=== PATIENT | female | born 1990 | race Caucasian/White ===

== ENCOUNTER 2024-10-12 11:04 | Outpatient (OUT) | payer BC, SELFPAY ==
--- NOTE | 2024-10-12 11:06 | US_ITS ---
[address] [address] Patient Name: CELINA BATISTA MRN: [id number] date: 1990 Sex: F Assigned Patient Location: [facility] Current Patient Location: Accession/Order Number: [id number] Exam Date: 10/12/2024 11:07 Report Date: 10/13/2024 04:43 At the request of: CANDICE CHILDERS Procedure: US pelvis w/ transvaginal EXAMINATION: US pelvis w/ transvaginal HISTORY: MENORRHAGIA COMPARISON: Ultrasound pelvis 10/02/2015 TECHNIQUE: Transabdominal and/or transvaginal sonographic examination was performed as indicated by examination type. FINDINGS: UTERUS: Normal size and appearance. Uterus size: 8.1 x 3.9 x 5.8 cm ENDOMETRIUM: Normal homogeneous appearance. Endometrial thickness: 5 mm RIGHT OVARY: Contains a 1.9 cm simple appearing cyst. Blood flow present within ovary on color Doppler. . Ovary size: 2.9 x 1.8 x 2.6 cm LEFT OVARY: Normal size and appearance. Blood flow present within ovary on color Doppler. . Ovary size: 1.8 x 0.8 x 1.9 cm CUL-DE-SAC: Unremarkable. No significant free fluid. BLADDER: Unremarkable. OTHER: None. US/US pelvis w/ transvaginal IMPRESSION: 1. No abnormal or suspicious findings to account for patient's symptoms. Electronically authenticated by: GUSTABO JONES Date: 10/13/2024 04:43
== END 2024-10-12 11:05 | disposition home or self-care (01) ==
LOC: NOMS 11:05
PROVIDERS: Visit Provider Obstetrics & Gynecology
DX: N92.0 Excessive and frequent menstruation with regular cycle (principal)
CPT/HCPCS: 76830; 76856

== ENCOUNTER 2025-07-14 19:37 | Outpatient (REF) | payer BC, SELFPAY ==
--- OUTSIDE RECORDS SUMMARY | 2025-07-14 19:41 | XMS_ITS | CCD ---
Author Organization [facility] Care Team Providers Care Special Education Tutor Name Role Phone Garfield, Ariana Unavailable Unavailable Garfield, Ariana Unavailable Unavailable Garfield, Ariana Unavailable Unavailable Garfield, Ariana Unavailable Unavailable Garfield, Ariana Unavailable Unavailable Garfield, Ariana Unavailable Unavailable Garfield, Ariana Unavailable Unavailable Garfield, Ariana Unavailable Unavailable Garfield, Ariana Unavailable Unavailable Garfield, Ariana Unavailable Unavailable Garfield, Ariana Unavailable Unavailable Garfield, Ariana Unavailable Unavailable ANTON, ARIANA Unavailable Unavailable NEVAEH SEVILLA Unavailable Unavailable NO PRIMARY CARE, Unavailable Unavailable Maura Mckeon Primary Care Physician Unallocated , [place] Provider Primary Care Provi dinah Unallocated MD, [place] Provider Primary Care Provi dinah Maura Mckeon Attending Unavailab le Maura Mckeon Attending Unavailab le Maura Mckeon Attending Unavailab le Maura Mckeon Referring Unavailab Maura Salazar Admitting Unavailab Maura Salazar Attending Unavailab le Maura Mckeon Attending Unavailab le Maura Mckeon Attending Unavailab le Demetrius Senior Attending Unavailable Demetrius Senior Referring Unavailable DEMARCO REY Admitting Unavailable DEMARCO REY Attending Unavailable Rajeev Jesusita Admitting Unavailable Jesusita Boo Attending Unavailable Vahe Louise Referring Unavailable Gaviota Booanda Admitting Unavailable Jesusita Boo Attending Unavailable Maura Mckeon Referring Unavailab John Godinez Attending Unavailable John Brunner Referring Unavailable Demetrius Senior Attending Unavailable Demetrius Senior Referring Unavailable John Brunner Attending Unavailable Alis Driver Attending Unavailable DEMARCO REY Attending Unavailable Maura Mckeon Attending UnavailHASMUKH Mike Attending Unavailable MASSIEL NÚÑEZ Attending Unavailable HASMUKH CHAVARRIA Attending Unavailable HASMUKH CHAVARRIA Attending Unavailable MASSIEL NÚÑEZ Referring Unavailable HASMUKH CHAVARRIA Attending Unavailable NEVAEH SEVILLA Attending Unavailable CHRISTIAN HAMPTON Attending Unavailable Allergies Allergy Classification Reported Allergen(s) Allergy Type Date of Onset Reaction(s) Facility (20 sources) bacitracin / neomycin / polymyxin b; Translations: [bacitracin/neomyci n/polymyxin B topical] Drug Allergy rash [facility] (20 sources) Contrast media; Translations: [Contrast Dye] Drug allergy unknown [facility] (20 sources) Latex; Translations: [Latex] Drug allergy 3 Eruption (morphologic abnormality) [facility] (15 sources) Contrast media; Translations: [contrast media (gadolinium-based)] Drug allergy Unknown (qualifier value) [facility] (20 sources) Bacitracin / Polymyxin B Drug Allergy 3 Rash [facility] (20 sources) Iodinated Contrast Media Drug Allergy 3 [facility] (20 sources) Prednisone & Diphenhydramine Drug Allergy 3 [facility] Medications Current Medications Medication Drug Class(es) Dates Sig (Normalized) Sig (Original) 0.5 ML semaglutide 0.5 MG/ML Auto-Injector (1 source) Start: 05-12-2024 inject 1 mg by subcutaneous injection every week semaglutide 0.25 mg/0.5 mL (0.25 mg dose) subcutaneous solution mg, SubCutaneous, qWeek, Refills(s) 0 Start Date: 05/12/24 Status: Ordered 0.5 ML semaglutide 0.5 MG/ML Auto-Injector [Wegovy] (3 sources) Start: 12-01-2023 inject 0.25 mg by subcutaneous injection every week Wegovy (0.25 mg dose) subcutaneous solution 0.25 mg, SubCutaneous, qWeek, # 4 EA, Refills(s) 0, Pharmacy: [facility]/pharmacy #[id number], 165, cm, 11/26/23 10:05:00 EST, Height/Length Dosing, 83.3, kg, 11/26/23 10:05:00 EST, Weight Dosing Start Date: 12/01/23 Status: Ordered azithromycin 500 mg oral tablet (2 sources) Macrolide Antimicrobial Start: 05-18-2024 End: 05-23-2024 take 1 tablet by mouth once daily Zithromax 500 mg oral tablet 500 mg = 1 tab(s), Oral, Daily, X 5 day(s), # 5 tab(s), Refills(s) 0, Pharmacy: [facility]/pharmacy #[id number], 165, cm, 05/18/24 10:06:00 EDT, Height/Length Dosing, 76.8, kg, 05/18/24 10:06:00 EDT, Weight Dosing Start Date: 05/18/24 Stop Date: 05/23/24 Status: Ordered 12 hr buPROPion hydrochloride 150 mg extended release oral tablet (1 source) Aminoketone Start: 03-21-2023 take 1 tablet by mouth once daily Wellbutrin SR 150 mg Tab-ER 150 mg = 1 tab(s), Oral, Daily, # 30 tab(s), Refills(s) 1, Pharmacy: [facility]/pharmacy #[id number], 165, cm, 03/21/23 8:31:00 EDT, Height/Length Dosing, 76.5, kg, 03/21/23 8:31:00 EDT, Weight Dosing Start Date: 03/21/23 Status: Ordered cholecalciferol 1.25 mg oral capsule (20 sources) Vitamin D Start: 10-26-2024 take 1 capsule by mouth every week cholecalciferol 50,000 intl units oral capsule 1,250 mcg = 1 cap(s), Oral, qWeek, # 12 cap(s), Refills(s) 3, Pharmacy: [facility]/pharmacy #[id number], 165, cm, 10/26/24 11:59:00 EST, Height/Length Dosing, 79.8, kg, 10/26/24 11:59:00 EST, Weight Dosing Start Date: 10/26/24 Status: Ordered Quantity: 12.0 Unit: cap(s) Repeat number: 4 Indications: Vitamin D deficiency, unspecified; Start: 09-10-2024 take 1 capsule by [facility] every week cholecalciferol 50,000 intl units oral capsule 1,250 mcg = 1 cap(s), Oral, qWeek, # 12 cap(s), Refills(s) 3, Pharmacy: [facility]/pharmacy #[id number], 165, cm, 05/18/24 10:06:00 EDT, Height/Length Dosing, 76.8, kg, 05/18/24 10:06:00 EDT, Weight Dosing Start Date: 09/10/24 Status: Ordered Start: 05-12-2024 cholecalcifero l (Vitamin D-3) 1.25 MG (25186 UT) capsule Take 1,250 mcg by mouth 05/12/2024 Active Start: 05-12-2024 take 1 capsule by [facility] every week cholecalciferol 50,000 intl units oral capsule 1,250 mcg = 1 cap(s), Oral, qWeek, # 12 cap(s), Refills(s) 3, [id number] 165, cm, 05/12/24 8:09:00 EDT, Height/Length Dosing, 76.9, kg, 05/12/24 8:09:00 EDT, Weight Dosing Start Date: 05/12/24 Status: Ordered cyclobenzaprine hydrochloride 10 mg oral tablet (6 sources) Muscle Relaxant Start: 01-25-2025 cyclobenzaprin e 10 mg Tab See Instructions, 1 tab(s) Oral PRN for spasms, # 15 tab(s), Refills(s) 0, Pharmacy: [facility]/pharmacy #[id number], 165, cm, 12/28/24 14:33:00 EST, Height/Length Dosing, 81, kg, 12/28/24 14:33:00 EST, Weight Dosing Start Date: 01/25/25 Status: Ordered Quantity: 15.0 Unit: tab(s) Repeat number: 1 Start: 12-28-2024 take 1 tablet by [facility] three times daily as needed for muscle spasms cyclobenzaprine 10 mg Tab TAKE 1 TABLET BY MOUTH 3 TIMES A DAY FOR 7 DAYS NEEDED FOR SPASM Start Date: 12/28/24 Status: Ordered Start: 11-24-2024 End: 12-01-2024 take 1 tablet by mouth three times daily as needed for muscle spasms cyclobenzaprine 10 mg Tab 10 mg = 1 tab(s), Oral, TID, PRN for spasm, X 7 day(s), # 21 tab(s), Refills(s) 0, Pharmacy: [facility]/pharmacy #[id number], 165, cm, 11/24/24 18:26:00 EST, Height/Length Dosing, 79.2, kg, 11/24/24 18:26:00 EST, Weight Dosing Start Date: 11/24/24 Stop Date: 12/01/24 Status: Ordered 24 hr desvenlafaxine succinate 100 mg extended release oral tablet (20 sources) Serotonin and Norepinephrine Reuptake Inhibitor Start: 03-24-2024 take 1 tablet by mouth once daily desvenlafaxine 100 mg Tab- See Instructions, TAKE 1 TABLET BY MOUTH EVERY DAY, # 90 tab(s), Refills(s) 4, Pharmacy: [facility]/pharmacy #[id number], 165, cm, 11/24/24 18:26:00 EST, Height/Length Dosing, 79.2, kg, 11/24/24 18:26:00 EST, Weight Dosing Start Date: 12/27/24 Status: Ordered Quantity: 90.0 Unit: tab(s) Repeat number: 5 Start: 11-26-2023 take 1 tablet by alireza th once daily Pristiq 50 mg Tab-ER 50 mg = 1 tab(s), Oral, Daily, # 90 tab(s), Refills(s) 1, Pharmacy: [facility]/pharmacy #[id number], 165, cm, 12/24/23 15:32:00 EST, Height/Length Dosing, 80.7, kg, 12/24/23 15:32:00 EST, Weight Dosing Start Date: 12/24/23 Status: Ordered doxycycline hyclate 100 mg oral capsule (2 sources) Tetracycline-class Drug Start: 06-20-2025 End: 06-27-2025 doxycycline (Vibramycin) 100 MG capsule Indications: Dyspareunia, female Take 1 capsule (100 mg) by mouth in the morning and 1 capsule (100 mg) before bedtime. Do all this for 7 days. Take with at least 8 ounces (large glass) of water, do not lie down for 30 minutes after. 14 capsule 06/20/2025 06/27/2025 Active drospirenone 4 mg oral tablet (20 sources) Progestin Start: 07-14-2025 End: 10-12-2025 take 1 tablet by mouth once daily Drospirenone (Slynd) 4 MG tablet Indications: Well woman exam with routine gynecological exam Take 4 mg by mouth Daily 84 tablet 3 07/14/2025 10/12/2025 Active Start: 09-27-2024 take 1 tablet by alireza th once daily Drospirenone (Slynd) 4 MG tablet Indications: Pelvic pain in female Take 4 mg by mouth Daily 28 tablet 11 09/27/2024 Active gabapentin 300 mg oral capsule (2 sources) Anti-epileptic Agent Start: 04-15-2025 gabapenti n 300 mg Cap See Instructions, take per office provided instructions until you are taking 2 tablets three times per day., # 180 tab(s), Refills(s) 0, Pharmacy: [facility]/pharmacy #[id number], 165, cm, 04/15/25 13:51:00 EDT, Height/Length Dosing, 77.2, kg, 03/11/25 9:04:00 EDT, Weight Dosing Start Date: 04/15/25 Status: Ordered Quantity: 180.0 Unit: tab(s) Repeat number: 1 Levonorgestrel (16 sources) Progestin, Progestin-containing Intrauterine Device Start: 11-04-2022 End: 06-20-2025 Levonorgestrel (LILETTA, 52 MG, IU) Placed 11-04-2022 11/04/2022 06/20/2025 Discontinued (Therapy completed) Start: 11-04-2022 Levonorgestrel (LILETTA, 52 MG, IU) Placed 11-04-2022 11/04/2022 Active methylPREDNISolone 4 mg oral tablet (2 sources) Corticosteroid Start: 05-18-2024 End: 05-24-2024 Medrol Dosepack 4 mg Tab = 1 packet(s), Oral, As Directed, as directed on package labeling, X 6 day(s), # 21 tab(s), Refills(s) 0, Pharmacy: [facility]/pharmacy #[id number], 165, cm, 05/18/24 10:06:00 EDT, Height/Length Dosing, 76.8, kg, 05/18/24 10:06:00 EDT, Weight Dosing Start Date: 05/18/24 Stop Date: 05/24/24 Status: Ordered sertraline 100 mg oral tablet (5 sources) Serotonin Reuptake Inhibitor Start: 10-17-2023 take 1 tablet by mouth once daily Zoloft 100 mg Tab 100 mg = 1 tab(s), Oral, Daily, # 30 tab(s), Refills(s) 1, [id number], 165, cm, 10/17/23 15:25:00 EST, Height/Length Dosing, 80.8, kg, 10/17/23 15:25:00 EST, Weight Dosing Start Date: 10/17/23 Status: Ordered Start: 03-21-2023 End: 07-22-2024 take 1 tablet by mouth once daily Zoloft 50 mg Tab 50 mg = 1 tab(s), Oral, Daily, # 90 tab(s), Refills(s) 3, Pharmacy: [facility]/pharmacy #[id number], 165, cm, 03/21/23 8:31:00 EDT, Height/Length Dosing, 76.5, kg, 03/21/23 8:31:00 EDT, Weight Dosing Start Date: 03/21/23 Status: Ordered Slynd (5 sources) Start: 01-31-2025 Slynd Refills( s) 0 Start Date: 01/31/25 Status: Ordered Repeat number: 1 traMADol hydrochloride 50 mg oral tablet (2 sources) Opioid Agonist Start: 12-28-2024 take 1 tablet by mouth every twelve hours as needed for pain traMADOL 50 mg Tab 50 mg = 1 tab(s), Oral, q12hr, PRN for pain, # 20 tab(s), Refills(s) 0, Pharmacy: [facility]/pharmacy #[id number], 165, cm, 12/28/24 14:33:00 EST, Height/Length Dosing, 81, kg, 12/28/24 14:33:00 EST, Weight Dosing Start Date: 12/28/24 Status: Ordered Quantity: 20.0 Unit: tab(s) Repeat number: 1 Zofran ODT 4 mg Tab-Dis (1 source) Start: 02-03-2024 take 1 tablet by mouth every eight hours as needed for nausea Zofran ODT 4 mg Tab-Dis 4 mg = 1 tab(s), Oral, q8hr, PRN Nausea/Vomiting, # 20 tab(s), Refills(s) 0, Pharmacy: [facility]/pharmacy #[id number], 165, cm, 02/03/24 1:44:00 EDT, Height/Length Dosing, 77.6, kg, 02/03/24 1:44:00 EDT, Weight Dosing Start Date: 02/03/24 Status: Ordered Completed/Discontinued Medications Medication Drug Class(es) Dates Sig (Normalized) Sig (Original) Ethinyl Estradiol / Ferrous fumarate / Norethindrone (13 sources) Estrogen Start: 07-08-2025 End: 07-14-2025 take 1 tablet by mouth once daily norethindrone-ethin yl estradiol-iron (Lo Loestrin Fe) 1 MG-10 MCG / 10 MCG tablet Indications: Abnormal uterine bleeding (AUB) , Menorrhagia with regular cycle Take 1 tablet by mouth Daily for 28 days 28 tablet 11 07/08/2025 07/14/2025 Discontinued Start: 07-08-2025 End: 08-05-2025 take 1 tablet by mouth once daily norethindrone-ethinyl estradiol-iron (Lo Loestrin Fe) 1 MG-10 MCG / 10 MCG tablet Indications: Abnormal uterine bleeding (AUB) , Menorrhagia with regular cycle Take 1 tablet by mouth Daily for 28 days 28 tablet 07/08/2025 08/05/2025 Active Start: 06-20-2025 End: 07-18-2025 take 1 tablet by mouth once daily norethindrone-ethinyl estradiol-iron (Lo Loestrin Fe) 1 MG-10 MCG / 10 MCG tablet Indications: Abnormal uterine bleeding (AUB) , Menorrhagia with regular cycle Take 1 tablet by mouth Daily for 28 days 28 tablet 06/20/2025 07/18/2025 Active norethindrone 0.35 mg oral tablet (2 sources) Start: 07-13-2025 End: 07-13-2026 take 1 tablet by mouth once daily norethindrone (Marianna) 0.35 MG tablet Indications: Abnormal uterine bleeding (AUB) , Menorrhagia with regular cycle Take 1 tablet (0.35 mg) by mouth Daily 28 tablet 07/13/2025 07/14/2025 Discontinued predniSONE 10 mg oral tablet (4 sources) Start: 02-21-2025 take 1 tablet by mouth at mealtime predniSONE 10 mg Tab 10 mg = 1 tab(s), Oral, As Directed, 6 tabs for 2 days,5 tabs for 2 days,4 tabs for 2 days,3 tabs for 2 days,2 tabs for 2 days,1 tab for 2 days with food, # 42 tab(s), Refills(s) 0, Pharmacy: [facility]/pharmacy #[id number], 165, cm, 02/21/25 9:30:00 EDT, Height/Length Dosing, 79, kg, 02/21/25 9:30:00 EDT, Weight Dosing Start Date: 02/21/25 Status: Ordered Quantity: 42.0 Unit: tab(s) Repeat number: 1 Start: 12-28-2024 predniSONE 10 mg Tab 10 mg = 1 tab(s), Oral, As Directed, Take 4 tabs for 3 days, 3 tabs for 3 days, 2 tabs for 3 days, 1 tab for 3 days., # 30 tab(s), Refills(s) 0, Pharmacy: [facility]/pharmacy #[id number], 165, cm, 12/28/24 14:33:00 EST, Height/Length Dosing, 81, kg, 12/28/24 14:33:00 EST, Weight Dosing Start Date: 12/28/24 Status: Ordered Quantity: 30.0 Unit: tab(s) Repeat number: 1 Indication: Dorsalgia, unspecified Start: 11-24-2024 End: 11-29-2024 take 2 tablets by mouth once daily predniSONE 20 mg Tab 40 mg = 2 tab(s), Oral, Daily, X 5 day(s), # 10 tab(s), Refills(s) 0, Pharmacy: [facility]/pharmacy #[id number], 165, cm, 11/24/24 18:26:00 EST, Height/Length Dosing, 79.2, kg, 11/24/24 18:26:00 EST, Weight Dosing Start Date: 11/24/24 Stop Date: 11/29/24 Status: Ordered Problems Active Problems Problem Classification Problem Date Documented Da te Episodic/Chronic Abdominal pain (4 sources) Pain in female pelvis; Translations: [Pelvic and perineal pain] 09-27-2024 Episodic Acute bronchitis (1 source) Acute bronchitis; Translations: [Acute bronchitis, unspecified] Onset: 05-18-2024 Episodic Administrative/social admission (4 sources) Counseling procedure with explicit context; Translations: [Dietary counseling and surveillance] Onset: 03-17-2024 Episodic Allergic reactions (11 sources) Generalized skin eruption due to drugs and medicaments taken internally; Translations: [Dermatitis caused by substance taken via oral route] 04-19-2025 Episodic Anxiety disorders (20 sources) Anxiety disorder; Translations: [Anxiety disorder, unspecified] Onset: 03-10-2023 Chronic Complication of device; implant or graft (2 sources) IUD threads lost; Translations: [Displacement of intrauterine contraceptive device, initial encounter] 07-22-2024 Episodic E Codes: Adverse effects of medical drugs (2 sources) Corticosteroids adverse reaction; Translations: [Adverse effect of glucocorticoids and synthetic analogues, subsequent encounter] 07-04-2025 Episodic Menstrual disorders (4 sources) Dysmenorrhea; Translations: [Dysmenorrhea, unspecified] 07-22-2024 Chronic Mood disorders (20 sources) Major depressive disorder; Translations: [Major depressive disorder, single episode, unspecified] Onset: 03-10-2023 Chronic Nausea and vomiting (1 source) Nausea and vomiting; Translations: [Nausea with vomiting, unspecified] Onset: 02-03-2024 Episodic Nutritional deficiencies (14 sources) Vitamin D deficiency; Translations: [Vitamin D deficiency, unspecified] Onset: 05-12-2024 Chronic Other female genital disorders (4 sources) Pain in female genitalia on intercourse; Translations: [Unspecified dyspareunia] 09-27-2024 Chronic Other female genital disorders (2 sources) Abnormal uterine bleeding; Translations: [Abnormal uterine and vaginal bleeding, unspecified] 06-20-2025 Chronic Other gastrointestinal disorders (1 source) Diarrhea; Translations: [Diarrhea, unspecified] Onset: 02-03-2024 Episodic Other nervous system disorders (6 sources) Chronic back pain greater than three months duration 12-27-2024 Chronic Other nutritional; endocrine; and metabolic disorders (9 sources) Obesity; Translations: [Obesity, unspecified] Onset: 03-21-2023 Chronic Other nutritional; endocrine; and metabolic disorders (2 sources) Obese class I; Translations: [Body mass index (BMI) 30.0-30.9, adult] Onset: 11-26-2023 Chronic Other nutritional; endocrine; and metabolic disorders (3 sources) Body mass index 30+ - obesity 11-26-2023 Chronic Other nutritional; endocrine; and metabolic disorders (1 source) Obesity caused by energy imbalance 04-19-2025 Chronic Other nutritional; endocrine; and metabolic disorders (18 sources) Overweight in adulthood with body mass index of 25 or more but less than 30; Translations: [Body mass index (BMI) 28.0-28.9, adult] Onset: 03-21-2023 Episodic Other nutritional; endocrine; and metabolic disorders (18 sources) Overweight; Translations: [Overweight] Onset: 12-24-2023 Episodic Other skin disorders (3 sources) Inflammatory dermatosis 02-21-2025 Episodic Other skin disorders (3 sources) Morbilliform eruption 02-21-2025 Episodic Other upper respiratory disease (2 sources) Chronic rhinitis; Translations: [Chronic rhinitis] 07-04-2025 Chronic Screening and history of mental health and substance abuse codes (1 source) Ex-smoker 10-17-2023 Episodic Spondylosis; intervertebral disc disorders; other back problems (2 sources) Lumbago with sciatica; Translations: [Lumbago with sciatica, left side] Onset: 11-24-2024 Episodic Substance-related disorders (20 sources) Nicotine dependence; Translations: [Nicotine dependence, unspecified, uncomplicated] Onset: 03-10-2023 Chronic Comment on above: Added secondary to d ocumentation in Social History. Unclassified (15 sources) Patient encounter status 03-10-2023 Past or Other Problems Problem Classification Problem Date Documented Da te Episodic/Chronic Unclassified (20 sources) Onset: 06-06-2018 Resolved: 03-11-2019 03-13-2019 Results Test Name Value Interpretation Reference Range Facility US PELVIC COMPLETE W/ TVon 0 07-06-2025 US PELVIC COMPLETE W/ TV FINDINGS: Uterus 7.6 x 3.5 x 5.5 cm Endometrium 5 mm Right Ovary 2.0 x 1.4 x 1.2 cm Left Ovary 3.2 x 2.4 x 2.6 cm The uterus is normal in size and orientation. No worrisome mass lesions are seen. Endometrium appears unremarkable. No adnexal mass or pelvic fluid. Left ovary minimally complex 1.6 x 2.0 cm cyst, no shadowing or increase vascularity. IMPRESSION: 1. Normal uterus. 2. Left ovarian complex benign cyst. TRANSCRIBED BY: ELECTRONICALLY SIGNED BY: Maximus Springer MD Normal Not Available Comment on above: Order Comment: US PE LVIS-TRANSVAG IF INDICATED Patient's last menstrual period was 05/27/2025 (approximate). Ambulatory Visit Summaryon 0 04-19-2025 Ambulatory Visit Summary Ambulatory Visit Summary ARIANA BATISTA :1990 Visit Date:04/19/2025 Ambulatory Visit Instructions Your Diagnosis Generalized anxiety disorder Mild major depression Allergic drug rash Vitamin D deficiency Routine adult health maintenance BMI 30.0-30.9,adult Obesity due to excess calories Smoker Your Care Team Attending Physician - Maura Vigil Primary Care Physician - Maura Vigil This Is Your Medications List cholecalciferol (cholecalciferol 50,000 intl units oral capsule) desvenlafaxine (desvenlafaxine 100 mg Tab-) drospirenone (Slynd) gabapentin (gabapentin 300 mg Cap) [Image Removed: STOP]Stop taking these medications cyclobenzaprine (cyclobenzaprine 10 mg Tab) Procedures Performed Epidural injection of thoracic spine using fluoroscopic guidance (02/15/2025), IUD - intrauterine contraceptive device (10/2022), Kidney, None, Tubes. Discharge Vitals Heart Rate (Peripheral) 84 Blood Pressure 112/68 Height 165 cm Height 65 in Weight 82.1 kg Weight 180.999 lb BMI 30.16 What to do next Scheduled Follow-Up Appointments Friday 8:00 AM EDT With: Jesusita Boo PA-C Where: [facility] Friday 11:00 AM EST With: Maura Vigil Where: [facility] [address], [place] [address]- You Need to Schedule the Following Appointments Follow Up with Maura Vigil When: In 6 months Comments: [facility] Where: [address], [place] [address]- You Need to Complete the Following CBC w/ Auto Diff, Blood, Routine collect, 04/19/25, Order for future visit, Lab Collect, Routine adult health maintenance, Print Label By Order Location Comprehensive Metabolic Panel, Blood, Routine collect, 04/19/25, Order for future visit, Lab Collect, Routine adult health maintenance, Print Label By Order Location Lipid Panel, Blood, Routine collect, 04/19/25, Order for future visit, Lab Collect, Routine adult health maintenance, Print Label By Order Location TSH With T4fr Reflex, Blood, Routine collect, 04/19/25, Order for future visit, Lab Collect, Routine adult health maintenance, Print Label By Order Location Vitamin D 25 Hydroxy, Blood, Routine collect, 04/19/25, Order for future visit, Lab Collect, Vitamin D deficiency, Print Label By Order Location Someone Will Contact You Regarding These Appointments [facility] [place] External Ambulatory Referral, Allergy & Immunology, 04/19/25 10:39:00 EDT, Allergic drug rash Medications What How Much When Why Instructions Unchanged cholecalciferol (cholecalciferol 50,000 intl units oral capsule) 1 Capsules By Mouth Every week Vitamin D deficiency Unchanged desvenlafaxine (desvenlafaxine 100 mg Tab-) See instructions TAKE 1 TABLET BY MOUTH EVERY DAY Unchanged drospirenone (Slynd) Unchanged gabapentin (gabapentin 300 mg Cap) See instructions take per office provided instructions until you are taking 2 tablets three times per day. What How Much When Comments Stop Taking cyclobenzaprine (cyclobenzaprine 10 mg Tab) See instructions 1 tab(s) Oral PRN for spasms Allergies Contrast Dye (unknown) Latex (Rash) Neosporin (Rash, rash) contrast media (gadolinium-based) (Unknown) Problems Ongoing - Any problem that you are currently receiving treatment for. BMI 30.0-30.9,adult Chronic back pain greater than 3 months duration Dermatitis Generalized anxiety disorder Mild major depression Morbilliform rash Obesity due to excess calories Routine adult health maintenance Smoker Vitamin D deficiency Historical - Any problem that you are no longer receiving treatment for. Patient Survey You may receive a survey via text or e-mail asking about your office visit. Please share your experience with us by completing your survey. We appreciate your feedback and thank you for choosing us for your care. Education Materials Health Risks of Smoking Smoking tobacco is very bad for your health. Tobacco smoke contains many toxic chemicals that can damage every part of your body. Secondhand smoke can be harmful to those around you. Tobacco or nicotine use can cause many long-term (chronic) diseases. Smoking is difficult to quit because a chemical in tobacco, called nicotine, causes addiction or dependence. When you smoke and inhale, nicotine is absorbed quickly into your bloodstream through your lungs. Both inhaled and non-inhaled nicotine may be addictive. How can quitting affect me? There are health benefits of quitting smoking. Some benefits happen right away and others take time. Benefits may include: ??? Blood flow, blood pressure, heart rate, and lung capacity may begin to improve. However, any lung damage that has already occurred cannot be repaired. ??? Respiratory symptoms from smoking, such as nasal saroj (more content not included)... Normal [facility] Family Medicine Office/Clini c Noteon 04-19-2025 Family Medicine Office/Clinic Note Family Medicine Office/Clinic Note Chief Complaint Chronic f/u HPI Staff 6 mo f/u Pt is feeling well. She has no concerns today. GAD7 - Prev 3 Today 0 PHQ9 - Prev 4 Today 3 Pap - 9.9.21 Neg/Neg. Sees Dr. Hampton. Last routine labs - History of Present Illness Ariana is a 35 yo female presenting today for 6 mo f/u MDD/PRASANNA, weight Pt has hx of MDD and PRASANNA Current medications: Pristiq 100mg/d Pt is not in therapy at this time. Pt reports being well controlled and tolerating medication well at this time. Pt denies medication side effects (MOONEY, sexual dysfunction, increased weight, nausea, drowsiness). Pt denies increased fatigue/sleepiness, SI/HI, feelings of worthlessness, appetite changes, anhedonia, depressed mood, racing thoughts, insomnia, agitation, increased worrying, rapid heart rate, SOB at this time. overweight - Adipex not recommended d/t PRASANNA. GLP1 RA's not covered by pt's [facility]. but pt is willing to consider paying out of pocket for GLP1 at [facility] pharmacy. Pt is following with PM - supposed to have bilateral L5-S1 transforaminal epidural steroid injection to be done under fluoroscopy for both diagnostic and therapeutic purposes. Pt is using gabapentin 300mg cap [address] Senior until allergy testing completed. Review of Systems PHQ Score Initial Depression Screen Score: 0 SCORE Physical Exam Vitals & Measurements HR: 84(Peripheral) BP: 112/68 SpO2: 98% HT: 65 in HT: 165 cm WT: 82.1 kg WT: 180.999 lb BMI: 30.16 General: Well developed, well nourished, in no acute distress Eyes: Bilateral PERRLA, conjunctivae and sclerae wnl, EOMs intact, lids without stye, chalazion, ect/extropion, ptosis, xanthelasma, blepharitis. No discharge to inner canthi.Negative for corneal abrasion or foreign bodies. Ears: grossly normal hearing Nose: No deformity, discharge, inflammation, or lesions. No congestion, no erythema; pink & moist turbinates; clear rhinorrhea. Mouth: mucous membranes pink, moist and intact. [place] posterior oropharynx, no palatal inflammation, uvula midline, no cobble-stoning, no enlarged tonsils, no tonsillar exudate, no ulcers, no active post nasal drip. tongue midline and wnl. Good dentition. Neck: Neck supple. No lymphadenopathy. Trachea midline. No thyroid, masses, tenderness, or enlargement noted. No bruit. Lungs: Normal respiratory effort and clear to auscultation Cardio: Regular rate and rhythm, normal S1 and S2, no murmur, no rub Abdomen: not assessed Musculoskeletal: No deformity or scoliosis noted. No vertebral tenderness. Normal range of motion. No vertebral point tenderness. Joints normal. No erythema, edema, effusion, crepitus, or ecchymosis. Straight leg raise negative Extremity: No clubbing, cyanosis, edema, or deformity. Normal ROM with upper and lower extremities, bilaterally. Neurologic: Cranial nerves II-XII grossly intact. motor strength equal & normal bilaterally, sensation equal & normal bilaterally. Gait normal. Skin: No rashes, ulcerations, or suspicious lesions Mental Status: Alert and oriented x3. Normal mood and affect Assessment/Plan 1. Generalized anxiety disorder (F41.1: Generalized anxiety disorder) PRASANNA score: 0 (previously 3) continue Pristiq at 100mg/d Discussed red flags/when to seek emergency care and mental health support hotlines. Pt verbalized understanding of resources and when to seek emergency care and denies SI/HI at this time. Pt declines therapy at this time. f/u 6 mo and PRN 2. Mild major depression (F32.0: Major depressive disorder, single episode, mild) PHQ-9 score: 3 (prev 4) continue pristiq 100mg/d Discussed red flags/when to seek emergency care and suicide support hotlines. Pt verbalized understanding of resources and when to seek emergency care and denies SI/HI at this time. Pt declines therapy at this time. F/U 6 months and PRN 3. Allergic drug rash (L27.0: Generalized skin eruption due to drugs and medicaments taken internally) possibly allergy to injection from PM? Pt recommended to have allergy testing prior to next injection referral submitted Ordered: [facility] [place] External Ambulatory Referral 4. Vitamin D deficiency (E55.9: Vitamin D deficiency, unspecified) recheck Vit D level Ordered: Vitamin D 25 Hydroxy 5. Routine adult health maintenance (Z00.00: Encounter for general adult medical examination without abnormal findings) counseled pt on diet/exercise and staying UTD on routine screenings and vaccines - pt verbalized understanding complete routine labs - ordered repeat annual skin cancer screening repeat vision exam every 2 years maintain regular dental appts Ordered: CBC w/ Auto Diff Comprehensive Metabolic Panel Lipid Panel TSH With T4fr Reflex 6. BMI 30.0-30.9,adult (Z68.30: Body mass index [BMI] 30.0-30.9, adult) The standard range for ages 18 and older is >=18.5 and < 25 kg/m2. Your BMI today was above this range, this falls in the overweight to obese category and t (more content not included)... Normal [facility] Comment on above: Result Comment: Elec tronically Signed By: Mike WILLIS, Maura Mendoza\.br\Date and Time Signed: 04/19/25 11:01 EDT Main OR Preoperative Recordo n 04-15-2025 Main OR Preoperative Record Main OR Preoperative Record Holding Area Document Type FT Summary Primary Physician: Demetrius Senior DO Finalized Date/Time: 04/15/25 13:57:48 Pt. Name: ARIANA BATISTA/Sex: 1990 Female Med Rec #: [id number] Physician: Demetrius Senior DO Financial #: [id number] Pt. Type: P Room/Bed: / Admit/Disch: 04/15/25 13:42:04 - Institution: Case Times Holding FTPM Pre-Care Text: Verifies consent for planned procedure, identifies individual values and wishes concerning care, includes family members in perioperative teaching Secures patient's records' belongings, and valuables, maintains patient's dignity and privacy, and maintains patient confidentiality Entry 1 In Holding 04/15/25 13:56:00 Outcomes Met? Yes Last Modified By: Patricia Valente RN 04/15/25 13:56:35 Post-Care Text: The patient participates in decisions affecting his or her perioperative plan of care The patient's right to privacy is maintained Surgery Checklist FTPM Entry 1 Patient Birthday, ID Band Procedure History and Physical, Identification: Check, Patient Verification: Surgical Consent, With Participation Patient NPO after Midnight: No Date/Time: 04/15/25 13:56:00 Results Reviewed 1200-rice Personal Items: Jewelry Comments: Personal Items 2 rings Complaints of Pain: Yes Comment: Pain Comment: 04/05 Operative Site Yes Marking: Marked By: Dr Senior Location: back, hips and outer thighs Availability Equipment, X-Ray Verified: Does Patient Smoke Yes If Yes to Smoking. 1/2 ppd Cigars or Cigarettes. How much per day? Patient states Yes Comment - Adult - Juaquin postop adult Supervision supervision available Case Cancelled in No Holding Area see comments below for reason Last Modified By: Patricia Valente RN 04/15/25 13:57:45 Finalized By: Patricia Valente RN Document Signatures Signed By: Patricia Valente RN 04/15/25 13:57 Normal [facility] Ambulatory Visit Summaryon 0 02-21-2025 Ambulatory Visit Summary Ambulatory Visit Summary ARIANA BATISTA :1990 Visit Date:02/21/2025 Ambulatory Visit Instructions Your Diagnosis Morbilliform rash Dermatitis Your Care Team Attending Physician - Villa WILLIS, Alis Payne Primary Care Physician - Mike WILLIS, Maura Mendoza This Is Your Medications List cholecalciferol (cholecalciferol 50,000 intl units oral capsule) cyclobenzaprine (cyclobenzaprine 10 mg Tab) desvenlafaxine (desvenlafaxine 100 mg Tab-) drospirenone (Slynd) hydrOXYzine (hydrOXYzine hydrochloride 25 mg Tab) predniSONE (predniSONE 10 mg Tab) Procedures Performed IUD - intrauterine contraceptive device (10/2022), Kidney, None, Tubes. Discharge Vitals Temperature (Oral) 36.4 ???C Heart Rate (Peripheral) 110 Blood Pressure 118/72 Height 165 cm Height 65 in Weight 79 kg Weight 174.165 lb BMI 29.02 What to do next Scheduled Follow-Up Appointments Friday 8:45 AM EDT With: Jesusita Boo PA-C Where: [facility] Friday 10:20 AM EDT With: Maura Vigil Where: [facility] [address] [place] [address], [place], [place] [id number]- You Need to Schedule the Following Appointments Follow Up with Maura Vigil When: Where: Medications What How Much When Why Instructions New hydrOXYzine (hydrOXYzine hydrochloride 25 mg Tab) 1 Tablets By Mouth 4 times a day as needed for for itching Duration: 10 Days Pickup at [facility]/pharmacy #[id number] New predniSONE (predniSONE 10 mg Tab) 1 Tablets By Mouth As Directed 6 tabs for 2 days,5 tabs for 2 days,4 tabs for 2 days,3 tabs for 2 days,2 tabs for 2 days,1 tab for 2 days with food Pickup at [facility]/pharmacy #[id number] Unchanged cholecalciferol (cholecalciferol 50,000 intl units oral capsule) 1 Capsules By Mouth Every week Vitamin D deficiency Unchanged cyclobenzaprine (cyclobenzaprine 10 mg Tab) See instructions 1 tab(s) Oral PRN for spasms Unchanged desvenlafaxine (desvenlafaxine 100 mg Tab-) See instructions TAKE 1 TABLET BY MOUTH EVERY DAY Unchanged drospirenone (Slynd) Pharmacy Information [facility]/pharmacy #[id number]: [address] [place], [place] [id number] [phone] Allergies Contrast Dye (unknown) Latex (Rash) Neosporin (Rash, rash) contrast media (gadolinium-based) (Unknown) Problems Ongoing - Any problem that you are currently receiving treatment for. BMI 29.0-29.9,adult Chronic back pain greater than 3 months duration Dermatitis Generalized anxiety disorder Mild major depression Morbilliform rash Over weight Smoker Vitamin D deficiency Weight loss counseling, encounter for Historical - Any problem that you are no longer receiving treatment for. Patient Survey You may receive a survey via text or e-mail asking about your office visit. Please share your experience with us by completing your survey. We appreciate your feedback and thank you for choosing us for your care. Education Materials Rash, Adult A rash is a breakout of spots or blotches on the skin. It can affect the way the skin looks and feels. Many things can cause a rash. Common causes include: ??? Viral infections. These include colds, measles, and hand, foot, and mouth disease. ??? Bacterial infections. These include scarlet fever and impetigo. ??? Fungal infections. These include athlete's foot, ringworm, and yeast rashes. ??? Skin irritation. This may be from heat rash, exposure to moisture or friction for a long time (intertrigo), or exposure to soap or skin care products (eczema). ??? Allergic reactions. These may be caused by foods, medicines, or things like poison ton. Some rashes may go away after a few days. Others may last for a few weeks. The goal of treatment is to stop the itching and keep the rash from spreading. Follow these instructions at home: Medicine Take or apply [id number] and prescription medicines only as told by your health care provider. These may include: ??? Corticosteroids. These can help treat red or swollen skin. They may be given as creams or as medicines to take by mouth (orally). ??? Anti-itch lotions. ??? Allergy medicines. ??? Pain medicine. ??? Antifungal medicine if the rash is from a fungal infection. ??? Antibiotics if you have an infection. Skin care ??? Apply cool, wet cloths (compresses) to the affected areas. ??? Do not scratch or rub your skin. ??? Avoid covering the rash. Keep it exposed to air as often as you can. Managing itching and discomfort ??? Avoid hot showers and baths. These can make itching worse. A cold shower may help. ??? Try taking a bath with: ? Epsom salts. You can get these at your local pharmacy or grocery store. Follow the instructions on the package. ? Baking soda. Pour a small amount into the bath as told by your provider. ? Col (more content not included)... Normal [facility] Family Medicine Office/Clini c Noteon 02-21-2025 Family Medicine Office/Clinic Note Family Medicine Office/Clinic Note Chief Complaint rash HPI Staff 34 year old female complaints of a rash on both arms, legs, hands, feet. itching, painful, feet and hands are swelling Onset: began Friday evening OTC tried: Dominique, Benadryl, calamine lotion History of Present Illness 34-year-old female past medical history significant for depression and anxiety and chronic back pain presents with a rash started on Friday , denies any chest pain shortness of breath lip swelling trouble breathing. No new exposure to known allergens. the only new change is the prestique is townsend capsule instead of red. - the change occurred fri / friday injections in back last week. EPIDURAL- Friday- 40 mg methylprednisolone patient gets a rash from latex- dye contrast as child- unknown She has been using some topical calamine lotion and some Benadryl Review of Systems PHQ Score Initial Depression Screen Score: 0 SCORE Physical Exam Vitals & Measurements T: 36.4 ???C(Oral) HR: 110(Peripheral) BP: 118/72 SpO2: 100% HT: 65 in HT: 165 cm WT: 79 kg WT: 174.165 lb BMI: 29.02 General: alert, no acute distress, well appearing, _pleasant, younger female in room 3 Skin: warm, dry, intact, fine macular slightly papular erythematous confluent erythematous morbilliform type rash noted upper extremities greater on the antecubital area bilateral upper arms, mild rash noted to the lower extremities ankles and calfs area, no lesions to the palmar surfaces of the hands or feet, no oral lesions, no pustular or fluid-filled vesicles are noted Head: no trauma, normocephalic Neck: Trachea midline, no adenopathy, no tenderness Eye: normal conjunctiva, sclera clear, _PERRLA ENMT: oral mucosa moist, no pharyngeal erythema or exudate, normal dentition, uvula midline, lips with no edema, no buccal edema Cardiovascular: regular rate and rhythm, normal peripheral perfusion, no edema Respiratory: Lungs CTA, respirations non labored Back: No tenderness, Normal ROM, Normal alignment. Extremities: no deformity, no trauma Neurological: oriented x 4, LOC appropriate for age, CN II-XII intact, motor strength equal & normal bilaterally, sensation equal & normal bilaterally, speech normal Psychiatric: cooperative? , affect appropriate for age? , normal? judgement, normal? psychiatric thoughts. Assessment/Plan Patient with an atypical rash unsure of the cause but suspecting drug rash due to type of and pattern of this erythema. There is no evidence of cellulitis and no known exposure to bug bites or insects. Advised patient to call her pharmacy and discussed the new for the Pristiq. She was also encouraged to follow-up with pain management regarding possible reaction to the injection. Patient with no evidence of anaphylaxis. Will start the patient on a prednisone taper total of 40 to 10 mg, also advised her to take a daily antihistamine like Zyrtec and Atarax will be utilized as needed for itching 25 mg sent to the pharmacy. Advised patient to avoid any new soaps creams lotions or powders and any new allergens. 1. Morbilliform rash (R21: Rash and other nonspecific skin eruption) 2. Dermatitis (L30.9: Dermatitis, unspecified) Orders: hydrOXYzine, 25 mg = 1 tab(s), Oral, QID, PRN for itching, X 10 day(s), # 40 tab(s), Refills(s) 0, Pharmacy: [facility]/pharmacy #[id number], 165, cm, 02/21/25 9:30:00 EDT, Height/Length Dosing, 79, kg, 02/21/25 9:30:00 EDT, Weight Dosing predniSONE, 10 mg = 1 tab(s), Oral, As Directed, 6 tabs for 2 days,5 tabs for 2 days,4 tabs for 2 days,3 tabs for 2 days,2 tabs for 2 days,1 tab for 2 days with food, # 42 tab(s), Refills(s) 0, Pharmacy: [facility]/pharmacy #[id number], 165, cm, 02/21/25 9:30:00 EDT, Height/... Total time spent preparing the chart, conducting of the encounter with the patient and family and time spent documenting, reviewing, and ordering tests was 25 minutes. Portions of this record may have been created with voice recognition artificial intelligence software, specifically [employer], [employer] and or [employer]. Substitutions may have occurred due to the inherent limitations of voice recognition and artificial intelligence software. Follow-up With When Contact Information Mike WILLIS, Maura Mendoza Additional Instructions: Patient Education Rash, Adult Contact Dermatitis Drug Rash Problem List/Past Medical History Ongoing BMI 29.0-29.9,adult Chronic back pain greater than 3 months duration Dermatitis Generalized anxiety disorder Mild major depression Morbilliform rash Over weight Smoker Vitamin D deficiency Weight loss counseling, encounter for Historical Procedure/Surgical History IUD - intrauterine contraceptive device (10/2022), Kidney, None, Tubes. Medications cholecalciferol 50,000 intl units oral capsule, 1250 mcg= 1 cap(s), Oral, qWeek, 3 refills cyclobenzaprine 10 mg Tab, See Instructions desvenlafaxine 100 mg Tab-, See Instructions, 4 refills (more content not included)... Normal [facility] Comment on above: Result Comment: Elec tronically Signed By: Villa WILLIS, Alis Payne\.br\Date and Time Signed: 02/21/25 09:59 EDT Main OR Intraoperative Recor don 02-15-2025 Main OR Intraoperative Record Main OR Intraoperative Record IntraOp Document Type FTPM Summary Primary Physician: Demetrius Senior DO Finalized Date/Time: 02/15/25 08:55:25 Pt. Name: ARIANA BATISTA/Sex: 1990 Female Med Rec #: [id number] Physician: Demetrius Senior DO Financial #: [id number] Pt. Type: P Room/Bed: / Admit/Disch: 02/15/25 07:29:18 - Institution: Case Times FTPM Entry 1 Patient Times In Room 02/15/25 08:48:00 Out Room 02/15/25 08:55:00 Procedure Times Start 02/15/25 08:51:00 Stop 02/15/25 08:54:00 Anesthesia Times Last Modified By: Patricia Valente RN 02/15/25 08:54:16 Case Attendance FTPM Entry 1 Entry 2 Entry 3 Case Attendee Demetrius Senior DO, RN, Patricia Chambers RN, Radames Gardiner Role Performed Surgeon - Primary Supercharger Mechanic - Primary Scrub - Primary Time In 02/15/25 08:48:00 02/15/25 08:48:00 02/15/25 08:48:00 Time Out 02/15/25 08:55:00 02/15/25 08:55:00 02/15/25 08:55:00 Procedure LUMBAR EPIDURAL STEROID LUMBAR EPIDURAL STEROID LUMBAR EPIDURAL STEROID INJECTION(.) INJECTION(.) INJECTION(.) Comments Last Modified By: Ambrosio SOTELO, Patricia Valente RN, Patricia Almanza RN 02/15/25 08:54:16 02/15/25 08:54:16 02/15/25 08:54:16 Entry 4 Case Attendee Efe Nation Role Performed Ethanol Operations Manager Time In 02/15/25 08:48:00 Time Out 02/15/25 08:55:00 Procedure LUMBAR EPIDURAL STEROID INJECTION(.) Comments Last Modified By: Patricia Valente RN 02/15/25 08:54:16 Perioperative Protocols FTPM Pre-Care Text: Implements protective measures prior to operative or invasive procedure, confirms identity before the operative or invasive procedure, verifies operative procedure, surgical site, and laterality Entry 1 Procedure(s) LUMBAR EPIDURAL STEROID Patient Identity Birthday, ID Band INJECTION(.) Verified (select at Check, Patient least 2): Participation Consents / H and P H&P, Surgery/Procedure Operative Site Present Verified Consent Marking Verified Surgical Site Yes Laterality Verified Yes Verified Procedure Verified Yes Correct Patient Yes Position Verified Availability Equipment, Medication, Prep Dry Yes Verified (If X-ray Applicable) PreOp Antibiotic No Time Out Patricia Valente RN, Harvey RN, Radames Gardiner, Demetrius Senior DO, Hargrove, Bryce Time Out Complete 02/15/25 08:50:00 Outcomes Met? Yes Last Modified By: Patricia Valente RN 02/15/25 08:50:13 Post-Care Text: The patient is free from signs and symptoms of injury caused by extraneous objects Allergy Information FTPM Pre-Care Text: Verifies allergies Entry 1 Allergies Reviewed? Yes Allergies Reviewed Self/Patient With Outcomes Met? Yes Last Modified By: Patricia Valente RN 02/15/25 08:49:57 Post-Care Text: The patient received appropriate medication(s) safely administered during the perioperative period Surgical Procedures FTPM Entry 1 Procedure Description Procedure LUMBAR EPIDURAL STEROID Modifiers . INJECTION Surgeon Description L5-S1 SPENCER Primary Procedure Yes Primary Surgeon Demetrius Senior DO Start 02/15/25 08:51:00 Stop 02/15/25 08:54:00 Anesthesia Type None Surgical Service Pain Management Wound Class 1 - Clean Last Modified By: Patricia Valente RN 02/15/25 08:54:18 General Case Data FTPM Pre-Care Text: Classifies surgical wound, implements aseptic technique, initiates traffic control Entry 1 Case Information OR Pain Proc Room Case Level Level 2 Wound Class 1 - Clean Specialty Pain Management Preop Diagnosis M54.16 Postop Same As Preop Yes Postop Diagnosis M54.16 Outcomes Met? Yes Last Modified By: Patricia Valente RN 02/15/25 08:50:22 Post-Care Text: The patient is free from signs and symptoms of infection Skin Assessment (Pre Procedure) FTPM Pre-Care Text: Implements protective measures to prevent skin/ tissue injury due to thermal or mechanical sources Evaluates for signs and symptoms of physical injury to skin and tissue Entry 1 Skin Integrity Intact, [place], Warm, & Skin Abnormality No Dry Outcomes Met? Yes Last Modified By: Patricia Valente RN 02/15/25 08:50:51 Post-Care Text: The patient is free from signs and symptoms of injury caused by extraneous objects Patient Positioning FTPM Pre-Care Text: Identifies physical alterations that require additional precautions for procedure-specific positioning, verifies presence of prosthetics or corrective devices, positions the patient, evaluates the patient for signs and symptoms of injury as a result of positioning Entry 1 Procedure LUMBAR EPIDURAL STEROID Body Position Prone INJECTION(.) Feet Uncrossed? Yes Left Arm Position Resting at Side Right Arm Position Resting at Side Left Leg Position Extended Right Leg Position Extended Positioning Device Pillow Under Head Large, Safety Strap, Pillow Large Under Knees Press Points Checked Yes By P (more content not included)... Normal [facility] Main OR Preoperative Recordo n 02-15-2025 Main OR Preoperative Record Main OR Preoperative Record Holding Area Document Type FTPM Summary Primary Physician: Demetrius Senior DO Finalized Date/Time: 02/15/25 07:40:47 Pt. Name: ARIANA BATISTA Yaneth Ramon./Sex: 1990 Female Med Rec #: [id number] Physician: Demetrius Senior DO Financial #: [id number] Pt. Type: P Room/Bed: / Admit/Disch: 02/15/25 07:29:18 - Institution: Case Times Holding FTPM Pre-Care Text: Verifies consent for planned procedure, identifies individual values and wishes concerning care, includes family members in perioperative teaching Secures patient's records' belongings, and valuables, maintains patient's dignity and privacy, and maintains patient confidentiality Entry 1 In Holding 02/15/25 07:37:00 Outcomes Met? Yes Last Modified By: Tali Virgen RN 02/15/25 07:37:10 Post-Care Text: The patient participates in decisions affecting his or her perioperative plan of care The patient's right to privacy is maintained Surgery Checklist FTPM Entry 1 Patient Birthday, ID Band Procedure History and Physical, Identification: Check, Patient Verification: Surgical Consent, With Participation Patient NPO after Midnight: Yes Date/Time: 02/15/25 07:00:00 Personal Items: Jewelry Personal Items 3 rings Comment: Limitations: 910 Low back Complaints of Pain: Yes Pain Comment: low back Operative Site Yes Marking: Marked By: Location: L5/S1 Availability Equipment, X-Ray Verified: Does Patient Smoke Yes If Yes to Smoking. 1/2 ppd Cigars or Cigarettes. How much per day? Patient states Yes Comment - Adult -juaquin postop adult Supervision supervision available Case Cancelled in No Holding Area see comments below for reason Last Modified By: Tali Virgen RN 02/15/25 07:40:43 General Comments: rice haileye treat Finalized By: Tali Virgen RN Document Signatures Signed By: Tali Virgen RN 02/15/25 07:40 [facility] Provider Letteron 02-11-2025 Provider Letter Provider Letter February 11, 2025 [address] [place] [id number] : 1990 To Whom It May Concern, Please excuse the patient above from Jury Duty. They have a surgical procedure this upcoming week and would be advised that she be considered for excuse for jury duty. Respectfully, Fabiano Villafuerte, MSN, SMOKE INSPECTOR-C [address] [facility], [place] [address] Normal [facility] MRI Spine Lumbar w/o Contras ton 12-31-2024 MRI Spine Lumbar w/o Contrast Exam Date/Time: 12/30/2024 18:48 EST Reason for Exam: M54.9;Pain Report IMPRESSION: Mild degenerative changes lumbar spine without significant canal or foraminal narrowing. HISTORY: Lower back pain. TECHNIQUE: Routine lumbosacral spine MR protocol without gadolinium. Unless otherwise stated, incidental findings in this report do not require further routine follow-up imaging. COMPARISON: None. RESULT: Counting reference: Lumbosacral junction. For the purposes of this report, L5-S1 is considered the last well-formed disc space. Alignment: Essentially anatomic with minimal leftward curvature. Bone marrow signal/fracture: No evidence for acute fracture. No evidence for pathologic marrow infiltration. Hemangioma at S2. Conus: The conus is within normal limits of signal intensity and morphology. Paraspinal soft tissues: Paraspinal soft tissues are unremarkable. Lower thoracic spine: Visualized lower thoracic canal and foramina are without significant narrowing. T12-L1: No significant canal or foraminal narrowing. L1-L2: No significant canal or foraminal narrowing. L2-L3: No significant canal or foraminal narrowing. L3-L4: No significant canal or foraminal narrowing. L4-L5: Small amount of endplate degenerative signal. Disc desiccation. Disc bulge. Facet degenerative changes. No significant canal or foraminal narrowing. L5-S1: Annular fissure. Disc bulge with tiny central zone protrusion. Facet degenerative changes. No significant canal or foraminal narrowing. Sacrum and iliac wings: The visualized sacrum and iliac wings are within unremarkable. The presacral soft tissues are grossly unremarkable. Report Ordering Provider: Maura Mckeon FINAL REPORT Dictated: 12/31/2024 1:53 pm Romel SMITH, Mike Huizar Signed (Electronic Signature): 12/31/2024 1:53 pm Signed by: Mike Urena MD Transcribed by: CAROLINE Technologist: UNIQUE [facility] Nonvisit Note - PTon 025 Nonvisit Note - PT Nonvisit Note - PT Appointment cancelled as pt scheduled for a MRI this evening. [facility] Family Medicine Office/Clini c Noteon 12-28-2024 Family Medicine Office/Clinic Note Family Medicine Office/Clinic Note Chief Complaint pt here for back pain, onset few months. sneezed back in August and has had pain since. pain is in lower back and pain randomly goes down both legs. saw CC for this issues last month History of Present Illness Ariana is a 34 yo female presenting today for back pain She went to on 11/27/2023 and reported that she sneezed and threw her back out around Thanksgiving but over the last month she hurt it again and the pain is getting worse. 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 Location: lower back, radiates into bilateral hip/buttock and lower legs into calves Reports numbness, burning, tingling in legs Pt denies saddle anesthesia, urine/bowel changes or hx of spine issues or kidney stones. Denies flank pain, UTI sx, fever, chills or weakness at this time. Hx of pole vaulting in high school and is active in volleyball still now. CC dx pt with lumbar radiculopathy and referred to PT and Rx Flexeril Pt reports this wasn't super helpful but did help her sleep more at night, once Rx was gone, pain was back Today pt reports despite doing PT x 1 mo, she continues to have worsening pain. Pt reports at first PT helped but then she had URI and was coughing very hard, which worsened pain. Review of Systems PHQ Score Initial Depression Screen Score: 0 SCORE Physical Exam Vitals & Measurements T: 36.7 ???C(Oral) HR: 92(Peripheral) BP: 132/70 SpO2: 100% HT: 65 in HT: 165 cm WT: 81.0 kg WT: 178.574 lb BMI: 29.75 General: Well developed, well nourished, in no acute distress Eyes: Bilateral PERRLA, conjunctivae and sclerae wnl, EOMs intact, lids without stye, chalazion, ect/extropion, ptosis, xanthelasma, blepharitis. No discharge to inner canthi.Negative for corneal abrasion or foreign bodies. Ears: grossly normal hearing Nose: No deformity, discharge, inflammation, or lesions. No congestion, no erythema; pink & moist turbinates; clear rhinorrhea. Mouth: mucous membranes pink, moist and intact. [place] posterior oropharynx, no palatal inflammation, uvula midline, no cobble-stoning, no enlarged tonsils, no tonsillar exudate, no ulcers, no active post nasal drip. tongue midline and wnl. Good dentition. Neck: Neck supple. No lymphadenopathy. Trachea midline. No thyroid, masses, tenderness, or enlargement noted. No bruit. Lungs: Normal respiratory effort and clear to auscultation Cardio: Regular rate and rhythm, normal S1 and S2, no murmur, no rub Abdomen: not assessed Musculoskeletal: No deformity or scoliosis noted. No vertebral tenderness. Normal range of motion. No vertebral point tenderness. Joints normal. No erythema, edema, effusion, crepitus, or ecchymosis. Straight leg raise negative Extremity: No clubbing, cyanosis, edema, or deformity. Normal ROM with upper and lower extremities, bilaterally. Neurologic: Cranial nerves II-XII grossly intact. motor strength equal & normal bilaterally, sensation equal & normal bilaterally. Gait normal. Skin: No rashes, ulcerations, or suspicious lesions Mental Status: Alert and oriented x3. Normal mood and affect Assessment/Plan 1. Chronic back pain greater than 3 months duration (M54.9: Dorsalgia, unspecified) MRI ordered d/t duration of pain and status of worsening over time despite muscle relaxer, PT x 1 mo, NSAIDs, tylenol, ice/heat therapy use full course of prednisone taper as prescribed and tramadol 50mg BID PRN for pain Follow RICE protocols use heat and/or cold therapy PRN use topical voltaren gel OTC referral submitted to Dr. Louise for jeronimoal Discussed red flags/when to report to ED - pt verbalized understanding Ordered: predniSONE, 10 mg = 1 tab(s), Oral, As Directed, Take 4 tabs for 3 days, 3 tabs for 3 days, 2 tabs for 3 days, 1 tab for 3 days., # 30 tab(s), Refills(s) 0, Pharmacy: [id number], 165, cm, 12/28/24 14:33:00 EST, Height/Length Dosing, 81, kg, 12/28/24 14:33... [facility] [place] External Ambulatory Referral MRI Spine Lumbar w/o Contrast 2. BMI 29.0-29.9,adult (Z68.29: Body mass index [BMI] 29.0-29.9, adult) The standard range for ages 18 and older is >=18.5 and < 25 kg/m2. Your BMI today was above this range, this falls in the overweight to obese category and there are medical benefits to weight loss. We can offer counselling, referral, and/or medical support in addressing this problem. Your BMI and weight management will be followed at subsequent visits. 3. Over weight (E66.3: Overweight) Reviewed importance of making a lifestyle change regarding dietary choices. Start WW, G-BOMBS or MIND (Mediterranean-DASH intervention for neurodegenerative diet) diet and focus on portion control and only eating when truly hungry and stopping when 2/3 satiety. monitor cooking habits/avoid fast food and fried/fatty foods/seed oils. Encouraged routine cardio exercise with Goal: 3-5x/week for 30-45 minutes. Start out slow and increase to achieve your goals. Will mo (more content not included)... [facility] Comment on above: Result Comment: Elec tronically Signed By: Mike WILLIS, Maura Mendoza\.br\Date and Time Signed: 12/28/24 15:01 EST Nonvisit Note - PTon 025 Nonvisit Note - PT Nonvisit Note - PT Pt called to cancel due to illness. [facility] Family Medicine Office/Clini c Noteon 11-27-2024 Family Medicine Office/Clinic Note Family Medicine Office/Clinic Note Chief Complaint back/hip pain HPI Staff 34 year old female presents for lower back pain, pt states that she feels most of her pain in her hips and legs now. Onset- Pt states that she has been experiencing back pain on and off since August after she threw her back out sneezing. History of Present Illness I have reviewed and verified the staff HPI to be accurate for this encounter. Portions of this record have been created with voice recognition software. Occasional wrong-word or ???[id number]??? substitutions may have occurred due to the inherent limitations of voice recognition software. 34 yo female with history of anxiety, depression, smoker presents today with cc of back pain. Patient states that she initially hurt her back sometime in August. States that she simply sneezed and felt like she threw her back out. Patient states that was probably around Thanksgiving time states she felt like she could not use the and she had improvement with states then with the busyness of the holidays, she believes she may have hurt it again. States that this has seemed to worsen in the last couple of weeks she thinks 2 to 3 weeks duration states pain is worse when sitting better if standing or walking. 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 It worse when driving in a seated position and lifting the leg to press the pedals. She denies any weakness numbness or tingling of the lower extremities. Denies any history of dislodging or herniated disks. While she denies any saddle anesthesia urinary or bowel incontinence or retention. Denies any dysuria hematuria urinary urgency or frequency. Denies flank pain or history of kidney stones. Denies any concern for urinary tract infection at this time. Denies any fever chills or weakness. She has no other concerns at this time. Review of Systems ROS negative unless otherwise stated in HPI. Physical Exam Vitals & Measurements T: 36.7 ???C(Temporal Artery) HR: 88(Peripheral) RR: 18 BP: 110/84 SpO2: 99% HT: 65 in HT: 165 cm WT: 79.2 kg WT: 174.606 lb BMI: 29.09 General: Pleasant obese female, no acute distress standing in the exam room states difficult to sit. Eyes: not assessed Ears: not assessed Nose: not addressed Mouth: not assessed Neck: not assessed Lungs: Lung sounds are clear bilaterally. No wheezing rhonchi or crackles on exam Cardio: S1, S2, regular rhythm. No murmurs gallops or rubs. Abdomen: not assessed Musculoskeletal: Normal alignment of the spinal column. No step-offs or deformities. No localized thoracic or lumbar spine tenderness no paraspinal tenderness. Patient has discomfort palpation over bilateral SI joint regions which she states radiates into bilateral hip buttock and around to bilateral anterior thigh region states it ends about the knees when she gets a sharp shooting pain. Extremity: Patient walked back and convening care on her own without gait abnormality. No focal deficits. Neurologic: not assessed Skin: No rashes, ulcerations, or suspicious lesions Mental Status: Alert and oriented x3. Normal mood and affect Assessment/Plan I spoke with patient in regards to her concerns in regards to low back pain. I discussed in regards to low back pain in regards to lumbar radiculopathy versus sciatica. I discussed that if her symptoms have started back at the end of August she has near surpassed the 6-week sujey in regards to back pain and discomfort she would need very close follow-up with primary care provider if they would like to order her outpatient imaging studies. There is no blunt trauma falls or injuries which do not believe that plain film x-rays of the lumbar spine are required at this time which I do not believe they would be of benefit. I discussed with patient that I would message her primary care provider in regards to her visit today. I will place an order for physical therapy evaluation in regards to patient's low back pain as patient states that her [id number] is a physical therapist, because she stretches that were being helpful. Patient is asymptomatic today. 40 MG DAILY X 5 DAYS DURATION IN ADDITION TO FLEXERIL OR MUSCLE RELAXER 10 MG EVERY 8 HOURS NEEDED FOR MUSCLE SPASM. I DISCUSSED WITH PATIENT NOT TO DRIVE OR DRINK ALCOHOL WHILE TAKING THE FLEXERIL IT CAN CAUSE DROWSINESS. PATIENT IS UNDERSTANDING AND AGREEMENT IF WORKING SHOULD ONLY TAKE THIS AT NIGHTTIME. PATIENT WILL CONTINUE TO MONITOR. WOULD SEEK ER FOR REEVALUATION IF SHE DEVELOPS ANY PAIN OUT OF PROPORTION WEAKNESS NUMBNESS OR TINGLING OF THE LOWER EXTREMITIES URINARY OR BOWEL INCONTINENCE OR RETENTION, SADDLE ANESTHESIA OR FOR ANY SEVERELY WORSENING OR CONCERNING SYMPTOMS. PATIENT UNDERSTANDS THAT OUTPATIENT PHYSICAL THERAPY SHOULD REACH OUT TO HER IN REGARDS TO (more content not included)... [facility] Comment on above: Result Comment: Elec tronically Signed By: Kannan STACY, John Dietz\.br\Date and Time Signed: 11/27/24 21:36 EST Ambulatory Visit Summaryon 0 11-24-2024 Ambulatory Visit Summary Ambulatory Visit Summary ARIANA BATISTA :1990 Visit Date:11/24/2024 Ambulatory Visit Instructions Your Diagnosis Low back pain with bilateral sciatica Your Care Team Attending Physician - John Brunner PA-C Primary Care Physician - Maura Vigil This Is Your Medications List cholecalciferol (cholecalciferol 50,000 intl units oral capsule) cyclobenzaprine (cyclobenzaprine 10 mg Tab) desvenlafaxine (desvenlafaxine 100 mg Tab-) predniSONE (predniSONE 20 mg Tab) Procedures Performed IUD - intrauterine contraceptive device (10/2022), None. Discharge Vitals Temperature (Temporal Artery) 36.7 ???C Heart Rate (Peripheral) 88 Respiratory Rate 18 Blood Pressure 110/84 Height 165 cm Height 65 in Weight 79.2 kg Weight 174.606 lb BMI 29.09 What to do next Scheduled Follow-Up Appointments Friday 10:20 AM EDT With: Maura Vigil Where: [facility] [address], [place] [address]- You Need to Schedule the Following Appointments Follow Up with Maura Vigil When: Where: [address], [place] [address]- Medications What How Much When Why Instructions New cyclobenzaprine (cyclobenzaprine 10 mg Tab) 1 Tablets By Mouth 3 times a day as needed for for spasm Low back pain with bilateral sciatica Duration: 7 Days Pickup at [facility]/pharmacy #[id number] New predniSONE (predniSONE 20 mg Tab) 2 Tablets By Mouth Every day Low back pain with bilateral sciatica Duration: 5 Days Pickup at [facility]/pharmacy #[id number] Unchanged cholecalciferol (cholecalciferol 50,000 intl units oral capsule) 1 Capsules By Mouth Every week Vitamin D deficiency Unchanged desvenlafaxine (desvenlafaxine 100 mg Tab-) See instructions TAKE 1 TABLET BY MOUTH EVERY DAY Pharmacy Information [facility]/pharmacy #[id number]: [address] [place], [place] [phone] Allergies Contrast Dye (unknown) Latex (Rash) Neosporin (Rash, rash) contrast media (gadolinium-based) (Unknown) Problems Ongoing - Any problem that you are currently receiving treatment for. BMI 29.0-29.9,adult Generalized anxiety disorder Mild major depression Over weight Smoker Vitamin D deficiency Weight loss counseling, encounter for Historical - Any problem that you are no longer receiving treatment for. Patient Survey You may receive a survey via text or e-mail asking about your office visit. Please share your experience with us by completing your survey. We appreciate your feedback and thank you for choosing us for your care. [facility] Ambulatory Visit Summaryon 1 Ambulatory Visit Summary Ambulatory Visit Summary ARIANA BATISTA :1990 Visit Date:10/26/2024 Ambulatory Visit Instructions Your Diagnosis Generalized anxiety disorder Mild major depression Weight loss counseling, encounter for Smoker BMI 29.0-29.9,adult Over weight Vitamin D deficiency Your Care Team Attending Physician - Maura Vigil Primary Care Physician - Maura Vigil This Is Your Medications List cholecalciferol (cholecalciferol 50,000 intl units oral capsule) desvenlafaxine (desvenlafaxine 100 mg Tab-) Procedures Performed IUD - intrauterine contraceptive device (10/2022), None. Discharge Vitals Temperature (Oral) 36.3 ???C Heart Rate (Peripheral) 96 Blood Pressure 120/66 Height 165 cm Height 65 in Weight 79.8 kg Weight 175.929 lb BMI 29.31 What to do next You Need to Schedule the Following Appointments Follow Up with Maura Vigil When: In 6 months Comments: [facility] Where: [address], [place] [address]- Medications What How Much When Why Instructions Unchanged cholecalciferol (cholecalciferol 50,000 intl units oral capsule) 1 Capsules By Mouth Every week Vitamin D deficiency Pickup at [facility]/pharmacy #[id number] Unchanged desvenlafaxine (desvenlafaxine 100 mg Tab-) See instructions TAKE 1 TABLET BY MOUTH EVERY DAY Pharm[facility] Information [id number]: [address] [place], [place] [phone] Allergies Contrast Dye (unknown) Latex (Rash) Neosporin (Rash, rash) contrast media (gadolinium-based) (Unknown) Problems Ongoing - Any problem that you are currently receiving treatment for. BMI 29.0-29.9,adult Generalized anxiety disorder Mild major depression Over weight Smoker Vitamin D deficiency Weight loss counseling, encounter for Historical - Any problem that you are no longer receiving treatment for. Patient Survey You may receive a survey via text or e-mail asking about your office visit. Please share your experience with us by completing your survey. We appreciate your feedback and thank you for choosing us for your care. Education Materials Obesity, Adult Obesity is the condition of having too much total body fat. Being overweight or obese means that your weight is greater than what is considered healthy for your body size. Obesity is determined by a measurement called BMI (body mass index). BMI is an estimate of body fat and is calculated from height and weight. For adults, a BMI of 30 or higher is considered obese. Obesity can lead to other health concerns and major illnesses, including: ??? Stroke. ??? Coronary artery disease (CAD). ??? Type 2 diabetes. ??? Some types of cancer, including cancers of the colon, breast, uterus, and gallbladder. ??? High blood pressure (hypertension). ??? High cholesterol. ??? Gallbladder stones. Obesity can also contribute to: ??? Osteoarthritis. ??? Sleep apnea. ??? Infertility problems. What are the causes? Common causes of this condition include: ??? Eating daily meals that are high in calories, sugar, and fat. ??? Drinking high amounts of sugar-sweetened beverages, such as soft drinks. ??? Being born with genes that may make you more likely to become obese. ??? Having a medical condition that causes obesity, including: ? Hypothyroidism. ? Polycystic ovarian syndrome (PCOS). ? Binge-eating disorder. ? [place] syndrome. ??? Taking certain medicines, such as steroids, antidepressants, and seizure medicines. ??? Not being physically active (sedentary lifestyle). ??? Not getting enough sleep. What increases the risk? The following factors may make you more likely to develop this condition: ??? Having a family history of obesity. ??? Living in an area with limited access to: ? [place], recreation centers, or sidewalks. ? Healthy food choices, such as grocery stores and [employer] markets. What are the signs or symptoms? The main sign of this condition is having too much body fat. How is this diagnosed? This condition is diagnosed based on: ??? Your BMI. If you are an adult with a BMI of 30 or higher, you are considered obese. ??? Your waist circumference. This measures the distance around your waistline. ??? Your skinfold thickness. Your health care provider may gently pinch a fold of your skin and measure it. You may have other tests to check for underlying conditions. How is this treated? Treatment for this condition often includes changing your lifestyle. Treatment may include some or all of the following: ??? Dietary changes. This may include developing a healthy meal plan. ??? Regular physical activity. This may include activity that causes your heart to beat faster (aerobic exercise) and strength training. Work with your health care provider to design an exercise progra (more content not included)... [facility] Family Medicine Office/Clini c Noteon 10-26-2024 Family Medicine Office/Clinic Note Family Medicine Office/Clinic Note Chief Complaint pt here for 4 month f/u. concerns of facial numbness if late taking medication or if anxiety is high. HPI Staff Last routine labs: 02/03/24 smoker status: 5-9 daily Pap (21-64yo): utd flu vaccine status: due dep- 4 last- 7 prasanna- 3 last- 5 History of Present Illness Ariana is a 34 yo female presenting today for PRASANNA/MDD, weight f/u Pt reports feeling better than usual, especially compared to the holidays in 2022. Pt has hx of MDD and PRASANNA Current medications: Pristiq 100mg/d Pt is not in therapy at this time. Pt reports being well controlled and tolerating medication well at this time. Pt denies medication side effects (MOONEY, sexual dysfunction, increased weight, nausea, drowsiness). Pt denies increased fatigue/sleepiness, SI/HI, feelings of worthlessness, appetite changes, anhedonia, depressed mood, racing thoughts, insomnia, agitation, increased worrying, rapid heart rate, SOB at this time. overweight - I do not recommend Adipex d/t uncontrolled PRASANNA. [facility] doesn't allow injectable options. Pt could not afford the [facility] pharmacy rate. Recently started riding exercise bike and doing yoga. VDD - taking D3 50,000iu/week Review of Systems PHQ Score Initial Depression Screen Score: 1 SCORE Physical Exam Vitals & Measurements T: 36.3 ???C(Oral) HR: 96(Peripheral) BP: 120/66 SpO2: 98% HT: 65 in HT: 165 cm WT: 79.8 kg WT: 175.929 lb BMI: 29.31 General: Well developed, well nourished, in no acute distress Eyes: Bilateral PERRLA, conjunctivae and sclerae wnl, EOMs intact, lids without stye, chalazion, ect/extropion, ptosis, xanthelasma, blepharitis. No discharge to inner canthi.Negative for corneal abrasion or foreign bodies. Ears: grossly normal hearing Nose: No deformity, discharge, inflammation, or lesions. No congestion, no erythema; pink & moist turbinates; clear rhinorrhea. Mouth: mucous membranes pink, moist and intact. [place] posterior oropharynx, no palatal inflammation, uvula midline, no cobble-stoning, no enlarged tonsils, no tonsillar exudate, no ulcers, no active post nasal drip. tongue midline and wnl. Good dentition. Neck: Neck supple. No lymphadenopathy. Trachea midline. No thyroid, masses, tenderness, or enlargement noted. No bruit. Lungs: Normal respiratory effort and clear to auscultation Cardio: Regular rate and rhythm, normal S1 and S2, no murmur, no rub Abdomen: not assessed Musculoskeletal: No deformity or scoliosis noted. No vertebral tenderness. Normal range of motion. No vertebral point tenderness. Joints normal. No erythema, edema, effusion, crepitus, or ecchymosis. Straight leg raise negative Extremity: No clubbing, cyanosis, edema, or deformity. Normal ROM with upper and lower extremities, bilaterally. Neurologic: Cranial nerves II-XII grossly intact. motor strength equal & normal bilaterally, sensation equal & normal bilaterally. Gait normal. Skin: No rashes, ulcerations, or suspicious lesions Mental Status: Alert and oriented x3. Normal mood and affect Assessment/Plan 1. Generalized anxiety disorder (F41.1: Generalized anxiety disorder) PRASANNA score: 3 (previously 5) continue Pristiq at 100mg/d Discussed red flags/when to seek emergency care and mental health support hotlines. Pt verbalized understanding of resources and when to seek emergency care and denies SI/HI at this time. Pt declines therapy at this time. f/u 6 mo and PRN 2. Mild major depression (F32.0: Major depressive disorder, single episode, mild) PHQ-9 score: 4 (prev 7) continue pristiq 100mg/d Discussed red flags/when to seek emergency care and suicide support hotlines. Pt verbalized understanding of resources and when to seek emergency care and denies SI/HI at this time. Pt declines therapy at this time. F/U 6 months and PRN 3. Weight loss counseling, encounter for (Z71.3: Dietary counseling and surveillance) Counseled pt on diet and calorie intake and discussed exercise/physical activity. Encouraged pt to keep a food journal of all food/fluid intake including gum. Advised to stop pop/soda and increase intake of water. Counseled on limited intake of processed foods and increasing intake of whole grains, whole fruits, vegetables and lean meats with a focus on low carbs and low saturated fat intake. goal: consistent exercise over the next 6 mo 4. Smoker (F17.200: Nicotine dependence, unspecified, uncomplicated) Strongly recommended tobacco cessation. Tobacco use in any form harms nearly every organ of the body, causes many diseases, and reduces the health of smokers in general. Quitting tobacco lowers your risk for smoking-related diseases and can add years to your life. Visit www.smokefree.gov for helpful resources including free telephone support. If you decide on prescription treatment to help you quit, we would be happy to provide these. 5. BMI 29.0-29.9,adult (Z68.29: Body mass index [BMI] 29.0-29.9, adult) The standard range for ages 18 and older is > (more content not included)... Normal [facility] Comment on above: Result Comment: Elec tronically Signed By: Mike WILLIS, Maura Mendoza\.br\Date and Time Signed: 10/26/24 12:14 EST RECURRENT VAGINITIS (HTRX)on 09-29-2024 ATOPOBIUM VAGINAE 0 [facility] ATOPOBIUM VAGINAE Not detected [facility] BVAB 2,3 (BACTERIAL VAGINOSIS ASSOCIATED BACTERIA 2, 3); MOBILUNCUS SPP 0 [facility] BVAB 2,3 (BACTERIAL VAGINOSIS ASSOCIATED BACTERIA 2, 3); MOBILUNCUS SPP Not detected [facility] CAMILO ALBICANS, PARAPSILOSIS, TROPICALIS 0 [facility] CAMILO ALBICANS, PARAPSILOSIS, TROPICALIS Not detected [facility] CAMILO GLABRATA 0 [facility] CAMILO GLABRATA Not detected [facility] CAMILO KRUSEI 0 [facility] CAMILO KRUSEI Not detected [facility] CHLAMYDIA TRACHOMATIS 0 [facility] CHLAMYDIA TRACHOMATIS Not detected [facility] GARDNERELLA VAGINALIS 0 [facility] GARDNERELLA VAGINALIS Not detected N [facility] MEGASPHAERA (TYPES 1, 2) 0 [facility] MEGASPHAERA (TYPES 1, 2) Not detected [facility] MYCOPLASMA GENITALIUM 0 [facility] MYCOPLASMA GENITALIUM Not detected [facility] NEISSERIA GONORRHOEAE 0 [facility] NEISSERIA GONORRHOEAE Not detected N [facility] TRICHOMONAS VAGINALIS 0 [facility] TRICHOMONAS VAGINALIS Not detected N [facility] HCG ( test) Ql (U)o n 09-27-2024 Interpretation and review of laboratory results Normal [facility] Preg Test, Ur Negative Negative [facility] Urinalysis macro (dipstick) panel (U)on 09-27-2024 Bilirubin, UA Negative Negative - 4(70) +++ mg/dL [facility] Blood, UA Positive Negative - 50 Mulugeta/mcL [facility] Comment on above: trace-intact Clarity, UA Clear [facility] Color, UA Yellow [facility] Glucose, UA Negative Negative - 1999(110) ++++ mg/dL [facility] Interpretation and review of laboratory results Abnormal [facility] Ketones, UA Negative Negative - 160(16) ++++ mg/dL [facility] Leukocytes, UA Negative Negative - 500+++ Fe/mcL [facility] Nitrite, UA Negative Negative - Positive [facility] pH, UA 8.5 5 - 9 [facility] Protein, UA Negative Negative - 2000(20) ++++ mg/dL [facility] Spec Grav, UA 1.02 1 - 1.03 [facility] Urobilinogen, UA 0.2 0.2 - 12 mg/dL [facility] Ambulatory Visit Summaryon 0 05-18-2024 Ambulatory Visit Summary Ambulatory Visit Summary AIRANA BATISTA :1990 Visit Date:05/18/2024 Ambulatory Visit Instructions Your Diagnosis Acute bronchitis BMI 28.0-28.9,adult Your Care Team Attending Physician - DEMARCO REY PA-C Primary Care Physician - Mike WILLIS, Maura Mendoza This Is Your Medications List azithromycin (Zithromax 500 mg oral tablet) cholecalciferol (cholecalciferol 50,000 intl units oral capsule) desvenlafaxine (Pristiq 100 mg Tab-ER) methylPREDNISolone (Medrol Dosepack 4 mg Tab) Procedures Performed IUD - intrauterine contraceptive device (10/2022), None. Discharge Vitals Temperature (Oral) 37 ?C Heart Rate (Peripheral) 99 Respiratory Rate 16 Blood Pressure 100/64 Height 165 cm Height 65 in Weight 76.8 kg Weight 168.96 lb BMI 28.21 What to do next Scheduled Follow-Up Appointments Friday 11:40 AM EST With: Maura Vigil Where: [facility] [address], [place] [address]- Medications What How Much When Why Instructions New azithromycin (Zithromax 500 mg oral tablet) 1 Tablets By Mouth Every day Acute bronchitis Duration: 5 Days Pickup at [facility]/pharmacy #[id number] New methylPREDNISolone (Medrol Dosepack 4 mg Tab) 1 Packets By Mouth As Directed Acute bronchitis Duration: 6 Days as directed on package labeling Pickup at [facility]/pharmacy #[id number] Unchanged cholecalciferol (cholecalciferol 50,000 intl units oral capsule) 1 Capsules By Mouth Every week Vitamin D deficiency Unchanged desvenlafaxine (Pristiq 100 mg Tab-ER) 1 Tablets By Mouth Every day Pharmacy Information [facility]/pharmacy #[id number]: [address] [place], [place] [id number] [phone] Allergies Contrast Dye (unknown) Latex (Rash) Neosporin (Rash, rash) contrast media (gadolinium-based) (Unknown) Problems Ongoing - Any problem that you are currently receiving treatment for. BMI 28.0-28.9,adult Generalized anxiety disorder Mild major depression Over weight Smoker Vitamin D deficiency Weight loss counseling, encounter for Historical - Any problem that you are no longer receiving treatment for. Patient Survey You may receive a survey via text or e-mail asking about your office visit. Please share your experience with us by completing your survey. We appreciate your feedback and thank you for choosing us for your care. Jahaira Chao [facility] Family Medicine Office/Clini c Noteon 05-18-2024 Family Medicine Office/Clinic Note Family Medicine Office/Clinic Note Chief Complaint Cough and fever HPI Staff Ariana is a 34 y.o .female here for sick visit This morning fever Cough-non productive MOONEY Nasal drainage Daughter had pneumonia two weeks prior Symptoms started last evening Took Ibuprofen 400 mg at 8am this morning History of Present Illness Reviewed and agree with above documented HPI by center medical director. Portions of this record may have been created with voice recognition artificial intelligence software, specifically [employer], [employer] and or [employer]. Substitutions may have occurred due to the inherent limitations of voice recognition and artificial intelligence software. Patient is a 34-year-old female who [facility] to [facility] care, for sinus congestion, sore throat, and a nonproductive cough. Patient symptoms started few days ago, send nasal drainage, has been having a productive cough, it is worsening at night, states she is a smoker but she does not vape has no history of asthma or bronchitis. Patient states her daughter is currently being treated for pneumonia, patient states she is concerned about having pneumonia but not concerned about being exposed to COVID-19, patient states that this morning was the first time she had a fever she is taking ibuprofen early this morning, does not have a fever now, patient states she has noticed some postnasal drip, when she eats and drinks she has a sense of taste and smell intact states that food does not taste as well, has been drinking plenty of fluids stay hydrated, patient denies any high fevers uncontrollable with medication, chills, headache, nausea or vomiting, difficulty swallowing, productive cough, worsening, chest pain, shortness of breath, wheezing, or weakness. Review of Systems PHQ Score Initial Depression Screen Score: 0 SCORE Physical Exam Vitals & Measurements T: 37 ?C(Oral) HR: 99(Peripheral) RR: 16 BP: 100/64 SpO2: 97% HT: 65 in HT: 165 cm WT: 76.8 kg WT: 168.96 lb BMI: 28.21 General: Well developed, well nourished, in no acute distress. Patient does appears ill but not septic. No respiratory distress. Answers questions appropriately and in complete sentences, and follows commands appropriately. Head: Normocephalic/atraumat ic. Positive upper respiratory infection. Eyes: Pupils equal, round, and reactive to light. Conjunctivae and sclerae normal Ears: Bilateral TMs are bulging, left greater than right, no signs otitis media otitis externa. Hearing is intact. Nose: No deformity, discharge, inflammation, or lesions Mouth: Mucous membranes moist. Normal oropharynx, and posterior pharynx postnasal drip and slight erythema and without lesions, exudates, or enlarged tonsils. No trismus. No difficulty swallowing. Neck: Neck supple. No masses or palpable cervical nodes. Trachea midline. No mastoid tenderness. Lungs: Normal respiratory effort and clear to auscultation throughout. No wheezing. Cardio: regular rate and rhythm, no murmur. No chest wall tenderness. Extremity: Patient is able to move all 4 extremities equally without pain or weakness. Neurologic: Grossly normal Skin: No rashes, ulcerations, or suspicious lesions Lymph Nodes: no lad Mental Status: alert, active Assessment/Plan Chest x-ray for any possible acute or thoracic process. Patient prefers no swabs at this time. No breathing treatments indicated at this time. Discussed with patient imaging findings read by the radiologist: No acute radiographic abnormality. No consolidation. No pleural effusion. No pneumothorax. Normal cardiomediastinal silhouette. No acute osseous findings . 34-year-old female present to convenient, for acute bronchitis, congestion and bronchitis started about a week ago, fever today, worsening symptoms at night, with a concern for pneumonia, negative chest x-ray results, patient did appear ill but not septic, no respiratory distress, difficulty swallowing. Patient was given a prescription for Zithromax and Medrol Dosepak, instructed take [id number] ibuprofen times needed for body aches, headache, fevers. Drink plenty water stay hydrated. Declined a work excuse note. Follow-up with primary care provider as needed. 1. Acute bronchitis (J20.9: Acute bronchitis, unspecified) See above Ordered: azithromycin, 500 mg = 1 tab(s), Oral, Daily, X 5 day(s), # 5 tab(s), Refills(s) 0, [id number], 165, cm, 05/18/24 10:06:00 EDT, Height/Length Dosing, 76.8, kg, 05/18/24 10:06:00 EDT, Weight Dosing methylPREDNISolone, = 1 packet(s), Oral, As Directed, as directed on package labeling, X 6 day(s), # 21 tab(s), Refills(s) 0, [id number], 165, cm, 05/18/24 10:06:00 EDT, Height/Length Dosing, 76.8, kg, 05/18/24 10:06:00 EDT, Weight Dosing 2. BMI 28.0-28.9,adult (Z68.28: Body mass index [BMI] 28.0-28.9, adult) The standard range for ages 18 and older is >=18.5 and < 25 kg/m2. Your BMI today was above this range, this falls in the overwei (more content not included)... Normal [facility] Comment on above: Result Comment: Elec tronically Signed By: DEMARCO REY PA-C\.br\Date and Time Signed: 05/18/24 18:08 EDT XR Chest 2 Viewson XR Chest 2 Views Exam Date/Time: 05/18/2024 10:27 EDT Reason for Exam: Cough Report IMPRESSION: No acute radiographic abnormality. EXAMINATION: XR Chest 2 Views Clinical History: Cough congestion. Comparison: None RESULT: No consolidation. No pleural effusion. No pneumothorax. Normal cardiomediastinal silhouette. No acute osseous findings. Ordering Provider: DEMARCO REY FINAL REPORT Dictated: 05/18/2024 10:32 am Mike Urena MD Signed (Electronic Signature): 05/18/2024 10:32 am Signed by: Mike Urena MD Transcribed by: CAROLINE Technologist: MARTI Technical Comments Radiation Dose: Kar in mGy = na DAP = na Normal [facility] Ambulatory Visit Summaryon 0 05-12-2024 Ambulatory Visit Summary Ambulatory Visit Summary ARIANA BATISTA Yaneth :1990 Visit Date:05/12/2024 Ambulatory Visit Instructions Your Diagnosis Mild major depression Generalized anxiety disorder Vitamin D deficiency Weight loss counseling, encounter for BMI 28.0-28.9,adult Over weight Smoker Your Care Team Attending Physician - Maura Vigil Primary Care Physician - Maura Vigil This Is Your Medications List cholecalciferol (cholecalciferol 50,000 intl units oral capsule) desvenlafaxine (Pristiq 100 mg Tab-ER) Procedures Performed IUD - intrauterine contraceptive device (10/2022), None. Discharge Vitals Temperature (Oral) 36.4 ?C Heart Rate (Peripheral) 86 Blood Pressure 118/60 Height 165 cm Height 65 in Weight 76.9 kg Weight 169.18 lb BMI 28.25 What to do next Scheduled Follow-Up Appointments Friday 11:40 AM EST With: Maura Vigil Where: [facility] Primary Care Normal [facility] Family Medicine Office/Clini c Noteon 05-12-2024 Family Medicine Office/Clinic Note Family Medicine Office/Clinic Note Chief Complaint pt here for 2 month f/u. HPI Staff Last routine labs: 02/03/24 smoker status: 5-9 daily Pap (21-64yo): utd prasanna- 5 last- 6 dep- 7 last- 5 History of Present Illness Ariana is a 33 yo female presenting today for 3 mo f/u weight loss Overall pt is doing well and asked about starting semaglutide through [facility] pharmacy as her insurance will not cover it. Pt has c/o inability to lose weight despite good mac efforts with her diet/physical activity Today's weight: 172.92 lbs Today's BMI: 28.87 current diet: interested in instant print operator Prescribed Wegovy 0.25mg/wk but pt repots this was not covered by her insurance - we discussed her getting a PA authorized but I never received any paperwork on this Pt denies CP, palpitations, difficulty sleeping, SOB, , current use of a stimulant, uncontrolled PRASANNA/BIPAD, uncontrolled HTN, Hx of [place], constipation, Hx of drug abuse. I do NOT recommend Adipex d/t uncontrolled PRASANNA at this time Pt has hx of MDD and PRASANNA Current medications: Pristiq 100mg/d Pt is not in therapy at this time. Pt reports being well controlled and tolerating medication well at this time. Pt denies medication side effects (MOONEY, sexual dysfunction, increased weight, nausea, drowsiness). Pt denies increased fatigue/sleepiness, SI/HI, feelings of worthlessness, appetite changes, anhedonia, depressed mood, racing thoughts, insomnia, agitation, increased worrying, rapid heart rate, SOB at this time. Review of Systems PHQ Score Initial Depression Screen Score: 0 SCORE Physical Exam Vitals & Measurements T: 36.4 ?C(Oral) HR: 86(Peripheral) BP: 118/60 SpO2: 98% HT: 65 in HT: 165 cm WT: 76.9 kg WT: 169.18 lb BMI: 28.25 General: Well developed, well nourished, in no acute distress Eyes: Bilateral PERRLA, conjunctivae and sclerae wnl, EOMs intact, lids without stye, chalazion, ect/extropion, ptosis, xanthelasma, blepharitis. No discharge to inner canthi.Negative for corneal abrasion or foreign bodies. Ears: grossly normal hearing Nose: No deformity, discharge, inflammation, or lesions. No congestion, no erythema; pink & moist turbinates; clear rhinorrhea. Mouth: mucous membranes pink, moist and intact. [place] [employer] posterior oropharynx, no palatal inflammation, uvula midline, no cobble-stoning, no enlarged tonsils, no tonsillar exudate, no ulcers, no active post nasal drip. tongue midline and wnl. Good dentition. Neck: Neck supple. No lymphadenopathy. Trachea midline. No thyroid, masses, tenderness, or enlargement noted. No bruit. Lungs: Normal respiratory effort and clear to auscultation Cardio: Regular rate and rhythm, normal S1 and S2, no murmur, no rub Abdomen: not assessed Musculoskeletal: No deformity or scoliosis noted. No vertebral tenderness. Normal range of motion. No vertebral point tenderness. Joints normal. No erythema, edema, effusion, crepitus, or ecchymosis. Straight leg raise negative Extremity: No clubbing, cyanosis, edema, or deformity. Normal ROM with upper and lower extremities, bilaterally. Neurologic: Cranial nerves II-XII grossly intact. motor strength equal & normal bilaterally, sensation equal & normal bilaterally. Gait normal. Skin: No rashes, ulcerations, or suspicious lesions Mental Status: Alert and oriented x3. Normal mood and affect Assessment/Plan 1. Mild major depression (F32.0: Major depressive disorder, single episode, mild) PHQ-9 score: 7 (prev 5) continue pristiq 100mg/d Discussed red flags/when to seek emergency care and suicide support hotlines. Pt verbalized understanding of resources and when to seek emergency care and denies SI/HI at this time. Pt declines therapy at this time. F/U 3 months and PRN 2. Generalized anxiety disorder (F41.1: Generalized anxiety disorder) PRASANNA score: 5 (previously 6) continue Pristiq at 100mg/d Discussed red flags/when to seek emergency care and mental health support hotlines. Pt verbalized understanding of resources and when to seek emergency care and denies SI/HI at this time. Pt declines therapy at this time. f/u 3 mo and PRN 3. Vitamin D deficiency (E55.9: Vitamin D deficiency, unspecified) start D3 50,000iu/day f/u 3 mo Ordered: cholecalciferol, 1,250 mcg = 1 cap(s), Oral, qWeek, # 12 cap(s), Refills(s) 3, Pharmacy: [facility]/pharmacy #[id number], 165, cm, 05/12/24 8:09:00 EDT, Height/Length Dosing, 76.9, kg, 05/12/24 8:09:00 EDT, Weight Dosing 4. Weight loss counseling, encounter for (Z71.3: Dietary counseling and surveillance) Counseled pt on diet and calorie intake and discussed exercise/physical activity. Encouraged pt to keep a food journal of all food/fluid intake including gum. Advised to stop pop/soda and increase intake of water. Counseled on limited intake of processed foods and increasing intake of whole grains, whole fruits, vegetables and lean meats with a focus on low carbs and low saturated fat intake. Will send paperwork to [facility] pharmacy for semaglutide (more content not included)... Normal [facility] Comment on above: Result Comment: Elec tronically Signed By: Mike WILLIS, Maura Mendoza\.br\Date and Time Signed: 05/12/24 08:31 EDT CHEMISTRYOrdered By: [employer] SYSTEM on 02-03-2024 Albumin [Mass/Vol] 5.0 g/dL Normal 3.3 - 5.0 gm/dL Remisol Chem Albumin/Globulin [Mass ratio] 1.9 {ratio} Normal 1.1 - 2.2 Remisol Chem ALP [Catalytic activity/Vol] 78 [iU]/d Normal 21 - 98 Int._Unit/L Rem[facility] Chem ALT No additional P-5'-P [Catalytic activity/Vol] 7 [iU]/d Normal 6 - 46 Int._Unit/L [facility] Anion gap [Moles/Vol] 14 mmol/L Normal 6 - 16 mEq/L R emisol Chem AST [Catalytic activity/Vol] 14 [iU]/d Normal 5 - 43 Int._Unit/L [facility] Bilirubin [Mass/Vol] 0.6 mg/dL Normal 0.0 - 1 .1 mg/dL [facility] Bilirubin.direct [Mass/Vol] 0.1 mg/dL Normal 0.0 - 0.4 mg/dL [facility] Bilirubin.indirect [Mass or moles/Vol] 0.5 mg/dL Normal 0.1 - 0.9 mg/dL [facility] Calcium [Mass/Vol] 9.8 mg/dL Normal 8.9 - 11. 1 mg/dL [facility] Chloride [Moles/Vol] 103 mmol/L Normal 101 - 1 11 mmol/L [facility] CO2 [Moles/Vol] 24 mmol/L Normal 21 - 31 mmol/L [facility] Creatinine [Mass/Vol] 0.9 mg/dL Normal 0.5 - 1.3 mg/dL [facility] Chem eGFR 87 mL/min/1.73 m2 Normal >=59mL/min /1 .73 m2 [facility] Globulin (S) [Mass/Vol] 2.7 g/dL Normal 1.4 - 4.0 gm/dL [facility] Glucose [Mass/Vol] 118 mg/dL Normal 55 - 199 mg/dL [facility] Lipase [Catalytic activity/Vol] unit/L Low 13 - 58 unit/L [facility] Potassium [Moles/Vol] 3.6 mmol/L Normal 3.5 - 5.3 mmol/L [facility] Protein [Mass/Vol] 7.7 g/dL Normal 6.0 - 7.8 gm/dL [facility] Sodium [Moles/Vol] 137 mmol/L Normal 135 - 145 mmol/L [facility] Urea nitrogen [Mass/Vol] 16 mg/dL Normal 5 - 21 mg/dL [facility] Urea nitrogen/Creatinine [Mass ratio] 18 mg/mg Normal 10 - 20 Rem[facility] Chem HEMATOLOGYOrdered By: SYSTEM SYSTEM on 02-03-2024 Basophils/100 WBC (Bld) 0.3 % Normal 0.0 - 2.0 % Remisol Heme Basophils/Leukocytes Auto (Bld) [Pure # fraction] 0.0 E9/L Normal 0.0 - 0.2 E9/L [facility] Heme Eosinophils (Bld) [#/Vol] 0.1 E9/L Normal 0.0 - 0.5 E9/L [facility]e Eosinophils/100 WBC (Bld) 0.7 % Normal 0.0 - 8.0 % Rem[facility] Heme Erythrocyte distribution width (RBC) [Ratio] 12.6 % Normal 10.9 - 14.2 % Rem[facility]e Hematocrit (Bld) [Volume fraction] 43.3 % Normal 34.0 - 46.0 % Rem[facility] Heme Hemoglobin (Bld) [Mass/Vol] 14.5 g/dL Normal 12.0 - 16.0 gm/dL [facility]e Lymphocytes (Bld) [#/Vol] 0.9 E9/L Low 1.0 - 4.0 E9/L [facility]e Lymphocytes/100 WBC (Bld) 6.7 % Low 14.0 - 50.0 % Remisol Heme MCH (RBC) [Entitic mass] 27.8 pg Normal 27.0 - 34.0 pg Remisol Heme MCHC (RBC) [Mass/Vol] 33.6 g/dL Normal 31.4 - 36.0 gm/dL Rem[facility] Heme MCV (RBC) [Entitic vol] 82.7 fL Normal 80.0 - 100.0 fL Rem[facility] Heme Monocytes (Bld) [#/Vol] 0.5 E9/L Normal 0.2 - 1.0 E9/L Rem[facility] Heme Monocytes/100 WBC (Bld) 3.9 % Low 4.0 - 14.0 % Rem[facility] Heme Neutrophils (Bld) [#/Vol] 11.4 E9/L High 2.0 - 7.5 E9/L Rem[facility] Heme Neutrophils/100 WBC (Bld) 88.4 % High 36.0 - 75.0 % [facility]e Platelet 248.0 E9/L Normal 150.0 - 500.0 E9/L Remisol Heme Platelet mean volume (Bld) [Entitic vol] 8.6 fL Normal 6.4 - 10.8 fL Remisol Heme RBC (Bld) [#/Vol] 5.2 E12/L Normal 4.3 - 5.9 E12/L Rem[facility] Heme WBC corrected for nucl RBC Auto (Bld) [#/Vol] 12.9 E9/L High 4.0 - 11.0 E9/L Remisol Heme MICRO OTHER TESTSOrdered By: Cheryl Cohen on 02-03-2024 Influenzae A Ag Negative (02/03/24 2:04 AM) Normal Negative [facility]ero Influenzae B Ag Negative 1 (02/03/24 2:04 AM) Normal Negative [facility] Comment on above: Interpretive Data: T est sensitivity and specificity vary for age group, specimen type, antigen types, and prevalence of disease. Test results must be evaluated in conjunction with other clinical data available to the physician. Individuals who received nasally administered Influenza A vaccine may have positive test results up to 3 days after vaccination. Rapid COV Int NEG [place] (02/03/24 2:04 AM) Normal [facility] Sero Rapid COV Int POS [place]l [place] (02/03/24 2:04 AM) Normal [facility] (formerly [facility]) Sero SARS-CoV+SARS-CoV-2 (COVID-19) Ag IA.rapid Ql (Resp) Not Detected 2 (02/03/24 2:04 AM) Normal Not Detected [facility] (formerly [facility]) Sero Comment on above: Interpretive Data: T he V[employer] Veritor System for Rapid Detection of SARS-CoV-2 is a chromatographic digital immunoassay intended for the direct and qualitative detection of SARS-CoV-2 nucleocapsid antigens in nasal swabs from individuals who are suspected of COVID-19 by their healthcare provider within the first five days of the onset of symptoms. Negative results should be treated as presumptive, do not rule out SARS-CoV-2 infection and should not be used as the sole basis for treatment or patient management decisions, including infection control decisions. Negative results should be considered in the context of a patient s recent exposures, history and the presence of clinical signs and symptoms consistent with COVID-19, and confirmed with a molecular assay, if necessary, for patient management. For in vitro diagnostic use. In the [place], only for use under an Emergency Use Authorization. In the [place], this test has not been FDA cleared or approved; this test has been authorized by FDA under an EUA for use by authorized laboratories; use by laboratories certified under the CLIA, 42 U.S.C. 263a, that meet requirements to perform moderate, high, or waived complexity tests and at the Point of Care (POC), i.e., in patient care settings operating under a CLIA Certificate of Waiver, Certificate of Compliance, or Certificate of Accreditation. This test has been authorized only for the detection of proteins from SARS-CoV-2, not for any other viruses or pathogens; and, in the [place], this test is only authorized for the duration of the declaration that circumstances exist justifying the authorization of emergency use of in vitro diagnostics for detection and/or diagnosis of the virus that causes COVID-19 under Section 564(b)(1) of the Act, 21 U.S.C. 360bbb-3(b)(1), unless the authorization is terminated or revoked sooner. CHEMISTRYOrdered By: SYSTEM SYSTEM on 11-28-2023 Albumin [Mass/Vol] 4.4 g/dL Normal 3.3 - 5.0 gm/dL Remisol Chem Albumin/Globulin [Mass ratio] 1.6 {ratio} Normal 1.1 - 2.2 Remisol Chem Alk Phos 64 [iU]/d Normal 21 - 98 Int._Unit/L Remisol Chem ALT 7 [iU]/d Normal 6 - 46 Int._Unit/L Remisol Chem Anion gap [Moles/Vol] 14 mmol/L Normal 6 - 16 mEq/L R emisol Chem AST 12 [iU]/d Normal 5 - 43 Int._Unit/L Remisol Chem Bili Total 0.5 mg/dL Normal 0.0 - 1.1 mg/dL Remisol Chem Calcium [Mass/Vol] 9.4 mg/dL Normal 8.9 - 11. 1 mg/dL Remisol Chem Chloride [Moles/Vol] 105 mmol/L Normal 101 - 1 11 mmol/L Remisol Chem Cholesterol [Mass/Vol] 179 mg/dL Normal 120 - 200 mg/dL Remisol Chem Cholesterol in HDL [Mass/Vol] 41 mg/dL Invalid Interpretation Code Remisol Chem Comment on above: Result Comment: '>= 60 LOW RISK' '<= 40 HIGH RISK' Cholesterol in LDL [Mass/Vol] 135 mg/dL High <=129mg/dL Remisol Chem Cholesterol in VLDL [Mass/Vol] 19 mg/dL Normal 7 - 40 mg/dL Remisol Chem CO2 [Moles/Vol] 23 mmol/L Normal 21 - 31 mmol/L Remisol Chem Creatinine [Mass/Vol] 0.9 mg/dL Normal 0.5 - 1.3 mg/dL Remisol Chem eGFR 87 mL/min/1.73 m2 Normal >=59mL/min /1 .73 m2 Remisol Chem Globulin (S) [Mass/Vol] 2.7 g/dL Normal 1.4 - 4.0 gm/dL Remisol Chem Glucose [Mass/Vol] 82 mg/dL Normal 55 - 199 mg/dL Remisol Chem Potassium [Moles/Vol] 4.0 mmol/L Normal 3.5 - 5.3 mmol/L Remisol Chem Protein [Mass/Vol] 7.1 g/dL Normal 6.0 - 7.8 gm/dL Remisol Chem Sodium [Moles/Vol] 138 mmol/L Normal 135 - 145 mmol/L Remisol Chem Triglyceride [Mass/Vol] 94 mg/dL Normal <=149mg/dL Remisol Chem TSH Qn 1.54 m[IU]/L Normal 0.34 - 5.60 mcIU/mL Remisol Chem Urea nitrogen [Mass/Vol] 12 mg/dL Normal 5 - 21 mg/dL Remisol Chem Urea nitrogen/Creatinine [Mass ratio] 13 mg/mg Normal 10 - 20 Remisol Chem HEMATOLOGYOrdered By: SYSTEM SYSTEM on 11-28-2023 Basophil Absolute 0.1 E9/L Normal 0.0 - 0.2 E9/L Remisol Heme Basophils/100 WBC (Bld) 0.7 % Normal 0.0 - 2.0 % Remisol Heme Eos Absolute 0.1 E9/L Normal 0.0 - 0.5 E9/L Remisol Heme Eosinophils/100 WBC (Bld) 1.6 % Normal 0.0 - 8.0 % Remisol Heme Erythrocyte distribution width (RBC) [Ratio] 12.6 % Normal 10.9 - 14.2 % Remisol Heme Hematocrit (Bld) [Volume fraction] 40.0 % Normal 34.0 - 46.0 % Remisol Heme Hemoglobin (Bld) [Mass/Vol] 13.1 g/dL Normal 12.0 - 16.0 gm/dL Remisol Heme Lymph Absolute 2.0 E9/L Normal 1.0 - 4.0 E9/L Remisol Heme Lymphocytes/100 WBC (Bld) 26.0 % Normal 14.0 - 50.0 % Remisol Heme MCH (RBC) [Entitic mass] 27.4 pg Normal 27.0 - 34.0 pg Remisol Heme MCHC (RBC) [Mass/Vol] 33.0 g/dL Normal 31.4 - 36.0 gm/dL Remisol Heme MCV (RBC) [Entitic vol] 83.0 fL Normal 80.0 - 100.0 fL Remisol Heme Clare Absolute 0.6 E9/L Normal 0.2 - 1.0 E9/L Remisol Heme Monocytes/100 WBC (Bld) 7.3 % Normal 4.0 - 14.0 % Remisol Heme Neutro Absolute 4.9 E9/L Normal 2.0 - 7.5 E9/L Remisol Heme Neutro Auto 64.4 % Normal 36.0 - 75.0 % Rem[facility] Heme Platelet 266.0 E9/L Normal 150.0 - 500.0 E9/L Remisol Heme Platelet mean volume (Bld) [Entitic vol] 9.3 fL Normal 6.4 - 10.8 fL Remisol Heme RBC 4.8 E12/L Normal 4.3 - 5.9 E12/L Remisol Heme WBC 7.6 E9/L Normal 4.0 - 11.0 E9/L Remisol Heme CHEMISTRYOrdered By: SYSTEM SYSTEM on 10-17-2023 Vitamin D 25 Hydroxy 14.5 ng/mL Low 30.0 - 100.0 ng/mL Remisol Chem Cytology Cervical or vaginal smear or scraping studyOrdered By: Elvie Cantrell on 07-05-2021 [facility] Healthcare Vital Signs Date Time Vital Sign Value Performing Clinician Facility 07-14-2025 15:27-0400 Body mass index (BMI) [Ratio] 30.7 kg/m2 Massiel Roby PA Work Phone: [facility] 07-14-2025 15:27-0400 Body weight 83.69 kg Massiel Niya PA Work Phone: [facility] 07-14-2025 15:27-0400 Diastolic blood pressure 70 mm[Hg] Massiel Roby PA Work Phone: [facility] 07-14-2025 15:27-0400 Systolic blood pressure 110 mm[Hg] Massiel Niya PA Work Phone: [facility] 06-20-2025 11:10-0400 Body height 165.1 cm Massiel Roby PA Work Phone: [facility] 06-20-2025 11:10-0400 Body mass index (BMI) [Ratio] 30.12 kg/m2 Massiel Niya PA Work Phone: [facility] 06-20-2025 11:10-0400 Body weight 82.1 kg Massiel Niya PA Work Phone: [facility] 06-20-2025 11:10-0400 Diastolic blood pressure 74 mm[Hg] Massiel Niya PA Work Phone: [facility] 06-20-2025 11:10-0400 Systolic blood pressure 118 mm[Hg] Massiel Roby PA Work Phone: [facility] 03-11-2025 08:55-0400 Diastolic blood pressure 69 mm[Hg] Jesusita Boo [facility] 03-11-2025 08:55-0400 Heart rate 85 /min Jesusita [employer] [facility] 03-11-2025 08:55-0400 Mean blood pressure 87 mm[Hg] Jesusita Boo [facility] 03-11-2025 08:55-0400 Respiratory rate 14 /min Jesusita [employer] [facility] 03-11-2025 08:55-0400 Systolic blood pressure 123 mm[Hg] Jesusita Boo [facility] 02-15-2025 08:56-0400 Heart rate 83 /min Demetrius Senior [facility] 02-15-2025 08:56-0400 SaO2% (BldA) [Mass fraction] 98 % Romo Parrish [facility] 02-15-2025 08:55-0400 Diastolic blood pressure 75 mm[Hg] Demetrius Senior [facility] 02-15-2025 08:55-0400 Mean blood pressure 88 mm[Hg] Demetrius Parrish [facility] 02-15-2025 08:55-0400 Systolic blood pressure 113 mm[Hg] Demetrius Parrish [facility] 02-15-2025 08:52-0400 Diastolic blood pressure 75 mm[Hg] Romo Parrish [facility] 02-15-2025 08:52-0400 Heart rate 84 /min Demetrius Parrish [facility] 02-15-2025 08:52-0400 Respiratory rate 14 /min Demetrius Parrish [facility] 02-15-2025 08:52-0400 SaO2% (BldA) [Mass fraction] 97 % Demetrius Senior [facility] 02-15-2025 08:52-0400 Systolic blood pressure 129 mm[Hg] Demetrius Senior [facility] 02-15-2025 07:41-0400 Heart rate 103 /min Demetrius Senior [facility] 02-15-2025 07:41-0400 SaO2% (BldA) [Mass fraction] 96 % Demetrius Senior [facility] 02-15-2025 07:41-0400 Body temperature 98.6 [degF] Demetrius Senior [facility] 02-15-2025 07:40-0400 Diastolic blood pressure 73 mm[Hg] Demetrius Senior [facility] 02-15-2025 07:40-0400 Mean blood pressure 86 mm[Hg] Demetrius Senior [facility] 02-15-2025 07:40-0400 Systolic blood pressure 113 mm[Hg] eDmetrius Senior [facility] 02-15-2025 07:35-0400 Respiratory rate 16 /min Demetrius Senior [facility] 01-31-2025 13:13-0400 Diastolic blood pressure 70 mm[Hg] Jesusita Boo [facility] 01-31-2025 13:13-0400 Heart rate 79 /min Jesusita Boo [facility] 01-31-2025 13:13-0400 Mean blood pressure 84 mm[Hg] Jesusita Boo [facility] 01-31-2025 13:13-0400 Respiratory rate 16 /min Jesusita Boo [facility] 01-31-2025 13:13-0400 Systolic blood pressure 113 mm[Hg] Jesusita Boo [facility] 12-28-2024 14:26-0500 Blood Pressure Location Maura Mckeon [facility] 12-28-2024 14:26-0500 Body temperature 98.06 [degF] Maura Missler [facility] 12-28-2024 14:26-0500 Diastolic blood pressure 70 mm[Hg] Maura Missler [facility] 12-28-2024 14:26-0500 Heart rate 92 /min Maura Mckeon [facility] 12-28-2024 14:26-0500 SaO2% (BldA) [Mass fraction] 100 % Maura Mckeon [facility] 12-28-2024 14:26-0500 Systolic blood pressure 132 mm[Hg] Maura Mckeon [facility] 11-24-2024 18:23-0500 Blood Pressure Location John Brunner [facility] 11-24-2024 18:23-0500 Body temperature 98.06 [degF] John Brunner [facility] 11-24-2024 18:23-0500 Diastolic blood pressure 84 mm[Hg] John Brunner [facility] 11-24-2024 18:23-0500 Heart rate 88 /min John Brunner [facility] 11-24-2024 18:23-0500 Respiratory rate 18 /min John Brunner [facility] 11-24-2024 18:23-0500 SaO2% (BldA) [Mass fraction] 99 % oJhn Brunner [facility] 11-24-2024 18:23-0500 Systolic blood pressure 110 mm[Hg] John Kannan [facility] 10-26-2024 11:52-0500 Blood Pressure Location Maura Mckeon [facility] 10-26-2024 11:52-0500 Body temperature 97.34 [degF] Maura Mckeon [facility] 10-26-2024 11:52-0500 Diastolic blood pressure 66 mm[Hg] Maura Mckeon [facility] 10-26-2024 11:52-0500 Heart rate 96 /min Maura Mckeon [facility] 10-26-2024 11:52-0500 SaO2% (BldA) [Mass fraction] 98 % Maura Mckeon [facility] 10-26-2024 11:52-0500 Systolic blood pressure 120 mm[Hg] Maura Mckeon [facility] 09-27-2024 13:19-0500 Body height 165.1 cm Christian Memo DO Work Phone: [facility] 09-27-2024 13:19-0500 Body mass index (BMI) [Ratio] 29.62 kg/m2 Christian Memo DO Work Phone: [facility] 09-27-2024 13:19-0500 Body weight 80.74 kg Christian Memo DO Work Phone: [facility] 09-27-2024 13:19-0500 Diastolic blood pressure 60 mm[Hg] Christian Memo DO Work Phone: [facility] 09-27-2024 13:19-0500 Systolic blood pressure 120 mm[Hg] Christian Memo DO Work Phone: [facility] 07-22-2024 09:40-0400 Body height 165.1 cm Nevaeh Sevilla NP Work Phone: [facility] 07-22-2024 09:40-0400 Body mass index (BMI) [Ratio] 27.89 kg/m2 Nevaeh Sevilla NP Work Phone: [facility] 07-22-2024 09:40-0400 Body weight 76.02 kg Nevaeh Dc COSMETIC DENTIST Work Phone: [facility] 07-22-2024 09:40-0400 Diastolic blood pressure 74 mm[Hg] Nevaeh Dc COSMETIC DENTIST Work Phone: [facility] 07-22-2024 09:40-0400 Systolic blood pressure 122 mm[Hg] Nevaeh Concepcionman COSMETIC DENTIST Work Phone: [facility] 05-18-2024 10:02-0400 Body temperature 98.6 [degF] DEMARCO REY [facility] 05-18-2024 10:02-0400 Diastolic blood pressure 64 mm[Hg] [place] REY [facility] 05-18-2024 10:02-0400 Heart rate 99 /[facility] 05-18-2024 10:02-0400 Respiratory rate 16 /min [place] REY [facility] 05-18-2024 10:02-0400 SaO2% (BldA) [Mass fraction] 97 % [facility] 05-18-2024 10:02-0400 Systolic blood pressure 100 mm[Hg] [place] REY [facility] 05-12-2024 08:00-0400 Blood Pressure Location Maura Mckeon [facility] 05-12-2024 08:00-0400 Body temperature 97.52 [degF] Maura Mckeon [facility] 05-12-2024 08:00-0400 Diastolic blood pressure 60 mm[Hg] Maura Mike [facility] 05-12-2024 08:00-0400 Heart rate 86 /min Maura Missler [facility] 05-12-2024 08:00-0400 SaO2% (BldA) [Mass fraction] 98 % Maura Missler [facility] 05-12-2024 08:00-0400 Systolic blood pressure 118 mm[Hg] Maura Missler [facility] 03-24-2024 15:18-0400 Blood Pressure Location Maura Missler [facility] 03-24-2024 15:18-0400 Body temperature 98.06 [degF] Maura Missler [facility] 03-24-2024 15:18-0400 Diastolic blood pressure 60 mm[Hg] Maura Missler [facility] 03-24-2024 15:18-0400 Heart rate 78 /min Maura Missler [facility] 03-24-2024 15:18-0400 SaO2% (BldA) [Mass fraction] 99 % Maura Missler [facility] 03-24-2024 15:18-0400 Systolic blood pressure 118 mm[Hg] Maura Missler [facility] 02-03-2024 14:00-0400 Hourly Rounding Kishan Angella [facility] 02-03-2024 14:00-0400 Promise to Return Kishan Angella [facility] 02-03-2024 02:55-0400 Diastolic blood pressure 59 mm[Hg] Kishan Angella [facility] 02-03-2024 02:55-0400 Heart rate 90 /min Kishan Angella [facility] 02-03-2024 02:55-0400 Mean blood pressure 71 mm[Hg] Kishan Angella [facility] 02-03-2024 02:55-0400 Respiratory rate 16 /min Kishan Angella [facility] 02-03-2024 02:55-0400 SaO2% (BldA) [Mass fraction] 100 % Kishan Angella [facility] 02-03-2024 02:55-0400 Systolic blood pressure 96 mm[Hg] Kishan Angella [facility] 02-03-2024 02:30-0400 Diastolic blood pressure 92 mm[Hg] Kishan Angella [facility] 02-03-2024 02:30-0400 Heart rate 101 /min Kishan Angella [facility] 02-03-2024 02:30-0400 Mean blood pressure 100 mm[Hg] Kishan Angella [facility] 02-03-2024 02:30-0400 Respiratory rate 18 /min Kishan Angella [facility] 02-03-2024 02:30-0400 SaO2% (BldA) [Mass fraction] 98 % Kishan Angella [facility] 02-03-2024 02:30-0400 Systolic blood pressure 115 mm[Hg] Kishan Angella [facility] 02-03-2024 01:37-0400 Body temperature 98.96 [degF] Kishan Angella [facility] 02-03-2024 01:37-0400 Diastolic blood pressure 75 mm[Hg] Kishan Angella [facility] 02-03-2024 01:37-0400 Heart rate 118 /min Kishan Angella [facility] 02-03-2024 01:37-0400 Respiratory rate 20 /min Kishan Angella [facility] 02-03-2024 01:37-0400 SaO2% (BldA) [Mass fraction] 97 % Kishan Angella [facility] 02-03-2024 01:37-0400 Systolic blood pressure 107 mm[Hg] Kishan Angella [facility] 02-03-2024 01:00-0400 Hourly Rounding Kishan Angella [facility] 02-03-2024 01:00-0400 Promise to Return Kishan Angella [facility] 12-24-2023 15:17-0500 Blood Pressure Location Maura Ceeler [facility] 12-24-2023 15:17-0500 Body temperature 97.7 [degF] Maura Missler [facility] 12-24-2023 15:17-0500 Diastolic blood pressure 74 mm[Hg] Maura Missler [facility] 12-24-2023 15:17-0500 Heart rate 77 /min Maura Missler [facility] 12-24-2023 15:17-0500 SaO2% (BldA) [Mass fraction] 99 % Maura Missler [facility] 12-24-2023 15:17-0500 Systolic blood pressure 122 mm[Hg] Maura Missler [facility] 11-26-2023 09:59-0500 Blood Pressure Location Maura Missler [facility] 11-26-2023 09:59-0500 Body temperature 98.06 [degF] Maura Missler [facility] 11-26-2023 09:59-0500 Diastolic blood pressure 70 mm[Hg] Maura Missler [facility] 11-26-2023 09:59-0500 Heart rate 75 /min Maura Missler [facility] 11-26-2023 09:59-0500 SaO2% (BldA) [Mass fraction] 98 % Maura Missler [facility] 11-26-2023 09:59-0500 Systolic blood pressure 130 mm[Hg] Maura Missler [facility] 03-21-2023 08:25-0400 Blood Pressure Location Maura Ceeler [facility] 03-21-2023 08:25-0400 Diastolic blood pressure 64 mm[Hg] Maura Missler [facility] 03-21-2023 08:25-0400 Heart rate 85 /min Maura Missler [facility] 03-21-2023 08:25-0400 Respiratory rate 18 /min Maura Missler [facility] 03-21-2023 08:25-0400 SaO2% (BldA) [Mass fraction] 97 % Maura Missler [facility] 03-21-2023 08:25-0400 Systolic blood pressure 104 mm[Hg] Maura Mckeon [facility] Encounters Encounter Date Encounter Type Care Provider Facility Start: 10-18-2025 ambulatory Maura Betancourt acility:[facility] Start: 07-14-2025 End: 07-14-2025 Patient encounter procedure Massiel EDWARDS Work Phone: [facility] Start: 07-14-2025 End: 07-14-2025 Periodic preventive med est patient 18-39 yrs Massiel EDWARDS Work Phone: [facility] Comment on above: Well woman exam with routine gynecological exam Start: 07-14-2025 End: 07-14-2025 Bamboo flowsheet Massiel EDWARDS Work Phone: [facility] Start: 07-14-2025 End: 07-14-2025 Bamboo flowsheet Massiel EDWARDS Work Phone: [facility] Start: 07-11-2025 End: 07-11-2025 Bamboo flowsheet Hasmukh Chavarria MD Work Phone: [facility] Start: 07-11-2025 End: 07-11-2025 Bamboo flowsheet Hasmukh Chavarria MD Work Phone: [facility] Start: 07-11-2025 End: 07-11-2025 ambulatory HASMUKH CHAVARRIA Not Available Start: 07-11-2025 End: 07-11-2025 Patient encounter procedure Hasmukh Chavarria MD Work Phone: [facility] Comment on above: 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) Start: 07-06-2025 End: 07-06-2025 ambulatory MASSIEL NÚÑEZ Not Available Start: 07-06-2025 End: 07-06-2025 Bamboo flowsheet Hasmukh Chavarria MD Work Phone: [facility] Start: 07-06-2025 End: 07-06-2025 Bamboo flowsheet Hasmukh Chavarria MD Work Phone: [facility] Start: 07-06-2025 End: 07-06-2025 Patient encounter procedure Hasmukh Chavarria MD Work Phone: [facility] Comment on above: 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) Start: 07-06-2025 End: 07-06-2025 ambulatory HASMUKH CHAVARRIA Not Available Start: 07-04-2025 End: 07-04-2025 Bamboo flowsheet Hasmukh Chavarria MD Work Phone: [facility] Start: 07-04-2025 End: 07-04-2025 Bamboo flowsheet Hasmukh Chavarria MD Work Phone: [facility] Start: 07-04-2025 End: 07-04-2025 Patient encounter procedure Hasmukh Chavarria MD Work Phone: [facility] Comment on above: Allergic contact dinah matitis due to drugs in contact with skin (Primary Dx); Chronic rhinitis; Adverse effect of corticosteroids, subsequent encounter; Allergic urticaria Start: 07-04-2025 End: 07-04-2025 ambulatory HASMUKH CHAVARRIA Not Available Start: 06-20-2025 End: 06-20-2025 Bamboo flowsheet Massiel EDWARDS Work Phone: [facility] Start: 06-20-2025 End: 06-20-2025 Bamboo flowsheet Massiel EDWARDS Work Phone: [facility] Start: 06-20-2025 End: 06-20-2025 Office outpatient visit 15 minutes Massiel EDWARDS Work Phone: [facility] Comment on above: Abnormal uterine ble eding (AUB); Menorrhagia with regular cycle; Dyspareunia, female Start: 06-20-2025 End: 06-20-2025 ambulatory MASSIEL NÚÑEZ Not Available Start: 05-06-2025 End: 05-06-2025 Telephone encounter Hasmukh Chavarria MD Work Phone: [facility] Start: 04-22-2025 End: 04-22-2025 Bamboo flowsheet Hasmukh Chavarria MD Work Phone: [facility] Start: 04-22-2025 End: 04-22-2025 Bamboo flowsheet Hasmukh Chavarria MD Work Phone: [facility] Start: 04-22-2025 End: 04-22-2025 Office outpatient new 60 minutes Hasmukh Chavarria MD Work Phone: [facility] Comment on above: Dermatitis, drug-ind uced (Primary Dx) Start: 04-22-2025 End: 04-22-2025 ambulatory HASMUKH CHAVARRIA Not Available Start: 04-19-2025 End: 04-19-2025 ambulatory Maura Mckeon Facility:[facility] Start: 04-19-2025 End: 04-19-2025 Patient encounter procedure Maura Mckeon [facility] Start: 04-19-2025 End: 04-19-2025 Well adult monitoring check done Maura Mckeon [facility] Start: 04-15-2025 End: 04-15-2025 ambulatory Demetrius Senior Facility:[facility] [place] Start: 04-15-2025 End: 04-15-2025 Pain Management Demetrius Senior [facility] Start: 03-11-2025 End: 03-11-2025 ambulatory Jesusita Boo Facility:[facility] [place] Start: 03-11-2025 End: 03-11-2025 Patient encounter procedure Jesusita Boo [facility] Start: 02-21-2025 End: 02-21-2025 ambulatory Alis Driver Facility:[facility] Start: 02-15-2025 End: 02-15-2025 ambulatory Demetrius Senior Facility:[facility] [place] Start: 02-15-2025 End: 02-15-2025 Pain Management Demetrius Senior [facility] Start: 01-31-2025 End: 01-31-2025 ambulatory Jesusita Boo Facility:[facility] [place] Start: 01-31-2025 End: 01-31-2025 Patient encounter procedure Jesusita Boo [facility] Start: 01-25-2025 ambulatory Maura Mckeon Facilit y:[facility] Start: 12-30-2024 End: 12-30-2024 ambulatory Maura Mckeon Facility:[facility] [place] Start: 12-28-2024 End: 12-28-2024 ambulatory Maura Mckeon Facility:[facility] Start: 12-28-2024 End: 12-28-2024 Patient encounter procedure Maura Gaylemoose Ceealfredito [facility] Start: 11-29-2024 End: 02-23-2025 ambulatory John Brunner Facility:[facility] [place] Start: 11-25-2024 ambulatory Maura Mckeon Facilit y:[facility] [place] Start: 11-24-2024 End: 11-24-2024 ambulatory John Brunner Facility:[facility] Start: 11-24-2024 End: 11-24-2024 Patient encounter procedure John Brunner [facility] Start: 10-26-2024 End: 10-26-2024 ambulatory Maura Mckeon [facility] Start: 10-26-2024 End: 10-26-2024 Patient encounter procedure Maura Kelly Mckeon [facility] Start: 10-22-2024 End: 10-26-2024 Telephone encounter Elvie Cantrell MA [facility] Start: 09-27-2024 End: 09-27-2024 Bamboo flowsheet Christian Memo DO Work Phone: [facility] Start: 09-27-2024 End: 09-29-2024 Bamboo flowsheet Christian Memo DO Work Phone: [facility] Start: 09-27-2024 End: 09-29-2024 External Result Encounter Christian Memo DO Work Phone: [facility] Unsolicited Start: 09-27-2024 End: 09-27-2024 Office outpatient visit 15 minutes Christian Memo DO Work Phone: [facility] Comment on above: Pelvic pain in femal e; Dyspareunia in female Start: 09-27-2024 End: 09-27-2024 ambulatory CHRISTIAN MEMO Not Available Start: 09-15-2024 End: 09-15-2024 ambulatory Maura Mckeon Facility:[facility] Start: 09-15-2024 End: 09-15-2024 Patient encounter procedure Maura Mckeon [facility] Start: 08-04-2024 End: 08-04-2024 Telephone encounter Grace Laney Sanchez DO Work Phone: [facility] Start: 07-22-2024 End: 07-22-2024 Bamboo flowsheet Nevaeh Sevilla COSMETIC DENTIST Work Phone: [facility] Start: 07-22-2024 End: 07-22-2024 Bamboo flowsheet Nevaeh Sevilla COSMETIC DENTIST Work Phone: [facility] Start: 07-22-2024 End: 07-22-2024 ambulatory NEVAEH SEVILLA Not Available Start: 07-22-2024 End: 07-22-2024 Patient encounter status Nevaeh Sevilla COSMETIC DENTIST Work Phone: [facility] Work Phone: Start: 07-22-2024 End: 07-22-2024 Periodic preventive med est patient 18-39 yrs Nevaeh Sevilla COSMETIC DENTIST Work Phone: [facility] Comment on above: Encounter for gyneco logical examination without abnormal finding (Primary Dx); Intrauterine contraceptive device threads lost, initial encounter; Pelvic pain in female; Dysmenorrhea Start: 05-18-2024 End: 05-18-2024 ambulatory DEMARCO REY Facility:[facility] [place] Start: 05-18-2024 End: 05-18-2024 Patient encounter procedure DEMARCO REY [facility] Start: 05-12-2024 End: 05-12-2024 ambulatory Maura Gaylemoose Mckeon Facility:[facility] Start: 05-12-2024 End: 05-12-2024 Patient encounter procedure Maura Mckeon [facility] Start: 03-24-2024 End: 03-24-2024 Patient encounter procedure Maura Mckeon [facility] Start: 02-03-2024 End: 02-03-2024 Emergency department patient visit Kishan Perales [facility] Start: 12-24-2023 End: 12-24-2023 Patient encounter procedure Maura Mckeon [facility] Start: 12-23-2023 End: 12-23-2023 Patient encounter procedure Maura Mckeon [facility] Start: 11-28-2023 End: 11-28-2023 Patient encounter procedure Maura Mckeon [facility] Start: 11-26-2023 End: 11-26-2023 Patient encounter procedure Maura Mckeon [facility] Start: 10-17-2023 End: 10-17-2023 Patient encounter procedure Maura Mckeon [facility] Start: 03-21-2023 End: 03-21-2023 Patient encounter procedure Maura Mckeon [facility] Start: 03-21-2023 End: 03-21-2023 Well adult monitoring check done Maura Mckeon [facility] Start: 09-02-2018 End: 09-02-2018 Patient encounter procedure ARIANA WALTON [facility] Start: 11-12-2017 Ambulatory Ariana Garfield Facilit y:Kian Start: 11-06-2017 Ambulatory Ariana Garfield Facilit y:Kian Start: 09-10-2017 Ambulatory Ariana Garfield Facilit y:Kian Start: 07-29-2017 Ambulatory Ariana Garfield Facilit y:Kian Start: 07-10-2017 Ambulatory Ariana Garfield Facilit y:Kian Start: 05-08-2017 Ambulatory Ariana Garfield Facilit y:Kian Procedures Date Procedure Procedure Detail Performing Clinician Start: 02-15-2025 Epidural injection o f thoracic spine using fluoroscopic guidance Jesusita Boo Start: 09-27-2024 RECURRENT VAGINITIS (HTRX) Christian Memo DO Work Phone: Start: 09-27-2024 End: 09-27-2024 Urnls dip stick/tablet rgnt non-auto w/o micrscp Christian Hampton DO Work Phone: Start: 10-27-2022 Intrauterine contrac eptive device (physical object) Maura Mckeon Start: 07-05-2021 Microscopic observat ion [Identifier] in Cervix by Cyto stain Nevaeh Sevilla NP Work Phone: Start: 07-05-2021 Cytp cerv/vag auto t hin layer prep mnl screen Nevaeh Sevilla COSMETIC DENTIST Work Phone: Kidney structure (kellen dy structure) Jesusita Boo Comment on above: Left Kidney surgery None (qualifier value) Kristy Mckeon Tube (qualifier value) Samina heath [employer] Comment on above: Ears- Plan of Treatment Date Care Activity Detail Author Start: 07-05-2026 Screening for malign ant neoplasm of cervix [facility] Start: 08-15-2025 End: 08-15-2025 Patient encounter procedure 08/15/2025 10:30 AM EDT Procedure Visit [facility] [address] [place] [address] Christian Hampton, DO [address] [place], [place] [id number] [facility] Start: 07-26-2025 End: 07-26-2025 Patient encounter procedure [facility] Start: 07-14-2025 End: 07-14-2025 Patient encounter procedure [facility] Comment on above: Arrived Start: 07-11-2025 End: 07-11-2025 Patient encounter procedure [facility] Start: 07-06-2025 End: 07-06-2025 Professional / ancillary services management 07/06/2025 2:30 PM EDT Ancillary Procedure [facility] [address] [place] [id number] [facility] Start: 07-06-2025 End: 07-06-2025 Patient encounter procedure [facility] Comment on above: Arrived Start: 07-04-2025 End: 07-04-2025 Patient encounter procedure [facility] Comment on above: Arrived Start: 06-27-2025 Influenza vaccination [facility] Start: 06-20-2025 End: 06-20-2026 aPTT in Blood by Coagulation assay APTT Lab Routine Menorrhagia with regular cycle Expected: 06/20/2025 (Approximate), Expires: 06/20/2026 [facility] Comment on above: Expected: 06/20/2025 (Approximate), Expires: 06/20/2026 Start: 06-20-2025 End: 06-20-2026 US Pelvis US Pelvis w/ TV Imaging Routine Abnormal uterine bleeding (AUB) Dyspareunia, female Expected: 06/20/2025 (Approximate), Expires: 06/20/2026 [facility] Comment on above: Expected: 06/20/2025 (Approximate), Expires: 06/20/2026 Start: 06-20-2025 End: 06-20-2025 Patient encounter procedure 06/20/2025 10:50 AM EDT Office Visit ELLIOTT [place] [facility] [address] [place] [id number] Massiel Núñez PA [address] [place] [address] Arrived [facility] Comment on above: Arrived Start: 04-22-2025 End: 04-22-2025 Patient encounter procedure 04/22/2025 10:00 AM EDT Office Visit [facility] [address] [place] [address] Hasmukh Chavarria MD [address] [facility] [place] [address] Arrived [facility] Comment on above: Arrived Start: 09-27-2024 End: 09-27-2024 Patient encounter procedure 09/27/2024 1:10 PM EST Office Visit [facility] [address] [place] [place] [address] Christian Hampton DO [address] [place] [address] Arrived [facility] Comment on above: Arrived Start: 07-05-2024 Screening for malign ant neoplasm of cervix [facility] Start: 06-27-2024 Influenza vaccination Influenza Vacc ine (#1) [facility] Start: 2022 Screening for malign ant neoplasm of cervix HPV/Cotest [facility] CBC W Auto Different ial panel - Blood CBC and differential Lab Routine Menorrhagia with regular cycle Ordered: 06/20/2025 [facility] Work Phone: Comment on above: Ordered: 06/20/2025 CHLAMYDIA TRACHOMATI S (GENITO/STI) CHLAMYDIA TRACHOMATIS (GENITO/STI) Lab Routine Pelvic pain in female Ordered: 09/27/2024 [facility] Comment on above: Ordered: 09/27/2024 Cytology Cervical or vaginal smear or scraping study Pap Smear Pathology and Cytology Routine Well woman exam with routine gynecological exam Ordered: 07/14/2025 [facility] Work Phone: Comment on above: Ordered: 07/14/2025 hCG, quantitative, hCG, quantitative, Lab Routine Menorrhagia with regular cycle Ordered: 06/20/2025 [facility] Comment on above: Ordered: 06/20/2025 Hemoglobin A1c/Hemoglobin.total in Blood Hemoglobin A1c Lab Routine Menorrhagia with regular cycle Ordered: 06/20/2025 [facility] Comment on above: Ordered: 06/20/2025 Human papilloma viru s DNA [Presence] in Unspecified specimen by Probe with amplification HPV DNA probe, amplified Microbiology Routine Well woman exam with routine gynecological exam Ordered: 07/14/2025 [facility] Comment on above: Ordered: 07/14/2025 Neisseria gonorrhoea e DNA [Presence] in Unspecified specimen by DOYLE with probe detection Neisseria gonorrhea DNA probe, direct Lab Routine Pelvic pain in female Ordered: 09/27/2024 [facility] Comment on above: Ordered: 09/27/2024 Prothrombin time (PT ) in Blood by Coagulation assay Protime-INR Lab Routine Menorrhagia with regular cycle Ordered: 06/20/2025 [facility] Comment on above: Ordered: 06/20/2025 SURESWAB(R) ADVANCED VAGINITIS PLUS, TMA SURESWAB(R) ADVANCED VAGINITIS PLUS, TMA Pathology and Cytology Routine Pelvic pain in female Ordered: 09/27/2024 [facility] Work Phone: Comment on above: Ordered: 09/27/2024 Thyrotropin [Units/volume] in Serum or Plasma TSH Lab Routine Menorrhagia with regular cycle Ordered: 06/20/2025 [facility] Comment on above: Ordered: 06/20/2025 Thyroxine (T4) free [Mass/volume] in Serum or Plasma T4, free Lab Routine Menorrhagia with regular cycle Ordered: 06/20/2025 [facility] Comment on above: Ordered: 06/20/2025 Immunizations Immunization Date Immunization Notes Care Provider [facility] 09-02-2022 influenza, injectable, quadrivalent, preservative free Maura Missler [facility] 09-02-2022 influenza virus vaccine, unspecified formulation Nevaeh Sevilla NP Work Phone: [facility] 09-13-2021 influenza, injectable, quadrivalent, preservative free Maura Missler [facility] 09-12-2020 influenza, injectable, quadrivalent, preservative free Maura Missler [facility] 01-20-2019 tetanus toxoid, reduced diphtheria toxoid, and acellular pertussis vaccine, adsorbed Maura Missler [facility] NEGATED: Highlighted row has not occurred!10-17-2023 influenza virus vaccine, unspecified formulation Maura Missler [facility] NEGATED: Highlighted row has not occurred!09-13-2021 SARS-CoV-2 (COVID-19) Ad26 vaccine, recombinant Mauralanette Mckeon [facility] NEGATED: Highlighted row has not occurred!12-27-2019 influenza virus vaccine, live, attenuated, for intranasal use Maura Mckeon [facility] Payers Date Payer Category Payer Private Health Insurance [id number] 2022 Blue Cross Blue Shield [id number] 2022 Unknown [id number] 2022 Unknown [id number] 1992 Unknown [id number] 2.16.8 40.1.458273.3.579.2.479 1992 Unknown [id number] 2.16.8 40.1.558087.3.579.2. 1992 Unknown [id number] 2.16.8 40.1.474669.3.579.2.727 1992 Unknown [id number] 2.16.8 40.1.637294.3.579.2.727 1992 Unknown [id number] 2.16.8 40.1.422260.3.579.2.727 1992 Unknown [id number] 2.16.8 40.1.767088.3.579.2.72 1992 Unknown [id number] 2.16.8 40.1.708669.3.579.2.727 1992 Unknown [id number] 2.16.8 40.1.744708.3.579.2.727 1992 Unknown [id number] 2.16.8 40.1.803698.3.579.2.727 1992 Unknown [id number] 2.16.8 40.1.280852.3.579.2. 1992 Unknown [id number] 2.16.8 40.1.601539.3.579.2. 1992 Unknown [id number] 2.16.8 40.1.499762.3.579.2. 1992 Unknown [id number] 2.16.8 40.1.510770.3.579.2. 1992 Unknown [id number] 2.16.8 40.1.542464.3.579.2. 1992 Unknown [id number] 2.16.8 40.1.059813.3.579.2. 1992 Unknown [id number] 2.16.8 40.1.170387.3.579.2. 1992 Unknown [id number] 2.16.8 40.1.639689.3.579.2. 1992 Unknown [id number] 2.16.8 40.1.816191.3.579.2.1258 1992 Unknown [id number] 2.16.8 40.1.485459.3.579.2.1258 1992 Unknown [id number] 2.16.8 40.1.133784.3.579.2.1258 1992 Unknown [id number] 2.16.8 40.1.951123.3.579.2.1258 1992 Unknown [id number] 2.16.8 40.1.484137.3.579.2.1258 1992 Unknown [id number] 2.16.8 40.1.932216.3.579.2.1258 1992 Unknown [id number] 2.16.84 0.1.214979.3.579.2.1258 1992 Unknown [id number] 2.16.84 0.1.808116.3.579.2.1259 1992 Unknown [id number] 2.16.84 0.1.423186.3.579.2.1259 [facility] [id number] Social History Date Type Detail Facility Start: 03-21-2023 End: 02-21-2025 Tobacco smoking status Light tobacco smoker (finding) [facility] Comment on above: 1/2 ppd. Tobacco smoking status Never Elli [facility] Start: 04-07-2023 End: 07-11-2025 Sex Assigned At Female [facility] Start: 10-17-2023 Tobacco smoking status Ex-smoker (fi nding) [facility] Start: 04-07-2023 End: 07-04-2025 Tobacco smoking status NHIS Smokes tobacco daily [facility] History of tobacco use Cigarette Smoker [facility] Start: 04-07-2023 End: 07-04-2025 Tobacco use and exposure Smokeless tobacco non-user [facility] Start: 07-22-2024 End: 07-11-2025 Alcoholic beverage intake Current drinker of alcohol (finding) [facility] Start: 04-07-2023 End: 07-11-2025 History of Social function [facility] How often to you hav e a drink containing alcohol? Never [facility] Start: 1990 Sex assigned at Not on file [facility] Start: 04-07-2023 Sexual orientation Heterosexual (fin ding) [facility] Sex Assigned At [facility] Start: 01-31-2025 End: 04-19-2025 Tobacco smoking status Heavy tobacco smoker (finding) [facility] Start: 02-07-2010 Sex Female (finding) [facility] Functional Status Date Assessment Result Facility 03-11-2025 Functional Status N/A [facility] 02-15-2025 Functional Status N/A [facility] 01-31-2025 Functional Status N/A [facility] 12-28-2024 Functional Status N/A [facility] 11-24-2024 Functional Status N/A [facility] 10-26-2024 Functional Status N/A [facility] 05-12-2024 Functional Status N/A [facility] 03-24-2024 Functional Status N/A [facility] 02-03-2024 Functional Status N/A [facility] 12-24-2023 Functional Status N/A [facility] 11-26-2023 Functional Status N/A [facility] 03-21-2023 Functional Status N/A [facility] Clinical Notes 03-21-2023 to 07-14-2025 GRACE Phan - 07/14/2025 3:30 PM Peri Chavarria MD - 07/11/2025 9:00 AM Peri Chavarria MD - 07/06/2025 9:00 AM Peri Chavarria MD - 07/04/2025 9:00 AM EDT Note Date & Type Note Facility 07-14-2025 History of Present illness Narrative Reason for Appointment: Patient ID: Ariana Batista is a 35 y.o. female who presents for Well Women Visit Patient presents today for Annual exam MEDICATIONS Current Outpatient Medications Medication Instructions Marianna 0.35 mg, Oral, Daily cholecalciferol (VITAMIN D-3) 1,250 mcg desvenlafaxine (PRISTIQ) 100 mg, Daily norethindrone-ethinyl estradiol-iron (Lo Loestrin Fe) 1 MG-10 MCG / 10 MCG tablet 1 tablet, Oral, Daily ALLERGIES Allergies Allergen Reactions Iodinated Contrast Media Other Reaction(s): unknown Latex Other Reaction(s): Rash Prednisone & Diphenhydramine Other Reaction(s): unknown allergy to contrast dye Bacitracin-Polymyxin B Rash Other Reaction(s): Rash, rash PROBLEMS Active Ambulatory Problems Diagnosis Date Noted No Active Ambulatory Problems Resolved Ambulatory Problems Diagnosis Date Noted No Resolved Ambulatory Problems Past Medical History: Diagnosis Date PRASANNA (generalized anxiety disorder) Major depressive disorder HISTORY PAST MEDICAL HISTORY SOCIAL HISTORY Past Medical History: Diagnosis Date PRASANNA (generalized anxiety disorder) Major depressive disorder Social History Tobacco Use Smoking status: Every Day Current packs/day: 0.25 Types: Cigarettes Smokeless tobacco: Never Vaping Use Vaping status: Never Used Substance Use Topics Alcohol use: Yes Drug use: Never FAMILY HISTORY No family history on file. SURGICAL HISTORY No past surgical history on file. REVIEW OF SYSTEMS Review of Systems: Review of Systems Constitutional: Negative. HENT: Negative. Eyes: Negative. Respiratory: Negative. Cardiovascular: Negative. Gastrointestinal: Negative. Genitourinary: Negative. Musculoskeletal: Negative. Skin: Negative. Neurological: Negative. All other systems reviewed and are negative. Hematological: Negative. Endocrine: Negative. Allergic/Immunologic: Negative. OBJECTIVE Objective: Physical Exam Constitutional: Appearance: Normal appearance. She is well-developed. Genitourinary: Vulva normal. Cardiovascular: Rate and Rhythm: Normal rate and regular rhythm. Pulmonary: Effort: Pulmonary effort is normal. Breath sounds: Normal breath sounds. Abdominal: General: Bowel sounds are normal. There is no distension. Palpations: Abdomen is soft. Tenderness: There is no abdominal tenderness. There is no guarding or rebound. Musculoskeletal: General: No swelling. Normal range of motion. Right lower leg: No edema. Left lower leg: No edema. Neurological: Mental Status: She is alert and oriented to person, place, and time. Skin: General: Skin is warm and dry. Psychiatric: Mood and Affect: Mood normal. Behavior: Behavior normal. Vitals and nursing note reviewed. Exam conducted with a plastic surgery coordinator present. Vitals: Estimated body mass index is 30.7 kg/m as calculated from the following: Height as of 06/20/25: 5' 5 . Weight as of this encounter: 184 lb 8 oz. BP: 110/70 Patient's last menstrual period was 07/07/2025 (approximate). ASSESSMENT & PLAN ICD-10-CM 1. Well woman exam with routine gynecological exam Z01.419 Pap Smear HPV DNA probe, amplified Annual Exam: Patient presents today for an annual exam. Patient states she is doing well and has no complaints. Pap was obtained without difficulty. Orders Placed This Encounter Procedures HPV DNA probe, amplified Follow Up: Patient is to return in one year for annual unless needed otherwise. Documented by Saranya Malone MA on behalf of: GRACE Phan documented in this encounter [facility] 07-11-2025 History of Present illness Narrative Ariana Batista returns to the office today for final patch test reading. Her 1st reading was negative at the 48 hour sujey. She continues to have episodes of back pain. She had positive testing for dexamethasone and betamethasone as well as methylprednisolone but negative testing for triamcinolone and hydrocortisone. Patch testing in the office today was read at the 7 day sujey. She has negative testing for the entire [place] contact dermatitis panel. I let her know that it would be safe to use triamcinolone lidocaine and Vueway all of which she has had negative testing for. I did let her know that for can patch testing have limited sensitivity for a delayed type hypersensitivity and she understands and will contact the office if she has any symptoms of rash with the above medications. documented in this encounter [facility] 07-06-2025 History of Present illness Narrative Ariana Batista returns to the office today for her 1st patch test interpretation. Her patch testing at the 48 hour sujey is negative for the [place] contact dermatitis panel. We agreed she will sujey the areas daily and follow up in 5 days for her final patch test interpretation. documented in this encounter [facility] 07-04-2025 History of Present illness Narrative Ariana Batista returns to the office today for skin testing for local anesthetics steroids and several contrast agents. She is still having back pain. She had an MRI in December or January she believes without contrast and did not have a rash after this. Skin testing in the office today performed under direct physician supervision is negative for local anesthetics including lidocaine. She would positive testing for dexamethasone and betamethasone as well as methylprednisolone but negative testing for triamcinolone and hydrocortisone. She would negative prick and intradermal testing as well for iodinated contrast as well as gadolinium containing contrast. The patient presents to the office today for patch testing. Patch testing was placed under direct physician supervision for the [place] contact dermatitis test series. The patient was given detailed instructions on how to care for this and we reviewed the importance of avoiding exercise, heavy sweating and showering for 48 hours. Follow-up was arranged in 2 days for removal of the patch test and the 1st patch test interpretation. documented in this encounter [facility] 06-20-2025 History of Present illness Narrative Reason for Appointment: Patient ID: Ariana Batista is a 35 y.o. female who presents for Vaginal Bleeding (Pt present today to discuss AUB.) Patient presents today for AUB and Dyspareunia. MEDICATIONS Current Outpatient Medications Medication Instructions cholecalciferol (VITAMIN D-3) 1,250 mcg desvenlafaxine (PRISTIQ) 100 mg, Daily Slynd 4 mg, Oral, Daily ALLERGIES Allergies Allergen Reactions Iodinated Contrast Media Other Reaction(s): unknown Latex Other Reaction(s): Rash Prednisone & Diphenhydramine Other Reaction(s): unknown allergy to contrast dye Bacitracin-Polymyxin B Rash Other Reaction(s): Rash, rash PROBLEMS Active Ambulatory Problems Diagnosis Date Noted No Active Ambulatory Problems Resolved Ambulatory Problems Diagnosis Date Noted No Resolved Ambulatory Problems Past Medical History: Diagnosis Date PRASANNA (generalized anxiety disorder) Major depressive disorder HISTORY PAST MEDICAL HISTORY SOCIAL HISTORY Past Medical History: Diagnosis Date PRASANNA (generalized anxiety disorder) Major depressive disorder Social History Tobacco Use Smoking status: Every Day Current packs/day: 0.25 Types: Cigarettes Smokeless tobacco: Never Vaping Use Vaping status: Never Used Substance Use Topics Alcohol use: Yes Drug use: Never FAMILY HISTORY No family history on file. SURGICAL HISTORY No past surgical history on file. REVIEW OF SYSTEMS Review of Systems: Review of Systems Constitutional: Negative. HENT: Negative. Eyes: Negative. Respiratory: Negative. Cardiovascular: Negative. Gastrointestinal: Negative. Genitourinary: Negative. Musculoskeletal: Negative. Skin: Negative. Neurological: Negative. All other systems reviewed and are negative. Hematological: Negative. Endocrine: Negative. Allergic/Immunologic: Negative. OBJECTIVE Objective: Physical Exam Constitutional: Appearance: Normal appearance. She is normal weight. HENT: Head: Normocephalic. Cardiovascular: Rate and Rhythm: Normal rate. Pulses: Normal pulses. Pulmonary: Effort: Pulmonary effort is normal. Breath sounds: Normal breath sounds. Abdominal: Palpations: Abdomen is soft. Musculoskeletal: General: Normal range of motion. Neurological: General: No focal deficit present. Mental Status: She is alert and oriented to person, place, and time. Psychiatric: Mood and Affect: Mood normal. Behavior: Behavior normal. Thought Content: Thought content normal. Judgment: Judgment normal. Vitals and nursing note reviewed. Vitals: Estimated body mass index is 30.12 kg/m as calculated from the following: Height as of this encounter: 5' 5 . Weight as of this encounter: 181 lb. BP: 118/74 Patient's last menstrual period was 05/27/2025 (approximate). ASSESSMENT & PLAN ICD-10-CM 1. Abnormal uterine bleeding (AUB) N93.9 US Pelvis w/ TV 2. Menorrhagia with regular cycle N92.0 CBC and differential TSH hCG, quantitative, Protime-INR T4, free APTT Hemoglobin A1c APTT 3. Dyspareunia, female N94.10 US Pelvis w/ TV Pt present today to discuss AUB along w/Dyspareunia. Pt is currently on Slynd and has had a period for 3 weeks and is concerned. Pt states she has not had this before and she has pain everytime she has intercourse w/her and has to stop in middle due to the discomfort/pain she has. Would like to discuss this issue w/Massiel Núñez. Pt was given Menorrhagia labs and U/S to obtain and schedule, set up a f/up visit in 4 weeks to discuss results, pt was prescribed Doxycycline for her discomfort w/intercourse and was changed from Slynd b/c to Lo-Lo. Pt to schedule f/up visit in our office for 4 weeks. Documented by Elvie Cantrell MA on behalf of: GRACE Phan documented in this encounter [facility] 05-06-2025 Telephone encounter Note Called and spoke with her and she will drop off the 2 gado contrast agent for about 30 USD. [facility] 05-06-2025 Miscellaneous Notes Called and spoke with her and she will drop off the 2 gado contrast agent for about 30 USD. documented in this encounter [facility] 04-22-2025 History of Present illness Narrative Ariana Batista is a very pleasant 35 y.o. year old female who comes to the office today with the chief complaint of concern about drug allergies. She had spinal injection with lidocaine and solumedrol and then 5 days after she had this she had a rash with itch on legs feet arms and hands. Within 24 hours the rash became worse. She is on OCP and gabapentin. The rash felt like I was on fire. She went to urgent care and got oral corticosteroid and and itch med and she had improvement over several days. She had no symptoms before 5 days after the injection. She has a slipped disk in L5 S1 and they did not do an imaging study at that time. This was done by Dr. Senior in pain mgmt and the procedure was very helpful for her for about 6 weeks. She would be able to get this procedure every 3 months. There was no desquamation or mucous membrane lesions with this reaction. She had Rcm when she had kidney surgery when she was 4 years old and she got a rash after getting this contrast agent. She had no desquamation or mucous membrane lesions according to her mother. She had a rash one week after injections on the arms and legs. During this injection she had intralaminar epidural and she was injected with 4 ml of normal saline and methylprednisolone and lidocaine 2%. And then 5 days later she got a rash. They had planned to do a different type of injection with either iodinated contrast or gado based contrast. Her pain doctor does not feel the rash was due to the injection. EXAM The patient appears comfortable in the office today. Lungs are clear to auscultation bilaterally. The oral mucosa is pink and healthy without any lesions or ulcers. The palate elevates in the midline. The nasal mucosa is pink and healthy. There is no epistaxis mucopus or nasal polyposis noted. The nasal septum is approximately in the midline. The skin is clear of any lesions, excoriations, or erythema. IMPRESSION: call dr. Senior in Accepting New Patients Call [phone]. Skin testing for lido steroids and 3 RCM agesna 3 gado agents. Hivers only 15 min after - second time ionic with premed and tolerated. Drug-induced dermatitis - we agreed she would obtain samples of iodinated radiographic contrast and gadolinium based contrast from her pain management physician and return for both prick testing, patch testing, and intradermal testing with these agents and then we will try and help her and her pain management physician determined at that time which of these agents would be safe for her to have injected in her spine in the future. We also agreed that that time to perform skin testing for systemic steroids and local anesthetics given the rash that she had after her recent injection of these. The patient did contact me after the office visit and states that when she had contrast media at around age 4 she had hives only about 15 minutes after administration and the 2nd time she received this she was premedicated and received an iodine based radiographic contrast media and tolerated this well. Time of visit including pre charting, reviewing the patient's records, speaking with the pain management physician, and speaking with the patient on the phone after the visit is 76 minutes. documented in this encounter [facility] 04-15-2025 Hospital Discharge instructions Patient Education 04/14/2025 22:10:58 Health Risks of Smoking Health Risks of Smoking Smoking tobacco is very bad for your health. Tobacco smoke contains many toxic chemicals that can damage every part of your body. Secondhand smoke can be harmful to those around you. Tobacco or nicotine use can cause many long-term (chronic) diseases. Smoking is difficult to quit because a chemical in tobacco, called nicotine, causes addiction or dependence. When you smoke and inhale, nicotine is absorbed quickly into your bloodstream through your lungs. Both inhaled and non-inhaled nicotine may be addictive. How can quitting affect me? There are health benefits of quitting smoking. Some benefits happen right away and others take time. Benefits may include: Blood flow, blood pressure, heart rate, and lung capacity may begin to improve. However, any lung damage that has already occurred cannot be repaired. Respiratory symptoms from smoking, such as nasal congestion and cough, may improve over time. Your risk of heart disease, stroke, and cancer is reduced. The overall quality of your health may improve. You may save money, as you will not spend money on tobacco products and may spend less money on smoking-related health issues. What can increase my risk? Smoking harms nearly every organ in the body. People who smoke tobacco have a shorter life expectancy and an increased risk of many serious medical problems. These include: More respiratory infections, such as colds and pneumonia. Cancer. Heart disease. Stroke. Chronic respiratory diseases. Delayed wound healing and increased risk of complications during surgery. Problems with reproduction, , and childbirth, such as infertility, early (premature) births, stillbirths, and defects. Secondhand smoke exposure to children increases the risk of: Sudden syndrome (SIDS). Infections in the nose, throat, or airways (respiratory infections). Chronic respiratory symptoms. What actions can I take to quit? Smoking is an addiction that affects both your body and your mind, and long-time habits can be hard to change. Your health care provider can recommend: Nicotine replacement products, such as patches, gum, and nasal sprays. Use these products only as directed. Do not replace cigarette smoking with electronic cigarettes, which are commonly called e-cigarettes. The safety of e-cigarettes is not known, and some may contain harmful chemicals. Programs and community resources, which may include group support, education, or talk therapy. Prescription medicines to help reduce cravings. A combination of two or more quit methods, which may increase the success of quitting. Where to find support Follow the recommendations from your health care provider about support groups and other assistance. You can also visit: U.S. Department of Health and Human Services: www.smokefree.gov [employer]: www.freedomfromsmoking.org [place] [employer]: www.heart.org Where to find more information Centers for Disease Control and Prevention: www.cdc.gov World Health Organization: www.who.int Summary Smoking tobacco is very bad for your health. Tobacco smoke contains many toxic chemicals that can damage every part of the body. Smoking is difficult to quit because a chemical in tobacco, called nicotine, causes addiction or dependence. There are immediate and long-term health benefits of quitting smoking. A combination of two or more quit methods may increase the success of quitting. This information is not intended to replace advice given to you by your health care provider. Make sure you discuss any questions you have with your health care provider. Document Revised: 10/15/2022 Document Reviewed: 10/15/2022 [employer] Patient Education 2023 [employer] 360. 04/14/2025 22:10:57 Health Maintenance, Female Health Maintenance, Female Adopting a healthy lifestyle and getting preventive care are important in promoting health and wellness. Ask your health care provider about: The right schedule for you to have regular tests and exams. Things you can do on your own to prevent diseases and keep yourself healthy. What should I know about diet, weight, and exercise? Eat a healthy diet Eat a diet that includes plenty of vegetables, fruits, low-fat dairy products, and lean protein. Do not eat a lot of foods that are high in solid fats, added sugars, or sodium. Maintain a healthy weight Body mass index (BMI) is used to identify weight problems. It estimates body fat based on height and weight. Your health care provider can help determine your BMI and help you achieve or maintain a healthy weight. Get regular exercise Get regular exercise. This is one of the most important things you can do for your health. Most adults should: Exercise for at least 150 minutes each week. The exercise should increase your heart rate and make you sweat (moderate-intensity exercise). Do strengthening exercises at least twice a week. This is in addition to the moderate-intensity exercise. Spend less time sitting. Even light physical activity can be beneficial. Watch cholesterol and blood lipids Have your blood tested for lipids and cholesterol at 20 years of age, then have this test every 5 years. Have your cholesterol levels checked more often if: Your lipid or cholesterol levels are high. You are older than 40 years of age. You are at high risk for heart disease. What should I know about cancer screening? Depending on your health history and family history, you may need to have cancer screening at various ages. This may include screening for: Breast cancer. Cervical cancer. Colorectal cancer. Skin cancer. Lung cancer. What should I know about heart disease, diabetes, and high blood pressure? Blood pressure and heart disease High blood pressure causes heart disease and increases the risk of stroke. This is more likely to develop in people who have high blood pressure readings or are overweight. Have your blood pressure checked: ?Every 3 5 years if you are 18 39 years of age. ?Every year if you are 40 years old or older. Diabetes Have regular diabetes screenings. This checks your fasting blood sugar level. Have the screening done: Once every three years after age 40 if you are at a normal weight and have a low risk for diabetes. More often and at a younger age if you are overweight or have a high risk for diabetes. What should I know about preventing infection? Hepatitis B If you have a higher risk for hepatitis B, you should be screened for this virus. Talk with your health care provider to find out if you are at risk for hepatitis B infection. Hepatitis C Testing is recommended for: Everyone born from 1945 through 1965. Anyone with known risk factors for hepatitis C. Sexually transmitted infections (STIs) Get screened for STIs, including gonorrhea and chlamydia, if: ?You are sexually active and are younger than 24 years of age. ?You are older than 24 years of age and your health care provider tells you that you are at risk for this type of infection. ?Your sexual activity has changed since you were last screened, and you are at increased risk for chlamydia or gonorrhea. Ask your health care provider if you are at risk. Ask your health care provider about whether you are at high risk for HIV. Your health care provider may recommend a prescription medicine to help prevent HIV infection. If you choose to take medicine to prevent HIV, you should first get tested for HIV. You should then be tested every 3 months for as long as you are taking the medicine. If you are about to stop having your period (premenopausal) and you may become , seek counseling before you get . Take 400 to 800 micrograms (mcg) of folic acid every day if you become . Ask for control (contraception) if you want to prevent . Osteoporosis and menopause Osteoporosis is a disease in which the bones lose minerals and strength with aging. This can result in bone fractures. If you are 65 years old or older, or if you are at risk for osteoporosis and fractures, ask your health care provider if you should: Be screened for bone loss. Take a calcium or vitamin D supplement to lower your risk of fractures. Be given hormone replacement therapy (HRT) to treat symptoms of menopause. Follow these instructions at home: Alcohol use Do not drink alcohol if: ?Your health care provider tells you not to drink. ?You are , may be , or are planning to become . If you drink alcohol: ?Limit how much you have to: ?0 1 drink a day. ?Know how much alcohol is in your drink. In the [place] one drink equals one 12 oz bottle of beer (355 mL), one 5 oz glass of wine (148 mL), or one 1 oz glass of hard liquor (44 mL). Lifestyle Do not use any products that contain nicotine or tobacco. These products include cigarettes, chewing tobacco, and vaping devices, such as e-cigarettes. If you need help quitting, ask your health care provider. Do not use street drugs. Do not share needles. Ask your health care provider for help if you need support or information about quitting drugs. General instructions Schedule regular health, dental, and eye exams. Stay current with your vaccines. Tell your health care provider if: ?You often feel depressed. ?You have ever been abused or do not feel safe at home. Summary Adopting a healthy lifestyle and getting preventive care are important in promoting health and wellness. Follow your health care provider's instructions about healthy diet, exercising, and getting tested or screened for diseases. Follow your health care provider's instructions on monitoring your cholesterol and blood pressure. This information is not intended to replace advice given to you by your health care provider. Make sure you discuss any questions you have with your health care provider. Document Revised: 03/04/2022 Document Reviewed: 03/04/2022 [employer] Patient Education 2023 [employer]! 360. 04/14/2025 22:10:57 BMI for Adults BMI for Adults Body mass index (BMI) is a number found using a person's weight and height. BMI can help tell how much of a person's weight is made up of fat. BMI does not measure body fat directly. It is used instead of tests that directly measure body fat, which can be difficult and expensive. What are BMI measurements used for? BMI is useful to: Find out if your weight puts you at higher risk for medical problems. Help recommend changes, such as in diet and exercise. This can help you reach a healthy weight. BMI screening can be done again to see if these changes are working. How is BMI calculated? Your height and weight are measured. The BMI is found from those numbers. This can be done with U.[place] or metric measurements. Note that charts and online BMI calculators are available to help you find your BMI quickly and easily without doing these calculations. To calculate your BMI in [place] measurements: 1.Measure your weight in pounds (lb). 2.Multiply the number of pounds by 703. So, for an adult who weighs 150 lb, multiply that number by 703: 150 x 703, which equals 105,450. 3.Measure your height in inches. Then multiply that number by itself to get a measurement called inches squared. So, for an adult who is 70 inches tall, the inches squared measurement is 70 inches x 70 inches, which equals 4,900 inches squared. 4.Divide the total from step 2 (number of lb x 703) by the total from step 3 (inches squared): 105,450 4,900 = 21.5. This is your BMI. To calculate your BMI in metric measurements: 1.Measure your weight in kilograms (kg). For this example, the weight is 70 kg. 2.Measure your height in meters (m). Then multiply that number by itself to get a measurement called meters squared. So, for an adult who is 1.75 m tall, the meters squared measurement is 1.75 m x 1.75 m, which equals 3.1 meters squared. 3.Divide the number of kilograms (your weight) by the meters squared number. In this example: 70 3.1 = 22.6. This is your BMI. What do the results mean? BMI charts are used to see if you are underweight, normal weight, overweight, or obese. The following guidelines will be used: Underweight: BMI less than 18.5. Normal weight: BMI between 18.5 and 24.9. Overweight: BMI between 25 and 29.9. Obese: BMI of 30 or above. BMI is a tool and cannot diagnose a condition. Talk with your health care provider about what your BMI means for you. Keep these notes in mind: Weight includes fat and muscle. Someone with a muscular build, such as an athlete, may have a BMI that is higher than 24.9. In cases like these, BMI is not a correct measure of body fat. If you have a BMI of 25 or higher, your provider may need to do more testing to find out if excess body fat is the cause. BMI is measured the same way for males and females. Females usually have more body fat than males of the same height and weight. Where to find more information For more information about BMI, including tools to quickly find your BMI, go to: Centers for Disease Control and Prevention: cdc.gov [employer]: heart.org National Heart, Lung, and Blood [place]: nhlbi.nih.gov This information is not intended to replace advice given to you by your health care provider. Make sure you discuss any questions you have with your health care provider. Document Revised: 07/03/2023 Document Reviewed: 06/26/2023 [employer] Patient Education 2023 [employer]! 360. Follow Up Care 10/26/2024 12:16:33 With:Mike LAZARO Maura Kelly Address: [address] [place] [address] [address], [place] [address]- When:Within 6 Month(s) Comments:[facility] 04-14-2025 Note Patient Education Nutrition BMI for Adults Body mass index (BMI) is a number found using a person's weight and height. BMI can help tell how much of a person's weight is made up of fat. BMI does not measure body fat directly. It is used instead of tests that directly measure body fat, which can be difficult and expensive. What are BMI measurements used for? BMI is useful to: ??? Find out if your weight puts you at higher risk for medical problems. ??? Help recommend changes, such as in diet and exercise. This can help you reach a healthy weight. BMI screening can be done again to see if these changes are working. How is BMI calculated? Your height and weight are measured. The BMI is found from those numbers. This can be done with U.S. or metric measurements. Note that charts and online BMI calculators are available to help you find your BMI quickly and easily without doing these calculations. To calculate your BMI in [place]. measurements: 1. Measure your weight in pounds (lb). 2. Multiply the number of pounds by 703. ??? So, for an adult who weighs 150 lb, multiply that number by 703: 150 x 703, which equals 105,450. 3. Measure your height in inches. Then multiply that number by itself to get a measurement called inches squared. ??? So, for an adult who is 70 inches tall, the inches squared measurement is 70 inches x 70 inches, which equals 4,900 inches squared. 4. Divide the total from step 2 (number of lb x 703) by the total from step 3 (inches squared): 105,450 ? 4,900 = 21.5. This is your BMI. To calculate your BMI in metric measurements: 1. Measure your weight in kilograms (kg). ??? For this example, the weight is 70 kg. 2. Measure your height in meters (m). Then multiply that number by itself to get a measurement called meters squared. ??? So, for an adult who is 1.75 m tall, the meters squared measurement is 1.75 m x 1.75 m, which equals 3.1 meters squared. 3. Divide the number of kilograms (your weight) by the meters squared number. In this example: 70 ? 3.1 = 22.6. This is your BMI. What do the results mean? BMI charts are used to see if you are underweight, normal weight, overweight, or obese. The following guidelines will be used: ??? Underweight: BMI less than 18.5. ??? Normal weight: BMI between 18.5 and 24.9. ??? Overweight: BMI between 25 and 29.9. ??? Obese: BMI of 30 or above. BMI is a tool and cannot diagnose a condition. Talk with your health care provider about what your BMI means for you. Keep these notes in mind: ??? Weight includes fat and muscle. Someone with a muscular build, such as an athlete, may have a BMI that is higher than 24.9. In cases like these, BMI is not a correct measure of body fat. ??? If you have a BMI of 25 or higher, your provider may need to do more testing to find out if excess body fat is the cause. ??? BMI is measured the same way for males and females. Females usually have more body fat than males of the same height and weight. Where to find more information For more information about BMI, including tools to quickly find your BMI, go to: ??? Centers for Disease Control and Prevention: cdc.gov ??? [employer]: heart.org ??? National Heart, Lung, and Blood [place]: nhlbi.nih.gov This information is not intended to replace advice given to you by your health care provider. Make sure you discuss any questions you have with your health care provider. Document Revised: 07/03/2023 Document Reviewed: 06/26/2023 Elsevier Patient Education ? 2023 Improveit! 360. Obstetrics and Gynecology Health Maintenance, Female Adopting a healthy lifestyle and getting preventive care are important in promoting health and wellness. Ask your health care provider about: ??? The right schedule for you to have regular tests and exams. ??? Things you can do on your own to prevent diseases and keep yourself healthy. What should I know about diet, weight, and exercise? Eat a healthy diet ??? Eat a diet that includes plenty of vegetables, fruits, low-fat dairy products, and lean protein. ??? Do not eat a lot of foods that are high in solid fats, added sugars, or sodium. Maintain a healthy weight Body mass index (BMI) is used to identify weight problems. It estimates body fat based on height and weight. Your health care provider can help determine your BMI and help you achieve or maintain a healthy weight. Get regular exercise Get regular exercise. This is one of the most important things you can do for your health. Most adults should: ??? Exercise for at least 150 minutes each week. The exercise should increase your heart rate and make you sweat (moderate-intensity exercise). ??? Do strengthening exercises at least twice a week. This is in addition to the moderate-intensity exercise. ??? Spend less time sitting. Even light physical activity can be beneficial. Watch cholesterol and blood l (more content not included)... [facility] 03-11-2025 Evaluation + Plan note Extrac moisés from: Title:Pain Managment Follow up Author:Jesusita Matute Date:03/11/25 Impression and Plan patient is a 34-year-old female with a past medical history significant for lumbar neuritis, lumbar degenerative disc disease and lumbar disc bulge. At this time, patient has obtained 100% relief from the recent injection that she underwent. She is feeling well and doing well. She is comfortable and happy. She is pleased with how things are going and at this time, she had some questions about returning back to normal activities. Her questions were all answered and discussed at length. We discussed that we can repeat the injection every 3 months as needed. Patient voiced understanding. She is going to follow-up on an as-needed basis. She will call us should she require anything from our services. SARKIS score: 6%. As part of providing excellent, safe, comprehensive care, the following was completed at our patient's visit: Reviewed patient's medication reconciliation. Reviewed screening for depression, screening for tobacco use, and patient's Oswestry disability index results. For concerning screenings had a discussion with the patient, provided patient education, and recommended follow-up with primary care provider when appropriate. Patient noted with risk of falling received education on strength, gait, and balance training to prevent future risk of falling. Future Appointments Appointment Date:04/19/2025 10:20:00 AM Scheduled Provider:Maura Vigil Location:[facility] [place] [facility] Appointment Type:[facility] 05-16-2025 NoteConsultation Note Patient: ARIANA BATISTA Age: 34 years Sex: Female : 1990 Associated Diagnoses: None Author: Jesusita Boo PA-C Subjective Chief complaint 03/11/2025 8:55 EDT back pain . Patient is a 34-year-old female with a past medical history significant for lumbar neuritis, chronic lower back pain, lumbar degenerative disc disease and lumbar disc bulge. Patient underwent recent L5-S1 epidural steroid injection done on 02/15/2025 and at this time has given 100% relief. She is feeling well. She is doing well. She is comfort. She is happy. She does not have any pain or complaints. She does not have any concerns. She wants to get back to normal activities and see how she does but overall, at this time she states that things are going great. She overall is very happy. Health Status Allergies: Allergic Reactions (Selected) Severity Not Documented Contrast Dye- Unknown. Contrast media (gadolinium-based)- Unknown. Latex- Rash. Neosporin- Rash and rash., Allergies (5) Active Severity Reaction Contrast Dye unknown Neosporin rash Latex Rash contrast media (gadolinium-based) Unknown Neosporin Rash Current medications: (Selected) Prescriptions Prescribed cholecalciferol 50,000 intl units oral capsule: 1,250 mcg = 1 cap(s), Oral, qWeek, # 12 cap(s), Refills(s) 3, Pharmacy: [facility]/pharmacy #[id number], 165, cm, 10/26/24 11:59:00 EST, Height/Length Dosing, 79.8,kg, 10/26/24 11:59:00 EST, Weight Dosing cyclobenzaprine 10 mg Tab: See Instructions, 1 tab(s) Oral PRN for spasms, # 15 tab(s), Refills(s) 0, Pharmacy: [facility]/pharmacy #[id number], 165, cm, 12/28/24 14:33:00 EST, Height/Length Dosing, 81, kg, 12/28/24 14:33:00 EST, Weight Dosing desvenlafaxine 100 mg Tab-: See Instructions, TAKE 1 TABLET BY MOUTH EVERY DAY, # 90 tab(s), Refills(s) 4, Pharmacy: [facility]/pharmacy #[id number], 165, cm, 11/24/24 18:26:00 EST, Height/Length Dosing, 79.2, kg, 11/24/24 18:26:00 EST, Weight Dosing predniSONE 10 mg Tab: 10 mg = 1 tab(s), Oral, As Directed, 6 tabs for 2 days,5 tabs for 2 days,4 tabs for 2 days,3 tabs for 2 days,2 tabs for 2 days,1 tab for 2 days with food, # 42 tab(s), Refills(s) 0, [id number], 165, cm, 02/21/25 9:30:00 EDT, Height/... Documented Medications Documented Slynd: Refills(s) 0 Problem list: All Problems Generalized anxiety disorder / SNOMED CT 65894625 / Confirmed Smoker / SNOMED CT 473532631 / Confirmed Weight loss counseling, encounter for / SNOMED CT 154860236 / Confirmed Mild major depression / SNOMED CT 290520092 / Confirmed Over weight / SNOMED CT 233456683 / Confirmed Vitamin D deficiency / SNOMED CT 33145890 / Confirmed BMI 29.0-29.9,adult / SNOMED CT 7568044085 / Confirmed Chronic back pain greater than 3 months duration / SNOMED CT 7669972426 / Confirmed Morbilliform rash / SNOMED CT 228192586 / Confirmed Dermatitis / SNOMED CT 6989983815 / Confirmed Resolved: / SNOMED CT 008525984 Canceled: Smoker / IMO [id number] Added secondary to documentation in Social History. Canceled: Depression / SNOMED CT 09325734 Canceled: Abnormal uterine bleeding (AUB) / SNOMED CT 7820896021 Canceled: Anxiety / SNOMED CT 37951135 Canceled: Adult BMI 27.0-27.9 kg/sq m / SNOMED CT 9520020544 Canceled: Overweight with body mass index (BMI) of 27 to 27.9 in adult / SNOMED CT 5753224784 Canceled: BMI 28.0-28.9,adult / SNOMED CT 8728546951 Canceled: Over weight / SNOMED CT 258991054 Canceled: Adult general medical exam / SNOMED CT 387783746 Canceled: Encounter for administration of vaccine / SNOMED CT 719068509 Canceled: Routine adult health maintenance / SNOMED CT 691968658 Canceled: Obesity / SNOMED CT 7371938037 Canceled: Recurrent mild major depressive disorder with anxiety / SNOMED CT 2191476708 Canceled: Moderately severe depression / SNOMED CT 6063650359 Canceled: Former smoker / SNOMED CT 11304194 Canceled: BMI 29.0-29.9,adult / SNOMED CT 0202677417 Canceled: BMI 30.0-30.9,adult / SNOMED CT 998066373 Canceled: BMI 28.0-28.9,adult / SNOMED CT 8047427439 Canceled: Over weight / SNOMED CT 852752637 Canceled: BMI 29.0-29.9,adult / SNOMED CT 0774171178 Canceled: BMI 28.0-28.9,adult / SNOMED CT 7916879189 Objective Vital Signs 03/11/2025 8:55 EDT Peripheral Pulse Rate 85 bpm Respiratory Rate 14 br/min Systolic Blood Pressure 123 mmHg Diastolic Blood Pressure 69 mmHg Mean Arterial Pressure, Cuff 87 mmHg General: Alert and oriented, No acute distress. Eye: Normal conjunctiva. HENT: Normocephalic, Normal hearing. Cardiovascular: No edema. Musculoskeletal Normal range of motion. Normal strength. 02/28 strength Integumentary: Warm, Dry, [place]. Neurologic: Alert, Oriented. Psychiatric: Cooperative, Appropriate mood & affect. 14 point review of systems was negative unless otherwise noted. Impression and Plan patient is a 34-year-old female with a past medical history significant for lumbar neuritis, lumbardegene (more content not included)...[facility]:Result Comment: Electronically Signed By: Jesusita Boo PA-C\.br\Date and Time Signed: 03/11/25 09:16 [id number] NotePatient Education Dermatology Contact Dermatitis Dermatitis is redness, soreness, and swelling (inflammation) of the skin. Contact dermatitis is a reaction to certain substances that touch the skin. There are two types of this condition: ??? Irritant contact dermatitis. This is the most common type. It happens when something irritates your skin, such as when your hands get dry from washing them too often with soap. You can get this type of reaction even if you have not been exposed to the irritant before. ??? Allergic contact dermatitis. This type is caused by a substance that you are allergic to, such as poison ton. It occurs when you have been exposed to the substance (allergen) and form a sensitivity to it. In some cases, the reaction may start soon after your first exposure to the allergen. In other cases, it may not start until you are exposed to the allergen again. It may then occur every time you are exposed to the allergen in the future. What are the causes? Irritant contact dermatitis is often caused by exposure to: ??? Makeup. ??? Soaps, detergents, and bleaches. ??? Acids. ??? Metal salts, such as nickel. Allergic contact dermatitis is often caused by exposure to: ??? Poisonous plants. ??? Chemicals. ??? Jewelry. ??? Latex. ??? Medicines. ??? Preservatives in products, such as clothes. What increases the risk? You are more likely to get this condition if you have: ??? A job that exposes you to irritants or allergens. ??? Certain medical conditions. These include asthma and eczema. What are the signs or symptoms? Symptoms of this condition may occur in any place on your body that has been touched by the irritant. ??? Symptoms include: ? Dryness, flaking, or cracking. ? Redness. ? Itching. ? Pain or a burning feeling. ? Blisters. ? Drainage of small amounts of blood or clear fluid from skin cracks. With allergic contact dermatitis, there may also be swelling in areas such as the eyelids, mouth, or genitals. How is this diagnosed? This condition is diagnosed with a medical history and physical exam. ??? A patch skin test may be done to help figure out the cause. ??? If the condition is related to your job, you may need to see an expert in health problems in the workplace (occupational health manager). How is this treated? This condition is treated by staying away from the cause of the reaction and protecting your skin from further contact. Treatment may also include: ??? Steroid creams or ointments. Steroid medicines may need be taken by mouth (orally) in more severe cases. ??? Antibiotics or medicines applied to the skin to kill bacteria (antibacterial ointments). These may be needed if a skin infection is present. ??? Antihistamines. These may be taken orally or put on as a lotion to ease itching. ??? A bandage (dressing). Follow these instructions at home: Skin care ??? Moisturize your skin as needed. ??? Put cool, wet cloths (cool compresses) on the affected areas. ??? Try applying baking soda paste to your skin. Stir water into baking soda until it has the consistency of a paste. ??? Do not scratch your skin. Avoid friction to the affected area. ??? Avoid the use of soaps, perfumes, and dyes. ??? Check the affected areas every day for signs of infection. Check for: ? More redness, swelling, or pain. ? More fluid or blood. ? Warmth. ? Pus or a bad smell. Medicines ??? Take or apply ymnx-kyz-jgwvgpk and prescription medicines only as told by your health care provider. ??? If you were prescribed antibiotics, take or apply them as told by your health care provider. Donot stop using the antibiotic even if you start to feel better. Bathing ??? Try taking a bath with: ? Epsom salts. Follow the instructions on the packaging. You can get these at your local pharmacy or grocery store. ? Baking soda. Pour a small amount into the bath as told by your health care provider. ? Colloidal oatmeal. Follow the instructions on the packaging. You can get this at your local pharmacy or grocery store. ??? Bathe less often. This may mean bathing every other day. ??? Bathe in lukewarm water. Avoid using hot water. Bandage care ??? If you were given a dressing, change it as told by your health care provider. ??? Wash your hands with soap and water for at least 20 seconds before and after you change your dressing. If soap and water are not available, use hand administrative services officer. General instructions ??? Avoid the substance that caused your reaction. If you do not know what caused it, keep a journal to try to track what caused it. Write down: ? What you eat and drink. ? What cosmetics you use. ? What you wear in the affected area. This includes jewelry. Contact a health care provider if: ??? Your condition does not get better with treatment. ??? Your condition gets worse. ??? You have any signs of infection. ??? You have a fever. ??? (more content not included)...[facility]04-[facility] Evaluation + Plan noteExtracted from: Title:L5/S1 interlaminar epi dural steroid injection Author:Demetrius Senior DO. Date:02/15/25 Diagnosis: M54.16, lumbar ra diculopathy. Procedure: L5/S1 lumbar interlaminar epidural steroid injection under fluoroscopic guidance Anesthesia: Local Complications: none Patient has allergies to to gadolinium based contrast as well as iodinated contrast media. After informed consent was obtained, the patient was brought to the procedure suite and placed in the prone position. Pulse oximetry and blood pressure were monitored throughout. Low back areas prepped and draped in the usual sterile fashion. Using fluoroscopic guidance, the skin and subcutaneous tissue overlying the needle trajectory were anesthetized with 2% lidocaine. A 17-gauge Touhy needle was inserted and directed by fluoroscopy. Entry into the epidural space was confirmed using the ltzv-nw-kuvwdmrvud technique and 2 cc of air, with confirmation of placement in at least 2 fluoroscopic views, no contrast was utilized due to patient allergy. 4 mL of normal saline plus 40 mg of methylprednisolone was then injected. The needle was removed and the patient was then transferred to the recovery room in stable condition. The patient tolerated the procedure well. There were no apparent complications. Follow-up: The patient will update us on the response to this procedure, and agrees to continue currently prescribed/recommended therapies. Future Appointments Appointment Date:03/11/2025 08:45:00 AM Scheduled Provider:Jesusita Boo PA-C Location:[facility] Appointment Type:Pain Management - Follow Up (FT) Appointment Date:04/19/2025 10:20:00 AM Scheduled Provider:Maura Vigil Location:[facility] Appointment Type: Open [facility] 04-22-2025 NoteOperative Report Diagnosis: M54.16, lumbar radiculopathy. Procedure: L5/S1 lumbar interlaminar epidural steroid injection under fluoroscopic guidance Anesthesia: Local Complications: none Patient has allergies to to gadolinium based contrast as well as iodinated contrast media. After informed consent was obtained, the patient was brought to the procedure suite and placed in the prone position. Pulse oximetry and blood pressure were monitored throughout. Low back areas prepped and draped in the usual sterile fashion. Using fluoroscopic guidance, the skin and subcutaneous tissue overlying the needle trajectory were anesthetized with 2% lidocaine. A 17-gauge Touhy needle was inserted and directed by fluoroscopy. Entry into the epidural space was confirmed using the tgrp-ao-lbawyxzpiz technique and 2 cc of air, with confirmation of placement in at least 2 fluoroscopic views, no contrast was utilized due to patient allergy. 4 mL of normal saline plus 40 mg of methylpred nisolone was then injected. The needle was removed and the patient was then transferred to the recovery room in stable condition. The patient tolerated the procedure well. There were no apparent complications. Follow-up: The patient will update us on the response to this procedure, and agrees to continue currently prescribed/recommended therapies.[facility] Comment on above:Result Comment: Electronically Signed By: Demetrius Senior DO\Date and Time Signed: 02/15/25 08:55 [id number] Evaluation + Plan note Extracted from: Title:Pain Managment H&P - New pt Author:Jesusita Jauregui PA-C Date:4/7/25 Impression and Plan Patient is a 34-year-old female with a past medical history significant for chronic lower back pain, lumbar discogenic pain and lumbar neuritis. Unfortunate, despite all reasonable conservative treatments including a full course of physical therapy, anti-inflammatory medications, and oral steroid she has not been able to get any significant relief. She has lower back pain with bilateral radiating leg pain worse with being upright and active. We reviewed her MRI. We discussed different options. At this time, based on her imaging findings, her failure to improve with conservative treatments and the significant pain she is experiencing I recommended to patient an L5-S1 epidural steroid injection to be done under fluoroscopy for both diagnostic and therapeutic purposes. Procedure was discussed. Risks and benefits were discussed. Patient is agreeable. She is going to follow-up 2 weeks after the injection for reevaluation. Call clinic sooner if necessary. SARKIS score: 36% Future Appointments Appointment Date:04/19/2025 10:20:00 AM Scheduled Provider:Maura Vigil Location:[facility] Appointment Type:[facility] 04-07-2025 NoteConsultation Note Patient: ARIANA BATISTA Age: 34 years Sex: Female : 1990 Associated Diagnoses: None Author: Jesusita Boo PA-C Basic Information Accompanied by: No one. Source of history: Self. History limitation: None. Chief Complaint 01/31/2025 13:13 EDT low back pain History of Present Illness Patient is a 34-year-old female. She presents today as a new patient with complaints of lower back pain with bilateral radiating leg pain. She notes numbness, tingling and a pulsing type sensation inher legs as well. Worse with bending, lifting, twisting, being upright and active. Somewhat better with standing but she cannot walk more than according to a half a mile and the pain then intensifies. She states she cannot do anything she wants to because of pain. She cannot state her daughter. Shecannot be active. She states that the started in August without any incident or trauma and unfortunate, despite all reasonable conservative treatments has not gotten any better. She did a full course of physical therapy in October, November and December 2024. This did not give her any significant relief. She has taken esni-txf-udpaosz anti- inflammatory medications not any significant relief. She has trialed oral steroids without any significant relief. Patient states after it started her sister was massaging her back and unfortunate, this did not give her any relief. She then sneezed and it got much worse and has not calm down. She rates her discomfort a 4/10 with sitting but on 9/10 with being upright and active and trying to do anything. Review of Systems Constitutional: No fever, No chills. Eye: No recent visual problem. Ear/Nose/Mouth/Throat: No decreased hearing. Respiratory: No shortness of breath, No cough. Cardiovascular: No chest pain. Gastrointestinal: No nausea, No vomiting. Genitourinary: No dysuria, No hematuria. Musculoskeletal: Back pain, Muscle pain, Claudication, Decreased range of motion. Integumentary: No rash, No pruritus. Neurologic: Alert and oriented X4, Numbness, Tingling. Psychiatric: No anxiety, No depression. Health Status Allergies: Allergic Reactions (Selected) Severity Not Documented Contrast Dye- Unknown. Contrast media (gadolinium-based)- Unknown. Latex- Rash. Neosporin- Rash and rash. Current medications: No qualifying data available Problem list: All Problems Generalized anxiety disorder / SNOMED CT 97758277 / Confirmed Smoker / SNOMED CT 590166302 / Confirmed Weight loss counseling, encounter for / SNOMED CT 442257727 / Confirmed Mild major depression / SNOMED CT 427654638 / Confirmed Over weight / SNOMED CT 334651777 / Confirmed Vitamin D deficiency / SNOMED CT 44787630 / Confirmed BMI 29.0-29.9,adult / SNOMED CT 4728816902 / Confirmed Chronic back pain greater than 3 months duration / SNOMED CT 8495324789 / Confirmed Resolved: / SNOMED CT 104816743 Canceled: Smoker / IMO [id number] Added secondary to documentation in Social History. Canceled: Depression / SNOMED CT 74607774 Canceled: Abnormal uterine bleeding (AUB) / SNOMED CT 3010095160 Canceled: Anxiety / SNOMED CT 03198303 Canceled: Adult BMI 27.0-27.9 kg/sq m / SNOMED CT 7522480956 Canceled: Overweight with body mass index (BMI) of 27 to 27.9 in adult / SNOMED CT 8708294155 Canceled: BMI 28.0-28.9,adult / SNOMED CT 3544412227 Canceled: Over weight / SNOMED CT 104518582 Canceled: Adult general medical exam / SNOMED CT 677575653 Canceled: Encounter for administration of vaccine / SNOMED CT 874670721 Canceled: Routine adult health maintenance / SNOMED CT 485152508 Canceled: Obesity / SNOMED CT 4383065836 Canceled: Recurrent mild major depressive disorder with anxiety / SNOMED CT 4958774086 Canceled: Moderately severe depression / SNOMED CT 3238661727 Canceled: Former smoker / SNOMED CT 82423842 Canceled: BMI 29.0-29.9,adult / SNOMED CT 1253528659 Canceled: BMI 30.0-30.9,adult / SNOMED CT 853378493 Canceled: BMI 28.0-28.9,adult / SNOMED CT 8384523319 Canceled: Over weight / SNOMED CT 303314192 Canceled: BMI 29.0-29.9,adult / SNOMED CT 3853797598 Canceled: BMI 28.0-28.9,adult / SNOMED CT 8939424666 Histories Past Medical History: Resolved ([id number]): Onset on 06/06/2018 at 28 years. Resolved on 03/11/2019 at 28 years. Family History: Hypertension Father Alcoholism Father Stroke Grandparent Depression Father Sister Cardiac arrest Father Anxiety Father Sister Procedure history: IUD - intrauterine contraceptive device (SNOMED CT 5589739590) in the month of 10/2022 at 32 Years. None (SNOMED CT 474548868). Tubes-Ears bilateral (SNOMED CT 1994532166). Comments: 01/31/2025 13:15 Uma Dudley RN Ears- Kidney (SNOMED CT 427110430). Comments: 01/31/2025 13:16 Uma Dudley RN Left Kidney surgery Social History Social & Psychosocial Habits Alcohol 01/31/2025 R (more content not included)...[facility] Center[facility]:Result Comment: Electronically Signed By: Jesusita Boo PA-C\.yifan\Date and Time Signed: 01/31/25 13:56 [id number] Hospital Discharge instructions Patient Education 12/27/2024 21:04:05 Back Exercises Back Exercises The following exercises strengthen the muscles that help to support the trunk (torso) and back. They also help to keep the lower back flexible. Doing these exercises can help to prevent or lessen existing low back pain. If you have back pain or discomfort, try doing these exercises 2 3 times each day or as told by your health care provider. As your pain improves, do them once each day, but increase the number of times that you repeat the steps for each exercise (do more repetitions). To prevent the recurrence of back pain, continue to do these exercises once each day or as told by your health care provider. Do exercises exactly as told by your health care provider and adjust them as directed. It is normalto feel mild stretching, pulling, tightness, or discomfort as you do these exercises, but you should stop right away if you feel sudden pain or your pain gets worse. Exercises Single knee to chest Repeat these steps 3 5 times for each le.Lie on your back on a firm bed or the floor with your legs extended. 2.Bring one knee to your chest. Your other leg should stay extended and in contact with the floor. 3.Hold your knee in place by grabbing your knee or thigh with both hands and hold. 4.Pull on your knee until you feel a gentle stretch in your lower back or buttocks. 5.Hold the stretch for 10 30 seconds. 6.Slowly release and straighten your leg. Pelvic tilt Repeat these steps 5 10 times: 1.Lie on your back on a firm bed or the floor with your legs extended. 2.Bend your knees so they are pointing toward the ceiling and your feet are flat on the floor. 3.Tighten your lower abdominal muscles to press your lower back against the floor. This motion willtilt your pelvis so your tailbone points up toward the ceiling instead of pointing to your feet or the floor. 4.With gentle tension and even breathing, hold this position for 5 10 seconds. Cat-cow Repeat these steps until your lower back becomes more flexible: 1.Get into a bbuyw-bxv-ewkgb position on a firm bed or the floor. Keep your hands under your shoulders, and keep your knees under your hips. You may place padding under your knees for comfort. 2.Let your head hang down toward your chest. Contract your abdominal muscles and point your tailbone toward the floor so your lower back becomes rounded like the back of a cat. 3.Hold this position for 5 seconds. 4.Slowly lift your head, let your abdominal muscles relax, and point your tailbone up toward the ceiling so your back forms a sagging arch like the back of a cow. 5.Hold this position for 5 seconds. Press-ups Repeat these steps 5 10 times: 1.Lie on your abdomen (face-down) on a firm bed or the floor. 2.Place your palms near your head, about shoulder-width apart. 3.Keeping your back as relaxed as possible and keeping your hips on the floor, slowly straighten your arms to raise the top half of your body and lift your shoulders. Do not use your back muscles to raise your upper torso. You may adjust the placement of your hands to make yourself more comfortable. 4.Hold this position for 5 seconds while you keep your back relaxed. 5.Slowly return to lying flat on the floor. Bridges Repeat these steps 10 times: 1.Lie on your back on a firm bed or the floor. 2.Bend your knees so they are pointing toward the ceiling and your feet are flat on the floor. Yourarms should be flat at your sides, next to your body. 3.Tighten your buttocks muscles and lift your buttocks off the floor until your waist is at almost the same height as your knees. You should feel the muscles working in your buttocks and the back of your thighs. If you do not feel these muscles, slide your feet 1 2 inches (2.5 5 cm) farther away from your buttocks. 4.Hold this position for 3 5 seconds. 5.Slowly lower your hips to the starting position, and allow your buttocks muscles to relax completely. If this exercise is too easy, try doing it with your arms crossed over your chest. Abdominal crunches Repeat these steps 5 10 times: 1.Lie on your back on a firm bed or the floor with your legs extended. 2.Bend your knees so they are pointing toward the ceiling and your feet are flat on the floor. 3.Cross your arms over your chest. 4.Tip your chin slightly toward your chest without bending your neck. 5.Tighten your abdominal muscles and slowly raise your torso high enough to lift your shoulder blades a tiny bit off the floor. Avoid raising your torso higher than that because it can put too much stress on your lower back and does not help to strengthen your abdominal muscles. 6.Slowly return to your starting position. Back lifts Repeat these steps 5 10 times: 1.Lie on your abdomen (face-down) with your arms at your sides, and rest your forehead on the floor. 2.Tighten the muscles in your legs and your buttocks. 3.Slowly lift your chest off the floor while you keep your hips pressed to the floor. Keep the backof your head in line with the curve in your back. Your eyes should be looking at the floor. 4.Hold this position for 3 5 seconds. 5.Slowly return to your starting position. Contact a health care provider if: Your back pain or discomfort gets much worse when you do an exercise. Your worsening back pain or discomfort does not lessen within 2 hours after you exercise. If you have any of these problems, stop doing these exercises right away. Do not do them again unless your health care provider says that you can. Get help right away if: You develop sudden, severe back pain. If this happens, stop doing the exercises right away. Do not do them again unless your health care provider says that you can. This information is not intended to replace advice given to you by your health care provider. Make sure you discuss any questions you have with your health care provider. Document Revised: 11/16/2023 Document Reviewed: 12/26/2021 [employer] Patient Education 2023 [employer] 360. 12/27/2024 21:04:04 Chronic Back Pain Chronic Back Pain Chronic back pain is back pain that lasts longer than 3 months. The cause of your back pain may notbe known. Some common causes include: Wear and tear (degenerative disease) of the bones, disks, or tissues that connect bones to each other (ligaments) in your back. Inflammation and stiffness in your back (arthritis). If you have chronic back pain, you may have times when the pain is more intense (flare-ups). You can also learn to manage the pain with home care. Follow these instructions at home: Watch for any changes in your symptoms. Take these actions to help with your pain: Managing pain and stiffness If told, put ice on the painful area. You may be told to apply ice for the first 24 48 hours after a flare-up starts. ?Put ice in a plastic bag. ?Place a towel between your skin and the bag. ?Leave the ice on for 20 minutes, 2 3 times per day. If told, apply heat to the affected area as often as told by your health care provider. Use the heat source that your provider recommends, such as a moist heat pack or a heating pad. ?Place a towel between your skin and the heat source. ?Leave the heat on for 20 30 minutes. If your skin turns bright red, remove the ice or heat right away to prevent skin damage. The risk of damage is higher if you cannot feel pain, heat, or cold. Try soaking in a warm tub. Activity Avoid bending and other activities that make the pain worse. Have good posture when you stand or sit. ?When you stand, keep your upper back and neck straight, with your shoulders pulled back. Avoid slouching. ?When you sit, keep your back straight. Relax your shoulders. Do not round your shoulders or pull them backward. Do not sit or nursing director one place for too long. Take brief periods of rest during the day. This will reduce your pain. Resting in a lying or standing position is often better than sitting to rest. When you rest for longer periods, mix in some mild activity or stretching between periods of rest. This will help to prevent stiffness and pain. Get regular exercise. Ask your provider what activities are safe for you. You may have to avoid lifting. Ask your provider how much you can safely lift. If you do lift, always use the right technique. This means you should: ?Bend your knees. ?Keep the load close to your body. ?Avoid twisting. Medicines Take qwdn-dxz-zfjrnwn and prescription medicines only as told by your provider. You may need to take medicines for pain and inflammation. These may be taken by mouth or put on theskin. You may also be given muscle relaxants. Ask your provider if the medicine prescribed to you: ?Requires you to avoid driving or using machinery. ?Can cause constipation. You may need to take these actions to prevent or treat constipation: ?Drink enough fluid to keep your pee (urine) pale yellow. ?Take wedn-uvs-ijfvmke or prescription medicines. ?Eat foods that are high in fiber, such as beans, whole grains, and fresh fruits and vegetables. ?Limit foods that are high in fat and processed sugars, such as fried or sweet foods. General instructions Sleep on a firm mattress in a comfortable position. Try lying on your side with your knees slightlybent. If you lie on your back, put a pillow under your knees. Do not use any products that contain nicotine or tobacco. These products include cigarettes, chewing tobacco, and vaping devices, such as e-cigarettes. If you need help quitting, ask your provider. Contact a health care provider if: You have pain that does not get better with rest or medicine. You have new pain. You have a fever. You lose weight quickly. You have trouble doing your normal activities. You feel weak or numb in one or both of your legs or feet. Get help right away if: You are not able to control when you pee or poop. You have severe back pain and: ?Nausea or vomiting. ?Pain in your chest or abdomen. ?Shortness of breath. ?You faint. These symptoms may be an emergency. Get help right away. Call 911. Do not wait to see if the symptoms will go away. Do not drive yourself to the hospital. This information is not intended to replace advice given to you by your health care provider. Make sure you discuss any questions you have with your health care provider. Document Revised: 06/02/2023 Document Reviewed: 06/02/2023 [employer] Patient Education 2023 [employer] 360. Follow Up Care 12/23/2024 09:08:00 With:Maura Vigil Address: [address] [place] [address], [place] [address]- When: only if needed [facility] 03-03-2025 NotePatient Education Orthopedics Back Exercises The following exercises strengthen the muscles that help to support the trunk (torso) and back. They also help to keep the lower back flexible. Doing these exercises can help to prevent or lessen existing low back pain. ??? If you have back pain or discomfort, try doing these exercises 2?3 times each day or as told byyour health care provider. ??? As your pain improves, do them once each day, but increase the number of times that you repeat the steps for each exercise (do more repetitions). ??? To prevent the recurrence of back pain, continue to do these exercises once each day or as toldby your health care provider. Do exercises exactly as told by your health care provider and adjust them as directed. It is normalto feel mild stretching, pulling, tightness, or discomfort as you do these exercises, but you should stop right away if you feel sudden pain or your pain gets worse. Exercises Single knee to chest Repeat these steps 3?5 times for each le. Lie on your back on a firm bed or the floor with your legs extended. 2. Bring one knee to your chest. Your other leg should stay extended and in contact with the floor. 3. Hold your knee in place by grabbing your knee or thigh with both hands and hold. 4. Pull on your knee until you feel a gentle stretch in your lower back or buttocks. 5. Hold the stretch for 10?30 seconds. 6. Slowly release and straighten your leg. Pelvic tilt Repeat these steps 5?10 times: 1. Lie on your back on a firm bed or the floor with your legs extended. 2. Bend your knees so they are pointing toward the ceiling and your feet are flat on the floor. 3. Tighten your lower abdominal muscles to press your lower back against the floor. This motion will tilt your pelvis so your tailbone points up toward the ceiling instead of pointing to your feet orthe floor. 4. With gentle tension and even breathing, hold this position for 5?10 seconds. Cat-cow Repeat these steps until your lower back becomes more flexible: 1. Get into a gscfw-kay-fpihy position on a firm bed or the floor. Keep your hands under your shoulders, and keep your knees under your hips. You may place padding under your knees for comfort. 2. Let your head hang down toward your chest. Contract your abdominal muscles and point your tailbone toward the floor so your lower back becomes rounded like the back of a cat. 3. Hold this position for 5 seconds. 4. Slowly lift your head, let your abdominal muscles relax, and point your tailbone up toward the ceiling so your back forms a sagging arch like the back of a cow. 5. Hold this position for 5 seconds. Press-ups Repeat these steps 5?10 times: 1. Lie on your abdomen (face-down) on a firm bed or the floor. 2. Place your palms near your head, about shoulder-width apart. 3. Keeping your back as relaxed as possible and keeping your hips on the floor, slowly straighten your arms to raise the top half of your body and lift your shoulders. Do not use your back muscles toraise your upper torso. You may adjust the placement of your hands to make yourself more comfortable. 4. Hold this position for 5 seconds while you keep your back relaxed. 5. Slowly return to lying flat on the floor. Bridges Repeat these steps 10 times: 1. Lie on your back on a firm bed or the floor. 2. Bend your knees so they are pointing toward the ceiling and your feet are flat on the floor. Your arms should be flat at your sides, next to your body. 3. Tighten your buttocks muscles and lift your buttocks off the floor until your waist is at almostthe same height as your knees. You should feel the muscles working in your buttocks and the back ofyour thighs. If you do not feel these muscles, slide your feet 1?2 inches (2.5?5 cm) farther away from your buttocks. 4. Hold this position for 3?5 seconds. 5. Slowly lower your hips to the starting position, and allow your buttocks muscles to relax completely. If this exercise is too easy, try doing it with your arms crossed over your chest. Abdominal crunches Repeat these steps 5?10 times: 1. Lie on your back on a firm bed or the floor with your legs extended. 2. Bend your knees so they are pointing toward the ceiling and your feet are flat on the floor. 3. Cross your arms over your chest. 4. Tip your chin slightly toward your chest without bending your neck. 5. Tighten your abdominal muscles and slowly raise your torso high enough to lift your shoulder blades a tiny bit off the floor. Avoid raising your torso higher than that because it can put too much stress on your lower back and does not help to strengthen your abdominal muscles. 6. Slowly return to your starting position. Back lifts (Inserted Imag (more content not included)...[facility] 11-27-2024 NotePatient Education Orthopedics Sciatica Sciatica is pain, numbness, weakness, or tingling along the path of the sciatic nerve. The sciatic nerve starts in the lower back and runs down the back of each leg. The nerve controls the muscles inthe lower leg and in the back of the knee. It also provides feeling (sensation) to the back of the thigh, the lower leg, and the sole of the foot. Sciatica is a symptom of another medical condition that pinches or puts pressure on the sciatic nerve. Sciatica most often only affects one side of the body. Sciatica usually goes away on its own or with treatment. In some cases, sciatica may come back (recur). What are the causes? This condition is caused by pressure on the sciatic nerve or pinching of the nerve. This may be theresult of: ??? A disk in between the bones of the spine bulging out too far (herniated disk). ??? Age-related changes in the spinal disks. ??? A pain disorder that affects a muscle in the buttock. ??? Extra bone growth near the sciatic nerve. ??? A break (fracture) of the pelvis. ??? . ??? Tumor. This is rare. What increases the risk? The following factors may make you more likely to develop this condition: ??? Playing sports that place pressure or stress on the spine. ??? Having poor strength and flexibility. ??? A history of back injury or surgery. ??? Sitting for long periods of time. ??? Doing activities that involve repetitive bending or lifting. ??? Obesity. What are the signs or symptoms? Symptoms can vary from mild to very severe. They may include: ??? Any of the following problems in the lower back, leg, hip, or buttock: ? Mild tingling, numbness, or dull aches. ? Burning sensations. ? Sharp pains. ??? Numbness in the back of the calf or the sole of the foot. ??? Leg weakness. ??? Severe back pain that makes movement difficult. Symptoms may get worse when you cough, sneeze, or laugh, or when you sit or stand for long periods of time. How is this diagnosed? This condition may be diagnosed based on: ??? Your symptoms and medical history. ??? A physical exam. ??? Blood tests. ??? Imaging tests, such as: ? X-rays. ? An MRI. ? A CT scan. How is this treated? In many cases, this condition improves on its own without treatment. However, treatment may include: ??? Reducing or modifying physical activity. ??? Exercising, including strengthening and stretching. ??? Icing and applying heat to the affected area. ??? Medicines that help to: ? Relieve pain and swelling. ? Relax your muscles. ??? Injections of medicines that help to relieve pain and inflammation (steroids) around the sciatic nerve. ??? Surgery. Follow these instructions at home: Medicines ??? Take tnkq-rsk-hbntnmp and prescription medicines only as told by your health care provider. ??? Ask your health care provider if the medicine prescribed to you requires you to avoid driving or using heavy machinery. Managing pain ??? If directed, put ice on the affected area. To do this: ? Put ice in a plastic bag. ? Place a towel between your skin and the bag. ? Leave the ice on for 20 minutes, 2?3 times a day. ? If your skin turns bright red, remove the ice right away to prevent skin damage. The risk of skindamage is higher if you cannot feel pain, heat, or cold. ??? If directed, apply heat to the affected area as often as told by your health care provider. Usethe heat source that your health care provider recommends, such as a moist heat pack or a heating pad. ? Place a towel between your skin and the heat source. ? Leave the heat on for 20?30 minutes. ? If your skin turns bright red, remove the heat right away to prevent sullivan. The risk of sullivan is higher if you cannot feel pain, heat, or cold. Activity ??? Return to your normal activities as told by your health care provider. Ask your health care provider what activities are safe for you. ??? Avoid activities that make your symptoms worse. ??? Take brief periods of rest throughout the day. ? When you rest for longer periods, mix in some mild activity or stretching between periods of rest. This will help to prevent stiffness and pain. ? Avoid sitting for long periods of time without moving. Get up and move around at least one time each hour. ??? Exercise and stretch regularly as told by your health care provider. ??? Do not lift anything that is heavier than 10 lb (4.5 kg) until your health care provider says that it is safe. When you do not have symptoms, you should still avoid heavy lifting, especially repetitive heavy lifting. ??? When you lift objects, always use proper lifting technique, which includes: ? Bending your knees. ? Keeping the load close to your body. ? Avoiding twisting. General instructions ??? Maintain a healthy weigh (more content not included)...[facility]01-29-2025 Hospital Discharge instructions Follow Up Care 11/24/2024 11:59:18 With:Maura Vigil Address: [address] [place] [address] [place] [id number]- When: Unknown [facility] [phone] Telephone encounter Note* Telephone Encounter - Elvie Cantrell MA - 10/22/2024 10:29 AM EST Pt called about her US results and was given the results on the phone. Advised pt there was no abnormal finding on US. Pt wanted to know what the next step will be then? Pt is still complaining of having sharp, throbbing pain on her left side. [facility] [id number] Miscellaneous Notes* Telephone Encounter - Elvie Cantrell MA - 10/22/2024 10:29 AM EST Pt called about her US results and was given the results on the phone. Advised pt there was no abnormal finding on US. Pt wanted to know what the next step will be then? Pt is still complaining of having sharp, throbbing pain on her left side. documented in this encounterCrossroads [facility] [id number] Hospital Discharge instructions Patient Education 10/19/2024 09:42:37 Obesity, Adult Obesity, Adult Obesity is the condition of having too much total body fat. Being overweight or obese means that your weight is greater than what is considered healthy for your body size. Obesity is determined by a measurement called BMI (body mass index). BMI is an estimate of body fat and is calculated from height and weight. For adults, a BMI of 30 or higher is considered obese. Obesity can lead to other health concerns and major illnesses, including: Stroke. Coronary artery disease (CAD). Type 2 diabetes. Some types of cancer, including cancers of the colon, breast, uterus, and gallbladder. High blood pressure (hypertension). High cholesterol. Gallbladder stones. Obesity can also contribute to: Osteoarthritis. Sleep apnea. Infertility problems. What are the causes? Common causes of this condition include: Eating daily meals that are high in calories, sugar, and fat. Drinking high amounts of sugar-sweetened beverages, such as soft drinks. Being born with genes that may make you more likely to become obese. Having a medical condition that causes obesity, including: ?Hypothyroidism. ?Polycystic ovarian syndrome (PCOS). ?Binge-eating disorder. ?Adela syndrome. Taking certain medicines, such as steroids, antidepressants, and seizure medicines. Not being physically active (sedentary lifestyle). Not getting enough sleep. What increases the risk? The following factors may make you more likely to develop this condition: Having a family history of obesity. Living in an area with limited access to: ?[place], recreation centers, or sidewalks. ?Healthy food choices, such as grocery stores and [employer] markets. What are the signs or symptoms? The main sign of this condition is having too much body fat. How is this diagnosed? This condition is diagnosed based on: Your BMI. If you are an adult with a BMI of 30 or higher, you are considered obese. Your waist circumference. This measures the distance around your waistline. Your skinfold thickness. Your health care provider may gently pinch a fold of your skin and measureit. You may have other tests to check for underlying conditions. How is this treated? Treatment for this condition often includes changing your lifestyle. Treatment may include some or all of the following: Dietary changes. This may include developing a healthy meal plan. Regular physical activity. This may include activity that causes your heart to beat faster (aerobicexercise) and strength training. Work with your health care provider to design an exercise program that works for you. Medicine to help you lose weight if you are unable to lose one pound a week after six weeks of healthy eating and more physical activity. Treating conditions that cause the obesity (underlying conditions). Surgery. Surgical options may include gastric banding and gastric bypass. Surgery may be done if: ?Other treatments have not helped to improve your condition. ?You have a BMI of 40 or higher. ?You have life-threatening health problems related to obesity. Follow these instructions at home: Eating and drinking Follow recommendations from your health care provider about what you eat and drink. Your health care provider may advise you to: ?Limit fast food, sweets, and processed snack foods. ?Choose low-fat options, such as low-fat milk instead of whole milk. ?Eat five or more servings of fruits or vegetables every day. ?Choose healthy foods when you eat out. ?Keep low-fat snacks available. ?Limit sugary drinks, such as soda, fruit juice, sweetened iced tea, and flavored milk. Drink enough water to keep your urine pale yellow. Do not follow a fad diet. Fad diets can be unhealthy and even dangerous. Other healthful choices include: ?Eat at home more often. This gives you more control over what you eat. ?Learn to read food labels. This will help you understand how much food is considered one serving. ?Learn what a healthy serving size is. Physical activity Exercise regularly, as told by your health care provider. ?Most adults should get up to 150 minutes of moderate-intensity exercise every week. ?Ask your health care provider what types of exercise are safe for you and how often you should exercise. Warm up and stretch before being active. Cool down and stretch after being active. Rest between periods of activity. Lifestyle Work with your health care provider and a dietitian to set a weight-loss goal that is healthy and reasonable for you. Limit your screen time. Find ways to reward yourself that do not involve food. Do not drink alcohol if: ?Your health care provider tells you not to drink. ?You are , may be , or are planning to become . If you drink alcohol: ?Limit how much you have to: ?0 1 drink a day for women. ?0 2 drinks a day for men. ?Know how much alcohol is in your drink. In the [place] one drink equals one 12 oz bottle of beer (355 mL), one 5 oz glass of wine (148 mL), or one 1 oz glass of hard liquor (44 mL). General instructions Keep a weight-loss journal to keep track of the food you eat and how much exercise you get. Take vepx-vmd-mkkznkb and prescription medicines only as told by your health care provider. Take vitamins and supplements only as told by your health care provider. Consider joining a support group. Your health care provider may be able to recommend a support group. Pay attention to your mental health as obesity can lead to depression or self esteem issues. Keep all follow-up visits. This is important. Contact a health care provider if: You are unable to meet your weight-loss goal after six weeks of dietary and lifestyle changes. You have trouble breathing. Summary Obesity is the condition of having too much total body fat. Being overweight or obese means that your weight is greater than what is considered healthy for your body size. Work with your health care provider and a dietitian to set a weight-loss goal that is healthy and reasonable for you. Exercise regularly, as told by your health care provider. Ask your health care provider what types of exercise are safe for you and how often you should exercise. This information is not intended to replace advice given to you by your health care provider. Make sure you discuss any questions you have with your health care provider. Document Revised: 05/21/2022 Document Reviewed: 05/21/2022 [employer] Patient Education 2023 [employer] 360. 10/19/2024 09:42:36 Managing Anxiety, Adult Managing Anxiety, Adult After being diagnosed with anxiety, you may be relieved to know why you have felt or behaved a certain way. You may also feel overwhelmed about the treatment ahead and what it will mean for your life. With care and support, you can manage your anxiety. How to manage lifestyle changes Understanding the difference between stress and anxiety Although stress can play a role in anxiety, it is not the same as anxiety. Stress is your body's reaction to life changes and events, both good and bad. Stress is often caused by something external, such as a deadline, test, or competition. It normally goes away after the event has ended and will last just a few hours. But, stress can be ongoing and can lead to more than just stress. Anxiety is caused by something internal, such as imagining a terrible outcome or worrying that something will go wrong that will greatly upset you. Anxiety often does not go away even after the eventis over, and it can become a long- term (chronic) worry. Lowering stress and anxiety Talk with your health care provider or a counselor to learn more about lowering anxiety and stress.They may suggest tension-reduction techniques, such as: Music. Spend time creating or listening to music that you enjoy and that inspires you. Mindfulness-based meditation. Practice being aware of your normal breaths while not trying to control your breathing. It can be done while sitting or walking. Centering prayer. Focus on a word, phrase, or sacred image that means something to you and brings you peace. Deep breathing. Expand your stomach and inhale slowly through your nose. Hold your breath for 3 5 seconds. Then breathe out slowly, letting your stomach muscles relax. Self-talk. Learn to notice and spot thought patterns that lead to anxiety reactions. Change those patterns to thoughts that feel peaceful. Muscle relaxation. Take time to tense muscles and then relax them. Choose a tension-reduction technique that fits your lifestyle and personality. These techniques take time and practice. Set aside 5 15 minutes a day to do them. Specialized therapists can offer counseling and training in these techniques. The training to help with anxiety may be covered by some insurance plans. Other things you can do to manage stress and anxiety include: Keeping a stress diary. This can help you learn what triggers your reaction and then learn ways to manage your response. Thinking about how you react to certain situations. You may not be able to control everything, but you can control your response. Making time for activities that help you relax and not feeling guilty about spending your time in this way. Doing visual imagery. This involves imagining or creating mental pictures to help you relax. Practicing yoga. Through yoga poses, you can lower tension and relax. Medicines Medicines for anxiety include: Antidepressant medicines. These are usually prescribed for long-term daily control. Anti-anxiety medicines. These may be added in severe cases, especially when panic attacks occur. When used together, medicines, psychotherapy, and tension-reduction techniques may be the most effective treatment. Relationships Relationships can play a big part in helping you recover. Spend more time connecting with trusted friends and family members. Think about going to couples counseling if you have a partner, taking family education classes, or going to family therapy. Therapy can help you and others better understandyour anxiety. How to recognize changes in your anxiety Everyone responds differently to treatment for anxiety. Recovery from anxiety happens when symptomslessen and stop interfering with your daily life at home or work. This may mean that you will startto: Have better concentration and focus. Worry will interfere less in your daily thinking. Sleep better. Be less irritable. Have more energy. Have improved memory. Try to recognize when your condition is getting worse. Contact your provider if your symptoms interfere with home or work and you feel like your condition is not improving. Follow these instructions at home: Activity Exercise. Adults should: ?Exercise for at least 150 minutes each week. The exercise should increase your heart rate and makeyou sweat (moderate-intensity exercise). ?Do strengthening exercises at least twice a week. Get the right amount and quality of sleep. Most adults need 7 9 hours of sleep each night. Lifestyle Eat a healthy diet that includes plenty of vegetables, fruits, whole grains, low-fat dairy products, and lean protein. ?Do not eat a lot of foods that are high in fats, added sugars, or salt (sodium). Make choices that simplify your life. Do not use any products that contain nicotine or tobacco. These products include cigarettes, chewing tobacco, and vaping devices, such as e-cigarettes. If you need help quitting, ask your provider. Avoid caffeine, alcohol, and certain cbjw-kcl-xhrjjxd cold medicines. These may make you feel worse. Ask your pharmacist which medicines to avoid. General instructions Take lyuk-bum-gjxwuch and prescription medicines only as told by your provider. Keep all follow-up visits. This is to make sure you are managing your anxiety well or if you need more support. Where to find support You can get help and support from: Self-help groups. Online and community organizations. A trusted spiritual leader. Couples counseling. Family education classes. Family therapy. Where to find more information You may find that joining a support group helps you deal with your anxiety. The following sources can help you find counselors or support groups near you: Mental Health [place]: mentalhealthamerica.net Anxiety and Depression Association of [place] (ADAA): adaa.org National [place] on Mental Illness ([place]AR[place]): darling.org Contact a health care provider if: You have a hard time staying focused or finishing tasks. You spend many hours a day feeling worried about everyday life. You are very tired because you cannot stop worrying. You start to have headaches or often feel tense. You have chronic nausea or diarrhea. Get help right away if: Your heart feels like it is racing. You have shortness of breath. You have thoughts of hurting yourself or others. Get help right away if you feel like you may hurt yourself or others, or have thoughts about takingyour own life. Go to your nearest emergency room or: Call 911. Call the National Suicide Prevention Lifeline at or 357. This is open 24 hours a day. Text the Crisis Text Line at 648891. This information is not intended to replace advice given to you by your health care provider. Make sure you discuss any questions you have with your health care provider. Document Revised: 07/22/2023 Document Reviewed: 02/03/2022 [employer] Patient Education 2023 [employer] 360. 10/19/2024 09:42:35 Major Depressive Disorder, Adult Major Depressive Disorder, Adult Major depressive disorder (MDD) is a mental health condition. It may also be called clinical depression or unipolar depression. MDD causes symptoms of sadness, hopelessness, and loss of interest in things. These symptoms last most of the day, almost every day, for 2 weeks. MDD can also cause physical symptoms. It can interfere with relationships and activities, such as work, school, and activities that are usually pleasant. MDD may be mild, moderate, or severe. It may be single-episode MDD, which happens once, or recurrent MDD, which may occur many times. What are the causes? The exact cause of this condition is not known. What increases the risk? The following factors may make someone more likely to develop MDD: A family history of depression. Being female. Long-term (chronic) stress, physical illness, other mental health disorders, or substance misuse. Trauma, including: ?Family problems. ?Violence or abuse. ?Loss of a parent or close family member. ?Experiencing discrimination. What are the signs or symptoms? The main symptoms of MDD usually include: Constant depressed or irritable mood. A loss of interest in activities. Sleeping or eating too much or too little. Tiredness or low energy. Other symptoms include: Unexplained weight gain or weight loss. Being agitated, restless, or weak. Feeling hopeless, worthless, or guilty. Trouble thinking clearly or making decisions. Thoughts of suicide or harming others. Spending a lot of time alone. Not being able to complete daily tasks or work. Severe symptoms of this condition may include: Psychotic depression.This may include false beliefs or delusions. It may also include seeing, hearing, tasting, smelling, or feeling things that are not real (hallucinations). Chronic depression or persistent depressive disorder. This is low-level depression that lasts for at least 2 years. Melancholic depression, or feeling extremely sad and hopeless. Catatonic depression, which includes trouble speaking and trouble moving. Seasonal depression, which is caused by changes in the seasons. How is this diagnosed? This condition may be diagnosed based on: Your symptoms. Your medical and mental health history. A physical exam. Blood tests to rule out other conditions. MDD is confirmed if you have either a depressed mood or loss of interest and at least four other MDD symptoms, most of the day, nearly every day, in a 2-week period. How is this treated? This condition is usually treated by mental health professionals, such as psychologists, psychiatrists, and clinical social workers. You may need more than one type of treatment. Treatment may include: Psychotherapy, also called talk therapy or counseling. Types of psychotherapy include: ?Cognitive behavioral therapy (CBT). This teaches you to recognize unhealthy feelings, thoughts, and behaviors, and replace them with positive thoughts and actions. ?Interpersonal therapy (IPT). This helps you to improve the way you communicate with others or relate to them. ?Family therapy. This treatment includes members of your family. Medicines to treat anxiety and depression. These medicines help to balance the brain chemicals thataffect your emotions. Lifestyle changes. You may be asked to: ?Limit alcohol use and avoid drug use. ?Get regular exercise. ?Get plenty of sleep. ?Make healthy eating choices. ?Spend more time outdoors. Brain stimulation. This may be done if symptoms are very severe and other treatments have not worked. Examples of this treatment are electroconvulsive therapy and transcranial magnetic stimulation. Follow these instructions at home: Alcohol use Do not drink alcohol if: ?Your health care provider tells you not to drink. ?You are , may be , or are planning to become . If you drink alcohol: ?Limit how much you have to: ?0 1 drink a day for women ?0 2 drinks a day for men. ?Know how much alcohol is in your drink. In the [place] one drink equals one 12 oz bottle of beer (355 mL), one 5 oz glass of wine (148 mL), or one 1 oz glass of hard liquor (44 mL). Activity Exercise regularly and spend time outdoors. Find activities that you enjoy and make time to do them. Find healthy ways to manage stress, such as: ?Meditation or deep breathing. ?Spending time in nature. ?Journaling. Return to your normal activities as told by your health care provider. Ask your health care provider what activities are safe for you. General instructions Take whan-etu-alfkfih and prescription medicines only as told by your health care provider. Discuss alcohol use with your health care provider. Alcohol can affect any antidepressant medicinesyou are taking. Discuss any drug use with your health care provider. Eat a healthy diet and get enough sleep. Consider joining a support group. Your health care provider may be able to recommend one. Keep all follow-up visits. It is important for your health care provider to check on your mood, behavior, and medicines. Your health care provider will make changes to your treatment as needed. Where to find more information National Lester on Mental Illness: darling.org National [place] of Mental Health: nimh.nih.gov [employer] [employer]: psychiatry.org Contact a health care provider if: Your symptoms get worse. You develop new symptoms. Get help right away if: You hurt yourself on purpose (self-harm). You have thoughts about hurting yourself or others. You have hallucinations. Get help right away if you feel like you may hurt yourself or others, or have thoughts about takingyour own life. Go to your nearest emergency room or: Call 911. Call the National Suicide Prevention Lifeline at or 927. This is open 24 hours a day. Text the Crisis Text Line at 589842. This information is not intended to replace advice given to you by your health care provider. Make sure you discuss any questions you have with your health care provider. Document Revised: 02/18/2023 Document Reviewed: 02/18/2023 [employer] Patient Education 2023 [employer] 360. 10/19/2024 09:42:34 Health Risks of Smoking Health Risks of Smoking Smoking tobacco is very bad for your health. Tobacco smoke contains many toxic chemicals that can damage every part of your body. Secondhand smoke can be harmful to those around you. Tobacco or nicotine use can cause many long-term (chronic) diseases. Smoking is difficult to quit because a chemical in tobacco, called nicotine, causes addiction or dependence. When you smoke and inhale, nicotine is absorbed quickly into your bloodstream through yourlungs. Both inhaled and non-inhaled nicotine may be addictive. How can quitting affect me? There are health benefits of quitting smoking. Some benefits happen right away and others take time. Benefits may include: Blood flow, blood pressure, heart rate, and lung capacity may begin to improve. However, any lung damage that has already occurred cannot be repaired. Respiratory symptoms from smoking, such as nasal congestion and cough, may improve over time. Your risk of heart disease, stroke, and cancer is reduced. The overall quality of your health may improve. You may save money, as you will not spend money on tobacco products and may spend less money on smoking-related health issues. What can increase my risk? Smoking harms nearly every organ in the body. People who smoke tobacco have a shorter life expectancy and an increased risk of many serious medical problems. These include: More respiratory infections, such as colds and pneumonia. Cancer. Heart disease. Stroke. Chronic respiratory diseases. Delayed wound healing and increased risk of complications during surgery. Problems with reproduction, , and childbirth, such as infertility, early (premature) births, stillbirths, and defects. Secondhand smoke exposure to children increases the risk of: Sudden syndrome (SIDS). Infections in the nose, throat, or airways (respiratory infections). Chronic respiratory symptoms. What actions can I take to quit? Smoking is an addiction that affects both your body and your mind, and long-time habits can be hardto change. Your health care provider can recommend: Nicotine replacement products, such as patches, gum, and nasal sprays. Use these products only as directed. Do not replace cigarette smoking with electronic cigarettes, which are commonly called e-cigarettes. The safety of e-cigarettes is not known, and some may contain harmful chemicals. Programs and community resources, which may include group support, education, or talk therapy. Prescription medicines to help reduce cravings. A combination of two or more quit methods, which may increase the success of quitting. Where to find support Follow the recommendations from your health care provider about support groups and other assistance. You can also visit: [place]. Department of Health and Human Services: www.smokefree.gov [employer] [employer]: www.freedomfromsmoking.org [place] [employer]: www.heart.org Where to find more information Centers for Disease Control and Prevention: www.cdc.gov World Health Organization: www.who.int Summary Smoking tobacco is very bad for your health. Tobacco smoke contains many toxic chemicals that can damage every part of the body. Smoking is difficult to quit because a chemical in tobacco, called nicotine, causes addiction or dependence. There are immediate and long-term health benefits of quitting smoking. A combination of two or more quit methods may increase the success of quitting. This information is not intended to replace advice given to you by your health care provider. Make sure you discuss any questions you have with your health care provider. Document Revised: 10/15/2022 Document Reviewed: 10/15/2022 [employer] Patient Education 2023 [employer] 360. 10/19/2024 09:42:34 Health Maintenance, Female Health Maintenance, Female Adopting a healthy lifestyle and getting preventive care are important in promoting health and wellness. Ask your health care provider about: The right schedule for you to have regular tests and exams. Things you can do on your own to prevent diseases and keep yourself healthy. What should I know about diet, weight, and exercise? Eat a healthy diet Eat a diet that includes plenty of vegetables, fruits, low-fat dairy products, and lean protein. Do not eat a lot of foods that are high in solid fats, added sugars, or sodium. Maintain a healthy weight Body mass index (BMI) is used to identify weight problems. It estimates body fat based on height and weight. Your health care provider can help determine your BMI and help you achieve or maintain a healthy weight. Get regular exercise Get regular exercise. This is one of the most important things you can do for your health. Most adults should: Exercise for at least 150 minutes each week. The exercise should increase your heart rate and make you sweat (moderate-intensity exercise). Do strengthening exercises at least twice a week. This is in addition to the moderate-intensity exercise. Spend less time sitting. Even light physical activity can be beneficial. Watch cholesterol and blood lipids Have your blood tested for lipids and cholesterol at 20 years of age, then have this test every 5 years. Have your cholesterol levels checked more often if: Your lipid or cholesterol levels are high. You are older than 40 years of age. You are at high risk for heart disease. What should I know about cancer screening? Depending on your health history and family history, you may need to have cancer screening at various ages. This may include screening for: Breast cancer. Cervical cancer. Colorectal cancer. Skin cancer. Lung cancer. What should I know about heart disease, diabetes, and high blood pressure? Blood pressure and heart disease High blood pressure causes heart disease and increases the risk of stroke. This is more likely to develop in people who have high blood pressure readings or are overweight. Have your blood pressure checked: ?Every 3 5 years if you are 18 39 years of age. ?Every year if you are 40 years old or older. Diabetes Have regular diabetes screenings. This checks your fasting blood sugar level. Have the screening done: Once every three years after age 40 if you are at a normal weight and have a low risk for diabetes. More often and at a younger age if you are overweight or have a high risk for diabetes. What should I know about preventing infection? Hepatitis B If you have a higher risk for hepatitis B, you should be screened for this virus. Talk with your health care provider to find out if you are at risk for hepatitis B infection. Hepatitis C Testing is recommended for: Everyone born from 1945 through 1965. Anyone with known risk factors for hepatitis C. Sexually transmitted infections (STIs) Get screened for STIs, including gonorrhea and chlamydia, if: ?You are sexually active and are younger than 24 years of age. ?You are older than 24 years of age and your health care provider tells you that you are at risk for this type of infection. ?Your sexual activity has changed since you were last screened, and you are at increased risk for chlamydia or gonorrhea. Ask your health care provider if you are at risk. Ask your health care provider about whether you are at high risk for HIV. Your health care providermay recommend a prescription medicine to help prevent HIV infection. If you choose to take medicineto prevent HIV, you should first get tested for HIV. You should then be tested every 3 months for as long as you are taking the medicine. If you are about to stop having your period (premenopausal) and you may become , seek counseling before you get . Take 400 to 800 micrograms (mcg) of folic acid every day if you become . Ask for control (contraception) if you want to prevent . Osteoporosis and menopause Osteoporosis is a disease in which the bones lose minerals and strength with aging. This can resultin bone fractures. If you are 65 years old or older, or if you are at risk for osteoporosis and fractures, ask your health care provider if you should: Be screened for bone loss. Take a calcium or vitamin D supplement to lower your risk of fractures. Be given hormone replacement therapy (HRT) to treat symptoms of menopause. Follow these instructions at home: Alcohol use Do not drink alcohol if: ?Your health care provider tells you not to drink. ?You are , may be , or are planning to become . If you drink alcohol: ?Limit how much you have to: ?0 1 drink a day. ?Know how much alcohol is in your drink. In the [place] one drink equals one 12 oz bottle of beer (355 mL), one 5 oz glass of wine (148 mL), or one 1 oz glass of hard liquor (44 mL). Lifestyle Do not use any products that contain nicotine or tobacco. These products include cigarettes, chewing tobacco, and vaping devices, such as e-cigarettes. If you need help quitting, ask your health careprovider. Do not use street drugs. Do not share needles. Ask your health care provider for help if you need support or information about quitting drugs. General instructions Schedule regular health, dental, and eye exams. Stay current with your vaccines. Tell your health care provider if: ?You often feel depressed. ?You have ever been abused or do not feel safe at home. Summary Adopting a healthy lifestyle and getting preventive care are important in promoting health and wellness. Follow your health care provider's instructions about healthy diet, exercising, and getting tested or screened for diseases. Follow your health care provider's instructions on monitoring your cholesterol and blood pressure. This information is not intended to replace advice given to you by your health care provider. Make sure you discuss any questions you have with your health care provider. Document Revised: 03/04/2022 Document Reviewed: 03/04/2022 [employer] Patient Education 2023 [employer] 360. 10/19/2024 09:42:32 BMI for Adults BMI for Adults Body mass index (BMI) is a number found using a person's weight and height. BMI can help tell how much of a person's weight is made up of fat. BMI does not measure body fat directly. It is used instead of tests that directly measure body fat, which can be difficult and expensive. What are BMI measurements used for? BMI is useful to: Find out if your weight puts you at higher risk for medical problems. Help recommend changes, such as in diet and exercise. This can help you reach a healthy weight. BMIscreening can be done again to see if these changes are working. How is BMI calculated? Your height and weight are measured. The BMI is found from those numbers. This can be done with [place] or metric measurements. Note that charts and online BMI calculators are available to help you findyour BMI quickly and easily without doing these calculations. To calculate your BMI in [place] measurements: 1.Measure your weight in pounds (lb). 2.Multiply the number of pounds by 703. So, for an adult who weighs 150 lb, multiply that number by 703: 150 x 703, which equals 105,450. 3.Measure your height in inches. Then multiply that number by itself to get a measurement called inches squared. So, for an adult who is 70 inches tall, the inches squared measurement is 70 inches x 70 inches, which equals 4,900 inches squared. 4.Divide the total from step 2 (number of lb x 703) by the total from step 3 (inches squared): 105,450 4,900 = 21.5. This is your BMI. To calculate your BMI in metric measurements: 1.Measure your weight in kilograms (kg). For this example, the weight is 70 kg. 2.Measure your height in meters (m). Then multiply that number by itself to get a measurement called meters squared. So, for an adult who is 1.75 m tall, the meters squared measurement is 1.75 m x 1.75 m, which equals 3.1 meters squared. 3.Divide the number of kilograms (your weight) by the meters squared number. In this example: 70 3.1 = 22.6. This is your BMI. What do the results mean? BMI charts are used to see if you are underweight, normal weight, overweight, or obese. The following guidelines will be used: Underweight: BMI less than 18.5. Normal weight: BMI between 18.5 and 24.9. Overweight: BMI between 25 and 29.9. Obese: BMI of 30 or above. BMI is a tool and cannot diagnose a condition. Talk with your health care provider about what your BMI means for you. Keep these notes in mind: Weight includes fat and muscle. Someone with a muscular build, such as an athlete, may have a BMI that is higher than 24.9. In cases like these, BMI is not a correct measure of body fat. If you have a BMI of 25 or higher, your provider may need to do more testing to find out if excess body fat is the cause. BMI is measured the same way for males and females. Females usually have more body fat than males of the same height and weight. Where to find more information For more information about BMI, including tools to quickly find your BMI, go to: Centers for Disease Control and Prevention: cdc.gov [place] Heart Association: heart.org National Heart, Lung, and Blood [place]: nhlbi.nih.gov This information is not intended to replace advice given to you by your health care provider. Make sure you discuss any questions you have with your health care provider. Document Revised: 07/03/2023 Document Reviewed: 06/26/2023 [employer] Patient Education 2023 Improveit! 360. Follow Up Care 09/09/2024 14:36:16 With:Maura Vigil Address: [address] [place], [place] [address]francisco javier [address], [place] [address]- When:Within 6 Month(s) Comments:[facility] 12-24-2024 NotePatient Education Gastroenterology Obesity, Adult Obesity is the condition of having too much total body fat. Being overweight or obese means that your weight is greater than what is considered healthy for your body size. Obesity is determined by a measurement called BMI (body mass index). BMI is an estimate of body fat and is calculated from height and weight. For adults, a BMI of 30 or higher is considered obese. Obesity can lead to other health concerns and major illnesses, including: ??? Stroke. ??? Coronary artery disease (CAD). ??? Type 2 diabetes. ??? Some types of cancer, including cancers of the colon, breast, uterus, and gallbladder. ??? High blood pressure (hypertension). ??? High cholesterol. ??? Gallbladder stones. Obesity can also contribute to: ??? Osteoarthritis. ??? Sleep apnea. ??? Infertility problems. What are the causes? Common causes of this condition include: ??? Eating daily meals that are high in calories, sugar, and fat. ??? Drinking high amounts of sugar-sweetened beverages, such as soft drinks. ??? Being born with genes that may make you more likely to become obese. ??? Having a medical condition that causes obesity, including: ? Hypothyroidism. ? Polycystic ovarian syndrome (PCOS). ? Binge-eating disorder. ? [place] syndrome. ??? Taking certain medicines, such as steroids, antidepressants, and seizure medicines. ??? Not being physically active (sedentary lifestyle). ??? Not getting enough sleep. What increases the risk? The following factors may make you more likely to develop this condition: ??? Having a family history of obesity. ??? Living in an area with limited access to: ? [place], recreation centers, or sidewalks. ? Healthy food choices, such as grocery stores and [employer] markets. What are the signs or symptoms? The main sign of this condition is having too much body fat. How is this diagnosed? This condition is diagnosed based on: ??? Your BMI. If you are an adult with a BMI of 30 or higher, you are considered obese. ??? Your waist circumference. This measures the distance around your waistline. ??? Your skinfold thickness. Your health care provider may gently pinch a fold of your skin and measure it. You may have other tests to check for underlying conditions. How is this treated? Treatment for this condition often includes changing your lifestyle. Treatment may include some or all of the following: ??? Dietary changes. This may include developing a healthy meal plan. ??? Regular physical activity. This may include activity that causes your heart to beat faster (aerobic exercise) and strength training. Work with your health care provider to design an exercise program that works for you. ??? Medicine to help you lose weight if you are unable to lose one pound a week after six weeks of healthy eating and more physical activity. ??? Treating conditions that cause the obesity (underlying conditions). ??? Surgery. Surgical options may include gastric banding and gastric bypass. Surgery may be done if: ? Other treatments have not helped to improve your condition. ? You have a BMI of 40 or higher. ? You have life-threatening health problems related to obesity. Follow these instructions at home: Eating and drinking ??? Follow recommendations from your health care provider about what you eat and drink. Your healthcare provider may advise you to: ? Limit fast food, sweets, and processed snack foods. ? Choose low-fat options, such as low-fat milk instead of whole milk. ? Eat five or more servings of fruits or vegetables every day. ? Choose healthy foods when you eat out. ? Keep low-fat snacks available. ? Limit sugary drinks, such as soda, fruit juice, sweetened iced tea, and flavored milk. ??? Drink enough water to keep your urine pale yellow. ??? Do not follow a fad diet. Fad diets can be unhealthy and even dangerous. ??? Other healthful choices include: ? Eat at home more often. This gives you more control over what you eat. ? Learn to read food labels. This will help you understand how much food is considered one serving. ? Learn what a healthy serving size is. Physical activity ??? Exercise regularly, as told by your health care provider. ? Most adults should get up to 150 minutes of moderate-intensity exercise every week. ? Ask your health care provider what types of exercise are safe for you and how often you should exercise. ??? Warm up and stretch before being active. ??? Cool down and stretch after being active. ??? Rest between periods of activity. Lifestyle ??? Work with your health care provider and a dietitian to set a weight-loss goal that is healthy and reasonable for you. ??? Limit your screen time. ??? Find ways to reward yourself that do not involve food. ??? Do not drink alcohol if: ? Your health care provider tells you not to drink. ? You are , may be preg (more content not included)...[facility]12-02-2024 History of Present illness Narrative* Virgen Shanks, HOSPITAL RECEIVING CLERK - 09/27/2024 1:10 PM EST Reason for Appointment: Patient ID: Ariana Batista is a 34 y.o. female who presents for Pelvic Pain Patient presents today for Acute Visit. MEDICATIONS Current Outpatient Medications Medication Instructions cholecalciferol (VITAMIN D-3) 1,250 mcg desvenlafaxine (PRISTIQ) 100 mg, Daily Levonorgestrel (LILETTA, 52 MG, IU) Placed 11-04-2022 ALLERGIES Allergies Allergen Reactions Iodinated Contrast Media Other Reaction(s): unknown Latex Other Reaction(s): Rash Prednisone & Diphenhydramine Other Reaction(s): unknown allergy to contrast dye Bacitracin-Polymyxin B Rash PROBLEMS Active Ambulatory Problems Diagnosis Date Noted No Active Ambulatory Problems Resolved Ambulatory Problems Diagnosis Date Noted No Resolved Ambulatory Problems Past Medical History: Diagnosis Date PRASANNA (generalized anxiety disorder) ([facility]) Major depressive disorder ([facility]) HISTORY PAST MEDICAL HISTORY SOCIAL HISTORY Past Medical History: Diagnosis Date PRASANNA (generalized anxiety disorder) ([facility]) Major depressive disorder ([facility]) Social History Tobacco Use Smoking status: Every Day Current packs/day: 0.25 Types: Cigarettes Smokeless tobacco: Never Vaping Use Vaping status: Never Used Substance Use Topics Alcohol use: Yes Drug use: Never FAMILY HISTORY No family history on file. SURGICAL HISTORY History reviewed. No pertinent surgical history. REVIEW OF SYSTEMS Review of Systems: Review of Systems Constitutional: Negative. HENT: Negative. Eyes: Negative. Respiratory: Negative. Cardiovascular: Negative. Gastrointestinal: Negative. Genitourinary: Positive for pelvic pain. Musculoskeletal: Negative. Skin: Negative. Neurological: Negative. All other systems reviewed and are negative. Hematological: Negative. Endocrine: Negative. Allergic/Immunologic: Negative. OBJECTIVE Objective: Physical Exam Constitutional: Appearance: Normal appearance. She is well-developed. Genitourinary: Vulva normal. Cardiovascular: Rate and Rhythm: Normal rate and regular rhythm. Pulmonary: Effort: Pulmonary effort is normal. Breath sounds: Normal breath sounds. Abdominal: General: Bowel sounds are normal. There is no distension. Palpations: Abdomen is soft. Tenderness: There is no abdominal tenderness. There is no guarding or rebound. Musculoskeletal: General: No swelling. Normal range of motion. Right lower leg: No edema. Left lower leg: No edema. Neurological: Mental Status: She is alert and oriented to person, place, and time. Skin: General: Skin is warm and dry. Psychiatric: Mood and Affect: Mood normal. Behavior: Behavior normal. Vitals and nursing note reviewed. Exam conducted with a plastic surgery coordinator present. Vitals: Estimated body mass index is 29.62 kg/m as calculated from the following: Height as of this encounter: 5' 5 . Weight as of this encounter: 178 lb. BP: 120/60 No LMP recorded. ASSESSMENT & PLAN ICD-10-CM 1. Pelvic pain in female R10.2 POCT , urine manually resulted SURESWAB(R) ADVANCED VAGINITIS PLUS, TMA CHLAMYDIA TRACHOMATIS (GENITO/STI) Neisseria gonorrhea DNA probe, direct POCT urinalysis dipstick manually resulted 2. Dyspareunia in female N94.10 Pt presents with pelvic pain after intercourse is the worst. Pelvic exam performed and cultures obtained. Pt had ultrasound -reviewed with pt in detail. Discussed treating with antibiotic longterm, also discussed dx lap with vince DANGELO. Pt states pain started after IUD - IUD Removal: Patient presents today for removal of IUD. Written consent was obtained and patient was placed in dorsal lithotomy position with feet in stirrups. A sterile speculum was inserted into the vagina and the cervix was visualized. The IUD strings were grasped gently with forceps and the IUD was removed in its entirety without difficulty. The IUD was shown to the patient then properly discarded. Pt given sample of Slynd- rx for script faxed to pharmacy. IF pain does not get better will call office and be scheduled for Dx lap Follow Up: Patient is to return to the office for annual exam unless needed otherwise Documented by Virgen Shanks LPN on behalf of: Christian Hampton DO documented in this encounterCrossroads Regional Medical [id number] Hospital Discharge instructions Patient Education 09/07/2024 09:33:48 Managing Anxiety, Adult Managing Anxiety, Adult After being diagnosed with anxiety, you may be relieved to know why you have felt or behaved a certain way. You may also feel overwhelmed about the treatment ahead and what it will mean for your life. With care and support, you can manage your anxiety. How to manage lifestyle changes Understanding the difference between stress and anxiety Although stress can play a role in anxiety, it is not the same as anxiety. Stress is your body's reaction to life changes and events, both good and bad. Stress is often caused by something external, such as a deadline, test, or competition. It normally goes away after the event has ended and will last just a few hours. But, stress can be ongoing and can lead to more than just stress. Anxiety is caused by something internal, such as imagining a terrible outcome or worrying that something will go wrong that will greatly upset you. Anxiety often does not go away even after the eventis over, and it can become a long- term (chronic) worry. Lowering stress and anxiety Talk with your health care provider or a counselor to learn more about lowering anxiety and stress.They may suggest tension-reduction techniques, such as: Music. Spend time creating or listening to music that you enjoy and that inspires you. Mindfulness-based meditation. Practice being aware of your normal breaths while not trying to control your breathing. It can be done while sitting or walking. Centering prayer. Focus on a word, phrase, or sacred image that means something to you and brings you peace. Deep breathing. Expand your stomach and inhale slowly through your nose. Hold your breath for 3 5 seconds. Then breathe out slowly, letting your stomach muscles relax. Self-talk. Learn to notice and spot thought patterns that lead to anxiety reactions. Change those patterns to thoughts that feel peaceful. Muscle relaxation. Take time to tense muscles and then relax them. Choose a tension-reduction technique that fits your lifestyle and personality. These techniques take time and practice. Set aside 5 15 minutes a day to do them. Specialized therapists can offer counseling and training in these techniques. The training to help with anxiety may be covered by some insurance plans. Other things you can do to manage stress and anxiety include: Keeping a stress diary. This can help you learn what triggers your reaction and then learn ways to manage your response. Thinking about how you react to certain situations. You may not be able to control everything, but you can control your response. Making time for activities that help you relax and not feeling guilty about spending your time in this way. Doing visual imagery. This involves imagining or creating mental pictures to help you relax. Practicing yoga. Through yoga poses, you can lower tension and relax. Medicines Medicines for anxiety include: Antidepressant medicines. These are usually prescribed for long-term daily control. Anti-anxiety medicines. These may be added in severe cases, especially when panic attacks occur. When used together, medicines, psychotherapy, and tension-reduction techniques may be the most effective treatment. Relationships Relationships can play a big part in helping you recover. Spend more time connecting with trusted friends and family members. Think about going to couples counseling if you have a partner, taking family education classes, or going to family therapy. Therapy can help you and others better understandyour anxiety. How to recognize changes in your anxiety Everyone responds differently to treatment for anxiety. Recovery from anxiety happens when symptomslessen and stop interfering with your daily life at home or work. This may mean that you will startto: Have better concentration and focus. Worry will interfere less in your daily thinking. Sleep better. Be less irritable. Have more energy. Have improved memory. Try to recognize when your condition is getting worse. Contact your provider if your symptoms interfere with home or work and you feel like your condition is not improving. Follow these instructions at home: Activity Exercise. Adults should: ?Exercise for at least 150 minutes each week. The exercise should increase your heart rate and makeyou sweat (moderate-intensity exercise). ?Do strengthening exercises at least twice a week. Get the right amount and quality of sleep. Most adults need 7 9 hours of sleep each night. Lifestyle Eat a healthy diet that includes plenty of vegetables, fruits, whole grains, low-fat dairy products, and lean protein. ?Do not eat a lot of foods that are high in fats, added sugars, or salt (sodium). Make choices that simplify your life. Do not use any products that contain nicotine or tobacco. These products include cigarettes, chewing tobacco, and vaping devices, such as e-cigarettes. If you need help quitting, ask your provider. Avoid caffeine, alcohol, and certain leev-aei-loqedey cold medicines. These may make you feel worse. Ask your pharmacist which medicines to avoid. General instructions Take obju-utl-etadmtw and prescription medicines only as told by your provider. Keep all follow-up visits. This is to make sure you are managing your anxiety well or if you need more support. Where to find support You can get help and support from: Self-help groups. Online and community organizations. A trusted spiritual leader. Couples counseling. Family education classes. Family therapy. Where to find more information You may find that joining a support group helps you deal with your anxiety. The following sources can help you find counselors or support groups near you: Mental Health [place]: mentalhealthamerica.net Anxiety and Depression Association of [place] (ADAA): adaa.org National [place] on Mental Illness ([place]): darling.org Contact a health care provider if: You have a hard time staying focused or finishing tasks. You spend many hours a day feeling worried about everyday life. You are very tired because you cannot stop worrying. You start to have headaches or often feel tense. You have chronic nausea or diarrhea. Get help right away if: Your heart feels like it is racing. You have shortness of breath. You have thoughts of hurting yourself or others. Get help right away if you feel like you may hurt yourself or others, or have thoughts about takingyour own life. Go to your nearest emergency room or: Call 911. Call the National Suicide Prevention Lifeline at or 376. This is open 24 hours a day. Text the Crisis Text Line at 687657. This information is not intended to replace advice given to you by your health care provider. Make sure you discuss any questions you have with your health care provider. Document Revised: 07/22/2023 Document Reviewed: 02/03/2022 [employer] Patient Education 2023 Improveit! 360. 09/07/2024 09:33:47 Major Depressive Disorder, Adult Major Depressive Disorder, Adult Major depressive disorder (MDD) is a mental health condition. It may also be called clinical depression or unipolar depression. MDD causes symptoms of sadness, hopelessness, and loss of interest in things. These symptoms last most of the day, almost every day, for 2 weeks. MDD can also cause physical symptoms. It can interfere with relationships and activities, such as work, school, and activities that are usually pleasant. MDD may be mild, moderate, or severe. It may be single-episode MDD, which happens once, or recurrent MDD, which may occur many times. What are the causes? The exact cause of this condition is not known. What increases the risk? The following factors may make someone more likely to develop MDD: A family history of depression. Being female. Long-term (chronic) stress, physical illness, other mental health disorders, or substance misuse. Trauma, including: ?Family problems. ?Violence or abuse. ?Loss of a parent or close family member. ?Experiencing discrimination. What are the signs or symptoms? The main symptoms of MDD usually include: Constant depressed or irritable mood. A loss of interest in activities. Sleeping or eating too much or too little. Tiredness or low energy. Other symptoms include: Unexplained weight gain or weight loss. Being agitated, restless, or weak. Feeling hopeless, worthless, or guilty. Trouble thinking clearly or making decisions. Thoughts of suicide or harming others. Spending a lot of time alone. Not being able to complete daily tasks or work. Severe symptoms of this condition may include: Psychotic depression.This may include false beliefs or delusions. It may also include seeing, hearing, tasting, smelling, or feeling things that are not real (hallucinations). Chronic depression or persistent depressive disorder. This is low-level depression that lasts for at least 2 years. Melancholic depression, or feeling extremely sad and hopeless. Catatonic depression, which includes trouble speaking and trouble moving. Seasonal depression, which is caused by changes in the seasons. How is this diagnosed? This condition may be diagnosed based on: Your symptoms. Your medical and mental health history. A physical exam. Blood tests to rule out other conditions. MDD is confirmed if you have either a depressed mood or loss of interest and at least four other MDD symptoms, most of the day, nearly every day, in a 2-week period. How is this treated? This condition is usually treated by mental health professionals, such as psychologists, psychiatrists, and clinical social workers. You may need more than one type of treatment. Treatment may include: Psychotherapy, also called talk therapy or counseling. Types of psychotherapy include: ?Cognitive behavioral therapy (CBT). This teaches you to recognize unhealthy feelings, thoughts, and behaviors, and replace them with positive thoughts and actions. ?Interpersonal therapy (IPT). This helps you to improve the way you communicate with others or relate to them. ?Family therapy. This treatment includes members of your family. Medicines to treat anxiety and depression. These medicines help to balance the brain chemicals thataffect your emotions. Lifestyle changes. You may be asked to: ?Limit alcohol use and avoid drug use. ?Get regular exercise. ?Get plenty of sleep. ?Make healthy eating choices. ?Spend more time outdoors. Brain stimulation. This may be done if symptoms are very severe and other treatments have not worked. Examples of this treatment are electroconvulsive therapy and transcranial magnetic stimulation. Follow these instructions at home: Alcohol use Do not drink alcohol if: ?Your health care provider tells you not to drink. ?You are , may be , or are planning to become . If you drink alcohol: ?Limit how much you have to: ?0 1 drink a day for women ?0 2 drinks a day for men. ?Know how much alcohol is in your drink. In the [place] one drink equals one 12 oz bottle of beer (355 mL), one 5 oz glass of wine (148 mL), or one 1 oz glass of hard liquor (44 mL). Activity Exercise regularly and spend time outdoors. Find activities that you enjoy and make time to do them. Find healthy ways to manage stress, such as: ?Meditation or deep breathing. ?Spending time in nature. ?Journaling. Return to your normal activities as told by your health care provider. Ask your health care provider what activities are safe for you. General instructions Take irwc-svg-gjucgbm and prescription medicines only as told by your health care provider. Discuss alcohol use with your health care provider. Alcohol can affect any antidepressant medicinesyou are taking. Discuss any drug use with your health care provider. Eat a healthy diet and get enough sleep. Consider joining a support group. Your health care provider may be able to recommend one. Keep all follow-up visits. It is important for your health care provider to check on your mood, behavior, and medicines. Your health care provider will make changes to your treatment as needed. Where to find more information National [place]ester on Mental Illness: darling.org National [place] of Mental Health: nimh.nih.gov [place] Psychiatric Association: psychiatry.org Contact a health care provider if: Your symptoms get worse. You develop new symptoms. Get help right away if: You hurt yourself on purpose (self-harm). You have thoughts about hurting yourself or others. You have hallucinations. Get help right away if you feel like you may hurt yourself or others, or have thoughts about takingyour own life. Go to your nearest emergency room or: Call 911. Call the National Suicide Prevention Lifeline at or 798. This is open 24 hours a day. Text the Crisis Text Line at 779827. This information is not intended to replace advice given to you by your health care provider. Make sure you discuss any questions you have with your health care provider. Document Revised: 02/18/2023 Document Reviewed: 02/18/2023 [employer] Patient Education 2023 Improveit! 360. 09/07/2024 09:33:46 Health Risks of Smoking Health Risks of Smoking Smoking tobacco is very bad for your health. Tobacco smoke contains many toxic chemicals that can damage every part of your body. Secondhand smoke can be harmful to those around you. Tobacco or nicotine use can cause many long-term (chronic) diseases. Smoking is difficult to quit because a chemical in tobacco, called nicotine, causes addiction or dependence. When you smoke and inhale, nicotine is absorbed quickly into your bloodstream through yourlungs. Both inhaled and non-inhaled nicotine may be addictive. How can quitting affect me? There are health benefits of quitting smoking. Some benefits happen right away and others take time. Benefits may include: Blood flow, blood pressure, heart rate, and lung capacity may begin to improve. However, any lung damage that has already occurred cannot be repaired. Respiratory symptoms from smoking, such as nasal congestion and cough, may improve over time. Your risk of heart disease, stroke, and cancer is reduced. The overall quality of your health may improve. You may save money, as you will not spend money on tobacco products and may spend less money on smoking-related health issues. What can increase my risk? Smoking harms nearly every organ in the body. People who smoke tobacco have a shorter life expectancy and an increased risk of many serious medical problems. These include: More respiratory infections, such as colds and pneumonia. Cancer. Heart disease. Stroke. Chronic respiratory diseases. Delayed wound healing and increased risk of complications during surgery. Problems with reproduction, , and childbirth, such as infertility, early (premature) births, stillbirths, and defects. Secondhand smoke exposure to children increases the risk of: Sudden infant syndrome (SIDS). Infections in the nose, throat, or airways (respiratory infections). Chronic respiratory symptoms. What actions can I take to quit? Smoking is an addiction that affects both your body and your mind, and long-time habits can be hardto change. Your health care provider can recommend: Nicotine replacement products, such as patches, gum, and nasal sprays. Use these products only as directed. Do not replace cigarette smoking with electronic cigarettes, which are commonly called e-cigarettes. The safety of e-cigarettes is not known, and some may contain harmful chemicals. Programs and community resources, which may include group support, education, or talk therapy. Prescription medicines to help reduce cravings. A combination of two or more quit methods, which may increase the success of quitting. Where to find support Follow the recommendations from your health care provider about support groups and other assistance. You can also visit: U.S. Department of Health and Human Services: www.smokefree.gov [employer]: www.freedomfromsmoking.org [place] [employer]: www.heart.org Where to find more information Centers for Disease Control and Prevention: www.cdc.gov World Health Organization: www.who.int Summary Smoking tobacco is very bad for your health. Tobacco smoke contains many toxic chemicals that can damage every part of the body. Smoking is difficult to quit because a chemical in tobacco, called nicotine, causes addiction or dependence. There are immediate and long-term health benefits of quitting smoking. A combination of two or more quit methods may increase the success of quitting. This information is not intended to replace advice given to you by your health care provider. Make sure you discuss any questions you have with your health care provider. Document Revised: 10/15/2022 Document Reviewed: 10/15/2022 [employer] Patient Education 2023 [employer]! 360. 09/07/2024 09:33:44 BMI for Adults BMI for Adults Body mass index (BMI) is a number found using a person's weight and height. BMI can help tell how much of a person's weight is made up of fat. BMI does not measure body fat directly. It is used instead of tests that directly measure body fat, which can be difficult and expensive. What are BMI measurements used for? BMI is useful to: Find out if your weight puts you at higher risk for medical problems. Help recommend changes, such as in diet and exercise. This can help you reach a healthy weight. BMIscreening can be done again to see if these changes are working. How is BMI calculated? Your height and weight are measured. The BMI is found from those numbers. This can be done with U.[place] or metric measurements. Note that charts and online BMI calculators are available to help you findyour BMI quickly and easily without doing these calculations. To calculate your BMI in U.[place]. measurements: 1.Measure your weight in pounds (lb). 2.Multiply the number of pounds by 703. So, for an adult who weighs 150 lb, multiply that number by 703: 150 x 703, which equals 105,450. 3.Measure your height in inches. Then multiply that number by itself to get a measurement called inches squared. So, for an adult who is 70 inches tall, the inches squared measurement is 70 inches x 70 inches, which equals 4,900 inches squared. 4.Divide the total from step 2 (number of lb x 703) by the total from step 3 (inches squared): 105,450 4,900 = 21.5. This is your BMI. To calculate your BMI in metric measurements: 1.Measure your weight in kilograms (kg). For this example, the weight is 70 kg. 2.Measure your height in meters (m). Then multiply that number by itself to get a measurement called meters squared. So, for an adult who is 1.75 m tall, the meters squared measurement is 1.75 m x 1.75 m, which equals 3.1 meters squared. 3.Divide the number of kilograms (your weight) by the meters squared number. In this example: 70 3.1 = 22.6. This is your BMI. What do the results mean? BMI charts are used to see if you are underweight, normal weight, overweight, or obese. The following guidelines will be used: Underweight: BMI less than 18.5. Normal weight: BMI between 18.5 and 24.9. Overweight: BMI between 25 and 29.9. Obese: BMI of 30 or above. BMI is a tool and cannot diagnose a condition. Talk with your health care provider about what your BMI means for you. Keep these notes in mind: Weight includes fat and muscle. Someone with a muscular build, such as an athlete, may have a BMI that is higher than 24.9. In cases like these, BMI is not a correct measure of body fat. If you have a BMI of 25 or higher, your provider may need to do more testing to find out if excess body fat is the cause. BMI is measured the same way for males and females. Females usually have more body fat than males of the same height and weight. Where to find more information For more information about BMI, including tools to quickly find your BMI, go to: Centers for Disease Control and Prevention: cdc.gov [place] [employer]: heart.org National Heart, Lung, and Blood [place]: nhlbi.nih.gov This information is not intended to replace advice given to you by your health care provider. Make sure you discuss any questions you have with your health care provider. Document Revised: 07/03/2023 Document Reviewed: 06/26/2023 [employer] Patient Education 2023 [employer]! 360. Follow Up Care 05/12/2024 08:32:07 With:Maura Vigil Address: [address] [place] [address], [address] [place] [id number]- When:Within 3 Month(s) Comments:weight loss, med recheck, PRASANNA/MDD [facility] 11-12-2024 NotePatient Education Mental and Behavioral Health Managing Anxiety, Adult After being diagnosed with anxiety, you may be relieved to know why you have felt or behaved a certain way. You may also feel overwhelmed about the treatment ahead and what it will mean for your life. With care and support, you can manage your anxiety. How to manage lifestyle changes Understanding the difference between stress and anxiety Although stress can play a role in anxiety, it is not the same as anxiety. Stress is your body's reaction to life changes and events, both good and bad. Stress is often caused by something external, such as a deadline, test, or competition. It normally goes away after the event has ended and will last just a few hours. But, stress can be ongoing and can lead to more than just stress. Anxiety is caused by something internal, such as imagining a terrible outcome or worrying that something will go wrong that will greatly upset you. Anxiety often does not go away even after the eventis over, and it can become a long- term (chronic) worry. Lowering stress and anxiety Talk with your health care provider or a counselor to learn more about lowering anxiety and stress.They may suggest tension-reduction techniques, such as: ??? Music. Spend time creating or listening to music that you enjoy and that inspires you. ??? Mindfulness-based meditation. Practice being aware of your normal breaths while not trying to control your breathing. It can be done while sitting or walking. ??? Centering prayer. Focus on a word, phrase, or sacred image that means something to you and brings you peace. ??? Deep breathing. Expand your stomach and inhale slowly through your nose. Hold your breath for 3?5 seconds. Then breathe out slowly, letting your stomach muscles relax. ??? Self-talk. Learn to notice and spot thought patterns that lead to anxiety reactions. Change those patterns to thoughts that feel peaceful. ??? Muscle relaxation. Take time to tense muscles and then relax them. Choose a tension-reduction technique that fits your lifestyle and personality. These techniques take time and practice. Set aside 5?15 minutes a day to do them. Specialized therapists can offer counseling and training in these techniques. The training to help with anxiety may be covered by some insurance plans. Other things you can do to manage stress and anxiety include: ??? Keeping a stress diary. This can help you learn what triggers your reaction and then learn waysto manage your response. ??? Thinking about how you react to certain situations. You may not be able to control everything, but you can control your response. ??? Making time for activities that help you relax and not feeling guilty about spending your time in this way. ??? Doing visual imagery. This involves imagining or creating mental pictures to help you relax. ??? Practicing yoga. Through yoga poses, you can lower tension and relax. Medicines Medicines for anxiety include: ??? Antidepressant medicines. These are usually prescribed for long-term daily control. ??? Anti-anxiety medicines. These may be added in severe cases, especially when panic attacks occur. When used together, medicines, psychotherapy, and tension-reduction techniques may be the most effective treatment. Relationships Relationships can play a big part in helping you recover. Spend more time connecting with trusted friends and family members. Think about going to couples counseling if you have a partner, taking family education classes, or going to family therapy. Therapy can help you and others better understandyour anxiety. How to recognize changes in your anxiety Everyone responds differently to treatment for anxiety. Recovery from anxiety happens when symptomslessen and stop interfering with your daily life at home or work. This may mean that you will startto: ??? Have better concentration and focus. Worry will interfere less in your daily thinking. ??? Sleep better. ??? Be less irritable. ??? Have more energy. ??? Have improved memory. Try to recognize when your condition is getting worse. Contact your provider if your symptoms interfere with home or work and you feel like your condition is not improving. Follow these instructions at home: Activity ??? Exercise. Adults should: ? Exercise for at least 150 minutes each week. The exercise should increase your heart rate and make you sweat (moderate-intensity exercise). ? Do strengthening exercises at least twice a week. ??? Get the right amount and quality of sleep. Most adults need 7?9 hours of sleep each night. Lifestyle ??? Eat a healthy diet that includes plenty of vegetables, fruits, whole grains, low-fat dairy products, and lean protein. ? Do not eat a lot of foods that are high in fats, added sugars, or salt (sodium). ??? Make choices that simplify your life. ??? Do not use any products (more content not included)...[facility]10-09-2024 Telephone encounter Note* Telephone Encounter - Grace Sanchez DO - 08/04/2024 7:51 PM EDT Contacted patient and discussed pelvic ultrasound findings: normal sized uterus, IUD in appropriateposition, normal sized bilateral ovaries. Reassured patient. Discussed IUD strings not visualized during pelvic exam, however IUD still in appropriate position. Questions asked and answered, patient voiced understanding. [facility] [employer] Phone: [phone]) 433-270110-09-2024 Miscellaneous Notes* Telephone Encounter - Grace Sanchez DO - 08/04/2024 7:51 PM EDT Contacted patient and discussed pelvic ultrasound findings: normal sized uterus, IUD in appropriateposition, normal sized bilateral ovaries. Reassured patient. Discussed IUD strings not visualized during pelvic exam, however IUD still in appropriate position. Questions asked and answered, patient voiced understanding. * Telephone Encounter - Nereida Dye - 08/04/2024 2:45 PM EDT PT called [facility] trying to reach to reach someone to go over ultrasound results, very concerned about results since she is having some issues with her IUD, US was done 07/22/2024 and stillhasn't heard back, she has tried multiple times to reach the office with no luck, please call back at earliest convince, best call back number is [phone] documented in this encounterCrossroads Regional Medical [id number] Telephone encounter Note* Telephone Encounter - Nereida Dye - 08/04/2024 2:45 PM EDT PT called [facility] trying to reach to reach someone to go over ultrasound results, very concerned about results since she is having some issues with her IUD, US was done 07/22/2024 and stillhasn't heard back, she has tried multiple times to reach the office with no luck, please call back at earliest convince, best call back number is [phone] [facility] [id number] History of Present illness Narrative* Nevaeh Sevilla NP - 07/22/2024 9:40 AM EDT Name: Ariana Batista Date/Time of Service:07/22/2024 10:03 AM :1990 Age: 34 y.o. SUBJECTIVE: History of Present Illness Ariana Batista is a 34 y.o. here for annual exam. Last pap 07-05-21 NILM, HPV neg. Denies hx abnormal. Denies need for STD testing. Liletta for contraception, placed 11-04-22. Periods are monthly but very light. She is having cramping with her periods, takes ibuprofen and uses heating pad. After she has intercourse, if it is particularly rough, she has some pain in her pelvis. Past Medical History: Diagnosis Date PRASANNA (generalized anxiety disorder) (CMS/HCC) Major depressive disorder (CMS/[facility]) Review of Systems All others negative except those mentioned in HPI. Past Medical / Surgical History Past Medical History: Diagnosis Date PRASANNA (generalized anxiety disorder) (CMS/HCC) Major depressive disorder (CMS/HCC) History reviewed. No pertinent surgical history. Family History No family history on file. Social History reports that she has been smoking cigarettes. She has never used smokeless tobacco. She reports current alcohol use. She reports that she does not use drugs. MEDICATIONS: Current Outpatient Medications on File Prior to Visit Medication Sig Dispense Refill cholecalciferol (Vitamin D-3) 1.25 MG (03398 UT) capsule Take 1,250 mcg by mouth desvenlafaxine (Pristiq) 100 MG 24 hr tablet Take 100 mg by mouth Daily Levonorgestrel (LILETTA, 52 MG, IU) Placed 11-04-2022 [DISCONTINUED] sertraline (Zoloft) 50 MG tablet Take 50 mg by mouth in the morning. No current facility-administered medications on file prior to visit. Allergies Allergen Reactions Iodinated Contrast Media Other Reaction(s): unknown Latex Other Reaction(s): Rash Prednisone & Diphenhydramine Other Reaction(s): unknown allergy to contrast dye Bacitracin-Polymyxin B Rash Review of Systems PHYSICAL EXAM: Vitals: 07/22/24 0940 BP: 122/74 Body mass index is 27.89 kg/m . Physical Exam Constitutional: Appearance: Normal appearance. Genitourinary: Normal external female genitalia. Normal vaginal mucosa. Cervix absent of lesions. No CMT. IUD strings not visualized on today's exam. Uterus normal size, mobile. Right adnexa non-tender, no masses. Left adnexal tenderness to palpation. Breasts: No nipple discharge, skin changes, lumps, masses. Right: Normal. Left: Normal. HENT: Head: Normocephalic. Eyes: Extraocular Movements: Extraocular movements intact. Conjunctiva/sclera: Conjunctivae normal. Pulmonary: Effort: Pulmonary effort is normal. Neurological: Mental Status: She is alert and oriented to person, place, and time. Skin: General: Skin is warm and dry. Psychiatric: Mood and Affect: Mood normal. Behavior: Behavior normal. ASSESSMENT / PLAN No pap obtained today, due 2025. Recommend monthly self breast exams. Due to missing IUD strings, pelvic pain, and dysmenorrhea, plan for pelvic US. Pt agreeable to this. Diagnosis Plan 1. Encounter for gynecological examination without abnormal finding 2. IUD check up 3. Pelvic pain in female 4. Dysmenorrhea Follow up in about 1 year (around 07/22/2025) for Annual exam. documented in this encounterCrossroads Regional Medical [id number] Hospital Discharge instructions Patient Education 05/18/2024 18:07:28 BMI for Adults BMI for Adults What is BMI? Body mass index (BMI) is a number that is calculated from a person's weight and height. BMI can help estimate how much of a person's weight is composed of fat. BMI does not measure body fat directly.Rather, it is an alternative to procedures that directly measure body fat, which can be difficult and expensive. BMI can help identify people who may be at higher risk for certain medical problems. What are BMI measurements used for? BMI is used as a screening tool to identify possible weight problems. It helps determine whether a person is obese, overweight, a healthy weight, or underweight. BMI is useful for: Identifying a weight problem that may be related to a medical condition or may increase the risk for medical problems. Promoting changes, such as changes in diet and exercise, to help reach a healthy weight. BMI screening can be repeated to see if these changes are working. How is BMI calculated? BMI involves measuring your weight in relation to your height. Both height and weight are measured,and the BMI is calculated from those numbers. This can be done either in [place] ([place] or metric measurements. Note that charts and online BMI calculators are available to help you find your BMI quickly and easily without having to do these calculations yourself. To calculate your BMI in [place] ([place] measurements: 1.Measure your weight in pounds (lb). 2.Multiply the number of pounds by 703. For example, for a person who weighs 180 lb, multiply that number by 703, which equals 126,540. 3.Measure your height in inches. Then multiply that number by itself to get a measurement called inches squared. For example, for a person who is 70 inches tall, the inches squared measurement is 70 inches x 70inches, which equals 4,900 inches squared. 4.Divide the total from step 2 (number of lb x 703) by the total from step 3 (inches squared): 126,540 4,900 = 25.8. This is your BMI. To calculate your BMI in metric measurements: 1.Measure your weight in kilograms (kg). 2.Measure your height in meters (m). Then multiply that number by itself to get a measurement called meters squared. For example, for a person who is 1.75 m tall, the meters squared measurement is 1.75 m x 1.75 m, which is equal to 3.1 meters squared. 3.Divide the number of kilograms (your weight) by the meters squared number. In this example: 70 3.1 = 22.6. This is your BMI. What do the results mean? BMI charts are used to identify whether you are underweight, normal weight, overweight, or obese. The following guidelines will be used: Underweight: BMI less than 18.5. Normal weight: BMI between 18.5 and 24.9. Overweight: BMI between 25 and 29.9. Obese: BMI of 30 or above. Keep these notes in mind: Weight includes both fat and muscle, so someone with a muscular build, such as an athlete, may havea BMI that is higher than 24.9. In cases like these, BMI is not an accurate measure of body fat. To determine if excess body fat is the cause of a BMI of 25 or higher, further assessments may needto be done by a health care provider. BMI is usually interpreted in the same way for men and women. Where to find more information For more information about BMI, including tools to quickly calculate your BMI, go to these websites: Centers for Disease Control and Prevention: www.cdc.gov [employer] [employer]: www.heart.org National Heart, Lung, and Blood [place]: www.nhlbi.nih.gov Summary Body mass index (BMI) is a number that is calculated from a person's weight and height. BMI may help estimate how much of a person's weight is composed of fat. BMI can help identify thosewho may be at higher risk for certain medical problems. BMI can be measured using Serbian measurements or metric measurements. BMI charts are used to identify whether you are underweight, normal weight, overweight, or obese. This information is not intended to replace advice given to you by your health care provider. Make sure you discuss any questions you have with your health care provider. Document Revised: 07/05/2020 Document Reviewed: 05/12/2020 [employer] Patient Education 2022 [employer]! 360. 05/18/2024 18:07:26 Acute Bronchitis, Adult, [id number] Acute Bronchitis, Adult Acute bronchitis is when air tubes in the lungs (bronchi) suddenly get swollen. The condition can make it hard for you to breathe. In adults, acute bronchitis usually goes away within 2 weeks. A cough caused by bronchitis may last up to 3 weeks. Smoking, allergies, and asthma can make the conditionworse. What are the causes? Germs that cause cold and flu (viruses). The most common cause of this condition is the virus that causes the common cold. Bacteria. Substances that bother (irritate) the lungs, including: ?Smoke from cigarettes and other types of tobacco. ?Dust and pollen. ?Fumes from chemicals, gases, or burned fuel. ?Indoor or outdoor air pollution. What increases the risk? A weak body's defense system. This is also called the immune system. Any condition that affects your lungs and breathing, such as asthma. What are the signs or symptoms? A cough. Coughing up clear, yellow, or green mucus. Making high-pitched whistling sounds when you breathe, most often when you breathe out (wheezing). Runny or stuffy nose. Having too much mucus in your lungs (chest congestion). Shortness of breath. Body aches. A sore throat. How is this treated? Acute bronchitis may go away over time without treatment. Your doctor may tell you to: Drink more fluids. This will help thin your mucus so it is easier to cough up. Use a device that gets medicine into your lungs (inhaler). Use a vaporizer or a humidifier. These are machines that add water to the air. This helps with coughing and poor breathing. Take a medicine that thins mucus and helps clear it from your lungs. Take a medicine that prevents or stops coughing. It is not common to take an antibiotic medicine for this condition. Follow these instructions at home: Take [id number] and prescription medicines only as told by your doctor. Use an inhaler, vaporizer, or humidifier as told by your doctor. Take two teaspoons (10 mL) of honey at bedtime. This helps lessen your coughing at night. Drink enough fluid to keep your pee (urine) pale yellow. Do not smoke or use any products that contain nicotine or tobacco. If you need help quitting, ask your doctor. Get a lot of rest. Return to your normal activities when your doctor says that it is safe. Keep all follow-up visits. How is this prevented? Wash your hands often with soap and water for at least 20 seconds. If you cannot use soap and water, use hand administrative services officer. Avoid contact with people who have cold symptoms. Try not to touch your mouth, nose, or eyes with your hands. Avoid breathing in smoke or chemical fumes. Make sure to get the flu shot every year. Contact a doctor if: Your symptoms do not get better in 2 weeks. You have trouble coughing up the mucus. Your cough keeps you awake at night. You have a fever. Get help right away if: You cough up blood. You have chest pain. You have very bad shortness of breath. You faint or keep feeling like you are going to faint. You have a very bad headache. Your fever or chills get worse. These symptoms may be an emergency. Get help right away. Call your local emergency services (911 int [place] Do not wait to see if the symptoms will go away. Do not drive yourself to the hospital. Summary Acute bronchitis is when air tubes in the lungs (bronchi) suddenly get swollen. In adults, acute bronchitis usually goes away within 2 weeks. Drink more fluids. This will help thin your mucus so it is easier to cough up. Take ddls-tdt-dwnlhqk and prescription medicines only as told by your doctor. Contact a doctor if your symptoms do not improve after 2 weeks of treatment. This information is not intended to replace advice given to you by your health care provider. Make sure you discuss any questions you have with your health care provider. Document Revised: 02/13/2022 Document Reviewed: 02/13/2022 [employer] Patient Education 2022 [employer] 360. Follow Up Care 05/18/2024 08:23:08 With:Maura Vigil Address: [address], [place] [address] [place] [address]- When: Unknown [facility] 07-23-2024 NotePatient Education Nutrition BMI for Adults What is BMI? Body mass index (BMI) is a number that is calculated from a person's weight and height. BMI can help estimate how much of a person's weight is composed of fat. BMI does not measure body fat directly.Rather, it is an alternative to procedures that directly measure body fat, which can be difficult and expensive. BMI can help identify people who may be at higher risk for certain medical problems. What are BMI measurements used for? BMI is used as a screening tool to identify possible weight problems. It helps determine whether a person is obese, overweight, a healthy weight, or underweight. BMI is useful for: ? Identifying a weight problem that may be related to a medical condition or may increase the risk for medical problems. ? Promoting changes, such as changes in diet and exercise, to help reach a healthy weight. BMI screening can be repeated to see if these changes are working. How is BMI calculated? BMI involves measuring your weight in relation to your height. Both height and weight are measured,and the BMI is calculated from those numbers. This can be done either in [place] ([place] or metric measurements. Note that charts and online BMI calculators are available to help you find your BMI quickly and easily without having to do these calculations yourself. To calculate your BMI in [place] ([place] measurements: 1. Measure your weight in pounds (lb). 2. Multiply the number of pounds by 703. ? For example, for a person who weighs 180 lb, multiply that number by 703, which equals 126,540. 3. Measure your height in inches. Then multiply that number by itself to get a measurement called inches squared. ? For example, for a person who is 70 inches tall, the inches squared measurement is 70 inches x 70 inches, which equals 4,900 inches squared. 4. Divide the total from step 2 (number of lb x 703) by the total from step 3 (inches squared): 126,540 ? 4,900 = 25.8. This is your BMI. To calculate your BMI in metric measurements: 1. Measure your weight in kilograms (kg). 2. Measure your height in meters (m). Then multiply that number by itself to get a measurement called meters squared. ? For example, for a person who is 1.75 m tall, the meters squared measurement is 1.75 m x 1.75 m, which is equal to 3.1 meters squared. 3. Divide the number of kilograms (your weight) by the meters squared number. In this example: 70 ?3.1 = 22.6. This is your BMI. What do the results mean? BMI charts are used to identify whether you are underweight, normal weight, overweight, or obese. The following guidelines will be used: ? Underweight: BMI less than 18.5. ? Normal weight: BMI between 18.5 and 24.9. ? Overweight: BMI between 25 and 29.9. ? Obese: BMI of 30 or above. Keep these notes in mind: ? Weight includes both fat and muscle, so someone with a muscular build, such as an athlete, may have a BMI that is higher than 24.9. In cases like these, BMI is not an accurate measure of body fat. ? To determine if excess body fat is the cause of a BMI of 25 or higher, further assessments may need to be done by a health care provider. ? BMI is usually interpreted in the same way for men and women. Where to find more information For more information about BMI, including tools to quickly calculate your BMI, go to these websites: ? Centers for Disease Control and Prevention: www.cdc.gov ? [place] Heart Association: www.heart.org ? National Heart, Lung, and Blood [place]: www.nhlbi.nih.gov Summary ? Body mass index (BMI) is a number that is calculated from a person's weight and height. ? BMI may help estimate how much of a person's weight is composed of fat. BMI can help identify those who may be at higher risk for certain medical problems. ? BMI can be measured using Serbian measurements or metric measurements. ? BMI charts are used to identify whether you are underweight, normal weight, overweight, or obese. This information is not intended to replace advice given to you by your health care provider. Make sure you discuss any questions you have with your health care provider. Document Revised: 07/05/2020 Document Reviewed: 05/12/2020 [employer] Patient Education ? 2022 [employer] 360. Pulmonary Medicine Acute Bronchitis, Adult Acute bronchitis is when air tubes in the lungs (bronchi) suddenly get swollen. The condition can make it hard for you to breathe. In adults, acute bronchitis usually goes away within 2 weeks. A cough caused by bronchitis may last up to 3 weeks. Smoking, allergies, and asthma can make the conditionworse. What are the causes? ? Germs that cause cold and flu (viruses). The most common cause of this condition is the virus that causes the common cold. ? Bacteria. ? Substances that bother (irritate) the lungs, including: ? Smoke from cigarettes and other types of tobacco. ? Dust (more content not included)...[facility]07-09-2024 Hospital Discharge instructions Patient Education 05/04/2024 07:16:14 Major Depressive Disorder, Adult Major Depressive Disorder, Adult Major depressive disorder (MDD) is a mental health condition. It may also be called clinical depression or unipolar depression. MDD causes symptoms of sadness, hopelessness, and loss of interest in things. These symptoms last most of the day, almost every day, for 2 weeks. MDD can also cause physical symptoms. It can interfere with relationships and with everyday activities, such as work, school,and activities that are usually pleasant. MDD may be mild, moderate, or severe. It may be single-episode MDD, which happens once, or recurrent MDD, which may occur multiple times. What are the causes? The exact cause of this condition is not known. MDD is most likely caused by a combination of things, which may include: Your personality traits. [place] or conditioned behaviors or thoughts or feelings that reinforce negativity. Any alcohol or substance misuse. Long-term (chronic) physical or mental health illness. Going through a traumatic experience or major life changes. What increases the risk? The following factors may make someone more likely to develop MDD: A family history of depression. Being a woman. Troubled family relationships. Abnormally low levels of certain brain chemicals. Traumatic or painful events in childhood, especially abuse or loss of a parent. A lot of stress from life experiences, such as poor living conditions or discrimination. Chronic physical illness or other mental health disorders. What are the signs or symptoms? The main symptoms of MDD usually include: Constant depressed or irritable mood. A loss of interest in things and activities. Other symptoms include: Sleeping or eating too much or too little. Unexplained weight gain or weight loss. Tiredness or low energy. Being agitated, restless, or weak. Feeling hopeless, worthless, or guilty. Trouble thinking clearly or making decisions. Thoughts of suicide or thoughts of harming others. Isolating oneself or avoiding other people or activities. Trouble completing tasks, work, or any normal obligations. Severe symptoms of this condition may include: Psychotic depression.This may include false beliefs, or delusions. It may also include seeing, hearing, tasting, smelling, or feeling things that are not real (hallucinations). Chronic depression or persistent depressive disorder. This is low-level depression that lasts for at least 2 years. Melancholic depression, or feeling extremely sad and hopeless. Catatonic depression, which includes trouble speaking and trouble moving. How is this diagnosed? This condition may be diagnosed based on: Your symptoms. Your medical and mental health history. You may be asked questions about your lifestyle, including any drug and alcohol use. A physical exam. Blood tests to rule out other conditions. MDD is confirmed if you have the following symptoms most of the day, nearly every day, in a 2-week period: Either a depressed mood or loss of interest. At least four other MDD symptoms. How is this treated? This condition is usually treated by mental health professionals, such as psychologists, psychiatrists, and clinical social workers. You may need more than one type of treatment. Treatment may include: Psychotherapy, also called talk therapy or counseling. Types of psychotherapy include: ?Cognitive behavioral therapy (CBT). This teaches you to recognize unhealthy feelings, thoughts, and behaviors, and replace them with positive thoughts and actions. ?Interpersonal therapy (IPT). This helps you to improve the way you communicate with others or relate to them. ?Family therapy. This treatment includes members of your family. Medicines to treat anxiety and depression. These medicines help to balance the brain chemicals thataffect your emotions. Lifestyle changes. You may be asked to: ?Limit alcohol use and avoid drug use. ?Get regular exercise. ?Get plenty of sleep. ?Make healthy eating choices. ?Spend more time outdoors. Brain stimulation. This may be done if symptoms are very severe and other treatments have not worked. Examples of this treatment are electroconvulsive therapy and transcranial magnetic stimulation. Follow these instructions at home: Activity Exercise regularly and spend time outdoors. Find activities that you enjoy doing, and make time to do them. Find healthy ways to manage stress, such as: ?Meditation or deep breathing. ?Spending time in nature. ?Journaling. Return to your normal activities as told by your health care provider. Ask your health care provider what activities are safe for you. Alcohol and drug use If you drink alcohol: ?Limit how much you use to: ?0 1 drink a day for women who are not . ?0 2 drinks a day for men. ?Be aware of how much alcohol is in your drink. In the [place] one drink equals one 12 oz bottle of beer (355 mL), one 5 oz glass of wine (148 mL), or one 1 oz glass of hard liquor (44 mL). ?Discuss your alcohol use with your health care provider. Alcohol can affect any antidepressant medicines you are taking. Discuss any drug use with your health care provider. General instructions Take aoem-yub-gampmpv and prescription medicines only as told by your health care provider. Eat a healthy diet and get plenty of sleep. Consider joining a support group. Your health care provider may be able to recommend one. Keep all follow-up visits as told by your health care provider. This is important. Where to find more information National [place] on Mental Illness: www.darling.org [place] National [place] of Mental Health: www.nimh.nih.gov Contact a health care provider if: Your symptoms get worse. You develop new symptoms. Get help right away if: You self-harm. You have serious thoughts about hurting yourself or others. You hallucinate. If you ever feel like you may hurt yourself or others, or have thoughts about taking your own life,get help right away. Go to your nearest emergency department or: Call your local emergency services (171 in the [place] Call a suicide crisis helpline, such as the National Suicide Prevention Lifeline at or 316 in the [place] This is open 24 hours a day in the [place] Text the Crisis Text Line at 970717 (in the [place] Summary Major depressive disorder (MDD) is a mental health condition. MDD causes symptoms of sadness, hopelessness, and loss of interest in things. These symptoms last most of the day, almost every day, for 2 weeks. The symptoms of MDD can interfere with relationships and with everyday activities. Treatments and support are available for people who develop MDD. You may need more than one type oftreatment. Get help right away if you have serious thoughts about hurting yourself or others. This information is not intended to replace advice given to you by your health care provider. Make sure you discuss any questions you have with your health care provider. Document Revised: 05/08/2022 Document Reviewed: 09/23/2020 [employer] Patient Education 2022 [employer] 05/04/2024 07:16:10 Steps to Quit Smoking Steps to Quit Smoking Smoking tobacco is the leading cause of preventable . It can affect almost every organ in the body. Smoking puts you and those around you at risk for developing many serious chronic diseases. Quitting smoking can be very challenging. Do not get discouraged if you are not successful the first time. Some people need to make many attempts to quit before they achieve long-term success. Do your best to stick to your quit plan, and talk with your health care provider if you have any questionsor concerns. How do I get ready to quit? When you decide to quit smoking, create a plan to help you succeed. Before you quit: Pick a date to quit. Set a date within the next 2 weeks to give you time to prepare. Write down the reasons why you are quitting. Keep this list in places where you will see it often. Tell your family, friends, and co-workers that you are quitting. Support from people you are close to can make quitting easier. Talk with your health care provider about your options for quitting smoking. Find out what treatment options are covered by your health insurance. Identify people, places, things, and activities that make you want to smoke (triggers). Avoid them. What first steps can I take to quit smoking? Throw away all cigarettes at home, at work, and in your car. Throw away smoking accessories, such as ashtrays and lighters. Clean your car. Make sure to empty the ashtray. Clean your home, including curtains and carpets. What strategies can I use to quit smoking? Talk with your health care provider about combining strategies, such as taking medicines while you are also receiving in-person counseling. Using these two strategies together makes you more likely to succeed in quitting than if you used either strategy on its own. If you are or , talk with your health care provider about finding counseling or other support strategies to quit smoking. Do not take medicine to help you quit smoking unless your health care provider tells you to. Quit right away Quit smoking completely, instead of gradually reducing how much you smoke over a period of time. Stopping smoking right away may be more successful than gradually quitting. Attend in-person counseling to help you build problem-solving skills. You are more likely to succeed in quitting if you attend counseling sessions regularly. Even short sessions of 10 minutes can be effective. Take medicine You may take medicines to help you quit smoking. Some medicines require a prescription. You can also purchase xdno-knh-dqryirr medicines. Medicines may have nicotine in them to replace the nicotine in cigarettes. Medicines may: Help to stop cravings. Help to relieve withdrawal symptoms. Your health care provider may recommend: Nicotine patches, gum, or lozenges. Nicotine inhalers or sprays. Non-nicotine medicine that you take by mouth. Find resources Find resources and support systems that can help you quit smoking and remain smoke-free after you quit. These resources are most helpful when you use them often. They include: Online chats with a counselor. Telephone quitlines. Printed self-help materials. Support groups or group counseling. Text messaging programs. Mobile phone apps or applications. Use apps that can help you stick to your quit plan by providing reminders, tips, and encouragement. Examples of free services include Quit Guide from the CDC and smokefree.gov What can I do to make it easier to quit? Reach out to your family and friends for support and encouragement. Call telephone quitlines, such as 4-639-TSYW-NOW, reach out to support groups, or work with a counselor for support. Ask people who smoke to avoid smoking around you. Avoid places that trigger you to smoke, such as bars, parties, or smoke-break areas at work. Spend time with people who do not smoke. Lessen the stress in your life. Stress can be a smoking trigger for some people. To lessen stress, try: ?Exercising regularly. ?Doing deep-breathing exercises. ?Doing yoga. ?Meditating. What benefits will I see if I quit smoking? Over time, you should start to see positive results, such as: Improved sense of smell and taste. Decreased coughing and sore throat. Slower heart rate. Lower blood pressure. Clearer and healthier skin. The ability to breathe more easily. Fewer sick days. Summary Quitting smoking can be very challenging. Do not get discouraged if you are not successful the first time. Some people need to make many attempts to quit before they achieve long-term success. When you decide to quit smoking, create a plan to help you succeed. Quit smoking right away, not slowly over a period of time. Find resources and support systems that can help you quit smoking and remain smoke-free after you quit. This information is not intended to replace advice given to you by your health care provider. Make sure you discuss any questions you have with your health care provider. Document Revised: 10/04/2022 Document Reviewed: 10/04/2022 [employer] Patient Education 2022 [employer]. 05/04/2024 07:16:09 Obesity, Adult Obesity, Adult Obesity is the condition of having too much total body fat. Being overweight or obese means that your weight is greater than what is considered healthy for your body size. Obesity is determined by a measurement called BMI (body mass index). BMI is an estimate of body fat and is calculated from height and weight. For adults, a BMI of 30 or higher is considered obese. Obesity can lead to other health concerns and major illnesses, including: Stroke. Coronary artery disease (CAD). Type 2 diabetes. Some types of cancer, including cancers of the colon, breast, uterus, and gallbladder. High blood pressure (hypertension). High cholesterol. Gallbladder stones. Obesity can also contribute to: Osteoarthritis. Sleep apnea. Infertility problems. What are the causes? Common causes of this condition include: Eating daily meals that are high in calories, sugar, and fat. Drinking high amounts of sugar-sweetened beverages, such as soft drinks. Being born with genes that may make you more likely to become obese. Having a medical condition that causes obesity, including: ?Hypothyroidism. ?Polycystic ovarian syndrome (PCOS). ?Binge-eating disorder. ?[place] syndrome. Taking certain medicines, such as steroids, antidepressants, and seizure medicines. Not being physically active (sedentary lifestyle). Not getting enough sleep. What increases the risk? The following factors may make you more likely to develop this condition: Having a family history of obesity. Living in an area with limited access to: ?[place], recreation centers, or sidewalks. ?Healthy food choices, such as grocery stores and [employer] markets. What are the signs or symptoms? The main sign of this condition is having too much body fat. How is this diagnosed? This condition is diagnosed based on: Your BMI. If you are an adult with a BMI of 30 or higher, you are considered obese. Your waist circumference. This measures the distance around your waistline. Your skinfold thickness. Your health care provider may gently pinch a fold of your skin and measureit. You may have other tests to check for underlying conditions. How is this treated? Treatment for this condition often includes changing your lifestyle. Treatment may include some or all of the following: Dietary changes. This may include developing a healthy meal plan. Regular physical activity. This may include activity that causes your heart to beat faster (aerobicexercise) and strength training. Work with your health care provider to design an exercise program that works for you. Medicine to help you lose weight if you are unable to lose one pound a week after six weeks of healthy eating and more physical activity. Treating conditions that cause the obesity (underlying conditions). Surgery. Surgical options may include gastric banding and gastric bypass. Surgery may be done if: ?Other treatments have not helped to improve your condition. ?You have a BMI of 40 or higher. ?You have life-threatening health problems related to obesity. Follow these instructions at home: Eating and drinking Follow recommendations from your health care provider about what you eat and drink. Your health care provider may advise you to: ?Limit fast food, sweets, and processed snack foods. ?Choose low-fat options, such as low-fat milk instead of whole milk. ?Eat five or more servings of fruits or vegetables every day. ?Choose healthy foods when you eat out. ?Keep low-fat snacks available. ?Limit sugary drinks, such as soda, fruit juice, sweetened iced tea, and flavored milk. Drink enough water to keep your urine pale yellow. Do not follow a fad diet. Fad diets can be unhealthy and even dangerous. Other healthful choices include: ?Eat at home more often. This gives you more control over what you eat. ?Learn to read food labels. This will help you understand how much food is considered one serving. ?Learn what a healthy serving size is. Physical activity Exercise regularly, as told by your health care provider. ?Most adults should get up to 150 minutes of moderate-intensity exercise every week. ?Ask your health care provider what types of exercise are safe for you and how often you should exercise. Warm up and stretch before being active. Cool down and stretch after being active. Rest between periods of activity. Lifestyle Work with your health care provider and a dietitian to set a weight-loss goal that is healthy and reasonable for you. Limit your screen time. Find ways to reward yourself that do not involve food. Do not drink alcohol if: ?Your health care provider tells you not to drink. ?You are , may be , or are planning to become . If you drink alcohol: ?Limit how much you have to: ?0 1 drink a day for women. ?0 2 drinks a day for men. ?Know how much alcohol is in your drink. In the [place] one drink equals one 12 oz bottle of beer (355 mL), one 5 oz glass of wine (148 mL), or one 1 oz glass of hard liquor (44 mL). General instructions Keep a weight-loss journal to keep track of the food you eat and how much exercise you get. Take ozbu-etw-jripmny and prescription medicines only as told by your health care provider. Take vitamins and supplements only as told by your health care provider. Consider joining a support group. Your health care provider may be able to recommend a support group. Pay attention to your mental health as obesity can lead to depression or self esteem issues. Keep all follow-up visits. This is important. Contact a health care provider if: You are unable to meet your weight-loss goal after six weeks of dietary and lifestyle changes. You have trouble breathing. Summary Obesity is the condition of having too much total body fat. Being overweight or obese means that your weight is greater than what is considered healthy for your body size. Work with your health care provider and a dietitian to set a weight-loss goal that is healthy and reasonable for you. Exercise regularly, as told by your health care provider. Ask your health care provider what types of exercise are safe for you and how often you should exercise. This information is not intended to replace advice given to you by your health care provider. Make sure you discuss any questions you have with your health care provider. Document Revised: 05/21/2022 Document Reviewed: 05/21/2022 [employer] Patient Education 2022 [employer] 360. 05/04/2024 07:16:08 Health Risks of Smoking Health Risks of Smoking Smoking tobacco is very bad for your health. Tobacco smoke contains many toxic chemicals that can damage every part of your body. Secondhand smoke can be harmful to those around you. Tobacco or nicotine use can cause many long-term (chronic) diseases. Smoking is difficult to quit because a chemical in tobacco, called nicotine, causes addiction or dependence. When you smoke and inhale, nicotine is absorbed quickly into your bloodstream through yourlungs. Both inhaled and non-inhaled nicotine may be addictive. How can quitting affect me? There are health benefits of quitting smoking. Some benefits happen right away and others take time. Benefits may include: Blood flow, blood pressure, heart rate, and lung capacity may begin to improve. However, any lung damage that has already occurred cannot be repaired. Respiratory symptoms from smoking, such as nasal congestion and cough, may improve over time. Your risk of heart disease, stroke, and cancer is reduced. The overall quality of your health may improve. You may save money, as you will not spend money on tobacco products and may spend less money on smoking-related health issues. What can increase my risk? Smoking harms nearly every organ in the body. People who smoke tobacco have a shorter life expectancy and an increased risk of many serious medical problems. These include: More respiratory infections, such as colds and pneumonia. Cancer. Heart disease. Stroke. Chronic respiratory diseases. Delayed wound healing and increased risk of complications during surgery. Problems with reproduction, , and childbirth, such as infertility, early (premature) births, stillbirths, and defects. Secondhand smoke exposure to children increases the risk of: Sudden infant syndrome (SIDS). Infections in the nose, throat, or airways (respiratory infections). Chronic respiratory symptoms. What actions can I take to quit? Smoking is an addiction that affects both your body and your mind, and long-time habits can be hardto change. Your health care provider can recommend: Nicotine replacement products, such as patches, gum, and nasal sprays. Use these products only as directed. Do not replace cigarette smoking with electronic cigarettes, which are commonly called e-cigarettes. The safety of e-cigarettes is not known, and some may contain harmful chemicals. Programs and community resources, which may include group support, education, or talk therapy. Prescription medicines to help reduce cravings. A combination of two or more quit methods, which may increase the success of quitting. Where to find support Follow the recommendations from your health care provider about support groups and other assistance. You can also visit: U.S. Department of Health and Human Services: www.smokefree.gov [employer]: www.freedomfromsmoking.org [employer]: www.heart.org Where to find more information Centers for Disease Control and Prevention: www.cdc.gov World Health Organization: www.who.int Summary Smoking tobacco is very bad for your health. Tobacco smoke contains many toxic chemicals that can damage every part of the body. Smoking is difficult to quit because a chemical in tobacco, called nicotine, causes addiction or dependence. There are immediate and long-term health benefits of quitting smoking. A combination of two or more quit methods may increase the success of quitting. This information is not intended to replace advice given to you by your health care provider. Make sure you discuss any questions you have with your health care provider. Document Revised: 10/15/2022 Document Reviewed: 10/15/2022 [employer] Patient Education 2022 [employer]! 360. 05/04/2024 07:16:05 Calorie Counting for Weight Loss Calorie Counting for Weight Loss Calories are units of energy. Your body needs a certain number of calories from food to keep going throughout the day. When you eat or drink more calories than your body needs, your body stores the extra calories mostly as fat. When you eat or drink fewer calories than your body needs, your body sullivan fat to get the energy it needs. Calorie counting means keeping track of how many calories you eat and drink each day. Calorie counting can be helpful if you need to lose weight. If you eat fewer calories than your body needs, you should lose weight. Ask your health care provider what a healthy weight is for you. For calorie counting to work, you will need to eat the right number of calories each day to lose a healthy amount of weight per week. A dietitian can help you figure out how many calories you need kendall day and will suggest ways to reach your calorie goal. A healthy amount of weight to lose each week is usually 1 2 lb (0.5 0.9 kg). This usually means that your daily calorie intake should be reduced by 500 750 calories. Eating 1,200 1,500 calories a day can help most women lose weight. Eating 1,500 1,800 calories a day can help most men lose weight. What do I need to know about calorie counting? Work with your health care provider or dietitian to determine how many calories you should get eachday. To meet your daily calorie goal, you will need to: Find out how many calories are in each food that you would like to eat. Try to do this before you eat. Decide how much of the food you plan to eat. Keep a food log. Do this by writing down what you ate and how many calories it had. To successfully lose weight, it is important to balance calorie counting with a healthy lifestyle that includes regular activity. Where do I find calorie information? The number of calories in a food can be found on a Nutrition Facts label. If a food does not have aNutrition Facts label, try to look up the calories online or ask your dietitian for help. Remember that calories are listed per serving. If you choose to have more than one serving of a food, you will have to multiply the calories per serving by the number of servings you plan to eat. Forexample, the label on a package of bread might say that a serving size is 1 slice and that there are 90 calories in a serving. If you eat 1 slice, you will have eaten 90 calories. If you eat 2 slices, you will have eaten 180 calories. How do I keep a food log? After each time that you eat, record the following in your food log as soon as possible: What you ate. Be sure to include toppings, sauces, and other extras on the food. How much you ate. This can be measured in cups, ounces, or number of items. How many calories were in each food and drink. The total number of calories in the food you ate. Keep your food log near you, such as in a pocket-sized notebook or on an ari or website on your mobile phone. Some programs will calculate calories for you and show you how many calories you have left to meet your daily goal. What are some portion-control tips? Know how many calories are in a serving. This will help you know how many servings you can have of a certain food. Use a measuring cup to measure serving sizes. You could also try weighing out portions on a kitchenscale. With time, you will be able to estimate serving sizes for some foods. Take time to put servings of different foods on your favorite plates or in your favorite bowls and cups so you know what a serving looks like. Try not to eat straight from a food's packaging, such as from a bag or box. Eating straight from the package makes it hard to see how much you are eating and can lead to overeating. Put the amount you would like to eat in a cup or on a plate to make sure you are eating the right portion. Use smaller plates, glasses, and bowls for smaller portions and to prevent overeating. Try not to multitask. For example, avoid watching TV or using your computer while eating. If it is time to eat, sit down at a table and enjoy your food. This will help you recognize when you are full. It will also help you be more mindful of what and how much you are eating. What are tips for following this plan? Reading food labels Check the calorie count compared with the serving size. The serving size may be smaller than what you are used to eating. Check the source of the calories. Try to choose foods that are high in protein, fiber, and vitamins, and low in saturated fat, trans fat, and sodium. Shopping Read nutrition labels while you shop. This will help you make healthy decisions about which foods to buy. Pay attention to nutrition labels for low-fat or fat-free foods. These foods sometimes have the same number of calories or more calories than the full-fat versions. They also often have added sugar, starch, or salt to make up for flavor that was removed with the fat. Make a grocery list of lower-calorie foods and stick to it. Cooking Try to cook your favorite foods in a healthier way. For example, try baking instead of frying. Use low-fat dairy products. Meal planning Use more fruits and vegetables. One-half of your plate should be fruits and vegetables. Include lean proteins, such as chicken, turkey, and fish. Lifestyle Each week, aim to do one of the followin minutes of moderate exercise, such as walking. 75 minutes of vigorous exercise, such as running. General information Know how many calories are in the foods you eat most often. This will help you calculate calorie counts faster. Find a way of tracking calories that works for you. Get creative. Try different apps or programs ifwriting down calories does not work for you. What foods should I eat? Eat nutritious foods. It is better to have a nutritious, high-calorie food, such as an avocado, than a food with few nutrients, such as a bag of potato chips. Use your calories on foods and drinks that will fill you up and will not leave you hungry soon after eating. ?Examples of foods that fill you up are nuts and nut butters, vegetables, lean proteins, and high-fiber foods such as whole grains. High-fiber foods are foods with more than 5 g of fiber per serving. Pay attention to calories in drinks. Low-calorie drinks include water and unsweetened drinks. The items listed above may not be a complete list of foods and beverages you can eat. Contact a dietitian for more information. What foods should I limit? Limit foods or drinks that are not good sources of vitamins, minerals, or protein or that are high in unhealthy fats. These include: Candy. Other sweets. Sodas, specialty coffee drinks, alcohol, and juice. The items listed above may not be a complete list of foods and beverages you should avoid. Contact a dietitian for more information. How do I count calories when eating out? Pay attention to portions. Often, portions are much larger when eating out. Try these tips to keep portions smaller: ?Consider sharing a meal instead of getting your own. ?If you get your own meal, eat only half of it. Before you start eating, ask for a container and put half of your meal into it. ?When available, consider ordering smaller portions from the menu instead of full portions. Pay attention to your food and drink choices. Knowing the way food is cooked and what is included with the meal can help you eat fewer calories. ?If calories are listed on the menu, choose the lower-calorie options. ?Choose dishes that include vegetables, fruits, whole grains, low-fat dairy products, and lean proteins. ?Choose items that are boiled, broiled, grilled, or steamed. Avoid items that are buttered, battered, fried, or served with cream sauce. Items labeled as crispy are usually fried, unless stated otherwise. ?Choose water, low-fat milk, unsweetened iced tea, or other drinks without added sugar. If you wantan alcoholic beverage, choose a lower-calorie option, such as a glass of wine or light beer. ?Ask for dressings, sauces, and syrups on the side. These are usually high in calories, so you should limit the amount you eat. ?If you want a salad, choose a garden salad and ask for grilled meats. Avoid extra toppings such asbacon, cheese, or fried items. Ask for the dressing on the side, or ask for olive oil and vinegar or lemon to use as dressing. Estimate how many servings of a food you are given. Knowing serving sizes will help you be aware ofhow much food you are eating at restaurants. Where to find more information Centers for Disease Control and Prevention: www.cdc.gov U.S. Department of Agriculture: Mydish.gov Summary Calorie counting means keeping track of how many calories you eat and drink each day. If you eat fewer calories than your body needs, you should lose weight. A healthy amount of weight to lose per week is usually 1 2 lb (0.5 0.9 kg). This usually means reducing your daily calorie intake by 500 750 calories. The number of calories in a food can be found on a Nutrition Facts label. If a food does not have aNutrition Facts label, try to look up the calories online or ask your dietitian for help. Use smaller plates, glasses, and bowls for smaller portions and to prevent overeating. Use your calories on foods and drinks that will fill you up and not leave you hungry shortly after a meal. This information is not intended to replace advice given to you by your health care provider. Make sure you discuss any questions you have with your health care provider. Document Revised: 11/23/2020 Document Reviewed: 11/23/2020 [employer] Patient Education 2022 Improveit! 360. Follow Up Care 03/24/2024 15:38:01 With:Maura Vigil Address: [facility]– [address], [address] [place] [address]- When:Within 3 Month(s) Comments:f/u PRASANNA[facility]MDD, [facility] NotePatient Education Gastroenterology Obesity, Adult Obesity is the condition of having too much total body fat. Being overweight or obese means that your weight is greater than what is considered healthy for your body size. Obesity is determined by a measurement called BMI (body mass index). BMI is an estimate of body fat and is calculated from height and weight. For adults, a BMI of 30 or higher is considered obese. Obesity can lead to other health concerns and major illnesses, including: ? Stroke. ? Coronary artery disease (CAD). ? Type 2 diabetes. ? Some types of cancer, including cancers of the colon, breast, uterus, and gallbladder. ? High blood pressure (hypertension). ? High cholesterol. ? Gallbladder stones. Obesity can also contribute to: ? Osteoarthritis. ? Sleep apnea. ? Infertility problems. What are the causes? Common causes of this condition include: ? Eating daily meals that are high in calories, sugar, and fat. ? Drinking high amounts of sugar-sweetened beverages, such as soft drinks. ? Being born with genes that may make you more likely to become obese. ? Having a medical condition that causes obesity, including: ? Hypothyroidism. ? Polycystic ovarian syndrome (PCOS). ? Binge-eating disorder. ? [place] syndrome. ? Taking certain medicines, such as steroids, antidepressants, and seizure medicines. ? Not being physically active (sedentary lifestyle). ? Not getting enough sleep. What increases the risk? The following factors may make you more likely to develop this condition: ? Having a family history of obesity. ? Living in an area with limited access to: ? [place], recreation centers, or sidewalks. ? Healthy food choices, such as grocery stores and [employer] markets. What are the signs or symptoms? The main sign of this condition is having too much body fat. How is this diagnosed? This condition is diagnosed based on: ? Your BMI. If you are an adult with a BMI of 30 or higher, you are considered obese. ? Your waist circumference. This measures the distance around your waistline. ? Your skinfold thickness. Your health care provider may gently pinch a fold of your skin and measure it. You may have other tests to check for underlying conditions. How is this treated? Treatment for this condition often includes changing your lifestyle. Treatment may include some or all of the following: ? Dietary changes. This may include developing a healthy meal plan. ? Regular physical activity. This may include activity that causes your heart to beat faster (aerobic exercise) and strength training. Work with your health care provider to design an exercise program that works for you. ? Medicine to help you lose weight if you are unable to lose one pound a week after six weeks of healthy eating and more physical activity. ? Treating conditions that cause the obesity (underlying conditions). ? Surgery. Surgical options may include gastric banding and gastric bypass. Surgery may be done if: ? Other treatments have not helped to improve your condition. ? You have a BMI of 40 or higher. ? You have life-threatening health problems related to obesity. Follow these instructions at home: Eating and drinking ? Follow recommendations from your health care provider about what you eat and drink. Your health care provider may advise you to: ? Limit fast food, sweets, and processed snack foods. ? Choose low-fat options, such as low-fat milk instead of whole milk. ? Eat five or more servings of fruits or vegetables every day. ? Choose healthy foods when you eat out. ? Keep low-fat snacks available. ? Limit sugary drinks, such as soda, fruit juice, sweetened iced tea, and flavored milk. ? Drink enough water to keep your urine pale yellow. ? Do not follow a fad diet. Fad diets can be unhealthy and even dangerous. ? Other healthful choices include: ? Eat at home more often. This gives you more control over what you eat. ? Learn to read food labels. This will help you understand how much food is considered one serving. ? Learn what a healthy serving size is. Physical activity ? Exercise regularly, as told by your health care provider. ? Most adults should get up to 150 minutes of moderate-intensity exercise every week. ? Ask your health care provider what types of exercise are safe for you and how often you should exercise. ? Warm up and stretch before being active. ? Cool down and stretch after being active. ? Rest between periods of activity. Lifestyle ? Work with your health care provider and a dietitian to set a weight-loss goal that is healthy andreasonable for you. ? Limit your screen time. ? Find ways to reward yourself that do not involve food. ? Do not drink alcohol if: ? Your health care provider tells you not to drink. ? You are , may be , or are planning to become . ? If you drink alcohol: ? Limit (more content not included)...[facility]05-22-2024 Hospital Discharge instructions Patient Education 03/17/2024 12:57:38 Managing Depression, Adult Managing Depression, Adult Depression is a mental health condition that affects your thoughts, feelings, and actions. Being diagnosed with depression can bring you relief if you did not know why you have felt or behaved a certain way. It could also leave you feeling overwhelmed with uncertainty about your future. Preparing yourself to manage your symptoms can help you feel more positive about your future. How to manage lifestyle changes Managing stress Stress is your body's reaction to life changes and events, both good and bad. Stress can add to your feelings of depression. Learning to manage your stress can help lessen your feelings of depression. Try some of the following approaches to reducing your stress (stress reduction techniques): Listen to music that you enjoy and that inspires you. Try using a meditation ari or take a meditation class. Develop a practice that helps you connect with your spiritual self. Walk in nature, pray, or go to a place of mormon. Do some deep breathing. To do this, inhale slowly through your nose. Pause at the top of your inhale for a few seconds and then exhale slowly, letting your muscles relax. Practice yoga to help relax and work your muscles. Choose a stress reduction technique that suits your lifestyle and personality. These techniques take time and practice to develop. Set aside 5 15 minutes a day to do them. Therapists can offer training in these techniques. Other things you can do to manage stress include: Keeping a stress diary. Knowing your limits and saying no when you think something is too much. Paying attention to how you react to certain situations. You may not be able to control everything,but you can change your reaction. Adding humor to your life by watching funny films or TV shows. Making time for activities that you enjoy and that relax you. Medicines Medicines, such as antidepressants, are often a part of treatment for depression. Talk with your pharmacist or health care provider about all the medicines, supplements, and herbal products that you take, their possible side effects, and what medicines and other products are safe to take together. Make sure to report any side effects you may have to your health care provider. Relationships Your health care provider may suggest family therapy, couples therapy, or individual therapy as part of your treatment. How to recognize changes Everyone responds differently to treatment for depression. As you recover from depression, you may start to: Have more interest in doing activities. Feel less hopeless. Have more energy. Overeat less often, or have a better appetite. Have better mental focus. It is important to recognize if your depression is not getting better or is getting worse. The symptoms you had in the beginning may return, such as: Tiredness (fatigue) or low energy. Eating too much or too little. Sleeping too much or too little. Feeling restless, agitated, or hopeless. Trouble focusing or making decisions. Unexplained physical complaints. Feeling irritable, angry, or aggressive. If you or your family members notice these symptoms coming back, let your health care provider knowright away. Follow these instructions at home: Activity Try to get some form of exercise each day, such as walking, biking, swimming, or lifting weights. Practice stress reduction techniques. Engage your mind by taking a class or doing some volunteer work. Lifestyle Get the right amount and quality of sleep. Cut down on using caffeine, tobacco, alcohol, and other potentially harmful substances. Eat a healthy diet that includes plenty of vegetables, fruits, whole grains, low-fat dairy products, and lean protein. Do not eat a lot of foods that are high in solid fats, added sugars, or salt (sodium). General instructions Take plnq-aju-gtebygi and prescription medicines only as told by your health care provider. Keep all follow-up visits as told by your health care provider. This is important. Where to find support Talking to others Friends and family members can be sources of support and guidance. Talk to trusted friends or family members about your condition. Explain your symptoms to them, and let them know that you are working with a health care provider to treat your depression. Tell friends and family members how they also can be helpful. Finances Find appropriate mental health providers that fit with your financial situation. Talk with your health care provider about options to get reduced prices on your medicines. Where to find more information You can find support in your area from: Anxiety and Depression Association of [place] (ADAA): www.adaa.org Mental Health [place]: www.mentalhealthamerica.net National [place] on Mental Illness: www.darling.org Contact a health care provider if: You stop taking your antidepressant medicines, and you have any of these symptoms: ?Nausea. ?Headache. ?Light-headedness. ?Chills and body aches. ?Not being able to sleep (insomnia). You or your friends and family think your depression is getting worse. Get help right away if: You have thoughts of hurting yourself or others. If you ever feel like you may hurt yourself or others, or have thoughts about taking your own life,get help right away. Go to your nearest emergency department or: Call your local emergency services (501 in the [place] Call a suicide crisis helpline, such as the National Suicide Prevention Lifeline at or 468 in the [place] This is open 24 hours a day in the [place] Text the Crisis Text Line at 560423 (in the [place] Summary If you are diagnosed with depression, preparing yourself to manage your symptoms is a good way to feel positive about your future. Work with your health care provider on a management plan that includes stress reduction techniques,medicines (if applicable), therapy, and healthy lifestyle habits. Keep talking with your health care provider about how your treatment is working. If you have thoughts about taking your own life, call a suicide crisis helpline or text a crisis text line. This information is not intended to replace advice given to you by your health care provider. Make sure you discuss any questions you have with your health care provider. Document Revised: 05/08/2022 Document Reviewed: 08/23/2020 [employer] Patient Education 2022 [employer]. 03/17/2024 12:57:36 Managing Anxiety, Adult Managing Anxiety, Adult After being diagnosed with anxiety, you may be relieved to know why you have felt or behaved a certain way. You may also feel overwhelmed about the treatment ahead and what it will mean for your life. With care and support, you can manage this condition. How to manage lifestyle changes Managing stress and anxiety Stress is your body's reaction to life changes and events, both good and bad. Most stress will lastjust a few hours, but stress can be ongoing and can lead to more than just stress. Although stress can play a major role in anxiety, it is not the same as anxiety. Stress is usually caused by something external, such as a deadline, test, or competition. Stress normally passes after the triggering event has ended. Anxiety is caused by something internal, such as imagining a terrible outcome or worrying that something will go wrong that will devastate you. Anxiety often does not go away even after the triggering event is over, and it can become long-term (chronic) worry. It is important to understand the differences between stress and anxiety and to manage your stress effectively so that it does not lead katie anxious response. Talk with your health care provider or a counselor to learn more about reducing anxiety and stress.He or she may suggest tension reduction techniques, such as: Music therapy. Spend time creating or listening to music that you enjoy and that inspires you. Mindfulness-based meditation. Practice being aware of your normal breaths while not trying to control your breathing. It can be done while sitting or walking. Centering prayer. This involves focusing on a word, phrase, or sacred image that means something toyou and brings you peace. Deep breathing. To do this, expand your stomach and inhale slowly through your nose. Hold your breath for 3 5 seconds. Then exhale slowly, letting your stomach muscles relax. Self-talk. Learn to notice and identify thought patterns that lead to anxiety reactions and change those patterns to thoughts that feel peaceful. Muscle relaxation. Taking time to tense muscles and then relax them. Choose a tension reduction technique that fits your lifestyle and personality. These techniques take time and practice. Set aside 5 15 minutes a day to do them. Therapists can offer counseling and training in these techniques. The training to help with anxiety may be covered by some insurance plans. Other things you can do to manage stress and anxiety include: Keeping a stress diary. This can help you learn what triggers your reaction and then learn ways to manage your response. Thinking about how you react to certain situations. You may not be able to control everything, but you can control your response. Making time for activities that help you relax and not feeling guilty about spending your time in this way. Doing visual imagery. This involves imagining or creating mental pictures to help you relax. Practicing yoga. Through yoga poses, you can lower tension and promote relaxation. Medicines Medicines can help ease symptoms. Medicines for anxiety include: Antidepressant medicines. These are usually prescribed for long-term daily control. Anti-anxiety medicines. These may be added in severe cases, especially when panic attacks occur. Medicines will be prescribed by a health care provider. When used together, medicines, psychotherapy, and tension reduction techniques may be the most effective treatment. Relationships Relationships can play a big part in helping you recover. Try to spend more time connecting with trusted friends and family members. Consider going to couples counseling if you have a partner, taking family education classes, or going to family therapy. Therapy can help you and others better understand your condition. How to recognize changes in your anxiety Everyone responds differently to treatment for anxiety. Recovery from anxiety happens when symptomsdecrease and stop interfering with your daily activities at home or work. This may mean that you will start to: Have better concentration and focus. Worry will interfere less in your daily thinking. Sleep better. Be less irritable. Have more energy. Have improved memory. It is also important to recognize when your condition is getting worse. Contact your health care provider if your symptoms interfere with home or work and you feel like your condition is not improving. Follow these instructions at home: Activity Exercise. Adults should do the following: ?Exercise for at least 150 minutes each week. The exercise should increase your heart rate and makeyou sweat (moderate-intensity exercise). ?Strengthening exercises at least twice a week. Get the right amount and quality of sleep. Most adults need 7 9 hours of sleep each night. Lifestyle Eat a healthy diet that includes plenty of vegetables, fruits, whole grains, low-fat dairy products, and lean protein. ?Do not eat a lot of foods that are high in fats, added sugars, or salt (sodium). Make choices that simplify your life. Do not use any products that contain nicotine or tobacco. These products include cigarettes, chewing tobacco, and vaping devices, such as e-cigarettes. If you need help quitting, ask your health careprovider. Avoid caffeine, alcohol, and certain ptbi-vlv-didumkk cold medicines. These may make you feel worse. Ask your pharmacist which medicines to avoid. General instructions Take yffs-mlu-igrwvwv and prescription medicines only as told by your health care provider. Keep all follow-up visits. This is important. Where to find support You can get help and support from these sources: Self-help groups. Online and community organizations. A trusted spiritual leader. Couples counseling. Family education classes. Family therapy. Where to find more information You may find that joining a support group helps you deal with your anxiety. The following sources can help you locate counselors or support groups near you: Mental Health [place]: www.mentalhealthamerica.net Anxiety and Depression Association of [place] (ADAA): www.adaa.org National [place] [employer]ness ([place]): www.darling.org Contact a health care provider if: You have a hard time staying focused or finishing daily tasks. You spend many hours a day feeling worried about everyday life. You become exhausted by worry. You start to have headaches or frequently feel tense. You develop chronic nausea or diarrhea. Get help right away if: You have a racing heart and shortness of breath. You have thoughts of hurting yourself or others. If you ever feel like you may hurt yourself or others, or have thoughts about taking your own life,get help right away. Go to your nearest emergency department or: Call your local emergency services (551 in the [place] Call a suicide crisis helpline, such as the National Suicide Prevention Lifeline at or 592 in the [place] This is open 24 hours a day in the [place] Text the Crisis Text Line at 622973 (in the [place] Summary Taking steps to learn and use tension reduction techniques can help calm you and help prevent triggering an anxiety reaction. When used together, medicines, psychotherapy, and tension reduction techniques may be the most effective treatment. Family, friends, and partners can play a big part in supporting you. This information is not intended to replace advice given to you by your health care provider. Make sure you discuss any questions you have with your health care provider. Document Revised: 05/08/2022 Document Reviewed: 02/03/2022 [employer] Patient Education 2022 [employer]. 03/17/2024 12:57:34 Steps to Quit Smoking Steps to Quit Smoking Smoking tobacco is the leading cause of preventable . It can affect almost every organ in the body. Smoking puts you and those around you at risk for developing many serious chronic diseases. Quitting smoking can be very challenging. Do not get discouraged if you are not successful the first time. Some people need to make many attempts to quit before they achieve long-term success. Do your best to stick to your quit plan, and talk with your health care provider if you have any questionsor concerns. How do I get ready to quit? When you decide to quit smoking, create a plan to help you succeed. Before you quit: Pick a date to quit. Set a date within the next 2 weeks to give you time to prepare. Write down the reasons why you are quitting. Keep this list in places where you will see it often. Tell your family, friends, and co-workers that you are quitting. Support from people you are close to can make quitting easier. Talk with your health care provider about your options for quitting smoking. Find out what treatment options are covered by your health insurance. Identify people, places, things, and activities that make you want to smoke (triggers). Avoid them. What first steps can I take to quit smoking? Throw away all cigarettes at home, at work, and in your car. Throw away smoking accessories, such as ashtrays and lighters. Clean your car. Make sure to empty the ashtray. Clean your home, including curtains and carpets. What strategies can I use to quit smoking? Talk with your health care provider about combining strategies, such as taking medicines while you are also receiving in-person counseling. Using these two strategies together makes you more likely to succeed in quitting than if you used either strategy on its own. If you are or , talk with your health care provider about finding counseling or other support strategies to quit smoking. Do not take medicine to help you quit smoking unless your health care provider tells you to. Quit right away Quit smoking completely, instead of gradually reducing how much you smoke over a period of time. Stopping smoking right away may be more successful than gradually quitting. Attend in-person counseling to help you build problem-solving skills. You are more likely to succeed in quitting if you attend counseling sessions regularly. Even short sessions of 10 minutes can be effective. Take medicine You may take medicines to help you quit smoking. Some medicines require a prescription. You can also purchase xvdx-jjy-mynxqbb medicines. Medicines may have nicotine in them to replace the nicotine in cigarettes. Medicines may: Help to stop cravings. Help to relieve withdrawal symptoms. Your health care provider may recommend: Nicotine patches, gum, or lozenges. Nicotine inhalers or sprays. Non-nicotine medicine that you take by mouth. Find resources Find resources and support systems that can help you quit smoking and remain smoke-free after you quit. These resources are most helpful when you use them often. They include: Online chats with a counselor. Telephone quitlines. Printed self-help materials. Support groups or group counseling. Text messaging programs. Mobile phone apps or applications. Use apps that can help you stick to your quit plan by providing reminders, tips, and encouragement. Examples of free services include Quit Guide from the CDC and smokefree.gov What can I do to make it easier to quit? Reach out to your family and friends for support and encouragement. Call telephone quitlines, such as 9-839-JIKV-NOW, reach out to support groups, or work with a counselor for support. Ask people who smoke to avoid smoking around you. Avoid places that trigger you to smoke, such as bars, parties, or smoke-break areas at work. Spend time with people who do not smoke. Lessen the stress in your life. Stress can be a smoking trigger for some people. To lessen stress, try: ?Exercising regularly. ?Doing deep-breathing exercises. ?Doing yoga. ?Meditating. What benefits will I see if I quit smoking? Over time, you should start to see positive results, such as: Improved sense of smell and taste. Decreased coughing and sore throat. Slower heart rate. Lower blood pressure. Clearer and healthier skin. The ability to breathe more easily. Fewer sick days. Summary Quitting smoking can be very challenging. Do not get discouraged if you are not successful the first time. Some people need to make many attempts to quit before they achieve long-term success. When you decide to quit smoking, create a plan to help you succeed. Quit smoking right away, not slowly over a period of time. Find resources and support systems that can help you quit smoking and remain smoke-free after you quit. This information is not intended to replace advice given to you by your health care provider. Make sure you discuss any questions you have with your health care provider. Document Revised: 10/04/2022 Document Reviewed: 10/04/2022 [employer] Patient Education 2022 [employer] 03/17/2024 12:57:33 Health Risks of Smoking Health Risks of Smoking Smoking tobacco is very bad for your health. Tobacco smoke contains many toxic chemicals that can damage every part of your body. Secondhand smoke can be harmful to those around you. Tobacco or nicotine use can cause many long-term (chronic) diseases. Smoking is difficult to quit because a chemical in tobacco, called nicotine, causes addiction or dependence. When you smoke and inhale, nicotine is absorbed quickly into your bloodstream through yourlungs. Both inhaled and non-inhaled nicotine may be addictive. How can quitting affect me? There are health benefits of quitting smoking. Some benefits happen right away and others take time. Benefits may include: Blood flow, blood pressure, heart rate, and lung capacity may begin to improve. However, any lung damage that has already occurred cannot be repaired. Respiratory symptoms from smoking, such as nasal congestion and cough, may improve over time. Your risk of heart disease, stroke, and cancer is reduced. The overall quality of your health may improve. You may save money, as you will not spend money on tobacco products and may spend less money on smoking-related health issues. What can increase my risk? Smoking harms nearly every organ in the body. People who smoke tobacco have a shorter life expectancy and an increased risk of many serious medical problems. These include: More respiratory infections, such as colds and pneumonia. Cancer. Heart disease. Stroke. Chronic respiratory diseases. Delayed wound healing and increased risk of complications during surgery. Problems with reproduction, , and childbirth, such as infertility, early (premature) births, stillbirths, and defects. Secondhand smoke exposure to children increases the risk of: Sudden infant syndrome (SIDS). Infections in the nose, throat, or airways (respiratory infections). Chronic respiratory symptoms. What actions can I take to quit? Smoking is an addiction that affects both your body and your mind, and long-time habits can be hardto change. Your health care provider can recommend: Nicotine replacement products, such as patches, gum, and nasal sprays. Use these products only as directed. Do not replace cigarette smoking with electronic cigarettes, which are commonly called e-cigarettes. The safety of e-cigarettes is not known, and some may contain harmful chemicals. Programs and community resources, which may include group support, education, or talk therapy. Prescription medicines to help reduce cravings. A combination of two or more quit methods, which may increase the success of quitting. Where to find support Follow the recommendations from your health care provider about support groups and other assistance. You can also visit: [place] Department of Health and Human Services: www.smokefree.gov [employer]: www.freedomfromsmoking.org [employer]: www.heart.org Where to find more information Centers for Disease Control and Prevention: www.cdc.gov World Health Organization: www.who.int Summary Smoking tobacco is very bad for your health. Tobacco smoke contains many toxic chemicals that can damage every part of the body. Smoking is difficult to quit because a chemical in tobacco, called nicotine, causes addiction or dependence. There are immediate and long-term health benefits of quitting smoking. A combination of two or more quit methods may increase the success of quitting. This information is not intended to replace advice given to you by your health care provider. Make sure you discuss any questions you have with your health care provider. Document Revised: 10/15/2022 Document Reviewed: 10/15/2022 [employer] Patient Education 2022 [employer]. 03/17/2024 12:57:31 Calorie Counting for Weight Loss Calorie Counting for Weight Loss Calories are units of energy. Your body needs a certain number of calories from food to keep going throughout the day. When you eat or drink more calories than your body needs, your body stores the extra calories mostly as fat. When you eat or drink fewer calories than your body needs, your body sullivan fat to get the energy it needs. Calorie counting means keeping track of how many calories you eat and drink each day. Calorie counting can be helpful if you need to lose weight. If you eat fewer calories than your body needs, you should lose weight. Ask your health care provider what a healthy weight is for you. For calorie counting to work, you will need to eat the right number of calories each day to lose a healthy amount of weight per week. A dietitian can help you figure out how many calories you need kendall day and will suggest ways to reach your calorie goal. A healthy amount of weight to lose each week is usually 1 2 lb (0.5 0.9 kg). This usually means that your daily calorie intake should be reduced by 500 750 calories. Eating 1,200 1,500 calories a day can help most women lose weight. Eating 1,500 1,800 calories a day can help most men lose weight. What do I need to know about calorie counting? Work with your health care provider or dietitian to determine how many calories you should get eachday. To meet your daily calorie goal, you will need to: Find out how many calories are in each food that you would like to eat. Try to do this before you eat. Decide how much of the food you plan to eat. Keep a food log. Do this by writing down what you ate and how many calories it had. To successfully lose weight, it is important to balance calorie counting with a healthy lifestyle that includes regular activity. Where do I find calorie information? The number of calories in a food can be found on a Nutrition Facts label. If a food does not have aNutrition Facts label, try to look up the calories online or ask your dietitian for help. Remember that calories are listed per serving. If you choose to have more than one serving of a food, you will have to multiply the calories per serving by the number of servings you plan to eat. Forexample, the label on a package of bread might say that a serving size is 1 slice and that there are 90 calories in a serving. If you eat 1 slice, you will have eaten 90 calories. If you eat 2 slices, you will have eaten 180 calories. How do I keep a food log? After each time that you eat, record the following in your food log as soon as possible: What you ate. Be sure to include toppings, sauces, and other extras on the food. How much you ate. This can be measured in cups, ounces, or number of items. How many calories were in each food and drink. The total number of calories in the food you ate. Keep your food log near you, such as in a pocket-sized notebook or on an ari or website on your mobile phone. Some programs will calculate calories for you and show you how many calories you have left to meet your daily goal. What are some portion-control tips? Know how many calories are in a serving. This will help you know how many servings you can have of a certain food. Use a measuring cup to measure serving sizes. You could also try weighing out portions on a kitchenscale. With time, you will be able to estimate serving sizes for some foods. Take time to put servings of different foods on your favorite plates or in your favorite bowls and cups so you know what a serving looks like. Try not to eat straight from a food's packaging, such as from a bag or box. Eating straight from the package makes it hard to see how much you are eating and can lead to overeating. Put the amount you would like to eat in a cup or on a plate to make sure you are eating the right portion. Use smaller plates, glasses, and bowls for smaller portions and to prevent overeating. Try not to multitask. For example, avoid watching TV or using your computer while eating. If it is time to eat, sit down at a table and enjoy your food. This will help you recognize when you are full. It will also help you be more mindful of what and how much you are eating. What are tips for following this plan? Reading food labels Check the calorie count compared with the serving size. The serving size may be smaller than what you are used to eating. Check the source of the calories. Try to choose foods that are high in protein, fiber, and vitamins, and low in saturated fat, trans fat, and sodium. Shopping Read nutrition labels while you shop. This will help you make healthy decisions about which foods to buy. Pay attention to nutrition labels for low-fat or fat-free foods. These foods sometimes have the same number of calories or more calories than the full-fat versions. They also often have added sugar, starch, or salt to make up for flavor that was removed with the fat. Make a grocery list of lower-calorie foods and stick to it. Cooking Try to cook your favorite foods in a healthier way. For example, try baking instead of frying. Use low-fat dairy products. Meal planning Use more fruits and vegetables. One-half of your plate should be fruits and vegetables. Include lean proteins, such as chicken, turkey, and fish. Lifestyle Each week, aim to do one of the followin minutes of moderate exercise, such as walking. 75 minutes of vigorous exercise, such as running. General information Know how many calories are in the foods you eat most often. This will help you calculate calorie counts faster. Find a way of tracking calories that works for you. Get creative. Try different apps or programs ifwriting down calories does not work for you. What foods should I eat? Eat nutritious foods. It is better to have a nutritious, high-calorie food, such as an avocado, than a food with few nutrients, such as a bag of potato chips. Use your calories on foods and drinks that will fill you up and will not leave you hungry soon after eating. ?Examples of foods that fill you up are nuts and nut butters, vegetables, lean proteins, and high-fiber foods such as whole grains. High-fiber foods are foods with more than 5 g of fiber per serving. Pay attention to calories in drinks. Low-calorie drinks include water and unsweetened drinks. The items listed above may not be a complete list of foods and beverages you can eat. Contact a dietitian for more information. What foods should I limit? Limit foods or drinks that are not good sources of vitamins, minerals, or protein or that are high in unhealthy fats. These include: Candy. Other sweets. Sodas, specialty coffee drinks, alcohol, and juice. The items listed above may not be a complete list of foods and beverages you should avoid. Contact a dietitian for more information. How do I count calories when eating out? Pay attention to portions. Often, portions are much larger when eating out. Try these tips to keep portions smaller: ?Consider sharing a meal instead of getting your own. ?If you get your own meal, eat only half of it. Before you start eating, ask for a container and put half of your meal into it. ?When available, consider ordering smaller portions from the menu instead of full portions. Pay attention to your food and drink choices. Knowing the way food is cooked and what is included with the meal can help you eat fewer calories. ?If calories are listed on the menu, choose the lower-calorie options. ?Choose dishes that include vegetables, fruits, whole grains, low-fat dairy products, and lean proteins. ?Choose items that are boiled, broiled, grilled, or steamed. Avoid items that are buttered, battered, fried, or served with cream sauce. Items labeled as crispy are usually fried, unless stated otherwise. ?Choose water, low-fat milk, unsweetened iced tea, or other drinks without added sugar. If you wantan alcoholic beverage, choose a lower-calorie option, such as a glass of wine or light beer. ?Ask for dressings, sauces, and syrups on the side. These are usually high in calories, so you should limit the amount you eat. ?If you want a salad, choose a garden salad and ask for grilled meats. Avoid extra toppings such asbacon, cheese, or fried items. Ask for the dressing on the side, or ask for olive oil and vinegar or lemon to use as dressing. Estimate how many servings of a food you are given. Knowing serving sizes will help you be aware ofhow much food you are eating at restaurants. Where to find more information Centers for Disease Control and Prevention: www.cdc.gov U.[place]. Department of Agriculture: [employer]gov Summary Calorie counting means keeping track of how many calories you eat and drink each day. If you eat fewer calories than your body needs, you should lose weight. A healthy amount of weight to lose per week is usually 1 2 lb (0.5 0.9 kg). This usually means reducing your daily calorie intake by 500 750 calories. The number of calories in a food can be found on a Nutrition Facts label. If a food does not have aNutrition Facts label, try to look up the calories online or ask your dietitian for help. Use smaller plates, glasses, and bowls for smaller portions and to prevent overeating. Use your calories on foods and drinks that will fill you up and not leave you hungry shortly after a meal. This information is not intended to replace advice given to you by your health care provider. Make sure you discuss any questions you have with your health care provider. Document Revised: 11/23/2020 Document Reviewed: 11/23/2020 [employer] Patient Education 2022 [employer]! 360. Follow Up Care 12/24/2023 15:44:51 With:Maura Vigil Address: [address] [place] [address] [place] [address]- When:Within 2 Month(s) Comments:f/u weight, PRASANNA/MDD (recheck Pristiq) [facility] 04-09-2024 Evaluation + Plan noteExtracted from: Title:ED Note Author:Kishan Perales DO Date :02/03/24 Diarrhea (R19.7: Diarrhea, u nspecified) N&V (nausea and vomiting) (R11.2: Nausea with vomiting, unspecified) Orders: ondansetron, 4 mg = 2 mL, Injection, IV Push, Once, Stop date 02/03/24 1:54:00 EDT, STAT, Start date 02/03/24 1:54:00 EDT, 02/03/24 1:54:00 EDT ondansetron, 4 mg = 1 tab(s), Oral, q8hr, PRN Nausea/Vomiting, # 20 tab(s), Refills(s) 0, Pharmacy: [facility]/pharmacy #[id number], 165, cm, 02/03/24 1:44:00 EDT, Height/Length Dosing, 77.6, kg, 02/03/24 1:44:00 EDT, Weight Dosing Sodium Chloride 0.9% intravenous solution, 1,000 mL, Soln-IV, IV, Once, Stop date 02/03/24 1:54:00 EDT, STAT, Start date 02/03/24 1:54:00 EDT, Infuse over 61, minute(s) Basic Metabolic Panel CBC w/ Auto Diff eGFR Hepatic Function Panel Influenza A&B Ag Lipase Level Rapid COVID Antigen ([facility] [place]) Future Appointments Appointment Date:03/24/2024 03:20:00 PM Scheduled Provider:Maura Vigil Location:[facility] Appointment Type:[facility]04-09-2024 Hospital Discharge instructions Patient Education 02/03/2024 02:59:55 Diarrhea, Adult Diarrhea, Adult Diarrhea is frequent loose and watery bowel movements. Diarrhea can make you feel weak and cause you to become dehydrated. Dehydration can make you tired and thirsty, cause you to have a dry mouth, and decrease how often you urinate. Diarrhea typically lasts 2 3 days. However, it can last longer if it is a sign of something more serious. It is important to treat your diarrhea as told by your health care provider. Follow these instructions at home: Eating and drinking Follow these recommendations as told by your health care provider: Take an oral rehydration solution (ORS). This is an phys-sob-mfvnicy medicine that helps return your body to its normal balance of nutrients and water. It is found at pharmacies and retail stores. Drink plenty of fluids, such as water, ice chips, diluted fruit juice, and low- calorie sports drinks. You can drink milk also, if desired. Avoid drinking fluids that contain a lot of sugar or caffeine, such as energy drinks, sports drinks, and soda. Eat bland, tazn-ik-jbgcvr foods in small amounts as you are able. These foods include bananas, applesauce, rice, lean meats, toast, and crackers. Avoid alcohol. Avoid spicy or fatty foods. Medicines Take sijr-amn-wijusxd and prescription medicines only as told by your health care provider. If you were prescribed an antibiotic medicine, take it as told by your health care provider. Do notstop using the antibiotic even if you start to feel better. General instructions Wash your hands often using soap and water. If soap and water are not available, use a hand administrative services officer. Others in the household should wash their hands as well. Hands should be washed: ?After using the toilet or changing a diaper. ?Before preparing, cooking, or serving food. ?While caring for a sick person or while visiting someone in a hospital. Drink enough fluid to keep your urine pale yellow. Rest at home while you recover. Watch your condition for any changes. Take a warm bath to relieve any burning or pain from frequent diarrhea episodes. Keep all follow-up visits as told by your health care provider. This is important. Contact a health care provider if: You have a fever. Your diarrhea gets worse. You have new symptoms. You cannot keep fluids down. You feel light-headed or dizzy. You have a headache. You have muscle cramps. Get help right away if: You have chest pain. You feel extremely weak or you faint. You have bloody or black stools or stools that look like tar. You have severe pain, cramping, or bloating in your abdomen. You have trouble breathing or you are breathing very quickly. Your heart is beating very quickly. Your skin feels cold and clammy. You feel confused. You have signs of dehydration, such as: ?Dark urine, very little urine, or no urine. ?Cracked lips. ?Dry mouth. ?Sunken eyes. ?Sleepiness. ?Weakness. Summary Diarrhea is frequent loose and sometimes watery bowel movements. Diarrhea can make you feel weak and cause you to become dehydrated. Drink enough fluids to keep your urine pale yellow. Make sure that you wash your hands after using the toilet. If soap and water are not available, usehand administrative services officer. Contact a health care provider if your diarrhea gets worse or you have new symptoms. Get help right away if you have signs of dehydration. This information is not intended to replace advice given to you by your health care provider. Make sure you discuss any questions you have with your health care provider. Document Revised: 01/03/2023 Document Reviewed: 04/24/2022 [employer] Patient Education 2022 [employer]! 360. 02/03/2024 02:59:55 Nausea and Vomiting, Adult Nausea and Vomiting, Adult Nausea is the feeling that you have an upset stomach or that you are about to vomit. As nausea getsworse, it can lead to vomiting. Vomiting is when stomach contents forcefully come out of your mouthas a result of nausea. Vomiting can make you feel weak and cause you to become dehydrated. Dehydration can make you feel tired and thirsty, cause you to have a dry mouth, and decrease how often you urinate. Older adults and people with other diseases or a weak disease-fighting system (immune system) are at higher risk for dehydration. It is important to treat your nausea and vomiting as told by your health care provider. Follow these instructions at home: Watch your symptoms for any changes. Tell your health care provider about them. Eating and drinking Take an oral rehydration solution (ORS). This is a drink that is sold at pharmacies and retail stores. Drink clear fluids slowly and in small amounts as you are able. Clear fluids include water, ice chips, low-calorie sports drinks, and fruit juice that has water added (diluted fruit juice). Eat bland, jebf-mx-syponk foods in small amounts as you are able. These foods include bananas, applesauce, rice, lean meats, toast, and crackers. Avoid fluids that contain a lot of sugar or caffeine, such as energy drinks, sports drinks, and soda. Avoid alcohol. Avoid spicy or fatty foods. General instructions Take usju-yii-cnvlfhk and prescription medicines only as told by your health care provider. Drink enough fluid to keep your urine pale yellow. Wash your hands often using soap and water for at least 20 seconds. If soap and water are not available, use hand administrative services officer. Make sure that everyone in your household washes their hands well and often. Rest at home while you recover. Watch your condition for any changes. Take slow and deep breaths when you feel nauseous. Keep all follow-up visits. This is important. Contact a health care provider if: Your symptoms get worse. You have new symptoms. You have a fever. You cannot drink fluids without vomiting. Your nausea does not go away after 2 days. You feel light-headed or dizzy. You have a headache. You have muscle cramps. You have a rash. You have pain while urinating. Get help right away if: You have pain in your chest, neck, arm, or jaw. You feel extremely weak or you faint. You have persistent vomiting. You have vomit that is bright red or looks like black coffee grounds. You have bloody or black stools (feces) or stools that look like tar. You have a severe headache, a stiff neck, or both. You have severe pain, cramping, or bloating in your abdomen. You have difficulty breathing, or you are breathing very quickly. Your heart is beating very quickly. Your skin feels cold and clammy. You feel confused. You have signs of dehydration, such as: ?Dark urine, very little urine, or no urine. ?Cracked lips. ?Dry mouth. ?Sunken eyes. ?Sleepiness. ?Weakness. These symptoms may be an emergency. Get help right away. Call 911. Do not wait to see if the symptoms will go away. Do not drive yourself to the hospital. Summary Nausea is the feeling that you have an upset stomach or that you are about to vomit. As nausea getsworse, it can lead to vomiting. Vomiting can make you feel weak and cause you to become dehydrated. Follow instructions from your health care provider about eating and drinking to prevent dehydration. Take jgff-muw-qzjjvmb and prescription medicines only as told by your health care provider. Contact your health care provider if your symptoms get worse, or you have new symptoms. Keep all follow-up visits. This is important. This information is not intended to replace advice given to you by your health care provider. Make sure you discuss any questions you have with your health care provider. Document Revised: 04/19/2022 Document Reviewed: 04/19/2022 [employer] Patient Education 2022 [employer]! 360. Follow Up Care 02/03/2024 01:34:04 With:Maura Mckeon Address: [address] [place] [address], [place] [address]- Business (1) When:Within 3 Day(s) [facility]02-27-2024 Hospital Discharge instructions Patient Education 12/23/2023 12:37:00 Managing Depression, Adult Managing Depression, Adult Depression is a mental health condition that affects your thoughts, feelings, and actions. Being diagnosed with depression can bring you relief if you did not know why you have felt or behaved a certain way. It could also leave you feeling overwhelmed with uncertainty about your future. Preparing yourself to manage your symptoms can help you feel more positive about your future. How to manage lifestyle changes Managing stress Stress is your body's reaction to life changes and events, both good and bad. Stress can add to your feelings of depression. Learning to manage your stress can help lessen your feelings of depression. Try some of the following approaches to reducing your stress (stress reduction techniques): Listen to music that you enjoy and that inspires you. Try using a meditation ari or take a meditation class. Develop a practice that helps you connect with your spiritual self. Walk in nature, pray, or go to a place of mormon. Do some deep breathing. To do this, inhale slowly through your nose. Pause at the top of your inhale for a few seconds and then exhale slowly, letting your muscles relax. Practice yoga to help relax and work your muscles. Choose a stress reduction technique that suits your lifestyle and personality. These techniques take time and practice to develop. Set aside 5 15 minutes a day to do them. Therapists can offer training in these techniques. Other things you can do to manage stress include: Keeping a stress diary. Knowing your limits and saying no when you think something is too much. Paying attention to how you react to certain situations. You may not be able to control everything,but you can change your reaction. Adding humor to your life by watching funny films or TV shows. Making time for activities that you enjoy and that relax you. Medicines Medicines, such as antidepressants, are often a part of treatment for depression. Talk with your pharmacist or health care provider about all the medicines, supplements, and herbal products that you take, their possible side effects, and what medicines and other products are safe to take together. Make sure to report any side effects you may have to your health care provider. Relationships Your health care provider may suggest family therapy, couples therapy, or individual therapy as part of your treatment. How to recognize changes Everyone responds differently to treatment for depression. As you recover from depression, you may start to: Have more interest in doing activities. Feel less hopeless. Have more energy. Overeat less often, or have a better appetite. Have better mental focus. It is important to recognize if your depression is not getting better or is getting worse. The symptoms you had in the beginning may return, such as: Tiredness (fatigue) or low energy. Eating too much or too little. Sleeping too much or too little. Feeling restless, agitated, or hopeless. Trouble focusing or making decisions. Unexplained physical complaints. Feeling irritable, angry, or aggressive. If you or your family members notice these symptoms coming back, let your health care provider knowright away. Follow these instructions at home: Activity Try to get some form of exercise each day, such as walking, biking, swimming, or lifting weights. Practice stress reduction techniques. Engage your mind by taking a class or doing some volunteer work. Lifestyle Get the right amount and quality of sleep. Cut down on using caffeine, tobacco, alcohol, and other potentially harmful substances. Eat a healthy diet that includes plenty of vegetables, fruits, whole grains, low-fat dairy products, and lean protein. Do not eat a lot of foods that are high in solid fats, added sugars, or salt (sodium). General instructions Take mwet-svf-xhajjya and prescription medicines only as told by your health care provider. Keep all follow-up visits as told by your health care provider. This is important. Where to find support Talking to others Friends and family members can be sources of support and guidance. Talk to trusted friends or family members about your condition. Explain your symptoms to them, and let them know that you are working with a health care provider to treat your depression. Tell friends and family members how they also can be helpful. Finances Find appropriate mental health providers that fit with your financial situation. Talk with your health care provider about options to get reduced prices on your medicines. Where to find more information You can find support in your area from: Anxiety and Depression Association of [place] (ADAA): www.adaa.org Mental Health [place]: www.mentalhealthamerica.net National [place] on Mental Illness: www.darling.org Contact a health care provider if: You stop taking your antidepressant medicines, and you have any of these symptoms: ?Nausea. ?Headache. ?Light-headedness. ?Chills and body aches. ?Not being able to sleep (insomnia). You or your friends and family think your depression is getting worse. Get help right away if: You have thoughts of hurting yourself or others. If you ever feel like you may hurt yourself or others, or have thoughts about taking your own life,get help right away. Go to your nearest emergency department or: Call your local emergency services (163 in the [place] Call a suicide crisis helpline, such as the National Suicide Prevention Lifeline at or 478 in the [place] This is open 24 hours a day in the [place] Text the Crisis Text Line at 010436 (in the [place] Summary If you are diagnosed with depression, preparing yourself to manage your symptoms is a good way to feel positive about your future. Work with your health care provider on a management plan that includes stress reduction techniques,medicines (if applicable), therapy, and healthy lifestyle habits. Keep talking with your health care provider about how your treatment is working. If you have thoughts about taking your own life, call a suicide crisis helpline or text a crisis text line. This information is not intended to replace advice given to you by your health care provider. Make sure you discuss any questions you have with your health care provider. Document Revised: 05/08/2022 Document Reviewed: 08/23/2020 [employer] Patient Education 2022 [employer]! 360. 12/23/2023 12:36:56 Managing Anxiety, Adult Managing Anxiety, Adult After being diagnosed with anxiety, you may be relieved to know why you have felt or behaved a certain way. You may also feel overwhelmed about the treatment ahead and what it will mean for your life. With care and support, you can manage this condition. How to manage lifestyle changes Managing stress and anxiety Stress is your body's reaction to life changes and events, both good and bad. Most stress will lastjust a few hours, but stress can be ongoing and can lead to more than just stress. Although stress can play a major role in anxiety, it is not the same as anxiety. Stress is usually caused by something external, such as a deadline, test, or competition. Stress normally passes after the triggering event has ended. Anxiety is caused by something internal, such as imagining a terrible outcome or worrying that something will go wrong that will devastate you. Anxiety often does not go away even after the triggering event is over, and it can become long-term (chronic) worry. It is important to understand the differences between stress and anxiety and to manage your stress effectively so that it does not lead katie anxious response. Talk with your health care provider or a counselor to learn more about reducing anxiety and stress.He or she may suggest tension reduction techniques, such as: Music therapy. Spend time creating or listening to music that you enjoy and that inspires you. Mindfulness-based meditation. Practice being aware of your normal breaths while not trying to control your breathing. It can be done while sitting or walking. Centering prayer. This involves focusing on a word, phrase, or sacred image that means something toyou and brings you peace. Deep breathing. To do this, expand your stomach and inhale slowly through your nose. Hold your breath for 3 5 seconds. Then exhale slowly, letting your stomach muscles relax. Self-talk. Learn to notice and identify thought patterns that lead to anxiety reactions and change those patterns to thoughts that feel peaceful. Muscle relaxation. Taking time to tense muscles and then relax them. Choose a tension reduction technique that fits your lifestyle and personality. These techniques take time and practice. Set aside 5 15 minutes a day to do them. Therapists can offer counseling and training in these techniques. The training to help with anxiety may be covered by some insurance plans. Other things you can do to manage stress and anxiety include: Keeping a stress diary. This can help you learn what triggers your reaction and then learn ways to manage your response. Thinking about how you react to certain situations. You may not be able to control everything, but you can control your response. Making time for activities that help you relax and not feeling guilty about spending your time in this way. Doing visual imagery. This involves imagining or creating mental pictures to help you relax. Practicing yoga. Through yoga poses, you can lower tension and promote relaxation. Medicines Medicines can help ease symptoms. Medicines for anxiety include: Antidepressant medicines. These are usually prescribed for long-term daily control. Anti-anxiety medicines. These may be added in severe cases, especially when panic attacks occur. Medicines will be prescribed by a health care provider. When used together, medicines, psychotherapy, and tension reduction techniques may be the most effective treatment. Relationships Relationships can play a big part in helping you recover. Try to spend more time connecting with trusted friends and family members. Consider going to couples counseling if you have a partner, taking family education classes, or going to family therapy. Therapy can help you and others better understand your condition. How to recognize changes in your anxiety Everyone responds differently to treatment for anxiety. Recovery from anxiety happens when symptomsdecrease and stop interfering with your daily activities at home or work. This may mean that you will start to: Have better concentration and focus. Worry will interfere less in your daily thinking. Sleep better. Be less irritable. Have more energy. Have improved memory. It is also important to recognize when your condition is getting worse. Contact your health care provider if your symptoms interfere with home or work and you feel like your condition is not improving. Follow these instructions at home: Activity Exercise. Adults should do the following: ?Exercise for at least 150 minutes each week. The exercise should increase your heart rate and makeyou sweat (moderate-intensity exercise). ?Strengthening exercises at least twice a week. Get the right amount and quality of sleep. Most adults need 7 9 hours of sleep each night. Lifestyle Eat a healthy diet that includes plenty of vegetables, fruits, whole grains, low-fat dairy products, and lean protein. ?Do not eat a lot of foods that are high in fats, added sugars, or salt (sodium). Make choices that simplify your life. Do not use any products that contain nicotine or tobacco. These products include cigarettes, chewing tobacco, and vaping devices, such as e-cigarettes. If you need help quitting, ask your health careprovider. Avoid caffeine, alcohol, and certain htib-azt-mzzpops cold medicines. These may make you feel worse. Ask your pharmacist which medicines to avoid. General instructions Take zqcv-yqd-kisbhzb and prescription medicines only as told by your health care provider. Keep all follow-up visits. This is important. Where to find support You can get help and support from these sources: Self-help groups. Online and community organizations. A trusted spiritual leader. Couples counseling. Family education classes. Family therapy. Where to find more information You may find that joining a support group helps you deal with your anxiety. The following sources can help you locate counselors or support groups near you: Mental Health [place]: www.mentalhealthamerica.net Anxiety and Depression Association of [place] (ADAA): www.adaa.org National [employer]ester on Mental Illness ([place]): www.darling.org Contact a health care provider if: You have a hard time staying focused or finishing daily tasks. You spend many hours a day feeling worried about everyday life. You become exhausted by worry. You start to have headaches or frequently feel tense. You develop chronic nausea or diarrhea. Get help right away if: You have a racing heart and shortness of breath. You have thoughts of hurting yourself or others. If you ever feel like you may hurt yourself or others, or have thoughts about taking your own life,get help right away. Go to your nearest emergency department or: Call your local emergency services (292 in the [place] Call a suicide crisis helpline, such as the National Suicide Prevention Lifeline at or 025 in the [place] This is open 24 hours a day in the [place] Text the Crisis Text Line at 577885 (in the [place] Summary Taking steps to learn and use tension reduction techniques can help calm you and help prevent triggering an anxiety reaction. When used together, medicines, psychotherapy, and tension reduction techniques may be the most effective treatment. Family, friends, and partners can play a big part in supporting you. This information is not intended to replace advice given to you by your health care provider. Make sure you discuss any questions you have with your health care provider. Document Revised: 05/08/2022 Document Reviewed: 02/03/2022 [employer] Patient Education 2022 [employer]! 360. 12/23/2023 12:36:55 Health Risks of Smoking Health Risks of Smoking Smoking tobacco is very bad for your health. Tobacco smoke contains many toxic chemicals that can damage every part of your body. Secondhand smoke can be harmful to those around you. Tobacco or nicotine use can cause many long-term (chronic) diseases. Smoking is difficult to quit because a chemical in tobacco, called nicotine, causes addiction or dependence. When you smoke and inhale, nicotine is absorbed quickly into your bloodstream through yourlungs. Both inhaled and non-inhaled nicotine may be addictive. How can quitting affect me? There are health benefits of quitting smoking. Some benefits happen right away and others take time. Benefits may include: Blood flow, blood pressure, heart rate, and lung capacity may begin to improve. However, any lung damage that has already occurred cannot be repaired. Respiratory symptoms from smoking, such as nasal congestion and cough, may improve over time. Your risk of heart disease, stroke, and cancer is reduced. The overall quality of your health may improve. You may save money, as you will not spend money on tobacco products and may spend less money on smoking-related health issues. What can increase my risk? Smoking harms nearly every organ in the body. People who smoke tobacco have a shorter life expectancy and an increased risk of many serious medical problems. These include: More respiratory infections, such as colds and pneumonia. Cancer. Heart disease. Stroke. Chronic respiratory diseases. Delayed wound healing and increased risk of complications during surgery. Problems with reproduction, , and childbirth, such as infertility, early (premature) births, stillbirths, and defects. Secondhand smoke exposure to children increases the risk of: Sudden infant syndrome (SIDS). Infections in the nose, throat, or airways (respiratory infections). Chronic respiratory symptoms. What actions can I take to quit? Smoking is an addiction that affects both your body and your mind, and long-time habits can be hardto change. Your health care provider can recommend: Nicotine replacement products, such as patches, gum, and nasal sprays. Use these products only as directed. Do not replace cigarette smoking with electronic cigarettes, which are commonly called e-cigarettes. The safety of e-cigarettes is not known, and some may contain harmful chemicals. Programs and community resources, which may include group support, education, or talk therapy. Prescription medicines to help reduce cravings. A combination of two or more quit methods, which may increase the success of quitting. Where to find support Follow the recommendations from your health care provider about support groups and other assistance. You can also visit: [place]. Department of Health and Human Services: www.smokefree.gov [employer]: www.freedomfromsmoking.org [place] Heart [employer]: www.heart.org Where to find more information Centers for Disease Control and Prevention: www.cdc.gov World Health Organization: www.who.int Summary Smoking tobacco is very bad for your health. Tobacco smoke contains many toxic chemicals that can damage every part of the body. Smoking is difficult to quit because a chemical in tobacco, called nicotine, causes addiction or dependence. There are immediate and long-term health benefits of quitting smoking. A combination of two or more quit methods may increase the success of quitting. This information is not intended to replace advice given to you by your health care provider. Make sure you discuss any questions you have with your health care provider. Document Revised: 10/15/2022 Document Reviewed: 10/15/2022 [employer] Patient Education 2022 [employer]! 360. Follow Up Care 12/23/2023 09:48:57 With:Mike WILLIS, Maura Mendoza Address: [facility]– [address], [place] [address] [place] [address]- When:Within 1 Month(s) Comments:weight loss, [facility] 02-19-2024 Hospital Discharge instructions Patient Education 12/15/2023 07:40:29 Obesity, Adult Obesity, Adult Obesity is the condition of having too much total body fat. Being overweight or obese means that your weight is greater than what is considered healthy for your body size. Obesity is determined by a measurement called BMI (body mass index). BMI is an estimate of body fat and is calculated from height and weight. For adults, a BMI of 30 or higher is considered obese. Obesity can lead to other health concerns and major illnesses, including: Stroke. Coronary artery disease (CAD). Type 2 diabetes. Some types of cancer, including cancers of the colon, breast, uterus, and gallbladder. High blood pressure (hypertension). High cholesterol. Gallbladder stones. Obesity can also contribute to: Osteoarthritis. Sleep apnea. Infertility problems. What are the causes? Common causes of this condition include: Eating daily meals that are high in calories, sugar, and fat. Drinking high amounts of sugar-sweetened beverages, such as soft drinks. Being born with genes that may make you more likely to become obese. Having a medical condition that causes obesity, including: ?Hypothyroidism. ?Polycystic ovarian syndrome (PCOS). ?Binge-eating disorder. ?Adela syndrome. Taking certain medicines, such as steroids, antidepressants, and seizure medicines. Not being physically active (sedentary lifestyle). Not getting enough sleep. What increases the risk? The following factors may make you more likely to develop this condition: Having a family history of obesity. Living in an area with limited access to: ?[place], recreation centers, or sidewalks. ?Healthy food choices, such as grocery stores and farmers' markets. What are the signs or symptoms? The main sign of this condition is having too much body fat. How is this diagnosed? This condition is diagnosed based on: Your BMI. If you are an adult with a BMI of 30 or higher, you are considered obese. Your waist circumference. This measures the distance around your waistline. Your skinfold thickness. Your health care provider may gently pinch a fold of your skin and measureit. You may have other tests to check for underlying conditions. How is this treated? Treatment for this condition often includes changing your lifestyle. Treatment may include some or all of the following: Dietary changes. This may include developing a healthy meal plan. Regular physical activity. This may include activity that causes your heart to beat faster (aerobicexercise) and strength training. Work with your health care provider to design an exercise program that works for you. Medicine to help you lose weight if you are unable to lose one pound a week after six weeks of healthy eating and more physical activity. Treating conditions that cause the obesity (underlying conditions). Surgery. Surgical options may include gastric banding and gastric bypass. Surgery may be done if: ?Other treatments have not helped to improve your condition. ?You have a BMI of 40 or higher. ?You have life-threatening health problems related to obesity. Follow these instructions at home: Eating and drinking Follow recommendations from your health care provider about what you eat and drink. Your health care provider may advise you to: ?Limit fast food, sweets, and processed snack foods. ?Choose low-fat options, such as low-fat milk instead of whole milk. ?Eat five or more servings of fruits or vegetables every day. ?Choose healthy foods when you eat out. ?Keep low-fat snacks available. ?Limit sugary drinks, such as soda, fruit juice, sweetened iced tea, and flavored milk. Drink enough water to keep your urine pale yellow. Do not follow a fad diet. Fad diets can be unhealthy and even dangerous. Other healthful choices include: ?Eat at home more often. This gives you more control over what you eat. ?Learn to read food labels. This will help you understand how much food is considered one serving. ?Learn what a healthy serving size is. Physical activity Exercise regularly, as told by your health care provider. ?Most adults should get up to 150 minutes of moderate-intensity exercise every week. ?Ask your health care provider what types of exercise are safe for you and how often you should exercise. Warm up and stretch before being active. Cool down and stretch after being active. Rest between periods of activity. Lifestyle Work with your health care provider and a dietitian to set a weight-loss goal that is healthy and reasonable for you. Limit your screen time. Find ways to reward yourself that do not involve food. Do not drink alcohol if: ?Your health care provider tells you not to drink. ?You are , may be , or are planning to become . If you drink alcohol: ?Limit how much you have to: ?0 1 drink a day for women. ?0 2 drinks a day for men. ?Know how much alcohol is in your drink. In the [place] one drink equals one 12 oz bottle of beer (355 mL), one 5 oz glass of wine (148 mL), or one 1 oz glass of hard liquor (44 mL). General instructions Keep a weight-loss journal to keep track of the food you eat and how much exercise you get. Take mmlg-nrb-vjevrlz and prescription medicines only as told by your health care provider. Take vitamins and supplements only as told by your health care provider. Consider joining a support group. Your health care provider may be able to recommend a support group. Pay attention to your mental health as obesity can lead to depression or self esteem issues. Keep all follow-up visits. This is important. Contact a health care provider if: You are unable to meet your weight-loss goal after six weeks of dietary and lifestyle changes. You have trouble breathing. Summary Obesity is the condition of having too much total body fat. Being overweight or obese means that your weight is greater than what is considered healthy for your body size. Work with your health care provider and a dietitian to set a weight-loss goal that is healthy and reasonable for you. Exercise regularly, as told by your health care provider. Ask your health care provider what types of exercise are safe for you and how often you should exercise. This information is not intended to replace advice given to you by your health care provider. Make sure you discuss any questions you have with your health care provider. Document Revised: 05/21/2022 Document Reviewed: 05/21/2022 [employer] Patient Education 2022 [employer]! 360. 12/15/2023 07:40:28 Steps to Quit Smoking Steps to Quit Smoking Smoking tobacco is the leading cause of preventable . It can affect almost every organ in the body. Smoking puts you and those around you at risk for developing many serious chronic diseases. Quitting smoking can be very challenging. Do not get discouraged if you are not successful the first time. Some people need to make many attempts to quit before they achieve long-term success. Do your best to stick to your quit plan, and talk with your health care provider if you have any questionsor concerns. How do I get ready to quit? When you decide to quit smoking, create a plan to help you succeed. Before you quit: Pick a date to quit. Set a date within the next 2 weeks to give you time to prepare. Write down the reasons why you are quitting. Keep this list in places where you will see it often. Tell your family, friends, and co-workers that you are quitting. Support from people you are close to can make quitting easier. Talk with your health care provider about your options for quitting smoking. Find out what treatment options are covered by your health insurance. Identify people, places, things, and activities that make you want to smoke (triggers). Avoid them. What first steps can I take to quit smoking? Throw away all cigarettes at home, at work, and in your car. Throw away smoking accessories, such as ashtrays and lighters. Clean your car. Make sure to empty the ashtray. Clean your home, including curtains and carpets. What strategies can I use to quit smoking? Talk with your health care provider about combining strategies, such as taking medicines while you are also receiving in-person counseling. Using these two strategies together makes you more likely to succeed in quitting than if you used either strategy on its own. If you are or , talk with your health care provider about finding counseling or other support strategies to quit smoking. Do not take medicine to help you quit smoking unless your health care provider tells you to. Quit right away Quit smoking completely, instead of gradually reducing how much you smoke over a period of time. Stopping smoking right away may be more successful than gradually quitting. Attend in-person counseling to help you build problem-solving skills. You are more likely to succeed in quitting if you attend counseling sessions regularly. Even short sessions of 10 minutes can be effective. Take medicine You may take medicines to help you quit smoking. Some medicines require a prescription. You can also purchase gohi-tia-pxgrgmi medicines. Medicines may have nicotine in them to replace the nicotine in cigarettes. Medicines may: Help to stop cravings. Help to relieve withdrawal symptoms. Your health care provider may recommend: Nicotine patches, gum, or lozenges. Nicotine inhalers or sprays. Non-nicotine medicine that you take by mouth. Find resources Find resources and support systems that can help you quit smoking and remain smoke-free after you quit. These resources are most helpful when you use them often. They include: Online chats with a counselor. Telephone quitlines. Printed self-help materials. Support groups or group counseling. Text messaging programs. Mobile phone apps or applications. Use apps that can help you stick to your quit plan by providing reminders, tips, and encouragement. Examples of free services include Quit Guide from the CDC and smokefree.gov What can I do to make it easier to quit? Reach out to your family and friends for support and encouragement. Call telephone quitlines, such as 8-673-BNKW-NOW, reach out to support groups, or work with a counselor for support. Ask people who smoke to avoid smoking around you. Avoid places that trigger you to smoke, such as bars, parties, or smoke-break areas at work. Spend time with people who do not smoke. Lessen the stress in your life. Stress can be a smoking trigger for some people. To lessen stress, try: ?Exercising regularly. ?Doing deep-breathing exercises. ?Doing yoga. ?Meditating. What benefits will I see if I quit smoking? Over time, you should start to see positive results, such as: Improved sense of smell and taste. Decreased coughing and sore throat. Slower heart rate. Lower blood pressure. Clearer and healthier skin. The ability to breathe more easily. Fewer sick days. Summary Quitting smoking can be very challenging. Do not get discouraged if you are not successful the first time. Some people need to make many attempts to quit before they achieve long-term success. When you decide to quit smoking, create a plan to help you succeed. Quit smoking right away, not slowly over a period of time. Find resources and support systems that can help you quit smoking and remain smoke-free after you quit. This information is not intended to replace advice given to you by your health care provider. Make sure you discuss any questions you have with your health care provider. Document Revised: 10/04/2022 Document Reviewed: 10/04/2022 [employer] Patient Education 2022 [employer]it! 360. 12/15/2023 07:40:26 Managing Anxiety, Adult Managing Anxiety, Adult After being diagnosed with anxiety, you may be relieved to know why you have felt or behaved a certain way. You may also feel overwhelmed about the treatment ahead and what it will mean for your life. With care and support, you can manage this condition. How to manage lifestyle changes Managing stress and anxiety Stress is your body's reaction to life changes and events, both good and bad. Most stress will lastjust a few hours, but stress can be ongoing and can lead to more than just stress. Although stress can play a major role in anxiety, it is not the same as anxiety. Stress is usually caused by something external, such as a deadline, test, or competition. Stress normally passes after the triggering event has ended. Anxiety is caused by something internal, such as imagining a terrible outcome or worrying that something will go wrong that will devastate you. Anxiety often does not go away even after the triggering event is over, and it can become long-term (chronic) worry. It is important to understand the differences between stress and anxiety and to manage your stress effectively so that it does not lead katie anxious response. Talk with your health care provider or a counselor to learn more about reducing anxiety and stress.He or she may suggest tension reduction techniques, such as: Music therapy. Spend time creating or listening to music that you enjoy and that inspires you. Mindfulness-based meditation. Practice being aware of your normal breaths while not trying to control your breathing. It can be done while sitting or walking. Centering prayer. This involves focusing on a word, phrase, or sacred image that means something toyou and brings you peace. Deep breathing. To do this, expand your stomach and inhale slowly through your nose. Hold your breath for 3 5 seconds. Then exhale slowly, letting your stomach muscles relax. Self-talk. Learn to notice and identify thought patterns that lead to anxiety reactions and change those patterns to thoughts that feel peaceful. Muscle relaxation. Taking time to tense muscles and then relax them. Choose a tension reduction technique that fits your lifestyle and personality. These techniques take time and practice. Set aside 5 15 minutes a day to do them. Therapists can offer counseling and training in these techniques. The training to help with anxiety may be covered by some insurance plans. Other things you can do to manage stress and anxiety include: Keeping a stress diary. This can help you learn what triggers your reaction and then learn ways to manage your response. Thinking about how you react to certain situations. You may not be able to control everything, but you can control your response. Making time for activities that help you relax and not feeling guilty about spending your time in this way. Doing visual imagery. This involves imagining or creating mental pictures to help you relax. Practicing yoga. Through yoga poses, you can lower tension and promote relaxation. Medicines Medicines can help ease symptoms. Medicines for anxiety include: Antidepressant medicines. These are usually prescribed for long-term daily control. Anti-anxiety medicines. These may be added in severe cases, especially when panic attacks occur. Medicines will be prescribed by a health care provider. When used together, medicines, psychotherapy, and tension reduction techniques may be the most effective treatment. Relationships Relationships can play a big part in helping you recover. Try to spend more time connecting with trusted friends and family members. Consider going to couples counseling if you have a partner, taking family education classes, or going to family therapy. Therapy can help you and others better understand your condition. How to recognize changes in your anxiety Everyone responds differently to treatment for anxiety. Recovery from anxiety happens when symptomsdecrease and stop interfering with your daily activities at home or work. This may mean that you will start to: Have better concentration and focus. Worry will interfere less in your daily thinking. Sleep better. Be less irritable. Have more energy. Have improved memory. It is also important to recognize when your condition is getting worse. Contact your health care provider if your symptoms interfere with home or work and you feel like your condition is not improving. Follow these instructions at home: Activity Exercise. Adults should do the following: ?Exercise for at least 150 minutes each week. The exercise should increase your heart rate and makeyou sweat (moderate-intensity exercise). ?Strengthening exercises at least twice a week. Get the right amount and quality of sleep. Most adults need 7 9 hours of sleep each night. Lifestyle Eat a healthy diet that includes plenty of vegetables, fruits, whole grains, low-fat dairy products, and lean protein. ?Do not eat a lot of foods that are high in fats, added sugars, or salt (sodium). Make choices that simplify your life. Do not use any products that contain nicotine or tobacco. These products include cigarettes, chewing tobacco, and vaping devices, such as e-cigarettes. If you need help quitting, ask your health careprovider. Avoid caffeine, alcohol, and certain tcmx-wko-syprjln cold medicines. These may make you feel worse. Ask your pharmacist which medicines to avoid. General instructions Take ltyq-zkr-sfhxvml and prescription medicines only as told by your health care provider. Keep all follow-up visits. This is important. Where to find support You can get help and support from these sources: Self-help groups. Online and community organizations. A trusted spiritual leader. Couples counseling. Family education classes. Family therapy. Where to find more information You may find that joining a support group helps you deal with your anxiety. The following sources can help you locate counselors or support groups near you: Mental Health [place]: www.mentalhealthamerica.net Anxiety and Depression Association of [place] (ADAA): www.adaa.org National [place] on Mental Illness ([place]): www.darling.org Contact a health care provider if: You have a hard time staying focused or finishing daily tasks. You spend many hours a day feeling worried about everyday life. You become exhausted by worry. You start to have headaches or frequently feel tense. You develop chronic nausea or diarrhea. Get help right away if: You have a racing heart and shortness of breath. You have thoughts of hurting yourself or others. If you ever feel like you may hurt yourself or others, or have thoughts about taking your own life,get help right away. Go to your nearest emergency department or: Call your local emergency services (276 in the [place] Call a suicide crisis helpline, such as the National Suicide Prevention Lifeline at or 829 in the [place] This is open 24 hours a day in the [place] Text the Crisis Text Line at 245025 (in the [place] Summary Taking steps to learn and use tension reduction techniques can help calm you and help prevent triggering an anxiety reaction. When used together, medicines, psychotherapy, and tension reduction techniques may be the most effective treatment. Family, friends, and partners can play a big part in supporting you. This information is not intended to replace advice given to you by your health care provider. Make sure you discuss any questions you have with your health care provider. Document Revised: 05/08/2022 Document Reviewed: 02/03/2022 [employer] Patient Education 2022 [employer]. 12/15/2023 07:40:25 Health Risks of Smoking Health Risks of Smoking Smoking tobacco is very bad for your health. Tobacco smoke contains many toxic chemicals that can damage every part of your body. Secondhand smoke can be harmful to those around you. Tobacco or nicotine use can cause many long-term (chronic) diseases. Smoking is difficult to quit because a chemical in tobacco, called nicotine, causes addiction or dependence. When you smoke and inhale, nicotine is absorbed quickly into your bloodstream through yourlungs. Both inhaled and non-inhaled nicotine may be addictive. How can quitting affect me? There are health benefits of quitting smoking. Some benefits happen right away and others take time. Benefits may include: Blood flow, blood pressure, heart rate, and lung capacity may begin to improve. However, any lung damage that has already occurred cannot be repaired. Respiratory symptoms from smoking, such as nasal congestion and cough, may improve over time. Your risk of heart disease, stroke, and cancer is reduced. The overall quality of your health may improve. You may save money, as you will not spend money on tobacco products and may spend less money on smoking-related health issues. What can increase my risk? Smoking harms nearly every organ in the body. People who smoke tobacco have a shorter life expectancy and an increased risk of many serious medical problems. These include: More respiratory infections, such as colds and pneumonia. Cancer. Heart disease. Stroke. Chronic respiratory diseases. Delayed wound healing and increased risk of complications during surgery. Problems with reproduction, , and childbirth, such as infertility, early (premature) births, stillbirths, and defects. Secondhand smoke exposure to children increases the risk of: Sudden infant syndrome (SIDS). Infections in the nose, throat, or airways (respiratory infections). Chronic respiratory symptoms. What actions can I take to quit? Smoking is an addiction that affects both your body and your mind, and long-time habits can be hardto change. Your health care provider can recommend: Nicotine replacement products, such as patches, gum, and nasal sprays. Use these products only as directed. Do not replace cigarette smoking with electronic cigarettes, which are commonly called e-cigarettes. The safety of e-cigarettes is not known, and some may contain harmful chemicals. Programs and community resources, which may include group support, education, or talk therapy. Prescription medicines to help reduce cravings. A combination of two or more quit methods, which may increase the success of quitting. Where to find support Follow the recommendations from your health care provider about support groups and other assistance. You can also visit: [place]. Department of Health and Human Services: www.smokefree.gov [employer]: www.freedomfromsmoking.org [place] [employer]: www.heart.org Where to find more information Centers for Disease Control and Prevention: www.cdc.gov World Health Organization: www.who.int Summary Smoking tobacco is very bad for your health. Tobacco smoke contains many toxic chemicals that can damage every part of the body. Smoking is difficult to quit because a chemical in tobacco, called nicotine, causes addiction or dependence. There are immediate and long-term health benefits of quitting smoking. A combination of two or more quit methods may increase the success of quitting. This information is not intended to replace advice given to you by your health care provider. Make sure you discuss any questions you have with your health care provider. Document Revised: 10/15/2022 Document Reviewed: 10/15/2022 [employer] Patient Education 2022 [employer]. 12/15/2023 07:40:24 Exercising to Lose Weight Exercising to Lose Weight Getting regular exercise is important for everyone. It is especially important if you are overweight. Being overweight increases your risk of heart disease, stroke, diabetes, high blood pressure, andseveral types of cancer. Exercising, and reducing the calories you consume, can help you lose weight and improve fitness and health. Exercise can be moderate or vigorous intensity. To lose weight, most people need to do a certain amount of moderate or vigorous-intensity exercise each week. How can exercise affect me? You lose weight when you exercise enough to burn more calories than you eat. Exercise also reduces body fat and builds muscle. The more muscle you have, the more calories you burn. Exercise also: Improves mood. Reduces stress and tension. Improves your overall fitness, flexibility, and endurance. Increases bone strength. Moderate-intensity exercise Moderate-intensity exercise is any activity that gets you moving enough to burn at least three times more energy (calories) than if you were sitting. Examples of moderate exercise include: Walking a mile in 15 minutes. Doing light yard work. Biking at an easy pace. Most people should get at least 150 minutes of moderate-intensity exercise a week to maintain theirbody weight. Vigorous-intensity exercise Vigorous-intensity exercise is any activity that gets you moving enough to burn at least six times more calories than if you were sitting. When you exercise at this intensity, you should be working hard enough that you are not able to carry on a conversation. Examples of vigorous exercise include: Running. Playing a team sport, such as football, basketball, and soccer. Jumping rope. Most people should get at least 75 minutes a week of vigorous exercise to maintain their body weight. What actions can I take to lose weight? The amount of exercise you need to lose weight depends on: Your age. The type of exercise. Any health conditions you have. Your overall physical ability. Talk to your health care provider about how much exercise you need and what types of activities aresafe for you. Nutrition Make changes to your diet as told by your health care provider or diet and food and nutrition professor (dietitian). This may include: ?Eating fewer calories. ?Eating more protein. ?Eating less unhealthy fats. ?Eating a diet that includes fresh fruits and vegetables, whole grains, low-fat dairy products, andlean protein. ?Avoiding foods with added fat, salt, and sugar. Drink plenty of water while you exercise to prevent dehydration or heat stroke. Activity Choose an activity that you enjoy and set realistic goals. Your health care provider can help you make an exercise plan that works for you. Exercise at a moderate or vigorous intensity most days of the week. ?The intensity of exercise may vary from person to person. You can tell how intense a workout is for you by paying attention to your breathing and heartbeat. Most people will notice their breathing and heartbeat get faster with more intense exercise. Do resistance training twice each week, such as: ?Push-ups. ?Sit-ups. ?Lifting weights. ?Using resistance bands. Getting short amounts of exercise can be just as helpful as long, structured periods of exercise. If you have trouble finding time to exercise, try doing these things as part of your daily routine: ?Get up, stretch, and walk around every 30 minutes throughout the day. ?Go for a walk during your lunch break. ?Park your car farther away from your destination. ?If you take public transportation, get off one stop early and walk the rest of the way. ?Make phone calls while standing up and walking around. ?Take the stairs instead of elevators or escalators. Wear comfortable clothes and shoes with good support. Do not exercise so much that you hurt yourself, feel dizzy, or get very short of breath. Where to find more information [place]. Department of Health and Human Services: www.hhs.gov Centers for Disease Control and Prevention: www.cdc.gov Contact a health care provider: Before starting a new exercise program. If you have questions or concerns about your weight. If you have a medical problem that keeps you from exercising. Get help right away if: You have any of the following while exercising: ?Injury. ?Dizziness. ?Difficulty breathing or shortness of breath that does not go away when you stop exercising. ?Chest pain. ?Rapid heartbeat. These symptoms may represent a serious problem that is an emergency. Do not wait to see if the symptoms will go away. Get medical help right away. Call your local emergency services (911 in the [place] Do not drive yourself to the hospital. Summary Getting regular exercise is especially important if you are overweight. Being overweight increases your risk of heart disease, stroke, diabetes, high blood pressure, and several types of cancer. Losing weight happens when you burn more calories than you eat. Reducing the amount of calories you eat, and getting regular moderate or vigorous exercise each week, helps you lose weight. This information is not intended to replace advice given to you by your health care provider. Make sure you discuss any questions you have with your health care provider. Document Revised: 12/09/2021 Document Reviewed: 12/09/2021 [employer] Patient Education 2022 [employer] 12/15/2023 07:40:24 BMI for Adults BMI for Adults What is BMI? Body mass index (BMI) is a number that is calculated from a person's weight and height. BMI can help estimate how much of a person's weight is composed of fat. BMI does not measure body fat directly.Rather, it is an alternative to procedures that directly measure body fat, which can be difficult and expensive. BMI can help identify people who may be at higher risk for certain medical problems. What are BMI measurements used for? BMI is used as a screening tool to identify possible weight problems. It helps determine whether a person is obese, overweight, a healthy weight, or underweight. BMI is useful for: Identifying a weight problem that may be related to a medical condition or may increase the risk for medical problems. Promoting changes, such as changes in diet and exercise, to help reach a healthy weight. BMI screening can be repeated to see if these changes are working. How is BMI calculated? BMI involves measuring your weight in relation to your height. Both height and weight are measured,and the BMI is calculated from those numbers. This can be done either in [place] ([place] or metric measurements. Note that charts and online BMI calculators are available to help you find your BMI quickly and easily without having to do these calculations yourself. To calculate your BMI in [place] ([place] measurements: 1.Measure your weight in pounds (lb). 2.Multiply the number of pounds by 703. For example, for a person who weighs 180 lb, multiply that number by 703, which equals 126,540. 3.Measure your height in inches. Then multiply that number by itself to get a measurement called inches squared. For example, for a person who is 70 inches tall, the inches squared measurement is 70 inches x 70inches, which equals 4,900 inches squared. 4.Divide the total from step 2 (number of lb x 703) by the total from step 3 (inches squared): 126,540 4,900 = 25.8. This is your BMI. To calculate your BMI in metric measurements: 1.Measure your weight in kilograms (kg). 2.Measure your height in meters (m). Then multiply that number by itself to get a measurement called meters squared. For example, for a person who is 1.75 m tall, the meters squared measurement is 1.75 m x 1.75 m, which is equal to 3.1 meters squared. 3.Divide the number of kilograms (your weight) by the meters squared number. In this example: 70 3.1 = 22.6. This is your BMI. What do the results mean? BMI charts are used to identify whether you are underweight, normal weight, overweight, or obese. The following guidelines will be used: Underweight: BMI less than 18.5. Normal weight: BMI between 18.5 and 24.9. Overweight: BMI between 25 and 29.9. Obese: BMI of 30 or above. Keep these notes in mind: Weight includes both fat and muscle, so someone with a muscular build, such as an athlete, may havea BMI that is higher than 24.9. In cases like these, BMI is not an accurate measure of body fat. To determine if excess body fat is the cause of a BMI of 25 or higher, further assessments may needto be done by a health care provider. BMI is usually interpreted in the same way for men and women. Where to find more information For more information about BMI, including tools to quickly calculate your BMI, go to these websites: Centers for Disease Control and Prevention: www.cdc.gov [employer]: www.heart.org National Heart, Lung, and Blood [place]: www.nhlbi.nih.gov Summary Body mass index (BMI) is a number that is calculated from a person's weight and height. BMI may help estimate how much of a person's weight is composed of fat. BMI can help identify thosewho may be at higher risk for certain medical problems. BMI can be measured using Serbian measurements or metric measurements. BMI charts are used to identify whether you are underweight, normal weight, overweight, or obese. This information is not intended to replace advice given to you by your health care provider. Make sure you discuss any questions you have with your health care provider. Document Revised: 07/05/2020 Document Reviewed: 05/12/2020 [employer] Patient Education 2022 [employer] 360. Follow Up Care 11/26/2023 10:20:28 With:Maura Vigil Address: [address] [place] [address], [place] [address]- When:Within 1 Month(s) Comments:weight loss, med [facility] 01-24-2024 Hospital Discharge instructions Patient Education 11/19/2023 07:06:34 Managing Depression, Adult Managing Depression, Adult Depression is a mental health condition that affects your thoughts, feelings, and actions. Being diagnosed with depression can bring you relief if you did not know why you have felt or behaved a certain way. It could also leave you feeling overwhelmed with uncertainty about your future. Preparing yourself to manage your symptoms can help you feel more positive about your future. How to manage lifestyle changes Managing stress Stress is your body's reaction to life changes and events, both good and bad. Stress can add to your feelings of depression. Learning to manage your stress can help lessen your feelings of depression. Try some of the following approaches to reducing your stress (stress reduction techniques): Listen to music that you enjoy and that inspires you. Try using a meditation ari or take a meditation class. Develop a practice that helps you connect with your spiritual self. Walk in nature, pray, or go to a place of mormon. Do some deep breathing. To do this, inhale slowly through your nose. Pause at the top of your inhale for a few seconds and then exhale slowly, letting your muscles relax. Practice yoga to help relax and work your muscles. Choose a stress reduction technique that suits your lifestyle and personality. These techniques take time and practice to develop. Set aside 5 15 minutes a day to do them. Therapists can offer training in these techniques. Other things you can do to manage stress include: Keeping a stress diary. Knowing your limits and saying no when you think something is too much. Paying attention to how you react to certain situations. You may not be able to control everything,but you can change your reaction. Adding humor to your life by watching funny films or TV shows. Making time for activities that you enjoy and that relax you. Medicines Medicines, such as antidepressants, are often a part of treatment for depression. Talk with your pharmacist or health care provider about all the medicines, supplements, and herbal products that you take, their possible side effects, and what medicines and other products are safe to take together. Make sure to report any side effects you may have to your health care provider. Relationships Your health care provider may suggest family therapy, couples therapy, or individual therapy as part of your treatment. How to recognize changes Everyone responds differently to treatment for depression. As you recover from depression, you may start to: Have more interest in doing activities. Feel less hopeless. Have more energy. Overeat less often, or have a better appetite. Have better mental focus. It is important to recognize if your depression is not getting better or is getting worse. The symptoms you had in the beginning may return, such as: Tiredness (fatigue) or low energy. Eating too much or too little. Sleeping too much or too little. Feeling restless, agitated, or hopeless. Trouble focusing or making decisions. Unexplained physical complaints. Feeling irritable, angry, or aggressive. If you or your family members notice these symptoms coming back, let your health care provider knowright away. Follow these instructions at home: Activity Try to get some form of exercise each day, such as walking, biking, swimming, or lifting weights. Practice stress reduction techniques. Engage your mind by taking a class or doing some volunteer work. Lifestyle Get the right amount and quality of sleep. Cut down on using caffeine, tobacco, alcohol, and other potentially harmful substances. Eat a healthy diet that includes plenty of vegetables, fruits, whole grains, low-fat dairy products, and lean protein. Do not eat a lot of foods that are high in solid fats, added sugars, or salt (sodium). General instructions Take [id number] and prescription medicines only as told by your health care provider. Keep all follow-up visits as told by your health care provider. This is important. Where to find support Talking to others Friends and family members can be sources of support and guidance. Talk to trusted friends or family members about your condition. Explain your symptoms to them, and let them know that you are working with a health care provider to treat your depression. Tell friends and family members how they also can be helpful. Finances Find appropriate mental health providers that fit with your financial situation. Talk with your health care provider about options to get reduced prices on your medicines. Where to find more information You can find support in your area from: Anxiety and Depression Association of [place] (ADAA): www.adaa.org Mental Health [place]: www.mentalhealthamerica.net National [place] on Mental Illness: www.darling.org Contact a health care provider if: You stop taking your antidepressant medicines, and you have any of these symptoms: ?Nausea. ?Headache. ?Light-headedness. ?Chills and body aches. ?Not being able to sleep (insomnia). You or your friends and family think your depression is getting worse. Get help right away if: You have thoughts of hurting yourself or others. If you ever feel like you may hurt yourself or others, or have thoughts about taking your own life,get help right away. Go to your nearest emergency department or: Call your local emergency services (1 in the [place] Call a suicide crisis helpline, such as the National Suicide Prevention Lifeline at or 585 in the [place] This is open 24 hours a day in the [place] Text the Crisis Text Line at 741474 (in the [place] Summary If you are diagnosed with depression, preparing yourself to manage your symptoms is a good way to feel positive about your future. Work with your health care provider on a management plan that includes stress reduction techniques,medicines (if applicable), therapy, and healthy lifestyle habits. Keep talking with your health care provider about how your treatment is working. If you have thoughts about taking your own life, call a suicide crisis helpline or text a crisis text line. This information is not intended to replace advice given to you by your health care provider. Make sure you discuss any questions you have with your health care provider. Document Revised: 05/08/2022 Document Reviewed: 08/23/2020 [employer] Patient Education 2022 [employer] 360. 11/19/2023 07:06:30 Managing Anxiety, Adult Managing Anxiety, Adult After being diagnosed with anxiety, you may be relieved to know why you have felt or behaved a certain way. You may also feel overwhelmed about the treatment ahead and what it will mean for your life. With care and support, you can manage this condition. How to manage lifestyle changes Managing stress and anxiety Stress is your body's reaction to life changes and events, both good and bad. Most stress will lastjust a few hours, but stress can be ongoing and can lead to more than just stress. Although stress can play a major role in anxiety, it is not the same as anxiety. Stress is usually caused by something external, such as a deadline, test, or competition. Stress normally passes after the triggering event has ended. Anxiety is caused by something internal, such as imagining a terrible outcome or worrying that something will go wrong that will devastate you. Anxiety often does not go away even after the triggering event is over, and it can become long-term (chronic) worry. It is important to understand the differences between stress and anxiety and to manage your stress effectively so that it does not lead katie anxious response. Talk with your health care provider or a counselor to learn more about reducing anxiety and stress.He or she may suggest tension reduction techniques, such as: Music therapy. Spend time creating or listening to music that you enjoy and that inspires you. Mindfulness-based meditation. Practice being aware of your normal breaths while not trying to control your breathing. It can be done while sitting or walking. Centering prayer. This involves focusing on a word, phrase, or sacred image that means something toyou and brings you peace. Deep breathing. To do this, expand your stomach and inhale slowly through your nose. Hold your breath for 3 5 seconds. Then exhale slowly, letting your stomach muscles relax. Self-talk. Learn to notice and identify thought patterns that lead to anxiety reactions and change those patterns to thoughts that feel peaceful. Muscle relaxation. Taking time to tense muscles and then relax them. Choose a tension reduction technique that fits your lifestyle and personality. These techniques take time and practice. Set aside 5 15 minutes a day to do them. Therapists can offer counseling and training in these techniques. The training to help with anxiety may be covered by some insurance plans. Other things you can do to manage stress and anxiety include: Keeping a stress diary. This can help you learn what triggers your reaction and then learn ways to manage your response. Thinking about how you react to certain situations. You may not be able to control everything, but you can control your response. Making time for activities that help you relax and not feeling guilty about spending your time in this way. Doing visual imagery. This involves imagining or creating mental pictures to help you relax. Practicing yoga. Through yoga poses, you can lower tension and promote relaxation. Medicines Medicines can help ease symptoms. Medicines for anxiety include: Antidepressant medicines. These are usually prescribed for long-term daily control. Anti-anxiety medicines. These may be added in severe cases, especially when panic attacks occur. Medicines will be prescribed by a health care provider. When used together, medicines, psychotherapy, and tension reduction techniques may be the most effective treatment. Relationships Relationships can play a big part in helping you recover. Try to spend more time connecting with trusted friends and family members. Consider going to couples counseling if you have a partner, taking family education classes, or going to family therapy. Therapy can help you and others better understand your condition. How to recognize changes in your anxiety Everyone responds differently to treatment for anxiety. Recovery from anxiety happens when symptomsdecrease and stop interfering with your daily activities at home or work. This may mean that you will start to: Have better concentration and focus. Worry will interfere less in your daily thinking. Sleep better. Be less irritable. Have more energy. Have improved memory. It is also important to recognize when your condition is getting worse. Contact your health care provider if your symptoms interfere with home or work and you feel like your condition is not improving. Follow these instructions at home: Activity Exercise. Adults should do the following: ?Exercise for at least 150 minutes each week. The exercise should increase your heart rate and makeyou sweat (moderate-intensity exercise). ?Strengthening exercises at least twice a week. Get the right amount and quality of sleep. Most adults need 7 9 hours of sleep each night. Lifestyle Eat a healthy diet that includes plenty of vegetables, fruits, whole grains, low-fat dairy products, and lean protein. ?Do not eat a lot of foods that are high in fats, added sugars, or salt (sodium). Make choices that simplify your life. Do not use any products that contain nicotine or tobacco. These products include cigarettes, chewing tobacco, and vaping devices, such as e-cigarettes. If you need help quitting, ask your health careprovider. Avoid caffeine, alcohol, and certain gwfx-gxg-rfkmgbt cold medicines. These may make you feel worse. Ask your pharmacist which medicines to avoid. General instructions Take wutb-deg-psjmbnb and prescription medicines only as told by your health care provider. Keep all follow-up visits. This is important. Where to find support You can get help and support from these sources: Self-help groups. Online and community organizations. A trusted spiritual leader. Couples counseling. Family education classes. Family therapy. Where to find more information You may find that joining a support group helps you deal with your anxiety. The following sources can help you locate counselors or support groups near you: Mental Health [place]: www.mentalhealthamerica.net Anxiety and Depression Association of [place] (ADAA): www.adaa.org National [place] on Mental Illness ([place]): www.darling.org Contact a health care provider if: You have a hard time staying focused or finishing daily tasks. You spend many hours a day feeling worried about everyday life. You become exhausted by worry. You start to have headaches or frequently feel tense. You develop chronic nausea or diarrhea. Get help right away if: You have a racing heart and shortness of breath. You have thoughts of hurting yourself or others. If you ever feel like you may hurt yourself or others, or have thoughts about taking your own life,get help right away. Go to your nearest emergency department or: Call your local emergency services (884 in the [place] Call a suicide crisis helpline, such as the National Suicide Prevention Lifeline at or 075 in the [place] This is open 24 hours a day in the [place] Text the Crisis Text Line at 076588 (in the [place] Summary Taking steps to learn and use tension reduction techniques can help calm you and help prevent triggering an anxiety reaction. When used together, medicines, psychotherapy, and tension reduction techniques may be the most effective treatment. Family, friends, and partners can play a big part in supporting you. This information is not intended to replace advice given to you by your health care provider. Make sure you discuss any questions you have with your health care provider. Document Revised: 05/08/2022 Document Reviewed: 02/03/2022 [employer] Patient Education 2022 [employer]. 11/19/2023 07:06:29 BMI for Adults BMI for Adults What is BMI? Body mass index (BMI) is a number that is calculated from a person's weight and height. BMI can help estimate how much of a person's weight is composed of fat. BMI does not measure body fat directly.Rather, it is an alternative to procedures that directly measure body fat, which can be difficult and expensive. BMI can help identify people who may be at higher risk for certain medical problems. What are BMI measurements used for? BMI is used as a screening tool to identify possible weight problems. It helps determine whether a person is obese, overweight, a healthy weight, or underweight. BMI is useful for: Identifying a weight problem that may be related to a medical condition or may increase the risk for medical problems. Promoting changes, such as changes in diet and exercise, to help reach a healthy weight. BMI screening can be repeated to see if these changes are working. How is BMI calculated? BMI involves measuring your weight in relation to your height. Both height and weight are measured,and the BMI is calculated from those numbers. This can be done either in [place] ([place] or metric measurements. Note that charts and online BMI calculators are available to help you find your BMI quickly and easily without having to do these calculations yourself. To calculate your BMI in [place] ([place] measurements: 1.Measure your weight in pounds (lb). 2.Multiply the number of pounds by 703. For example, for a person who weighs 180 lb, multiply that number by 703, which equals 126,540. 3.Measure your height in inches. Then multiply that number by itself to get a measurement called inches squared. For example, for a person who is 70 inches tall, the inches squared measurement is 70 inches x 70inches, which equals 4,900 inches squared. 4.Divide the total from step 2 (number of lb x 703) by the total from step 3 (inches squared): 126,540 4,900 = 25.8. This is your BMI. To calculate your BMI in metric measurements: 1.Measure your weight in kilograms (kg). 2.Measure your height in meters (m). Then multiply that number by itself to get a measurement called meters squared. For example, for a person who is 1.75 m tall, the meters squared measurement is 1.75 m x 1.75 m, which is equal to 3.1 meters squared. 3.Divide the number of kilograms (your weight) by the meters squared number. In this example: 70 3.1 = 22.6. This is your BMI. What do the results mean? BMI charts are used to identify whether you are underweight, normal weight, overweight, or obese. The following guidelines will be used: Underweight: BMI less than 18.5. Normal weight: BMI between 18.5 and 24.9. Overweight: BMI between 25 and 29.9. Obese: BMI of 30 or above. Keep these notes in mind: Weight includes both fat and muscle, so someone with a muscular build, such as an athlete, may havea BMI that is higher than 24.9. In cases like these, BMI is not an accurate measure of body fat. To determine if excess body fat is the cause of a BMI of 25 or higher, further assessments may needto be done by a health care provider. BMI is usually interpreted in the same way for men and women. Where to find more information For more information about BMI, including tools to quickly calculate your BMI, go to these websites: Centers for Disease Control and Prevention: www.cdc.gov [place] Heart Association: www.heart.org National Heart, Lung, and Blood [place]: www.nhlbi.nih.gov Summary Body mass index (BMI) is a number that is calculated from a person's weight and height. BMI may help estimate how much of a person's weight is composed of fat. BMI can help identify thosewho may be at higher risk for certain medical problems. BMI can be measured using Serbian measurements or metric measurements. BMI charts are used to identify whether you are underweight, normal weight, overweight, or obese. This information is not intended to replace advice given to you by your health care provider. Make sure you discuss any questions you have with your health care provider. Document Revised: 07/05/2020 Document Reviewed: 05/12/2020 [employer] Patient Education 2022 [employer] 360. Follow Up Care 10/17/2023 15:46:59 With:Maura Vigil Address: [address] [place] [address], [place] [address]- When:Within 1 Month(s) Comments:recheck pristiq/MDD/PRASANNA [facility] 05-26-2023 Hospital Discharge instructions Patient Education 03/21/2023 09:01:55 Managing Anxiety, Adult Managing Anxiety, Adult After being diagnosed with anxiety, you may be relieved to know why you have felt or behaved a certain way. You may also feel overwhelmed about the treatment ahead and what it will mean for your life. With care and support, you can manage this condition. How to manage lifestyle changes Managing stress and anxiety Stress is your body's reaction to life changes and events, both good and bad. Most stress will lastjust a few hours, but stress can be ongoing and can lead to more than just stress. Although stress can play a major role in anxiety, it is not the same as anxiety. Stress is usually caused by something external, such as a deadline, test, or competition. Stress normally passes after the triggering event has ended. Anxiety is caused by something internal, such as imagining a terrible outcome or worrying that something will go wrong that will devastate you. Anxiety often does not go away even after the triggering event is over, and it can become long-term (chronic) worry. It is important to understand the differences between stress and anxiety and to manage your stress effectively so that it does not lead katie anxious response. Talk with your health care provider or a counselor to learn more about reducing anxiety and stress.He or she may suggest tension reduction techniques, such as: Music therapy. Spend time creating or listening to music that you enjoy and that inspires you. Mindfulness-based meditation. Practice being aware of your normal breaths while not trying to control your breathing. It can be done while sitting or walking. Centering prayer. This involves focusing on a word, phrase, or sacred image that means something toyou and brings you peace. Deep breathing. To do this, expand your stomach and inhale slowly through your nose. Hold your breath for 3 5 seconds. Then exhale slowly, letting your stomach muscles relax. Self-talk. Learn to notice and identify thought patterns that lead to anxiety reactions and change those patterns to thoughts that feel peaceful. Muscle relaxation. Taking time to tense muscles and then relax them. Choose a tension reduction technique that fits your lifestyle and personality. These techniques take time and practice. Set aside 5 15 minutes a day to do them. Therapists can offer counseling and training in these techniques. The training to help with anxiety may be covered by some insurance plans. Other things you can do to manage stress and anxiety include: Keeping a stress diary. This can help you learn what triggers your reaction and then learn ways to manage your response. Thinking about how you react to certain situations. You may not be able to control everything, but you can control your response. Making time for activities that help you relax and not feeling guilty about spending your time in this way. Doing visual imagery. This involves imagining or creating mental pictures to help you relax. Practicing yoga. Through yoga poses, you can lower tension and promote relaxation. Medicines Medicines can help ease symptoms. Medicines for anxiety include: Antidepressant medicines. These are usually prescribed for long-term daily control. Anti-anxiety medicines. These may be added in severe cases, especially when panic attacks occur. Medicines will be prescribed by a health care provider. When used together, medicines, psychotherapy, and tension reduction techniques may be the most effective treatment. Relationships Relationships can play a big part in helping you recover. Try to spend more time connecting with trusted friends and family members. Consider going to couples counseling if you have a partner, taking family education classes, or going to family therapy. Therapy can help you and others better understand your condition. How to recognize changes in your anxiety Everyone responds differently to treatment for anxiety. Recovery from anxiety happens when symptomsdecrease and stop interfering with your daily activities at home or work. This may mean that you will start to: Have better concentration and focus. Worry will interfere less in your daily thinking. Sleep better. Be less irritable. Have more energy. Have improved memory. It is also important to recognize when your condition is getting worse. Contact your health care provider if your symptoms interfere with home or work and you feel like your condition is not improving. Follow these instructions at home: Activity Exercise. Adults should do the following: ?Exercise for at least 150 minutes each week. The exercise should increase your heart rate and makeyou sweat (moderate-intensity exercise). ?Strengthening exercises at least twice a week. Get the right amount and quality of sleep. Most adults need 7 9 hours of sleep each night. Lifestyle Eat a healthy diet that includes plenty of vegetables, fruits, whole grains, low-fat dairy products, and lean protein. ?Do not eat a lot of foods that are high in fats, added sugars, or salt (sodium). Make choices that simplify your life. Do not use any products that contain nicotine or tobacco. These products include cigarettes, chewing tobacco, and vaping devices, such as e-cigarettes. If you need help quitting, ask your health careprovider. Avoid caffeine, alcohol, and certain nrtw-xdw-hdtzoth cold medicines. These may make you feel worse. Ask your pharmacist which medicines to avoid. General instructions Take vsco-usv-tubaawp and prescription medicines only as told by your health care provider. Keep all follow-up visits. This is important. Where to find support You can get help and support from these sources: Self-help groups. Online and community organizations. A trusted spiritual leader. Couples counseling. Family education classes. Family therapy. Where to find more information You may find that joining a support group helps you deal with your anxiety. The following sources can help you locate counselors or support groups near you: Mental Health [place]: www.mentalhealthamerica.net Anxiety and Depression Association of [place] (ADAA): www.adaa.org National [place] on Mental Illness ([place]): www.darling.org Contact a health care provider if: You have a hard time staying focused or finishing daily tasks. You spend many hours a day feeling worried about everyday life. You become exhausted by worry. You start to have headaches or frequently feel tense. You develop chronic nausea or diarrhea. Get help right away if: You have a racing heart and shortness of breath. You have thoughts of hurting yourself or others. If you ever feel like you may hurt yourself or others, or have thoughts about taking your own life,get help right away. Go to your nearest emergency department or: Call your local emergency services (156 in the [place] Call a suicide crisis helpline, such as the National Suicide Prevention Lifeline at or 715 in the [place] This is open 24 hours a day in the [place] Text the Crisis Text Line at 316616 (in the [place] Summary Taking steps to learn and use tension reduction techniques can help calm you and help prevent triggering an anxiety reaction. When used together, medicines, psychotherapy, and tension reduction techniques may be the most effective treatment. Family, friends, and partners can play a big part in supporting you. This information is not intended to replace advice given to you by your health care provider. Make sure you discuss any questions you have with your health care provider. Document Revised: 05/08/2022 Document Reviewed: 02/03/2022 [employer] Patient Education 2022 [employer] 03/21/2023 09:01:54 Major Depressive Disorder, Adult Major Depressive Disorder, Adult Major depressive disorder (MDD) is a mental health condition. It may also be called clinical depression or unipolar depression. MDD causes symptoms of sadness, hopelessness, and loss of interest in things. These symptoms last most of the day, almost every day, for 2 weeks. MDD can also cause physical symptoms. It can interfere with relationships and with everyday activities, such as work, school,and activities that are usually pleasant. MDD may be mild, moderate, or severe. It may be single-episode MDD, which happens once, or recurrent MDD, which may occur multiple times. What are the causes? The exact cause of this condition is not known. MDD is most likely caused by a combination of things, which may include: Your personality traits. [place] or conditioned behaviors or thoughts or feelings that reinforce negativity. Any alcohol or substance misuse. Long-term (chronic) physical or mental health illness. Going through a traumatic experience or major life changes. What increases the risk? The following factors may make someone more likely to develop MDD: A family history of depression. Being a woman. Troubled family relationships. Abnormally low levels of certain brain chemicals. Traumatic or painful events in childhood, especially abuse or loss of a parent. A lot of stress from life experiences, such as poor living conditions or discrimination. Chronic physical illness or other mental health disorders. What are the signs or symptoms? The main symptoms of MDD usually include: Constant depressed or irritable mood. A loss of interest in things and activities. Other symptoms include: Sleeping or eating too much or too little. Unexplained weight gain or weight loss. Tiredness or low energy. Being agitated, restless, or weak. Feeling hopeless, worthless, or guilty. Trouble thinking clearly or making decisions. Thoughts of suicide or thoughts of harming others. Isolating oneself or avoiding other people or activities. Trouble completing tasks, work, or any normal obligations. Severe symptoms of this condition may include: Psychotic depression.This may include false beliefs, or delusions. It may also include seeing, hearing, tasting, smelling, or feeling things that are not real (hallucinations). Chronic depression or persistent depressive disorder. This is low-level depression that lasts for at least 2 years. Melancholic depression, or feeling extremely sad and hopeless. Catatonic depression, which includes trouble speaking and trouble moving. How is this diagnosed? This condition may be diagnosed based on: Your symptoms. Your medical and mental health history. You may be asked questions about your lifestyle, including any drug and alcohol use. A physical exam. Blood tests to rule out other conditions. MDD is confirmed if you have the following symptoms most of the day, nearly every day, in a 2-week period: Either a depressed mood or loss of interest. At least four other MDD symptoms. How is this treated? This condition is usually treated by mental health professionals, such as psychologists, psychiatrists, and clinical social workers. You may need more than one type of treatment. Treatment may include: Psychotherapy, also called talk therapy or counseling. Types of psychotherapy include: ?Cognitive behavioral therapy (CBT). This teaches you to recognize unhealthy feelings, thoughts, and behaviors, and replace them with positive thoughts and actions. ?Interpersonal therapy (IPT). This helps you to improve the way you communicate with others or relate to them. ?Family therapy. This treatment includes members of your family. Medicines to treat anxiety and depression. These medicines help to balance the brain chemicals thataffect your emotions. Lifestyle changes. You may be asked to: ?Limit alcohol use and avoid drug use. ?Get regular exercise. ?Get plenty of sleep. ?Make healthy eating choices. ?Spend more time outdoors. Brain stimulation. This may be done if symptoms are very severe and other treatments have not worked. Examples of this treatment are electroconvulsive therapy and transcranial magnetic stimulation. Follow these instructions at home: Activity Exercise regularly and spend time outdoors. Find activities that you enjoy doing, and make time to do them. Find healthy ways to manage stress, such as: ?Meditation or deep breathing. ?Spending time in nature. ?Journaling. Return to your normal activities as told by your health care provider. Ask your health care provider what activities are safe for you. Alcohol and drug use If you drink alcohol: ?Limit how much you use to: ?0 1 drink a day for women who are not . ?0 2 drinks a day for men. ?Be aware of how much alcohol is in your drink. In the [place] one drink equals one 12 oz bottle of beer (355 mL), one 5 oz glass of wine (148 mL), or one 1 oz glass of hard liquor (44 mL). ?Discuss your alcohol use with your health care provider. Alcohol can affect any antidepressant medicines you are taking. Discuss any drug use with your health care provider. General instructions Take efau-tuc-wxgewzg and prescription medicines only as told by your health care provider. Eat a healthy diet and get plenty of sleep. Consider joining a support group. Your health care provider may be able to recommend one. Keep all follow-up visits as told by your health care provider. This is important. Where to find more information National [place] on Mental Illness: www.darling.org [place] National [place] of Mental Health: www.nimh.nih.gov Contact a health care provider if: Your symptoms get worse. You develop new symptoms. Get help right away if: You self-harm. You have serious thoughts about hurting yourself or others. You hallucinate. If you ever feel like you may hurt yourself or others, or have thoughts about taking your own life,get help right away. Go to your nearest emergency department or: Call your local emergency services (648 in the [place] Call a suicide crisis helpline, such as the National Suicide Prevention Lifeline at or 118 in the [place] This is open 24 hours a day in the [place] Text the Crisis Text Line at 192709 (in the [place] Summary Major depressive disorder (MDD) is a mental health condition. MDD causes symptoms of sadness, hopelessness, and loss of interest in things. These symptoms last most of the day, almost every day, for 2 weeks. The symptoms of MDD can interfere with relationships and with everyday activities. Treatments and support are available for people who develop MDD. You may need more than one type oftreatment. Get help right away if you have serious thoughts about hurting yourself or others. This information is not intended to replace advice given to you by your health care provider. Make sure you discuss any questions you have with your health care provider. Document Revised: 05/08/2022 Document Reviewed: 09/23/2020 [employer] Patient Education 2022 [employer]. 03/21/2023 09:01:53 Health Risks of Smoking Health Risks of Smoking Smoking tobacco is very bad for your health. Tobacco smoke contains many toxic chemicals that can damage every part of your body. Secondhand smoke can be harmful to those around you. Tobacco or nicotine use can cause many long-term (chronic) diseases. Smoking is difficult to quit because a chemical in tobacco, called nicotine, causes addiction or dependence. When you smoke and inhale, nicotine is absorbed quickly into your bloodstream through yourlungs. Both inhaled and non-inhaled nicotine may be addictive. How can quitting affect me? There are health benefits of quitting smoking. Some benefits happen right away and others take time. Benefits may include: Blood flow, blood pressure, heart rate, and lung capacity may begin to improve. However, any lung damage that has already occurred cannot be repaired. Respiratory symptoms from smoking, such as nasal congestion and cough, may improve over time. Your risk of heart disease, stroke, and cancer is reduced. The overall quality of your health may improve. You may save money, as you will not spend money on tobacco products and may spend less money on smoking-related health issues. What can increase my risk? Smoking harms nearly every organ in the body. People who smoke tobacco have a shorter life expectancy and an increased risk of many serious medical problems. These include: More respiratory infections, such as colds and pneumonia. Cancer. Heart disease. Stroke. Chronic respiratory diseases. Delayed wound healing and increased risk of complications during surgery. Problems with reproduction, , and childbirth, such as infertility, early (premature) births, stillbirths, and defects. Secondhand smoke exposure to children increases the risk of: Sudden syndrome (SIDS). Infections in the nose, throat, or airways (respiratory infections). Chronic respiratory symptoms. What actions can I take to quit? Smoking is an addiction that affects both your body and your mind, and long-time habits can be hardto change. Your health care provider can recommend: Nicotine replacement products, such as patches, gum, and nasal sprays. Use these products only as directed. Do not replace cigarette smoking with electronic cigarettes, which are commonly called e-cigarettes. The safety of e-cigarettes is not known, and some may contain harmful chemicals. Programs and community resources, which may include group support, education, or talk therapy. Prescription medicines to help reduce cravings. A combination of two or more quit methods, which may increase the success of quitting. Where to find support Follow the recommendations from your health care provider about support groups and other assistance. You can also visit: U.S. Department of Health and Human Services: www.smokefree.gov [employer]: www.freedomfromsmoking.org [employer]: www.heart.org Where to find more information Centers for Disease Control and Prevention: www.cdc.gov World Health Organization: www.who.int Summary Smoking tobacco is very bad for your health. Tobacco smoke contains many toxic chemicals that can damage every part of the body. Smoking is difficult to quit because a chemical in tobacco, called nicotine, causes addiction or dependence. There are immediate and long-term health benefits of quitting smoking. A combination of two or more quit methods may increase the success of quitting. This information is not intended to replace advice given to you by your health care provider. Make sure you discuss any questions you have with your health care provider. Document Revised: 10/15/2022 Document Reviewed: 10/15/2022 [employer] Patient Education 2022 [employer] 360. 03/21/2023 09:01:52 Health Maintenance, Female Health Maintenance, Female Adopting a healthy lifestyle and getting preventive care are important in promoting health and wellness. Ask your health care provider about: The right schedule for you to have regular tests and exams. Things you can do on your own to prevent diseases and keep yourself healthy. What should I know about diet, weight, and exercise? Eat a healthy diet Eat a diet that includes plenty of vegetables, fruits, low-fat dairy products, and lean protein. Do not eat a lot of foods that are high in solid fats, added sugars, or sodium. Maintain a healthy weight Body mass index (BMI) is used to identify weight problems. It estimates body fat based on height and weight. Your health care provider can help determine your BMI and help you achieve or maintain a healthy weight. Get regular exercise Get regular exercise. This is one of the most important things you can do for your health. Most adults should: Exercise for at least 150 minutes each week. The exercise should increase your heart rate and make you sweat (moderate-intensity exercise). Do strengthening exercises at least twice a week. This is in addition to the moderate-intensity exercise. Spend less time sitting. Even light physical activity can be beneficial. Watch cholesterol and blood lipids Have your blood tested for lipids and cholesterol at 20 years of age, then have this test every 5 years. Have your cholesterol levels checked more often if: Your lipid or cholesterol levels are high. You are older than 40 years of age. You are at high risk for heart disease. What should I know about cancer screening? Depending on your health history and family history, you may need to have cancer screening at various ages. This may include screening for: Breast cancer. Cervical cancer. Colorectal cancer. Skin cancer. Lung cancer. What should I know about heart disease, diabetes, and high blood pressure? Blood pressure and heart disease High blood pressure causes heart disease and increases the risk of stroke. This is more likely to develop in people who have high blood pressure readings or are overweight. Have your blood pressure checked: ?Every 3 5 years if you are 18 39 years of age. ?Every year if you are 40 years old or older. Diabetes Have regular diabetes screenings. This checks your fasting blood sugar level. Have the screening done: Once every three years after age 40 if you are at a normal weight and have a low risk for diabetes. More often and at a younger age if you are overweight or have a high risk for diabetes. What should I know about preventing infection? Hepatitis B If you have a higher risk for hepatitis B, you should be screened for this virus. Talk with your health care provider to find out if you are at risk for hepatitis B infection. Hepatitis C Testing is recommended for: Everyone born from 1945 through 1965. Anyone with known risk factors for hepatitis C. Sexually transmitted infections (STIs) Get screened for STIs, including gonorrhea and chlamydia, if: ?You are sexually active and are younger than 24 years of age. ?You are older than 24 years of age and your health care provider tells you that you are at risk for this type of infection. ?Your sexual activity has changed since you were last screened, and you are at increased risk for chlamydia or gonorrhea. Ask your health care provider if you are at risk. Ask your health care provider about whether you are at high risk for HIV. Your health care providermay recommend a prescription medicine to help prevent HIV infection. If you choose to take medicineto prevent HIV, you should first get tested for HIV. You should then be tested every 3 months for as long as you are taking the medicine. If you are about to stop having your period (premenopausal) and you may become , seek counseling before you get . Take 400 to 800 micrograms (mcg) of folic acid every day if you become . Ask for control (contraception) if you want to prevent . Osteoporosis and menopause Osteoporosis is a disease in which the bones lose minerals and strength with aging. This can resultin bone fractures. If you are 65 years old or older, or if you are at risk for osteoporosis and fractures, ask your health care provider if you should: Be screened for bone loss. Take a calcium or vitamin D supplement to lower your risk of fractures. Be given hormone replacement therapy (HRT) to treat symptoms of menopause. Follow these instructions at home: Alcohol use Do not drink alcohol if: ?Your health care provider tells you not to drink. ?You are , may be , or are planning to become . If you drink alcohol: ?Limit how much you have to: ?0 1 drink a day. ?Know how much alcohol is in your drink. In the [place] one drink equals one 12 oz bottle of beer (355 mL), one 5 oz glass of wine (148 mL), or one 1 oz glass of hard liquor (44 mL). Lifestyle Do not use any products that contain nicotine or tobacco. These products include cigarettes, chewing tobacco, and vaping devices, such as e-cigarettes. If you need help quitting, ask your health careprovider. Do not use street drugs. Do not share needles. Ask your health care provider for help if you need support or information about quitting drugs. General instructions Schedule regular health, dental, and eye exams. Stay current with your vaccines. Tell your health care provider if: ?You often feel depressed. ?You have ever been abused or do not feel safe at home. Summary Adopting a healthy lifestyle and getting preventive care are important in promoting health and wellness. Follow your health care provider's instructions about healthy diet, exercising, and getting tested or screened for diseases. Follow your health care provider's instructions on monitoring your cholesterol and blood pressure. This information is not intended to replace advice given to you by your health care provider. Make sure you discuss any questions you have with your health care provider. Document Revised: 03/04/2022 Document Reviewed: 03/04/2022 [employer] Patient Education 2022 [employer] 360. 03/21/2023 09:01:51 BMI for Adults BMI for Adults What is BMI? Body mass index (BMI) is a number that is calculated from a person's weight and height. BMI can help estimate how much of a person's weight is composed of fat. BMI does not measure body fat directly.Rather, it is an alternative to procedures that directly measure body fat, which can be difficult and expensive. BMI can help identify people who may be at higher risk for certain medical problems. What are BMI measurements used for? BMI is used as a screening tool to identify possible weight problems. It helps determine whether a person is obese, overweight, a healthy weight, or underweight. BMI is useful for: Identifying a weight problem that may be related to a medical condition or may increase the risk for medical problems. Promoting changes, such as changes in diet and exercise, to help reach a healthy weight. BMI screening can be repeated to see if these changes are working. How is BMI calculated? BMI involves measuring your weight in relation to your height. Both height and weight are measured,and the BMI is calculated from those numbers. This can be done either in [place] ([place] or metric measurements. Note that charts and online BMI calculators are available to help you find your BMI quickly and easily without having to do these calculations yourself. To calculate your BMI in [place] ([place] measurements: 1.Measure your weight in pounds (lb). 2.Multiply the number of pounds by 703. For example, for a person who weighs 180 lb, multiply that number by 703, which equals 126,540. 3.Measure your height in inches. Then multiply that number by itself to get a measurement called inches squared. For example, for a person who is 70 inches tall, the inches squared measurement is 70 inches x 70inches, which equals 4,900 inches squared. 4.Divide the total from step 2 (number of lb x 703) by the total from step 3 (inches squared): 126,540 4,900 = 25.8. This is your BMI. To calculate your BMI in metric measurements: 1.Measure your weight in kilograms (kg). 2.Measure your height in meters (m). Then multiply that number by itself to get a measurement called meters squared. For example, for a person who is 1.75 m tall, the meters squared measurement is 1.75 m x 1.75 m, which is equal to 3.1 meters squared. 3.Divide the number of kilograms (your weight) by the meters squared number. In this example: 70 3.1 = 22.6. This is your BMI. What do the results mean? BMI charts are used to identify whether you are underweight, normal weight, overweight, or obese. The following guidelines will be used: Underweight: BMI less than 18.5. Normal weight: BMI between 18.5 and 24.9. Overweight: BMI between 25 and 29.9. Obese: BMI of 30 or above. Keep these notes in mind: Weight includes both fat and muscle, so someone with a muscular build, such as an athlete, may havea BMI that is higher than 24.9. In cases like these, BMI is not an accurate measure of body fat. To determine if excess body fat is the cause of a BMI of 25 or higher, further assessments may needto be done by a health care provider. BMI is usually interpreted in the same way for men and women. Where to find more information For more information about BMI, including tools to quickly calculate your BMI, go to these websites: Centers for Disease Control and Prevention: www.cdc.gov [employer]: www.heart.org National Heart, Lung, and Blood [place]: www.nhlbi.nih.gov Summary Body mass index (BMI) is a number that is calculated from a person's weight and height. BMI may help estimate how much of a person's weight is composed of fat. BMI can help identify thosewho may be at higher risk for certain medical problems. BMI can be measured using Serbian measurements or metric measurements. BMI charts are used to identify whether you are underweight, normal weight, overweight, or obese. This information is not intended to replace advice given to you by your health care provider. Make sure you discuss any questions you have with your health care provider. Document Revised: 07/05/2020 Document Reviewed: 05/12/2020 [employer] Patient Education 2022 [employer]! 360. Follow Up Care 02/27/2023 08:39:34 With:Maura Vigil Address: [address] [place] [address] [place] [address]- When:Within 1 Month(s) Comments:f/u MDD/PRASANNA [facility] Primary Care Evaluation + Plan note Future Appointments Appointment Date:04/22/2023 07:40:00 AM Scheduled Provider:Maura Vigil Location:[facility] Appointment Type:FM Open Future Scheduled Tests Laboratory* TSH With T4fr Reflex 03/21/23 * CBC w/ Auto Diff 03/21/23 * Comprehensive Metabolic Panel 03/21/23 * Lipid Panel 03/21/23 [facility] Primary Care Evaluation + Plan note Future Appointments Appointment Date:11/26/2023 10:00:00 AM Scheduled Provider:Maura Vigil Location:[facility] Appointment Type: Open Future Scheduled Tests Laboratory* TSH With T4fr Reflex 03/21/23 * CBC w/ Auto Diff 03/21/23 * Comprehensive Metabolic Panel 03/21/23 * [facility] Appointment Date:12/23/2023 09:20:00 AM Scheduled Provider:Maura Vigil Location:[facility] Appointment Type: Open Future Scheduled Tests Laboratory* TSH With T4fr Reflex 03/21/23 * CBC w/ Auto Diff 03/21/23 * Comprehensive Metabolic Panel 03/21/23 * Lipid Panel 03/21/23 [facility] Primary Care Evaluation + Plan note Future Appointments Appointment Date:12/23/2023 09:20:00 AM Scheduled Provider:Maura Vigil [facility] Appointment Date:12/24/2023 03:20:00 PM Scheduled Provider:Maura Vigil Location:[facility] Appointment Type:[facility] Primary Care evaluation + Plan note Future Appointments Appointment Date:03/24/2024 03:20:00 PM Scheduled Provider:Maura Vigil Location:[facility] Appointment Type:[facility] Primary Care Evaluation + Plan note Future Appointments Appointment Date:05/12/2024 08:00:00 AM Scheduled Provider:Maura Vigil Location:[facility] Appointment Type:[facility] Primary Care evaluation + Plan note Future Appointments Appointment Date:09/13/2024 11:40:00 AM Scheduled Provider:Maura Vigil Location:[facility] Appointment Type:[facility] Primary Care Evaluation + Plan note Future Appointments Appointment Date:10/26/2024 11:40:00 AM Scheduled Provider:Maura Vigil Location:[facility] Appointment Type:[facility] Primary Care Evaluation + Plan note Future Appointments Appointment Date:04/19/2025 10:20:00 AM Scheduled Provider:Maura Vigil Location:[facility] Appointment Type:[facility] Primary Care evaluation + Plan note Future Appointments Appointment Date:12/30/2024 04:45:00 PM Scheduled Provider: Location:[facility] Physical Tx Appointment Type:PT Traction Second (FT) Appointment Date:01/04/2025 04:45:00 PM Scheduled Provider: Location:[facility] Physical Tx Appointment Type:PT Traction Second (FT) Appointment Date:01/06/2025 04:45:00 PM Scheduled Provider: Location:[facility] Physical Tx Appointment Type:PT Traction Second (FT) Appointment Date:01/11/2025 04:45:00 PM Scheduled Provider: Location:[facility] Physical Tx Appointment Type:PT Traction Second (FT) Appointment Date:01/13/2025 04:45:00 PM Scheduled Provider: Location:[facility] Physical Tx Appointment Type:PT Traction Second (FT) Appointment Date:01/18/2025 04:45:00 PM Scheduled Provider: Location:[facility] Physical Tx Appointment Type:PT Traction Second (FT) Appointment Date:01/19/2025 04:00:00 PM Scheduled Provider: Location:[facility] Physical Tx Appointment Type:PT Re-Eval 45 (FT) Appointment Date:04/19/2025 10:20:00 AM Scheduled Provider:Maura Vigil Location:[facility] Appointment Type:[facility] Scheduled Tests Radiology* MRI Spine Lumbar w/o Contrast 12/28/24 [facility] Primary Care Evaluation + Plan note Future Appointments Appointment Date:04/19/2025 10:20:00 AM Scheduled Provider:Maura Vigil Location:[facility] Appointment Type:FM Open Appointment Date:05/11/2025 08:00:00 AM Scheduled Provider:Jesusita Boo PA-C Location:[facility] Appointment Type:Pain Management - Follow Up (FT) [facility] Evaluation + Plan note Future Appointments Appointment Date:05/11/2025 08:00:00 AM Scheduled Provider:Jesusita Boo PA-C Location:[facility] Appointment Type:Pain Management - Follow Up (FT) Appointment Date:10/18/2025 11:00:00 AM Scheduled Provider:Maura Vigil Location:[facility] Appointment Type:FM Open Future Scheduled Tests Laboratory* TSH With T4fr Reflex 04/19/25 * Vitamin D 25 Hydroxy 04/19/25 * CBC w/ Auto Diff 04/19/25 * Comprehensive Metabolic Panel 04/19/25 * Lipid Panel 04/19/25 [facility] Primary Care evaluhymjy note* Diagnosis Pelvic pain in female Unspecified symptom associated with female genital organs Dyspareunia in female [facility] Diagnosis Encounter for gynecological examination without abnormal finding- Primary Intrauterine contraceptive device threads lost, initial encounter Pelvic pain in female Unspecified symptom associated with female genital organs Dysmenorrhea [facility]* Diagnosis Dermatitis, drug-induced- Primary Dermatitis due to drugs and medicines taken internally [facility]* Diagnosis Abnormal uterine bleeding (AUB) Menorrhagia with regular cycle Dyspareunia, female [facility]* Diagnosis Allergic contact dermatitis due to drugs in contact with skin- Primary Chronic rhinitis Adverse effect of corticosteroids, subsequent encounter Allergic urticaria [facility]* Diagnosis Allergic contact dermatitis due to cosmetics- Primary [facility]* Diagnosis Allergic contact dermatitis due to cosmetics- Primary [facility]* Diagnosis Well woman exam with routine gynecological exam Routine gynecological examination [facility] Narrative No data available for this section [facility] Hospital Discharge instructions No data available for this section [facility] data available for this section [facility] Reason for referral (narrative) , please refer to Dr. Louise Referred by: Mike WILLIS, Maura Mendoza [facility] Primary Care Summary Purpose Family History No Family History Records FoundNo Family History Records Found No data available for this section No data available for this section No data available for this section No data available for this section No data available for this section No data available for this section No data available for this section No data available for this section No data available for this section No data available for this section No data available for this section No data available for this section No data available for this section No data available for this section No data available for this section No data available for this section No data available for this section No data available for this section No data available for this section No Family History Records FoundNo Family History Records Found Advance Directives No Advanced Directives Records FoundNo Advanced Directives Records FoundNo Advanced Directives Records FoundNo Advanced Directives Records Found Additional Source Comments INFORMATION SOURCE (unrecogn ized section and content) DATE CREATED AUTHOR 04/28/2018 [facility] DATE CREATED AUTHOR AUTHOR'S ORGANIZ ATION 10/04/2018 [facility] DATE CREATED AUTHOR AUTHOR'S ORGANIZ ATION 04/20/2025 [facility] DATE CREATED AUTHOR AUTHOR'S ORGANIZ ATION 07/12/2025 [facility] EPIC Patient Care team informatio n (unrecognized section and content) Special Education Tutor Relationship Specialty Start Date End Date Unallocated, MD [facility] [address] PCP - General 04/07/23 Special Education Tutor Relationship Specialty Start Date End Date Unallocated, [place] [address] PCP - General 04/07/23 Special Education Tutor Relationship Specialty Start Date End Date Unallocated, Elliott Henderson MD [facility] [place] [address] PCP - General 04/07/23 Special Education Tutor Relationship Specialty Start Date End Date Unallocated, Elliott Henderson MD [facility] [place] [address] PCP - General 04/07/23 Special Education Tutor Relationship Specialty Start Date End Date Unallocated, Elliott Henderson MD [facility] [place] [address] PCP - General 04/07/23 Special Education Tutor Relationship Specialty Start Date End Date Unallocated, Elliott Henderson MD [facility] [place] [address] PCP - General 04/07/23 Special Education Tutor Relationship Specialty Start Date End Date Unallocated, Elliott Henderson MD [facility] [place] [address] PCP - General 04/07/23 Special Education Tutor Relationship Specialty Start Date End Date Unallocated, Elliott Henderson MD [facility] [place] [address] PCP - General 04/07/23 Special Education Tutor Relationship Specialty Start Date End Date Unallocated, Elliott Henderson MD [facility] [place] [address] PCP - General 04/07/23 Special Education Tutor Relationship Specialty Start Date End Date Unallocated, Elliott Henderson MD [facility] [place] [address] PCP - General 04/07/23 Special Education Tutor Relationship Specialty Start Date End Date Unallocated, Elliott Henderson MD [facility] [place] [address] PCP - General 04/07/23 Special Education Tutor Relationship Specialty Start Date End Date Unallocated, Elliott Henderson MD [address] [place] [address] PCP - General 04/07/23 Special Education Tutor Relationship Specialty Start Date End Date Unallocated, Elliott Henderson MD [address] [place] [address] PCP - General 04/07/23 Special Education Tutor Relationship Specialty Start Date End Date Unallocated, Elliott Henderson MD [address] [facility] [place] [address] PCP - General 04/07/23 Special Education Tutor Relationship Specialty Start Date End Date Unallocated, Elliott Henderson MD [address] [place] [address] PCP General 04/07/23 Special Education Tutor Relationship Specialty Start Date End Date Unallocated, Elliott Henderson MD [address] [place] [address] [place] [facility] 04/07/23 Reason for Visit (unrecogniz ed section and content) Reason Comments Pelvic Pain Reason Comments Vaginal Bleeding Pt present today to discuss AUB. Reason Comments Allergy Testing Patch testing along with steroid and anesthetic panels Reason Comments Follow-up First patch read Reason Comments Follow-up Follow up 2 patch re ad Reason Comments [facility] Women Visit FOR RECORDS PERTAINING TO PATIENTS WHO ARE OR HAVE BEEN ENROLLED IN A CHEMICAL DEPENDENCY/SUBSTANCEABUSE PROGRAM, SOME INFORMATION MAY BE OMITTED. This clinical summary was aggregated from multiple sources. Caution should be exercised in using it in the provision of clinical care. This summary normalizes information from multiple sources, and as a consequence, information in this document may materially change the coding, format and clinical context of patient data. In addition, data may be omitted in some cases. CLINICAL DECISIONS SHOULD BE BASED ON THE PRIMARY CLINICAL RECORDS. [employer] [facility] provides no warranty or guarantee of the accuracy or completeness of information in this document.
[2025-07-20 15:08] LABS: Age Gdln ACOG Testing Note (.); IGP, Aptima HPV, rfx 16/18,45 Note (.)
== END 2025-07-14 19:38 | disposition home or self-care (01) ==
LOC: LAB 19:37
PROVIDERS: Visit Provider Physician Assistant
DX: Z01.419 Encounter for gynecological examination (general) (routine) without abnormal findings (principal)
CPT/HCPCS: 87624; 88175